=== PATIENT | male | born 1950 | race Caucasian/White ===

== ENCOUNTER → 2018-05-21 | Outpatient (CLI) | payer MEDICARE ==
[2018-05-21 09:47] LABS: POC GLUCOSE 132 mg/dL (70-99)
[2018-05-21] MEDS: REGADENOSON 0.4 MG/5 ML DISP.SYRIN. IV (09:53)
== END | disposition home or self-care (01) ==
LOC: NM 07:52
DX: I47.1 Supraventricular tachycardia (principal); I10 Essential (primary) hypertension; E11.9 Type 2 diabetes mellitus without complications; E87.5 Hyperkalemia; K21.0 Gastro-esophageal reflux disease with esophagitis
CPT/HCPCS: 78452; 82962; 93017; 96374; 96375; 96376; A9500; J2785

== ENCOUNTER 2019-03-11 22:43 | Emergency (ER) | payer MEDICARE ==
[~2019-03-11] VITALS: Ht 177.8 cm; Wt 90.7 kg
[~2019-03-11 22:43] MED LIST: AMLO10TA4 PO; CLON0.2T PO; GLIM1TAB PO; INSU100V13 SQ; METO-247 PO; PANT20TA2 PO
--- NOTE | 2019-03-11 23:19 | PHYS DOC ---
Past Medical History Past Medical History: Anxiety, Diabetes-Type II, Hypertension, Pancreatitis Past Surgical History: Other Additional Past Surgical Histo: CARDIAC CATH-NEGATIVE Alcohol Use: Occasionally Drug Use: None Adult General Chief Complaint Chief Complaint: HYPOGLYCEMIA HPI HPI Patient is a 68 year old M who was brought in my EMS for hypoglycemia. He was found down at home. EMS recorded a blood sugar of 31 on arrival. Pt. does not remember the event. He denies any bowel or bladder changes. He states that he last ate around 1pm today. He denies any chest pain, cough, fever, neck pain, or abdominal pain. He does have a long history of sciatica which was exacerbated after his fall. The pain is a 10/10 with radiation down his leg into the foot. He has been having trouble walking for the last two weeks because of this pain, but today it is worse than before. He has a history of diabetes but states that his doctor discontinued his medication on Sunday. He was taking Insulin and Glipizide and states that his last dose was yesterday, he did have a couple drinks today Review of Systems Review of Systems Constitutional: Denies fever or chills [] Eyes: Denies change in visual acuity, redness, or eye pain [] HENT: Denies nasal congestion or sore throat [] Respiratory: Denies cough or shortness of breath [] Cardiovascular: No additional information not addressed in HPI [] GI: Denies abdominal pain, nausea, vomiting, bloody stools or diarrhea [] : Denies dysuria or hematuria [] Musculoskeletal: Reports back pain [] I All other systems were reviewed and found to be within normal limits, except as documented in this note. Current Medications Current Medications Current Medications Medications (Trade) Dose Ordered Sig/[facility] Start Time Stop Time Status Last Admin Dose Admin Clonidine HCl (Catapres) 0.2 mg 1X ONCE 03/12/19 01:00 03/12/19 01:01 DC 03/12/19 01:01 0.2 MG Diazepam (Valium) 5 mg 1X ONCE 03/11/19 23:30 03/11/19 23:31 DC 03/11/19 23:29 5 MG Hydromorphone HCl (Dilaudid) 1 mg 1X ONCE 03/11/19 23:30 03/11/19 23:31 DC 03/11/19 23:29 1 MG Ketamine HCl (Ketamine) 20 mg 1X ONCE 03/11/19 23:30 03/11/19 23:31 DC Allergies Allergies Allergies Coded Allergies Type Severity Reaction Last Updated Verified No Known Drug Allergies 03/14/18 No Physical Exam Physical Exam Constitutional: Well developed, well nourished, moderate distress HENT: Normocephalic, atraumatic, bilateral external ears normal, oropharynx moist, no oral exudates, nose normal. [] Eyes: PERRLA, EOMI, conjunctiva normal, no discharge. [] Neck: Normal range of motion, no tenderness, supple, no stridor. [] Cardiovascular:Heart rate regular rhythm, no murmur [] Lungs & Thorax: Bilateral breath sounds clear to auscultation [] Abdomen: Bowel sounds normal, soft, no tenderness, no masses, no pulsatile masses. [] Skin: Warm, dry, contusion to left forehead. [] Back: Tender to palpation over right paraspinal area. [] Extremities: No tenderness, no cyanosis, no clubbing, ROM intact, no edema. [] Neurologic: Alert and oriented X 3, normal motor function, normal sensory function, no focal deficits noted. []mild tremor resolved on re-eval Psychologic: Affect normal, judgement normal, mood anxious Current Patient Data Vital Signs Vital Signs Date Time Temp Pulse Resp B/P (MAP) Pulse Ox O2 Delivery O2 Flow Rate FiO2 03/12/19 01:01 77 205/97 03/12/19 00:39 98 03/11/19 23:29 16 Room Air 03/11/19 22:47 97.7 97.7 Lab Values Laboratory Tests Test 03/11/19 22:54 03/12/19 00:05 03/12/19 00:41 White Blood Count 7.2 x10^3/uL (4.0-11.0) Red Blood Count 4.69 x10^6/uL (4.30-5.70) Hemoglobin 15.6 g/dL (13.0-17.5) Hematocrit 45.6 % (39.0-53.0) Mean Corpuscular Volume 97 fL (79-100) Mean Corpuscular Hemoglobin 33 pg (25-35) Mean Corpuscular Hemoglobin Concent 34 g/dL (31-37) Red Cell Distribution Width 12.9 % (11.5-14.5) Platelet Count 203 x10^3/uL (140-400) Neutrophils (%) (Auto) 78 % (31-73) H Lymphocytes (%) (Auto) 9 % (24-48) L Monocytes (%) (Auto) 11 % (0-9) H Eosinophils (%) (Auto) 1 % (0-3) Basophils (%) (Auto) 1 % (0-3) Neutrophils # (Auto) 5.6 x10^3uL (1.8-7.7) Lymphocytes # (Auto) 0.7 x10^3/uL (1.0-4.8) L Monocytes # (Auto) 0.8 x10^3/uL (0.0-1.1) Eosinophils # (Auto) 0.0 x10^3/uL (0.0-0.7) Basophils # (Auto) 0.1 x10^3/uL (0.0-0.2) Sodium Level 133 mmol/L (136-145) L Potassium Level 3.5 mmol/L (3.5-5.1) Chloride Level 96 mmol/L (98-107) L Carbon Dioxide Level 24 mmol/L (21-32) Anion Gap 13 (6-14) Blood Urea Nitrogen 9 mg/dL (8-26) Creatinine 0.8 mg/dL (0.7-1.3) Estimated GFR (Cockcroft-Gault) 96.4 BUN/Creatinine Ratio 11 (6-20) Glucose Level 75 mg/dL (70-99) Calcium Level 9.2 mg/dL (8.5-10.1) Total Bilirubin 1.6 mg/dL (0.2-1.0) H Aspartate Amino Transferase (AST) 99 U/L (15-37) H Alanine Aminotransferase (ALT) 89 U/L (16-63) H Alkaline Phosphatase 414 U/L (46-116) H Troponin I Quantitative < 0.017 ng/mL (0.000-0.055) Total Protein 8.2 g/dL (6.4-8.2) Albumin 3.2 g/dL (3.4-5.0) L Albumin/Globulin Ratio 0.6 (1.0-1.7) L Ethyl Alcohol Level 26 mg/dL (0-10) H Urine Collection Type Unknown Urine Color Yellow Urine Clarity Clear Urine pH 5.5 Urine Specific [place] 1.010 Urine Protein 100 mg/dL (NEG-TRACE) Urine Glucose (UA) Negative mg/dL (NEG) Urine Ketones (Stick) Negative mg/dL (NEG) Urine Blood Large (NEG) Urine Nitrite Negative (NEG) Urine Bilirubin Negative (NEG) Urine Urobilinogen Dipstick 1.0 mg/dL (0.2 mg/dL) Urine Leukocyte Esterase Negative (NEG) Urine RBC 6-10 /HPF (0-2) Urine WBC 1-4 /HPF (0-4) Urine Squamous Epithelial Cells Occ /LPF Urine Bacteria 0 /HPF (0-FEW) Urine Hyaline Casts Occasional /HPF Urine Mucus Slight /LPF Glucose (Fingerstick) 98 mg/dL (70-99) Laboratory Tests 03/11/19 22:54 Laboratory Tests 03/11/19 22:54 EKG EKG EKG sinus rhythm rate 70 no acute ischemic changes noted no STEMI QTC 467[] Radiology/Procedures Radiology/Procedures [] Impressions: ATIENT: PHOENIX FRANCISCO AACCOUNT: [id number]#: [id number] : 1950 LOCATION: ER AGE: 68 SEX: M EXAM STATUS: REG ER ORD. PHYSICIAN: MANJIT THOMAS MD REASON: TRAUAM, SYNCOPE, LOC PROCEDURE: CT HEAD AND CERVICAL SPINE WO CT scan of the head without contrast 03/11/2019 Clinical History: Head trauma. Syncope. Loss of consciousness. Technique: Unenhanced, contiguous, 5 mm axial sections were obtained through the head. One or more of the following individualized dose reduction techniques were utilized for this study: 1. Automated exposure control. 2. Adjustment of the mA and/or kV according to patient size. 3. Use of iterative reconstruction technique. Findings: Comparison study is dated 01/15/2015. There is generalized parenchymal atrophy. Areas of decreased attenuation are seen within the periventricular and subcortical white matter of both cerebral hemispheres consistent with areas of small vessel ischemic disease. No acute parenchymal abnormality is seen. No extra-axial fluid collection is noted. No skull fracture is seen. Mild to moderate mucosal thickening is seen involving both maxillary sinuses and scattered throughout the ethmoid air cells bilaterally. Impression: No acute intracranial abnormality is seen. CT scan of the cervical spine without contrast 03/11/2019 Clinical history: Trauma. Neck injury. Technique: Unenhanced, contiguous, 0.625 mm axial sections were obtained through the cervical spine. Axial, coronal and sagittal reconstructed images were obtained. One or more of the following individualized dose reduction techniques were utilized for this study: 1. Automated exposure control. 2. Adjustment of the mA and/or kV according to patient size. 3. Use of iterative reconstruction technique. Findings: Sagittal coronal reconstructed images demonstrate minimal lateral curvature of the cervical spine, convex to the left. There is mild straightening of the normal cervical lordosis. Degenerative changes consisting of vertebral endplate sclerosis and minimal to mild anterior and posterior vertebral body osteophyte formation are seen throughout the cervical disc spaces. Disc space narrowing is seen at C5-6. No fracture or subluxation cervical vertebrae seen. Degenerative changes are seen involving the uncovertebral and facet joints throughout the cervical disc spaces. Atherosclerotic calcification is seen in the region of the carotid bifurcations. Impression: No fracture or subluxation of the cervical vertebra is identified. Electronically signed by: Carlos Ragland MD (03/11/2019 11:57 PM) [facility] DICTATED and SIGNED BY: CARLOS RAGLAND MD DATE: 03/11/19 4261 The degree of inspiration is shallow. The cardiac silhouette is borderline enlarged. The thoracic aorta is minimally tortuous. No acute pulmonary infiltrate is seen. No pleural effusion or pneumothorax is noted. Degenerative changes are seen involving the thoracic spine and both shoulders. Impression: No acute abnormality is seen. Electronically signed by: Carlos Ragland MD (03/11/2019 11:52 PM) [facility] DICTATED and SIGNED BY: CARLOS RAGLAND MD DATE: 03/11/19 2689 Course & Med Decision Making Course & Med Decision Making Pertinent Labs and Imaging studies reviewed. (See chart for details) []68-year-old male brought in by his with hypoglycemia blood sugar was 31 he was found down in his bathroom. Likely related to alcohol use as well as recent sulfonylurea use yesterday and not eating dinner. Blood sugar remained stable in the emergency room on recheck after protein meal he had turkey sandwich. Other issues blood pressure was high we did give clonidine he has not yet had his nighttime dose of medications. Patient suffered from significant sciatica he has had this for several weeks here actually got a little bit better after the above pain medication. He has a follow-up appointment for an epidural steroid injection in 2 days. Advised to keep this appointment. He feels much much better after ER treatment trauma imaging was negative patient was reassured counseled on limitation of alcohol use and discharged in stable condition. With his . Good Nutrition As Well As Some Protein Again at Home before Going to Sleep Kenny aaronnomi. He was found face down he did not actually hit his back he says his back feels similar to how it has felt for couple of weeks next better in the emergency room after treatments I don't think imaging is necessary at this time. Dragon Disclaimer Dragon Disclaimer This electronic medical record was generated, in whole or in part, using a voice recognition dictation system. Departure Departure Impression: Primary Impression: Hypoglycemia Referrals: ERLINDA BHAGAT MD (PCP) MANJIT THOMAS MD March 11, 2019 23:19
[2019-03-11 23:23] LABS: BASO # 0.1 x10^3/uL (0.0-0.2); BASO % 1 % (0-3); EOS % 1 % (0-3); HEMATOCRIT 45.6 % (39.0-53.0); HEMOGLOBIN 15.6 g/dL (13.0-17.5); LYMPH # 0.7 x10^3/uL (1.0-4.8); LYMPH % 9 % (24-48); MEAN CORPUSCULAR HEMOGLOBIN 33 pg (25-35); MEAN CORPUSCULAR HGB CONC 34 g/dL (31-37); MEAN CORPUSCULAR VOLUME 97 fL (79-100); MONO # 0.8 x10^3/uL (0.0-1.1); MONO % 11 % (0-9); NEUT # 5.6 x10^3uL (1.8-7.7); NEUT % 78 % (31-73); PLATELET COUNT 203 x10^3/uL (140-400); RED BLOOD COUNT 4.69 x10^6/uL (4.30-5.70); RED CELL DISTRIBUTION WIDTH 12.9 % (11.5-14.5); WHITE BLOOD COUNT 7.2 x10^3/uL (4.0-11.0)
[2019-03-11] MEDS ORDERED: diazePAM 5 MG TABLET PO ONE (23:30)
[2019-03-11] MEDS ORDERED: HYDROmorphone 2 MG/ML VIAL IV ONE (23:30)
[2019-03-11] MEDS ORDERED: KETAMINE HCL IN NACL, ISO-OSM 50 MG/5 ML SYRINGE IV ONE (23:30)
[2019-03-11 23:31] LABS: CALCIUM 9.2 mg/dL (8.5-10.1); CREATININE 0.8 mg/dL (0.7-1.3); GFR 96.4; POTASSIUM 3.5 mmol/L (3.5-5.1)
[2019-03-11 23:37] LABS: ALBUMIN 3.2 g/dL (3.4-5.0); ALBUMIN/GLOBULIN RATIO 0.6 (1.0-1.7); TOTAL BILIRUBIN 1.6 mg/dL (0.2-1.0); TOTAL PROTEIN 8.2 g/dL (6.4-8.2)
--- NOTE | 2019-03-11 23:55 | RAD ---
AP portable chest radiograph 03/11/2019 Clinical History: Weakness. An AP erect portable digital radiograph of the chest was obtained. Comparison study is dated 03/15/2018. The degree of inspiration is shallow. The cardiac silhouette is borderline enlarged. The thoracic aorta is minimally tortuous. No acute pulmonary infiltrate is seen. No pleural effusion or pneumothorax is noted. Degenerative changes are seen involving the thoracic spine and both shoulders. Impression: No acute abnormality is seen. Electronically signed by: Carlos Ragland MD (03/11/2019 11:52 PM) [facility]
--- NOTE | 2019-03-12 | RAD ---
CT scan of the head without contrast 03/11/2019 Clinical History: Head trauma. Syncope. Loss of consciousness. Technique: Unenhanced, contiguous, 5 mm axial sections were obtained through the head. One or more of the following individualized dose reduction techniques were utilized for this study: 1. Automated exposure control. 2. Adjustment of the mA and/or kV according to patient size. 3. Use of iterative reconstruction technique. Findings: Comparison study is dated 01/15/2015. There is generalized parenchymal atrophy. Areas of decreased attenuation are seen within the periventricular and subcortical white matter of both cerebral hemispheres consistent with areas of small vessel ischemic disease. No acute parenchymal abnormality is seen. No extra-axial fluid collection is noted. No skull fracture is seen. Mild to moderate mucosal thickening is seen involving both maxillary sinuses and scattered throughout the ethmoid air cells bilaterally. Impression: No acute intracranial abnormality is seen. CT scan of the cervical spine without contrast 03/11/2019 Clinical history: Trauma. Neck injury. Technique: Unenhanced, contiguous, 0.625 mm axial sections were obtained through the cervical spine. Axial, coronal and sagittal reconstructed images were obtained. One or more of the following individualized dose reduction techniques were utilized for this study: 1. Automated exposure control. 2. Adjustment of the mA and/or kV according to patient size. 3. Use of iterative reconstruction technique. Findings: Sagittal coronal reconstructed images demonstrate minimal lateral curvature of the cervical spine, convex to the left. There is mild straightening of the normal cervical lordosis. Degenerative changes consisting of vertebral endplate sclerosis and minimal to mild anterior and posterior vertebral body osteophyte formation are seen throughout the cervical disc spaces. Disc space narrowing is seen at C5-6. No fracture or subluxation cervical vertebrae seen. Degenerative changes are seen involving the uncovertebral and facet joints throughout the cervical disc spaces. Atherosclerotic calcification is seen in the region of the carotid bifurcations. Impression: No fracture or subluxation of the cervical vertebra is identified. Electronically signed by: Carlos Ragland MD (03/11/2019 11:57 PM) [facility]
[2019-03-12 00:11] LABS: BILIRUBIN,URINE NEGATIVE (NEG); CLARITY,URINE CLEAR; COLOR,URINE YELLOW; NITRITE,URINE NEGATIVE (NEG); PH,URINE 5.5; PROTEIN,URINE 100 mg/dL (NEG-TRACE)
[2019-03-12 00:21] LABS: SQUAMOUS EPITHELIAL CELL,UR OCC /LPF
[2019-03-12 00:22] LABS: BACTERIA,URINE 0 /HPF (0-FEW); HYALINE CASTS, URINE OCCASIONAL /HPF
[2019-03-12] MEDS ORDERED: cloNIDine HCL 0.1 MG TABLET PO ONE (01:00)
[2019-03-12 01:01] VITALS: BP 205/97
--- NOTE | 2019-03-12 06:31 | EKG ---
[facility] [address] [place] [address] Test Date: 2019-03-11 Test Time: 23:23:31 Pat Name: PHOENIX FRANCISCO Department: Room: Gender: M Chief Radiologic Technologist: : 1950 Requested By: MANJIT THOMAS Order Number: [id number] Reading MD: Curtis Mae Measurements Intervals [place] Rate: 70 P: 90 [place]: 234 QRS: 0 QRSD: 102 T: 5 QT: 430 QTc: 467 Interpretive Statements SINUS RHYTHM PROLONGED [place] INTERVAL LEFTWARD AXIS ABNORMAL ECG Electronically Signed On 04-04-2019 11:59:50 CDT by Curtis Mae
[2019-03-14] MEDS ORDERED: GABA-585 PO (08:19)
[2019-03-14] MEDS ORDERED: mens multivitamin (08:23)
[2019-03-14] MEDS ORDERED: DOCU-109 PO (08:23)
[2019-03-14] MEDS ORDERED: FERR325T14 PO (08:23)
[2019-03-14] MEDS ORDERED: HYDR-2769 PO (08:23)
[2019-03-14] MEDS ORDERED: INDO50CA5 PO (08:23)
[2019-03-14] MEDS ORDERED: VENTOLIN HFA18 GM INH (08:23)
== END 2019-03-12 01:15 | disposition home or self-care (01) ==
LOC: ER 22:43
DX: E11.649 Type 2 diabetes mellitus with hypoglycemia without coma (principal); I10 Essential (primary) hypertension; F41.9 Anxiety disorder, unspecified
CPT/HCPCS: 36415; 70450; 71045; 72125; 80053; 81001; 82962; 84484; 85025; 93005; 96374; 99285; G0480; J1170

== ENCOUNTER → 2019-03-14 | Outpatient (CLI) | payer MEDICARE ==
[2019-03-12 01:01] VITALS: BP 205/97
[~2019-03-14] MED LIST changes: +AMOX1TAB11 PO; +BUDE0.5A NEB; +DOCU-109 PO; +FERR325T14 PO; +FOLI1TAB16 PO; +FURO40TA4 PO; +GABA-585 PO; +GUAI5SYR PO; +HYDR-2769 PO; +INDO50CA5 PO; +IOHEXOL 180 MG/ML 10 ML VIAL. ONE; +METF500T PO; +MULT1TAB90 PO; +THIA100T22 PO; +VENTOLIN HFA18 GM INH; +mens multivitamin; +methylPREDNISolone ACETATE 40 MG/ML VIAL. ONE; +methylPREDNISolone ACETATE 80 MG/ML VIAL. ONE
--- NOTE | 2019-03-15 01:16 | PAIN ---
DATE OF SERVICE: 03/14/2019 INITIAL CONSULTATION FOR PAIN CLINIC CHIEF COMPLAINT: Low back and right lower extremity pain. HISTORY OF PRESENT ILLNESS: This is a 68-year-old male who presents with history of pain in the low back, right lower extremity for many years, worse over the past 1 year or so and over the past month, has become significantly increased. The patient has seen his primary care as well as neurosurgeon, not recommending any surgery at this time. He has significant pain in the low back, right leg, posterior gluteus, posterior thigh, lateral thigh, anterior thigh, medial thigh, medial lower leg, into the ankle and foot involving some tingling in the toes. The patient reports it is constant now, sharp, throbbing, shooting. He is using a wheelchair to ambulate. He has tried crutches and usually uses 2 canes to ambulate. Over the past 4 weeks, it has been at its worst. The patient reports it awakens him from sleep about every 2 hours. It does not affect his bowel or bladder control, but does affect his ability to walk significantly and again, he is using a cane and is in a wheelchair today. The patient reports he has had previous physical therapies, epidural injections, trigger point injections and exercise, which he does currently, all of these have been going on since 2012 with good results with each of these. The patient reports he is taking gabapentin as well as hydrocodone both of which do decrease the pain by about 20-30%. The patient did have an MRI scan of the lumbar spine, an old film from 2013 shows prominent degenerative changes at L3-L4, L4-L5 and L5-S1 with disk protrusion, small to moderate size broad-based disk bulge at L4-L5 as well. The patient reports the pain is constant, sharp, throbbing and shooting. The patient rates his disability rate from 0-10, 10 being the worst, is a 10 in all categories except life support activities, which is a 9, 10 at self-care, sexual behavior, occupation, family home responsibilities, recreation, social activity. The patient reports no loss of motor function and no significant pain in the left leg, but significant fatigability with even standing or walking for more than 5-10 minutes with the right leg. PAST MEDICAL HISTORY: Significant for hypertension, type 2 diabetes, arthritis. PREVIOUS SURGERIES: Include left knee surgery, appendectomy and surgery on the right great toe. CURRENT MEDICATIONS: Include Protonix, hydrocodone, indomethacin, Ventolin inhaler, iron, Colace, Levemir, gabapentin, glimepiride, clonidine, Norvasc and metoprolol. ALLERGIES: The patient has no known drug allergies. SOCIAL HISTORY: The patient does not smoke, drinks alcohol about every other day 1-2 drinks. Does not use any illegal, illicit or recreational drug use. He is , lives with his spouse, lives locally in [place], [place]. Reports he is currently retired. FAMILY HISTORY: Significant for no major medical problems or conditions that he is aware of. REVIEW OF SYSTEMS: The patient's review of systems is positive for those items mentioned in history of present illness. All systems reviewed and otherwise negative. It is complete, full and well documented on the patient's chart. PHYSICAL EXAMINATION: VITAL SIGNS: The patient's blood pressure is 149/85, pulse is 64, respirations 18, temperature 98.6 degrees Fahrenheit. Height is 5 feet 10 inches, weight is 280 pounds. GENERAL: The patient is awake, alert, oriented, appropriate, very pleasant demeanor. The patient is accompanied by his spouse. HEENT: Head shows normocephalic, atraumatic. Extraocular movements are intact and symmetrical. Oral cavity: Mucous membranes moist and pink. Dentition is intact. NECK: Shows anterior throat supple without palpable lymphadenopathy noted. Swallow reflex is symmetrical. CHEST: Shows normal with inspection. Breath sounds clear to auscultation bilaterally. HEART: Shows S1, S2 clear. No murmurs auscultated. ABDOMEN: Soft, nontender, nondistended. No palpable organomegaly is noted. No rebound or guarding demonstrated. BACK: Shows spine grossly in the midline. Normal appearing thoracic kyphosis, some minor flattening of lumbar lordotic curvature. Lumbar paraspinous muscle shows symmetrical on inspection, with palpation shows some moderate tenderness diffusely throughout the upper, middle and lower distribution of paraspinous muscles bilaterally, but only diffusely. No tenderness over the spinous processes, sacrum or sacroiliac regions. The patient has good rotational motion of lumbar spine, both laterally greater than 10 degrees right and left as well as extension greater than 10 degrees, forward flexion 45 degrees without significant pain reported. EXTREMITIES: The patient's lower extremities show deep tendon reflexes 1+ in the patellar and tendo calcaneus tendons are equal. Motor exam is strong with 5/5 dorsiflexion, extension, quadriceps and hamstring flexion approximately 4 on a scale of 5 on the right, 5/5 on the left. Peripheral pulses are 1+ posterior tibia. No peripheral edema is noted. Lower extremities are warm and dry to touch, equal in color and appearance. Straight leg raising noted to be positive on the right at about 30-35 degrees, decreased with knee flexion, left side is negative. Gaenslen's and Bethel's maneuvers are negative bilaterally as well. The patient is able to stand, but with difficulty and needs assistance using both arms of the chair to rise from a sitting position. He is walking with a significant antalgic gait favoring the right lower extremity significantly using a cane in his left hand and again, he presented today in a wheelchair. The patient's skin shows warm and dry, good turgor. No edema. No sores, rashes or bruising throughout. IMPRESSION: 1. This is a 68-year-old male with a long history of low back and right lower extremity pain, worse over the past year and much worse over the past month with radicular quality in the right lower extremity. 2. MRI scan previously as noted. 3. Type 2 diabetes. 4. Hypertension. 5. Arthritis. PLAN: Options were discussed with the patient including conservative medical management, continued physical therapy, interventional technique. He would like to proceed with interventional techniques. We discussed a lumbar epidural steroid injection using description as well as anatomical models to describe the procedure. Risks were then discussed including, but not limited to, bleeding, infection, possibility of epidural hematoma, subsequent neurological compromise, dural puncture, headaches, spinal cord and/or nerve damage, side effects of steroid medication and poor results regarding pain control. The patient understands and wished to proceed. The patient will return to the clinic in approximately 2 weeks for followup, was counseled as to return appointment, activity level and side effects to be aware of. DIAGNOSES: Lumbar radiculopathy with lumbar degenerative disk disease, lumbar spinal stenosis. PROCEDURE: Lumbar epidural steroid injection, translaminar approach at L4-L5 level using C-arm fluoroscopic guidance under sterile prep and drape using local anesthetic. MEDICATION INJECTED: A total of 120 mg Depo-Medrol plus 10 mL of preservative-free normal saline and 2 mL of contrast. CONDITION AT DISCHARGE: Stable. The patient tolerated procedure well and had no complications. ILIANA LOPEZ MD DR: MIKO/jerry JOB#: [id number] / [id number] ERLINDA Cherry MD
== END | disposition home or self-care (01) ==
LOC: PNCL 07:38
PROVIDERS: ATTEND Anesthesiology
DX: M51.16 Intervertebral disc disorders with radiculopathy, lumbar region (principal); M48.061 Spinal stenosis, lumbar region without neurogenic claudication; I10 Essential (primary) hypertension; M19.90 Unspecified osteoarthritis, unspecified site; E11.9 Type 2 diabetes mellitus without complications; Z79.84 Long term (current) use of oral hypoglycemic drugs; Z90.49 Acquired absence of other specified parts of digestive tract; Z98.890 Other specified postprocedural states; Z79.899 Other long term (current) drug therapy; Z72.89 Other problems related to lifestyle
CPT/HCPCS: 62323; J1030; J1040; Q9965

== ENCOUNTER 2019-03-18 14:41 | Inpatient (IN) | payer MEDICARE ==
[~2019-03-18] VITALS: Ht 176.5 cm; Wt 100.8 kg
[~2019-03-18 14:41] MED LIST changes: -AMOX1TAB11 PO; -BUDE0.5A NEB; -FOLI1TAB16 PO; -FURO40TA4 PO; -GUAI5SYR PO; -IOHEXOL 180 MG/ML 10 ML VIAL. ONE; -METF500T PO; -MULT1TAB90 PO; -THIA100T22 PO; -methylPREDNISolone ACETATE 40 MG/ML VIAL. ONE; -methylPREDNISolone ACETATE 80 MG/ML VIAL. ONE
[2019-03-18] MEDS ORDERED: methylPREDNISolone SOD SUCC PF 125 MG/2 ML VIAL. IV ONE (14:45)
[2019-03-18] MEDS ORDERED: IPRATRPIUM/ALBUTEROL 0.5/2.5MG 3 ML NEBU. NEB ONE (14:45)
[2019-03-18 14:58] LABS: BASO % 0 % (0-3); EOS % 0 % (0-3); HEMATOCRIT 43.2 % (39.0-53.0); HEMOGLOBIN 14.6 g/dL (13.0-17.5); LYMPH # 0.9 x10^3/uL (1.0-4.8); LYMPH % 5 % (24-48); MEAN CORPUSCULAR HEMOGLOBIN 33 pg (25-35); MEAN CORPUSCULAR HGB CONC 34 g/dL (31-37); MEAN CORPUSCULAR VOLUME 97 fL (79-100); MONO # 2.4 x10^3/uL (0.0-1.1); MONO % 13 % (0-9); NEUT # 14.8 x10^3uL (1.8-7.7); NEUT % 82 % (31-73); PLATELET COUNT 254 x10^3/uL (140-400); RED BLOOD COUNT 4.44 x10^6/uL (4.30-5.70); RED CELL DISTRIBUTION WIDTH 12.9 % (11.5-14.5); WHITE BLOOD COUNT 18.2 x10^3/uL (4.0-11.0)
[2019-03-18] MEDS ORDERED: FUROSEMIDE 40 MG/4 ML VIAL. IVP ONE (15:00)
--- NOTE | 2019-03-18 15:08 | RAD ---
PORTABLE CHEST 1V History: Shortness of air, coughing up phlegm Comparison: March 11, 2019 Findings: Single view of the chest is submitted. There is mild opacity in the right suprahilar region. There is no dependent pleural fluid or pneumothorax. Heart size is stable, borderline enlarged. Impression: 1. There is mild right suprahilar opacity suspicious for mild infiltrate. Electronically signed by: Anthony Reid MD (03/18/2019 3:05 PM) [id number]
[2019-03-18 15:12] LABS: CALCIUM 9.7 mg/dL (8.5-10.1); GFR 74.5; POTASSIUM 5.1 mmol/L (3.5-5.1)
--- NOTE | 2019-03-18 15:15 | PHYS DOC ---
Past Medical History Past Medical History: Diabetes-Type II, Hypertension Past Surgical History: Appendectomy Additional Past Surgical Histo: L knee surgery, R toe surgery Alcohol Use: Rarely Drug Use: None Adult General Chief Complaint Chief Complaint: DYSPNEA/RESPIRATOY DISTRESS HPI HPI Patient is a 68 year old male was brought here by EMS emergently for acute respiratory distress. Patient said he was sitting in his room, suddenly started having trouble breathing. EMS found him to be in hypertensive stage as well. They put 1 inch of nitropaste on his chest, put on BiPAP. Patient was given 2 doses of DuoNeb on route here. Patient felt much better upon arrival to the ER. Patient said he has history of ASHTMA, HTN. Patient also drinks alcohol socially. He said he abdomen got more distended the last two days. Patient denied any chest pain, no abdominal pain. No fever. Review of Systems Review of Systems Constitutional: Denies fever or chills [] Eyes: Denies change in visual acuity, redness, or eye pain [] HENT: Denies nasal congestion or sore throat [] Respiratory: Positive for shortness of breath [] Cardiovascular: No additional information not addressed in HPI [] GI: Denies abdominal pain, nausea, vomiting, bloody stools or diarrhea. Positive for abdominal distention. : Denies dysuria or hematuria [] Musculoskeletal: Denies back pain or joint pain [] Integument: Denies rash or skin lesions [] Neurologic: Denies headache, focal weakness or sensory changes [] Endocrine: Denies polyuria or polydipsia [] All other systems were reviewed and found to be within normal limits, except as documented in this note. Current Medications Current Medications Current Medications Medications (Trade) Dose Ordered Sig/Eyad Start Time Stop Time Status Last Admin Dose Admin Albuterol/ Ipratropium (Duoneb) 3 ml RTQID 03/18/19 16:00 03/19/19 15:59 Furosemide (Lasix) 60 mg 1X ONCE 03/18/19 15:00 03/18/19 15:01 DC 03/18/19 15:01 60 MG Methylprednisolone Sodium Succinate (SOLU-Medrol 125MG VIAL) 125 mg 1X ONCE 03/18/19 14:45 03/18/19 14:49 DC 03/18/19 15:01 125 MG Ondansetron HCl (Zofran) 4 mg PRN Q8HRS PRN 03/18/19 15:45 03/19/19 15:44 Piperacillin Sod/ Tazobactam Sod 3.375 gm/Sodium Chloride 50 ml @ 100 mls/hr 1X ONCE 03/18/19 15:30 03/18/19 15:59 DC 03/18/19 15:31 100 MLS/HR Vancomycin HCl (Vanco Per Pharmacy) 1 each PRN DAILY PRN 03/18/19 15:30 UNV Vancomycin HCl 2 gm/Sodium Chloride 500 ml @ 250 mls/hr 1X ONCE 03/18/19 15:30 03/18/19 17:29 03/18/19 15:31 250 MLS/HR Allergies Allergies Allergies Coded Allergies Type Severity Reaction Last Updated Verified No Known Drug Allergies 03/14/18 No Physical Exam Physical Exam Constitutional: Well developed, well nourished, in moderate acute distress due to shortness of air, non-toxic appearance. [] HENT: Normocephalic, atraumatic, bilateral external ears normal, oropharynx moist, no oral exudates, nose normal. [] Eyes: PERRLA, EOMI, conjunctiva normal, no discharge. [] Neck: Normal range of motion, no tenderness, supple, no stridor. [] Cardiovascular:Heart rate regular rhythm, no murmur [] Lungs & Thorax: Bilateral breath sound with rales, and crackles at bases, with expiratory wheezing. Abdomen: abdomen is distended, nontender, there is a reducible umbillical hernia. Skin: Warm, dry, no erythema, no rash. [] Back: No tenderness, no CVA tenderness. [] Extremities: No tenderness, no cyanosis, no clubbing, ROM intact, Bilateral lower extremities pitting edema, 2 plus. Neurologic: Alert and oriented X 3, normal motor function, normal sensory function, no focal deficits noted. [] Psychologic: Affect normal, judgement normal, mood normal. [] Current Patient Data Vital Signs Vital Signs Date Time Temp Pulse Resp B/P (MAP) Pulse Ox O2 Delivery O2 Flow Rate FiO2 03/18/19 15:10 94 Nasal Cannula 3.0 03/18/19 14:41 98.9 109 20 180/94 (122) 98.9 Lab Values Laboratory Tests Test 5/21/19 14:45 03/18/19 15:10 White Blood Count 18.2 x10^3/uL (4.0-11.0) H Red Blood Count 4.44 x10^6/uL (4.30-5.70) Hemoglobin 14.6 g/dL (13.0-17.5) Hematocrit 43.2 % (39.0-53.0) Mean Corpuscular Volume 97 fL (79-100) Mean Corpuscular Hemoglobin 33 pg (25-35) Mean Corpuscular Hemoglobin Concent 34 g/dL (31-37) Red Cell Distribution Width 12.9 % (11.5-14.5) Platelet Count 254 x10^3/uL (140-400) Neutrophils (%) (Auto) 82 % (31-73) H Lymphocytes (%) (Auto) 5 % (24-48) L Monocytes (%) (Auto) 13 % (0-9) H Eosinophils (%) (Auto) 0 % (0-3) Basophils (%) (Auto) 0 % (0-3) Neutrophils # (Auto) 14.8 x10^3uL (1.8-7.7) H Lymphocytes # (Auto) 0.9 x10^3/uL (1.0-4.8) L Monocytes # (Auto) 2.4 x10^3/uL (0.0-1.1) H Eosinophils # (Auto) 0.0 x10^3/uL (0.0-0.7) Basophils # (Auto) 0.0 x10^3/uL (0.0-0.2) Segmented Neutrophils % 84 % (35-66) H Lymphocytes % 6 % (24-48) L Monocytes % 10 % (0-10) Platelet Estimate Adequate (ADEQUATE) Prothrombin Time 15.0 SEC (11.7-14.0) H Prothrombin Time INR 1.2 (0.8-1.1) H PTT 29 SEC (24-38) Sodium Level 126 mmol/L (136-145) L Potassium Level 5.1 mmol/L (3.5-5.1) Chloride Level 88 mmol/L (98-107) L Carbon Dioxide Level 29 mmol/L (21-32) Anion Gap 9 (6-14) Blood Urea Nitrogen 18 mg/dL (8-26) Creatinine 1.0 mg/dL (0.7-1.3) Estimated GFR (Cockcroft-Gault) 74.5 BUN/Creatinine Ratio 18 (6-20) Glucose Level 236 mg/dL (70-99) H Lactic Acid Level 2.2 mmol/L (0.4-2.0) H Calcium Level 9.7 mg/dL (8.5-10.1) Total Bilirubin 2.4 mg/dL (0.2-1.0) H Aspartate Amino Transferase (AST) 65 U/L (15-37) H Alanine Aminotransferase (ALT) 68 U/L (16-63) H Alkaline Phosphatase 370 U/L (46-116) H Ammonia 23 mcmol/L (11-34) Creatine Kinase 80 U/L (39-308) Creatine Kinase MB (Mass) 1.3 ng/mL (0.0-3.6) Creatine Kinase MB Relative Index 1.6 % (0-4) Troponin I Quantitative < 0.017 ng/mL (0.000-0.055) WZ-Bwn-B-Type Natriuretic Peptide 1866 pg/mL (0-124) H Total Protein 8.3 g/dL (6.4-8.2) H Albumin 3.5 g/dL (3.4-5.0) Albumin/Globulin Ratio 0.7 (1.0-1.7) L Lipase 90 U/L (73-393) Ethyl Alcohol Level < 10 mg/dL (0-10) O2 Saturation 91 % (92-99) L Arterial Blood pH 7.44 (7.35-7.45) Arterial Blood pCO2 at Patient Temp 40 mmHg (35-46) Arterial Blood pO2 at Patient Temp 59 mmHg (65-108) L Arterial Blood HCO3 27 mmol/L (21-28) Arterial Blood Base Excess 3 mmol/L (-3-3) Oxyhemoglobin 90.6 % Methemoglobin 0.4 % (0.0-1.9) Carbon Monoxide, Quantitative 0.5 % (0.0-1.9) FiO2 32 Laboratory Tests 03/18/19 14:45 Laboratory Tests 03/18/19 14:45 EKG EKG EKG WAS READ BY THIS PHYSICIAN AT 1448, RATE OF 103 , SINUS TACHYCARDIA, NO STEMI. Radiology/Procedures Radiology/Procedures [facility] [address] [place] [address] IMAGING REPORT Signed PATIENT: PHOENIX FRANCISCO ACCOUNT: [id number] : 1950 LOCATION: ER AGE: 68 SEX: M EXAM STATUS: REG ER ORD. PHYSICIAN: KITTY ZARAGOZA DO REASON: soa/coughing up phlegm PROCEDURE: PORTABLE CHEST 1V PORTABLE CHEST 1V History: Shortness of air, coughing up phlegm Comparison: March 11, 2019 Findings: Single view of the chest is submitted. There is mild opacity in the right suprahilar region. There is no dependent pleural fluid or pneumothorax. Heart size is stable, borderline enlarged. Impression: 1. There is mild right suprahilar opacity suspicious for mild infiltrate. Electronically signed by: Cesar Mobley MD (03/18/2019 3:05 PM) [facility] DICTATED and SIGNED BY: CESAR MOBLEY MD DATE: 03/18/19 1505 [facility] [address] [place] [address] IMAGING REPORT Signed PATIENT: PHOENIX FRANCISCO ACCOUNT: [id number] : 1950 LOCATION: ER AGE: 68 SEX: M EXAM STATUS: REG ER ORD. PHYSICIAN: KITTY ZARAGOZA DO REASON: abdominal distension, ? ascites PROCEDURE: ABDOMEN LTD EXAM: Abdomen sonogram. HISTORY: Distention. Possible ascites. TECHNIQUE: Sonographic imaging of the abdomen was performed. COMPARISON: CT dated 03/13/2018. FINDINGS: There is a small amount of abdominal ascites. The decubitus ascites pockets is seen within the midline measuring 7.1 cm. IMPRESSION: Small amount of abdominal ascites. Electronically signed by: June Levine MD (03/18/2019 4:11 PM) [facility] DICTATED and SIGNED BY: JUNE LEVINE MD DATE: 03/18/19 1611 Course & Med Decision Making Course & Med Decision Making Pertinent Labs and Imaging studies reviewed. (See chart for details) [] Dragon Disclaimer Dragon Disclaimer This electronic medical record was generated, in whole or in part, using a voice recognition dictation system. Departure Departure Impression: Primary Impression: Acute pulmonary edema Additional Impressions: Pneumonia Ascites Disposition: 09 ADMITTED INPATIENT Admitting Physician: Idris Winslow Condition: IMPROVED Referrals: ERLINDA BHAGAT MD (PCP) Problem Qualifiers KITTY ZARAGOZA DO March 18, 2019 15:15
[2019-03-18 15:17] LABS: ALBUMIN 3.5 g/dL (3.4-5.0); ALBUMIN/GLOBULIN RATIO 0.7 (1.0-1.7); TOTAL BILIRUBIN 2.4 mg/dL (0.2-1.0); TOTAL PROTEIN 8.3 g/dL (6.4-8.2)
[2019-03-18 15:21] LABS: BASE EXCESS COOX 3 mmol/L (-3-3); HCO3 COOX 27 mmol/L (21-28); METHEMOGLOBIN 0.4 % (0.0-1.9); OXYHEMOGLOBIN 90.6 %; PCO2 COOX 40 mmHg (35-46); PO2 COOX 59 mmHg (65-108); SAT O2 COOX 91 % (92-99)
[2019-03-18] MEDS ORDERED: VANCOMYCIN 2 GM in IV NORMAL SALINE 500ML BAG 500 ML IV ONE (15:30)
[2019-03-18] MEDS ORDERED: PIPERACILLIN/TAZOBACTAM 3.375 GM in IV NORMAL SALINE 50ML 50 ML IV ONE (15:30)
--- NOTE | 2019-03-18 15:30 | EKG ---
[facility] [address] [place] [address] Test Date: 2019-03-18 Test Time: 14:47:28 Pat Name: PHOENIX FRANCISCO Department: Room: Gender: M [employer]: : 1950 Requested By: KITTY ZARAGOZA Order Number: [id number] Reading MD: Measurements Intervals [place] Rate: 103 P: 53 MT: 206 QRS: 10 QRSD: 88 T: 76 QT: 320 QTc: 421 Interpretive Statements SINUS TACHYCARDIA PROLONGED MT INTERVAL T ABNORMALITY IN HIGH LATERAL LEADS ABNORMAL ECG RI6.01 Unconfirmed report No previous ECG available for comparison
[2019-03-18] MEDS ORDERED: ONDANSETRON PF 4 MG/2 ML VIAL. IV PRN (15:45)
[2019-03-18 15:55] LABS: % LYMPHS 6 % (24-48); % MONOS 10 % (0-10); % SEGS 84 % (35-66); PLT ESTIMATE ADEQUATE (ADEQUATE)
[2019-03-18] MEDS ORDERED: IPRATRPIUM/ALBUTEROL 0.5/2.5MG 3 ML NEBU. NEB SCH (16:00)
--- NOTE | 2019-03-18 16:09 | PDOC1 ---
History and Physical Date of Admission Date of Admission DATE: 03/18/19 TIME: 16:09 Identification/Chief Complaint Chief Complaint seen in ER 68 year old male was brought here by EMS emergently for acute respiratory distress. Patient said he was sitting in his room, suddenly started having trouble breathing. EMS found him to be hypertensive as well. They put 1 inch of nitropaste on his chest, put on BiPAP. Patient was given 2 doses of DuoNeb on route here has hx mod alcohol use, remote heavy use Past Medical History Past Medical History Past Medical History Past Medical History Past Medical History: Diabetes-Type II, Hypertension Past Surgical History: Appendectomy Additional Past Surgical Histo: L knee surgery, R toe surgery Alcohol Use: MODERATE Drug Use: None PAST MEDICAL HISTORY Cardiovascular: HTN Pulmonary: No pertinent hx CENTRAL NERVOUS SYSTEM: Other (No pertinent history) GI: No pertinent hx Hepatobiliary: Other (pancreatitis) Musculoskeletal: low back pain, Osteoarthritis Rheumatologic: No pertinent hx Infectious disease: No pertinent hx ENT: No pertinent hx Renal/: No pertinent hx Endocrine: Diabetes (2) Dermatology: No pertinent hx PAST SURGICAL HISTORY Past Surgical History: Appendectomy, Arthroscopy (left knee), Other ([facility] 20 yrs ago nml per pt; right toe spur removal) FAMILY HISTORY Family History noncontributory SOCIAL HISTORY Smoke: Quit ALCOHOL: other (2 beers a day, used to consume heavy ETOH) Drugs: None Lives: with Family Cardiovascular: HTN Pulmonary: No pertinent hx CENTRAL NERVOUS SYSTEM: Other GI: No pertinent hx Hepatobiliary: Other Musculoskeletal: low back pain, Osteoarthritis Rheumatologic: No pertinent hx Infectious disease: No pertinent hx Renal/: No pertinent hx Endocrine: Diabetes Past Surgical History Past Surgical History: Appendectomy, Arthroscopy, Other Family History Family History: Hypertension Social History Smoke: <1 pack per day ALCOHOL: heavy Drugs: None Current Problem List Problem List Problems Medical Problems: (1) Acute pulmonary edema Status: Acute (2) Pneumonia Status: Acute Current Medications Current Medications Current Medications Albuterol/ Ipratropium (Duoneb) 3 ml 1X ONCE NEB Last administered on at 15:15; Start 03/18/19 at 14:45; Stop 03/18/19 at 14:49; Status DC Methylprednisolone Sodium Succinate (SOLU-Medrol 125MG VIAL) 125 mg 1X ONCE IV Last administered on 03/18/19at 15:01; Start 03/18/19 at 14:45; Stop 03/18/19 at 14:49; Status DC Furosemide (Lasix) 60 mg 1X ONCE IVP Last administered on 03/18/19at 15:01; Start 03/18/19 at 15:00; Stop 03/18/19 at 15:01; Status DC Piperacillin Sod/ Tazobactam Sod 3.375 gm/Sodium Chloride 50 ml @ 100 mls/hr 1X ONCE IV Last administered on 03/18/19at 15:31; Start 03/18/19 at 15:30; Stop 03/18/19 at 15:59; Status DC Vancomycin HCl (Vanco Per Pharmacy) 1 each PRN DAILY PRN MC SEE COMMENTS; Start 03/18/19 at 15:30; Status UNV Vancomycin HCl 2 gm/Sodium Chloride 500 ml @ 250 mls/hr 1X ONCE IV Last administered on 03/18/19at 15:31; Start 03/18/19 at 15:30; Stop 03/18/19 at 17:29 Ondansetron HCl (Zofran) 4 mg PRN Q8HRS PRN IV NAUSEA/VOMITING; Start 03/18/19 at 15:45; Stop 03/19/19 at 15:44 Albuterol/ Ipratropium (Duoneb) 3 ml RTQID NEB ; Start 03/18/19 at 16:00; Stop 03/19/19 at 15:59 Active Scripts Active Protonix (Pantoprazole Sodium) 20 Mg Tablet.dr 40 Mg PO DAILY 90 Days Reported Ventolin Hfa Inhaler (Albuterol Sulfate) 18 Gm Hfa.aer.ad 1 Puff INH QID Indomethacin 50 Mg Capsule 1 Cap PO DAILY Hydrocodone-Apap 10-325 (Hydrocodone Bit/Acetaminophen) 1 Tab Tablet 1 Tab PO PRN Q6HRS PRN Ferrous Sulfate 325 Mg Tablet 325 Mg PO BID [mens multivitamin] 1 DAILY Colace (Docusate Sodium) 100 Mg Capsule 100 Mg PO DAILY Gabapentin (Gabapentin) 100 Mg Capsule 100 Mg PO TID Metoprolol Succinate ( Xl ) (Metoprolol Succinate) 100 Mg Tab.er.24h 100 Mg PO DAILY Levemir (Insulin Detemir) 100 Unit/1 Ml Vial 10 Unit SQ HS 30 Days Norvasc (Amlodipine Besylate) 10 Mg Tablet 10 Mg PO DAILY Clonidine Hcl 0.2 Mg Tablet 0.2 Mg PO TID Amaryl (Glimepiride) 1 Mg Tablet 2 Tab PO BIDWMEALS Allergies Allergies: Coded Allergies: No Known Drug Allergies (Unverified , 03/14/18) ROS Review of System Review of Systems Review of Systems Constitutional: Denies fever or chills [] Eyes: Denies change in visual acuity, redness, or eye pain [] HENT: Denies nasal congestion or sore throat [] Respiratory: POS shortness of breath [] Cardiovascular: No additional information not addressed in HPI [] GI: Denies abdominal pain, nausea, vomiting, bloody stools or diarrhea, POS BLOATING [] : Denies dysuria or hematuria [] Musculoskeletal: Denies back pain or joint pain [] Integument: Denies rash or skin lesions [] Neurologic: Denies headache, focal weakness or sensory changes [] Endocrine: Denies polyuria or polydipsia [] 14 PT systems were reviewed and found to be within normal limits, except as documented General: YES: Fatigue PSYCHOLOGICAL ROS: No: Anxiety, Behavioral Disorder, Concentration difficultie, Decreased libido, Depression, Disorientation, Hallucinations, Hostility, Irritablity, Memory difficulties, Mood Swings, Obsessive thoughts, Physical abuse, Sexual abuse, Sleep disturbances, Suicidal ideation, Other Respiratory: YES: Shortness of breath Gastrointestinal: Yes Other (BLOATING) Physical Exam Physical Exam Physical Exam Physical Exam Constitutional: Well developed, well nourished, no acute distress, non-toxic appearance. [] HENT: Normocephalic, atraumatic, bilateral external ears normal, oropharynx moist, no oral exudates, nose normal. [] Eyes: PERRLA, EOMI, conjunctiva normal, no discharge. [] Neck: Normal range of motion, no tenderness, supple, no stridor. [] Cardiovascular:Heart rate regular rhythm, no murmur [] Lungs & Thorax: Bilateral breath sounds clear to auscultation [] Abdomen: Bowel sounds normal, soft, VERY OBESE no tenderness, no masses, no pulsatile masses. [] Skin: Warm, dry, no erythema, no rash. [] Back: No tenderness, no CVA tenderness. [] Extremities: No tenderness, no cyanosis, no clubbing, ROM intact, 2 plus pedal bilateral edema. [] Neurologic: Alert and oriented X 3, normal motor function, normal sensory function, no focal deficits noted. [] Psychologic: Affect normal, judgement normal, mood normal. [] General: Alert, Oriented X3, Cooperative, mild distress HEENT: Mucous membr. moist/pink Lungs: Normal air movement Heart: RRR Breasts: Not examined Abdomen: Soft, No tenderness Rectal Exam: not examined PELVIC: Examination not indicated Extremities: No cyanosis, Other (2 plus ankle edma) Neuro: Normal speech, Cranial nerves 3-12 NL Psych/Mental Status: Mental status NL, Mood NL Vitals Vitals Vital Signs Date Time Temp Pulse Resp B/P (MAP) Pulse Ox O2 Delivery O2 Flow Rate FiO2 03/18/19 15:10 94 Nasal Cannula 3.0 03/18/19 14:41 98.9 109 20 180/94 (122) 98.9 Labs Labs Laboratory Tests Test 03/18/19 14:45 03/18/19 15:10 White Blood Count 18.2 x10^3/uL (4.0-11.0) Red Blood Count 4.44 x10^6/uL (4.30-5.70) Hemoglobin 14.6 g/dL (13.0-17.5) Hematocrit 43.2 % (39.0-53.0) Mean Corpuscular Volume 97 fL (79-100) Mean Corpuscular Hemoglobin 33 pg (25-35) Mean Corpuscular Hemoglobin Concent 34 g/dL (31-37) Red Cell Distribution Width 12.9 % (11.5-14.5) Platelet Count 254 x10^3/uL (140-400) Neutrophils (%) (Auto) 82 % (31-73) Lymphocytes (%) (Auto) 5 % (24-48) Monocytes (%) (Auto) 13 % (0-9) Eosinophils (%) (Auto) 0 % (0-3) Basophils (%) (Auto) 0 % (0-3) Neutrophils # (Auto) 14.8 x10^3uL (1.8-7.7) Lymphocytes # (Auto) 0.9 x10^3/uL (1.0-4.8) Monocytes # (Auto) 2.4 x10^3/uL (0.0-1.1) Eosinophils # (Auto) 0.0 x10^3/uL (0.0-0.7) Basophils # (Auto) 0.0 x10^3/uL (0.0-0.2) Segmented Neutrophils % 84 % (35-66) Lymphocytes % 6 % (24-48) Monocytes % 10 % (0-10) Platelet Estimate Adequate (ADEQUATE) Prothrombin Time 15.0 SEC (11.7-14.0) Prothromb Time International Ratio 1.2 (0.8-1.1) Activated Partial Thromboplast Time 29 SEC (24-38) Sodium Level 126 mmol/L (136-145) Potassium Level 5.1 mmol/L (3.5-5.1) Chloride Level 88 mmol/L (98-107) Carbon Dioxide Level 29 mmol/L (21-32) Anion Gap 9 (6-14) Blood Urea Nitrogen 18 mg/dL (8-26) Creatinine 1.0 mg/dL (0.7-1.3) Estimated GFR (Cockcroft-Gault) 74.5 BUN/Creatinine Ratio 18 (6-20) Glucose Level 236 mg/dL (70-99) Lactic Acid Level 2.2 mmol/L (0.4-2.0) Calcium Level 9.7 mg/dL (8.5-10.1) Total Bilirubin 2.4 mg/dL (0.2-1.0) Aspartate Amino Transf (AST/SGOT) 65 U/L (15-37) Alanine Aminotransferase (ALT/SGPT) 68 U/L (16-63) Alkaline Phosphatase 370 U/L (46-116) Ammonia 23 mcmol/L (11-34) Creatine Kinase 80 U/L (39-308) Creatine Kinase MB (Mass) 1.3 ng/mL (0.0-3.6) Creatine Kinase MB Relative Index 1.6 % (0-4) Troponin I Quantitative < 0.017 ng/mL (0.000-0.055) VP-Xib-O-Type Natriuretic Peptide 1866 pg/mL (0-124) Total Protein 8.3 g/dL (6.4-8.2) Albumin 3.5 g/dL (3.4-5.0) Albumin/Globulin Ratio 0.7 (1.0-1.7) Lipase 90 U/L (73-393) Ethyl Alcohol Level < 10 mg/dL (0-10) O2 Saturation 91 % (92-99) Arterial Blood pH 7.44 (7.35-7.45) Arterial Blood pCO2 at Patient Temp 40 mmHg (35-46) Arterial Blood pO2 at Patient Temp 59 mmHg (65-108) Arterial Blood HCO3 27 mmol/L (21-28) Arterial Blood Base Excess 3 mmol/L (-3-3) Oxyhemoglobin 90.6 % Methemoglobin 0.4 % (0.0-1.9) Carbon Monoxide, Quantitative 0.5 % (0.0-1.9) FiO2 32 Laboratory Tests Test 03/18/19 14:45 03/18/19 15:10 White Blood Count 18.2 x10^3/uL (4.0-11.0) Red Blood Count 4.44 x10^6/uL (4.30-5.70) Hemoglobin 14.6 g/dL (13.0-17.5) Hematocrit 43.2 % (39.0-53.0) Mean Corpuscular Volume 97 fL (79-100) Mean Corpuscular Hemoglobin 33 pg (25-35) Mean Corpuscular Hemoglobin Concent 34 g/dL (31-37) Red Cell Distribution Width 12.9 % (11.5-14.5) Platelet Count 254 x10^3/uL (140-400) Neutrophils (%) (Auto) 82 % (31-73) Lymphocytes (%) (Auto) 5 % (24-48) Monocytes (%) (Auto) 13 % (0-9) Eosinophils (%) (Auto) 0 % (0-3) Basophils (%) (Auto) 0 % (0-3) Neutrophils # (Auto) 14.8 x10^3uL (1.8-7.7) Lymphocytes # (Auto) 0.9 x10^3/uL (1.0-4.8) Monocytes # (Auto) 2.4 x10^3/uL (0.0-1.1) Eosinophils # (Auto) 0.0 x10^3/uL (0.0-0.7) Basophils # (Auto) 0.0 x10^3/uL (0.0-0.2) Segmented Neutrophils % 84 % (35-66) Lymphocytes % 6 % (24-48) Monocytes % 10 % (0-10) Platelet Estimate Adequate (ADEQUATE) Prothrombin Time 15.0 SEC (11.7-14.0) Prothromb Time International Ratio 1.2 (0.8-1.1) Activated Partial Thromboplast Time 29 SEC (24-38) Sodium Level 126 mmol/L (136-145) Potassium Level 5.1 mmol/L (3.5-5.1) Chloride Level 88 mmol/L (98-107) Carbon Dioxide Level 29 mmol/L (21-32) Anion Gap 9 (6-14) Blood Urea Nitrogen 18 mg/dL (8-26) Creatinine 1.0 mg/dL (0.7-1.3) Estimated GFR (Cockcroft-Gault) 74.5 BUN/Creatinine Ratio 18 (6-20) Glucose Level 236 mg/dL (70-99) Lactic Acid Level 2.2 mmol/L (0.4-2.0) Calcium Level 9.7 mg/dL (8.5-10.1) Total Bilirubin 2.4 mg/dL (0.2-1.0) Aspartate Amino Transf (AST/SGOT) 65 U/L (15-37) Alanine Aminotransferase (ALT/SGPT) 68 U/L (16-63) Alkaline Phosphatase 370 U/L (46-116) Ammonia 23 mcmol/L (11-34) Creatine Kinase 80 U/L (39-308) Creatine Kinase MB (Mass) 1.3 ng/mL (0.0-3.6) Creatine Kinase MB Relative Index 1.6 % (0-4) Troponin I Quantitative < 0.017 ng/mL (0.000-0.055) MT-Tac-W-Type Natriuretic Peptide 1866 pg/mL (0-124) Total Protein 8.3 g/dL (6.4-8.2) Albumin 3.5 g/dL (3.4-5.0) Albumin/Globulin Ratio 0.7 (1.0-1.7) Lipase 90 U/L (73-393) Ethyl Alcohol Level < 10 mg/dL (0-10) O2 Saturation 91 % (92-99) Arterial Blood pH 7.44 (7.35-7.45) Arterial Blood pCO2 at Patient Temp 40 mmHg (35-46) Arterial Blood pO2 at Patient Temp 59 mmHg (65-108) Arterial Blood HCO3 27 mmol/L (21-28) Arterial Blood Base Excess 3 mmol/L (-3-3) Oxyhemoglobin 90.6 % Methemoglobin 0.4 % (0.0-1.9) Carbon Monoxide, Quantitative 0.5 % (0.0-1.9) FiO2 32 Images Images EXAM: Abdomen sonogram. HISTORY: Distention. Possible ascites. TECHNIQUE: Sonographic imaging of the abdomen was performed. COMPARISON: CT dated 03/13/2018. FINDINGS: There is a small amount of abdominal ascites. The decubitus ascites pockets is seen within the midline measuring 7.1 cm. IMPRESSION: Small amount of abdominal ascites. Electronically signed by: June Baron MD (03/18/2019 4:11 PM) [facility] History: Shortness of air, coughing up phlegm Comparison: March 11, 2019 Findings: Single view of the chest is submitted. There is mild opacity in the right suprahilar region. There is no dependent pleural fluid or pneumothorax. Heart size is stable, borderline enlarged. Impression: 1. There is mild right suprahilar opacity suspicious for mild infiltrate. Electronically signed by: Cesar Mobley MD (03/18/2019 3:05 PM) [facility] DICTATED and SIGNED BY: CESAR MOBLEY MD VTE Prophylaxis Ordered VTE Prophylaxis Devices: Yes VTE Pharmacological Prophylaxi: Yes Assessment/Plan Assessment/Plan IMPRESSION 1. Acute hypoxic resp failure 2. hx alcohol abuse 3. transaminitis 4. small amount of abdominal ascites. The decubitus ascites pockets is seen within the midline measuring 7.1 cm 5. tobacco abuse 6. hx diabetes 7. morbid obesity 8. mild right suprahilar opacity suspicious for mild infiltrate. plan admit abd sono o2 support PRN GI consult pulm consult dvt prophylaxis GI PROPHYLAXIS ALCOHOL WITHDRAWAL precautions duonebs qid iv solumedrol taper accuchecks ss insulin iv emperic antibiotics 76 MIN PT EXAM, CHART REVIEW, > 50% OF TIME SPENT WITH EXAM, CHART REVIEW, pt care coordination DOLLY CRUZ MD March 18, 2019 16:09
--- NOTE | 2019-03-18 16:14 | RAD ---
EXAM: Abdomen sonogram. HISTORY: Distention. Possible ascites. TECHNIQUE: Sonographic imaging of the abdomen was performed. COMPARISON: CT dated 03/13/2018. FINDINGS: There is a small amount of abdominal ascites. The decubitus ascites pockets is seen within the midline measuring 7.1 cm. IMPRESSION: Small amount of abdominal ascites. Electronically signed by: June Baron MD (03/18/2019 4:11 PM) [facility]
[2019-03-18 16:25] LABS: BILIRUBIN,URINE NEGATIVE (NEG); CLARITY,URINE CLEAR; COLOR,URINE YELLOW; NITRITE,URINE NEGATIVE (NEG); PROTEIN,URINE 100 mg/dL (NEG-TRACE)
[2019-03-18 16:31] LABS: BACTERIA,URINE 0 /HPF (0-FEW); SQUAMOUS EPITHELIAL CELL,UR OCC /LPF; WBC,URINE 0 /HPF (0-4)
[2019-03-18] MEDS ORDERED: HALOPERIDOL LACTATE 5 MG/ML VIAL. IVP PRN (16:45)
[2019-03-18] MEDS ORDERED: LORazepam 1 MG TABLET PO PRN ×2 (16:45)
[2019-03-18] MEDS ORDERED: DEXTROSE 50% 25 GM / 50ML DISP.SYRIN. IV PRN (16:45)
[2019-03-18] MEDS: PANTOPRAZOLE 40 MG TABLET.DR. PO SCH (16:45)
[2019-03-18] MEDS ORDERED: cloNIDine HCL 0.1 MG TABLET PO PRN (16:45)
[2019-03-18] MEDS ORDERED: hydrALAZINE 20 MG/ML VIAL. IVP PRN (17:00)
[2019-03-18] MEDS ORDERED: methylPREDNISolone SOD SUCC PF 125 MG/2 ML VIAL. IV SCH (17:00)
[2019-03-18] MEDS ORDERED: INSULIN LISPRO 300 UNITS/3 ML INSULN.PEN. SQ SCH (17:00)
[2019-03-18] MEDS ORDERED: GLIMEPIRIDE 2 MG TABLET. PO SCH (17:00)
[2019-03-18 17:48] VITALS: BP 162/63
[2019-03-18] MEDS: VANCOMYCIN PER PHARMACY MC PRN (18:43)
--- NOTE | 2019-03-18 18:44 | NUR ---
Pharmacy Vancomycin Dosing Note S:Consulted to monitor and dose vancomycin started 03/18/19. O:PHOENIX FRANCISCO is a 68 year old M with Pneumonia . Height: 5 feet, 9.5 inches Weight: 100.153316 kg [place] Body Weight: 71.85 Adjusted Body Weight: 83.11 Dosing Weight: Actual Other Antibiotics: LABS: Last BUN: 18 Last Creatinine: 1.0 Creatinine Clearance: 84 mL/min Last WBC: 18.2 Last Procalcitonin: Tmax (past 24 hours): Microbiology: I/O: Drug Levels: Last level: on at Last dose given at Vancomycin Dosing: Loading Dose: 2000 mg x1 Dosing Weight: Actual Target Trough: 15-20 A: Based on: HT, WT AND RENAL FUNCTION P: 1. Begin Vancomycin 1500 mg IV q12h 2. Follow up Trough level on 03/20/19 at 0330 3. Pharmacy will continue to monitor, follow and adjust therapy as needed. MICAH MENDOZA, [facility], 03/18/19 [id number]
[2019-03-18] MEDS ORDERED: HYDROcodone/APAP 10/325 1 TAB TABLET PO PRN (19:00)
[2019-03-18 19:15] VITALS: BP 163/63
[2019-03-18] MEDS: BUDESONIDE 0.5 MG/2 ML NEBU. NEB SCH (20:19)
[2019-03-18] MEDS: ALBUTEROL SULFATE 2.5 MG/3 ML NEBU. NEB SCH (20:20)
[2019-03-18] MEDS ORDERED: INSULIN GLARGINE 300 UNITS/3 ML INSULN.PEN. SQ SCH (21:00)
[2019-03-18] MEDS: GABAPENTIN 100 MG CAPSULE. PO SCH (22:02)
[2019-03-18] MEDS: cloNIDine HCL 0.2 MG TABLET PO SCH (22:03)
[2019-03-18] MEDS: ENOXAPARIN 40 MG/0.4 ML SYRINGE. SQ SCH (22:03)
[2019-03-18] MEDS: FERROUS SULFATE 325 MG TABLET. PO SCH (22:03)
[2019-03-18] MEDS: methylPREDNISolone SOD SUCC PF 125 MG/2 ML VIAL. IV SCH (22:04)
[2019-03-18 23:14] VITALS: BP 152/54
--- NOTE | 2019-03-19 03:00 | NUR ---
Lactic Acid elevated from2.2 to 3.7. Redrew level-3.2 Dr. Fine called. No new orders
[2019-03-19 03:20] VITALS: BP 167/66
[2019-03-19] MEDS: VANCOMYCIN 1.5 GM in IV NORMAL SALINE 500ML BAG 500 ML IV SCH ×2 (04:47→17:03)
[2019-03-19] MEDS: methylPREDNISolone SOD SUCC PF 125 MG/2 ML VIAL. IV SCH (06:11)
[2019-03-19 06:49] LABS: BASO % 0 % (0-3); EOS % 0 % (0-3); HEMATOCRIT 40.7 % (39.0-53.0); HEMOGLOBIN 14.1 g/dL (13.0-17.5); LYMPH # 0.2 x10^3/uL (1.0-4.8); LYMPH % 3 % (24-48); MEAN CORPUSCULAR HEMOGLOBIN 34 pg (25-35); MEAN CORPUSCULAR HGB CONC 35 g/dL (31-37); MEAN CORPUSCULAR VOLUME 98 fL (79-100); MONO # 0.4 x10^3/uL (0.0-1.1); MONO % 5 % (0-9); NEUT # 8.1 x10^3uL (1.8-7.7); NEUT % 93 % (31-73); PLATELET COUNT 174 x10^3/uL (140-400); RED BLOOD COUNT 4.14 x10^6/uL (4.30-5.70); RED CELL DISTRIBUTION WIDTH 13.1 % (11.5-14.5); WHITE BLOOD COUNT 8.7 x10^3/uL (4.0-11.0)
[2019-03-19 07:15] VITALS: BP 174/75
[2019-03-19 07:21] LABS: CALCIUM 8.8 mg/dL (8.5-10.1); CREATININE 1.2 mg/dL (0.7-1.3); GFR 60.4; POTASSIUM 4.7 mmol/L (3.5-5.1)
[2019-03-19 07:24] LABS: ALBUMIN 2.8 g/dL (3.4-5.0); ALBUMIN/GLOBULIN RATIO 0.6 (1.0-1.7); TOTAL BILIRUBIN 2.1 mg/dL (0.2-1.0); TOTAL PROTEIN 7.3 g/dL (6.4-8.2)
[2019-03-19] MEDS: INDOMETHACIN 25 MG CAPSULE. PO SCH ×2 (08:00→08:35)
[2019-03-19] MEDS: ALBUTEROL SULFATE 2.5 MG/3 ML NEBU. NEB SCH ×4 (08:01→21:03)
[2019-03-19] MEDS: BUDESONIDE 0.5 MG/2 ML NEBU. NEB SCH ×2 (08:01→21:03)
[2019-03-19] MEDS ORDERED: guaiFENesin DM 200MG/20MG 10 ML SYRUP PO PRN (08:30)
[2019-03-19] MEDS: FERROUS SULFATE 325 MG TABLET. PO SCH ×2 (08:35→21:38)
[2019-03-19] MEDS: amLODIPine BESYLATE 10 MG TABLET PO SCH (08:36)
[2019-03-19] MEDS: GABAPENTIN 100 MG CAPSULE. PO SCH ×3 (08:36→21:40)
[2019-03-19] MEDS: cloNIDine HCL 0.2 MG TABLET PO SCH ×3 (08:36→21:38)
[2019-03-19] MEDS: PANTOPRAZOLE 40 MG TABLET.DR. PO SCH (08:36)
[2019-03-19] MEDS: FOLIC ACID 1 MG TABLET. PO SCH (08:37)
[2019-03-19] MEDS: MULTIVITAMIN with MINERAL TABLET. PO SCH (08:37)
[2019-03-19] MEDS: METOPROLOL SUCC 24HR ER 100 MG TAB.ER.24H. PO SCH (08:38)
[2019-03-19] MEDS: FUROSEMIDE 40 MG TABLET. PO SCH (08:38)
[2019-03-19] MEDS: DOCUSATE SODIUM 100 MG CAPSULE. PO SCH (08:38)
[2019-03-19 08:41] LABS: CHOLESTEROL/HDL RATIO 1.8
[2019-03-19] MEDS: THIAMINE 100 MG TABLET. PO SCH (08:43)
[2019-03-19] MEDS: HYDROcodone/APAP 10/325 1 TAB TABLET PO PRN ×2 (08:43→17:01)
[2019-03-19] MEDS ORDERED: THIAMINE IM 200 MG/2 ML VIAL. IM SCH (09:00)
[2019-03-19] MEDS ORDERED: MENS MULTIVITAMIN SCH (09:00)
[2019-03-19] MEDS ORDERED: NON FORMULARY ITEM (Pantoprazole Sodium (Protonix) 40 MG) PO SCH (09:00)
--- NOTE | 2019-03-19 09:09 | PDOC2 ---
MARJORIE DE LEON STAFF SONOGRAPHER 03/19/19 0909: CARDIAC CONSULT DATE OF CONSULT Date of Consult DATE: 03/19/19 TIME: 09:04 REASON FOR CONSULT Reason for Consult: CHF REFERRING PHYSICIAN Referring Physician: Dr. Rick SOURCE Source: Chart review, Patient HISTORY OF PRESENT ILLNESS HISTORY OF PRESENT ILLNESS This is a 68 yo male who presented secondary to shortness of breath. Patient report having fluid accumulation in his bilateral LE and abdomen the last week. Was seen by his primary care provider and was started on daily lasix. Reports swelling progressively worsened despite lasix. Has had some intermittent shortness of breath and chest congestion over the last 4-5 days. Cough productive of green sputum began yesterday. Patient reports that he was sitting in his chair yesterday afternoon and became significantly short of breath. Denies any chest pain, palpitations, dizziness, or diaphoresis. No fevers. Does report decreased appetite over the last month. Was seen by PCP. Liver enzymes noted to be elevated and was referred to Dr. Cueva for evaluation of gallbladder. PAST MEDICAL HISTORY Cardiovascular: HTN Pulmonary: Asthma CENTRAL NERVOUS SYSTEM: Other (no pertinent hx) GI: GERD, Other (gastric erosions ) Heme/Onc: No pertinent hx Hepatobiliary: Other (elevated liver enzymes) Musculoskeletal: low back pain, Other (sciatica ) Rheumatologic: Gout Infectious disease: No pertinent hx ENT: No pertinent hx Renal/: No pertinent hx Endocrine: Diabetes PAST SURGICAL HISTORY Past Surgical History Appendectomy, Arthroscopy (left knee), Other (C 20 yrs ago nml per pt; right toe spur removal) FAMILY HISTORY Family History: Coronary Artery Disease (father CABG), Diabetes SOCIAL HISTORY Smoke: Quit (40 years ago) ALCOHOL: other (2-3 beers per day) Drugs: None Lives: with Family CURRENT MEDICATIONS CURRENT MEDICATIONS Current Medications Medications (Trade) Dose Ordered Sig/Eyad Route PRN Reason Start Time Stop Time Status Last Admin Dose Admin Albuterol/ Ipratropium (Duoneb) 3 ml 1X ONCE NEB 03/18/19 14:45 03/18/19 14:49 DC 03/18/19 15:15 Methylprednisolone Sodium Succinate (SOLU-Medrol 125MG VIAL) 125 mg 1X ONCE IV 03/18/19 14:45 03/18/19 14:49 DC 03/18/19 15:01 Furosemide (Lasix) 60 mg 1X ONCE IVP 03/18/19 15:00 03/18/19 15:01 DC 03/18/19 15:01 Piperacillin Sod/ Tazobactam Sod 3.375 gm/Sodium Chloride 50 ml @ 100 mls/hr 1X ONCE IV 03/18/19 15:30 03/18/19 15:59 DC 03/18/19 15:31 Vancomycin HCl (Vanco Per Pharmacy) 1 each PRN DAILY PRN MC SEE COMMENTS 03/18/19 15:30 03/18/19 18:43 Vancomycin HCl 2 gm/Sodium Chloride 500 ml @ 250 mls/hr 1X ONCE IV 03/18/19 15:30 03/18/19 17:29 DC 03/18/19 15:31 Multivitamins (Thera M Plus) 1 tab DAILY PO 03/19/19 09:00 03/19/19 08:37 Folic Acid (Folic Acid) 1 mg DAILY PO 03/19/19 09:00 03/19/19 08:37 Pantoprazole Sodium (Protonix) 40 mg DAILY08 PO 03/18/19 16:45 03/19/19 08:36 Enoxaparin Sodium (Lovenox 40mg Syringe) 40 mg HS SQ 03/18/19 21:00 03/18/19 22:03 Budesonide (Pulmicort) 0.5 mg RTBID NEB 03/18/19 20:00 03/19/19 08:01 Amlodipine Besylate (Norvasc) 10 mg DAILY PO 03/19/19 09:00 03/19/19 08:36 Clonidine HCl (Catapres) 0.2 mg TID PO 03/18/19 21:00 03/19/19 08:36 Docusate Sodium (Colace) 100 mg DAILY PO 03/19/19 09:00 03/19/19 08:38 Ferrous Sulfate (Feosol) 325 mg BID PO 03/18/19 21:00 03/19/19 08:35 Gabapentin (Neurontin) 100 mg TID PO 03/18/19 21:00 03/19/19 08:36 Metoprolol Succinate (Toprol Xl) 100 mg DAILY PO 03/19/19 09:00 03/19/19 08:38 Albuterol Sulfate (Ventolin Neb Soln) 2.5 mg RTQID NEB 03/18/19 20:00 03/19/19 08:01 Furosemide (Lasix) 40 mg DAILY PO 03/19/19 09:00 03/19/19 08:38 Methylprednisolone Sodium Succinate (SOLU-Medrol 125MG VIAL) 80 mg Q8HRS IV 03/18/19 22:00 03/19/19 06:11 Vancomycin HCl 1.5 gm/Sodium Chloride 500 ml @ 250 mls/hr Q12H IV 03/19/19 04:00 03/19/19 04:47 Acetaminophen/ Hydrocodone Bitart (Lortab 10/325) 1 tab PRN Q6HRS PRN PO PAIN 03/18/19 19:00 03/19/19 08:28 DC 03/18/19 22:02 Thiamine Mononitrate (Vitamin B-1) 100 mg DAILY PO 03/19/19 09:00 03/19/19 08:43 Acetaminophen/ Hydrocodone Bitart (Lortab 10/325) 1 tab PRN Q6HRS PRN PO PAIN 03/19/19 08:30 03/19/19 08:43 ALLERGIES ALLERGIES: Coded Allergies: No Known Drug Allergies (Unverified , 03/14/18) ROS Review of System 14 point ROS conducted with pertinent positives noted above in HPI. PHYSICAL EXAM PHYSICAL EXAM General: Alert, Oriented X3, Cooperative, No acute distress HEENT: Atraumatic, Mucous membr. moist/pink Lungs: bibasilar crackles, Normal air movement Heart: Regular rate (SR with LBBB), Normal S1, Normal S2, Other (2/6 systolic murmur to LLS border) Abdomen: Ascites Extremities: 2+ bilateral LE pitting edema Skin: No breakdown, No significant lesion Neuro: Normal speech, Sensation intact Psych/Mental Status: Mental status NL, Mood NL MUSCULOSKELETAL: Osteoarthritic changes both hands VITALS VITALS Vital Signs Date Time Temp Pulse Resp B/P (MAP) Pulse Ox O2 Delivery O2 Flow Rate FiO2 03/19/19 08:43 18 96 Nasal Cannula 2.0 03/19/19 08:38 79 174/75 03/19/19 07:15 97.6 97.6 LABS Lab: Laboratory Tests Test 03/18/19 14:45 03/18/19 15:10 03/18/19 16:15 03/18/19 19:20 White Blood Count 18.2 x10^3/uL (4.0-11.0) Red Blood Count 4.44 x10^6/uL (4.30-5.70) Hemoglobin 14.6 g/dL (13.0-17.5) Hematocrit 43.2 % (39.0-53.0) Mean Corpuscular Volume 97 fL (79-100) Mean Corpuscular Hemoglobin 33 pg (25-35) Mean Corpuscular Hemoglobin Concent 34 g/dL (31-37) Red Cell Distribution Width 12.9 % (11.5-14.5) Platelet Count 254 x10^3/uL (140-400) Neutrophils (%) (Auto) 82 % (31-73) Lymphocytes (%) (Auto) 5 % (24-48) Monocytes (%) (Auto) 13 % (0-9) Eosinophils (%) (Auto) 0 % (0-3) Basophils (%) (Auto) 0 % (0-3) Neutrophils # (Auto) 14.8 x10^3uL (1.8-7.7) Lymphocytes # (Auto) 0.9 x10^3/uL (1.0-4.8) Monocytes # (Auto) 2.4 x10^3/uL (0.0-1.1) Eosinophils # (Auto) 0.0 x10^3/uL (0.0-0.7) Basophils # (Auto) 0.0 x10^3/uL (0.0-0.2) Segmented Neutrophils % 84 % (35-66) Lymphocytes % 6 % (24-48) Monocytes % 10 % (0-10) Platelet Estimate Adequate (ADEQUATE) Prothrombin Time 15.0 SEC (11.7-14.0) Prothromb Time International Ratio 1.2 (0.8-1.1) Activated Partial Thromboplast Time 29 SEC (24-38) Sodium Level 126 mmol/L (136-145) Potassium Level 5.1 mmol/L (3.5-5.1) Chloride Level 88 mmol/L (98-107) Carbon Dioxide Level 29 mmol/L (21-32) Anion Gap 9 (6-14) Blood Urea Nitrogen 18 mg/dL (8-26) Creatinine 1.0 mg/dL (0.7-1.3) Estimated GFR (Cockcroft-Gault) 74.5 BUN/Creatinine Ratio 18 (6-20) Glucose Level 236 mg/dL (70-99) Lactic Acid Level 2.2 mmol/L (0.4-2.0) 3.7 mmol/L (0.4-2.0) Calcium Level 9.7 mg/dL (8.5-10.1) Total Bilirubin 2.4 mg/dL (0.2-1.0) Aspartate Amino Transf (AST/SGOT) 65 U/L (15-37) Alanine Aminotransferase (ALT/SGPT) 68 U/L (16-63) Alkaline Phosphatase 370 U/L (46-116) Ammonia 23 mcmol/L (11-34) Creatine Kinase 80 U/L (39-308) Creatine Kinase MB (Mass) 1.3 ng/mL (0.0-3.6) Creatine Kinase MB Relative Index 1.6 % (0-4) Troponin I Quantitative < 0.017 ng/mL (0.000-0.055) PX-Vsi-D-Type Natriuretic Peptide 1866 pg/mL (0-124) Total Protein 8.3 g/dL (6.4-8.2) Albumin 3.5 g/dL (3.4-5.0) Albumin/Globulin Ratio 0.7 (1.0-1.7) Lipase 90 U/L (73-393) Ethyl Alcohol Level < 10 mg/dL (0-10) O2 Saturation 91 % (92-99) Arterial Blood pH 7.44 (7.35-7.45) Arterial Blood pCO2 at Patient Temp 40 mmHg (35-46) Arterial Blood pO2 at Patient Temp 59 mmHg (65-108) Arterial Blood HCO3 27 mmol/L (21-28) Arterial Blood Base Excess 3 mmol/L (-3-3) Oxyhemoglobin 90.6 % Methemoglobin 0.4 % (0.0-1.9) Carbon Monoxide, Quantitative 0.5 % (0.0-1.9) FiO2 32 Urine Collection Type Unknown Urine Color Yellow Urine Clarity Clear Urine pH 5.0 Urine Specific [place] 1.010 Urine Protein 100 mg/dL (NEG-TRACE) Urine Glucose (UA) Negative mg/dL (NEG) Urine Ketones (Stick) Negative mg/dL (NEG) Urine Blood Large (NEG) Urine Nitrite Negative (NEG) Urine Bilirubin Negative (NEG) Urine Urobilinogen Dipstick 1.0 mg/dL (0.2 mg/dL) Urine Leukocyte Esterase Negative (NEG) Urine RBC 1-2 /HPF (0-2) Urine WBC 0 /HPF (0-4) Urine Squamous Epithelial Cells Occ /LPF Urine Bacteria 0 /HPF (0-FEW) Test 03/19/19 01:30 03/19/19 05:45 03/19/19 08:49 Lactic Acid Level 3.2 mmol/L (0.4-2.0) White Blood Count 8.7 x10^3/uL (4.0-11.0) Red Blood Count 4.14 x10^6/uL (4.30-5.70) Hemoglobin 14.1 g/dL (13.0-17.5) Hematocrit 40.7 % (39.0-53.0) Mean Corpuscular Volume 98 fL (79-100) Mean Corpuscular Hemoglobin 34 pg (25-35) Mean Corpuscular Hemoglobin Concent 35 g/dL (31-37) Red Cell Distribution Width 13.1 % (11.5-14.5) Platelet Count 174 x10^3/uL (140-400) Neutrophils (%) (Auto) 93 % (31-73) Lymphocytes (%) (Auto) 3 % (24-48) Monocytes (%) (Auto) 5 % (0-9) Eosinophils (%) (Auto) 0 % (0-3) Basophils (%) (Auto) 0 % (0-3) Neutrophils # (Auto) 8.1 x10^3uL (1.8-7.7) Lymphocytes # (Auto) 0.2 x10^3/uL (1.0-4.8) Monocytes # (Auto) 0.4 x10^3/uL (0.0-1.1) Eosinophils # (Auto) 0.0 x10^3/uL (0.0-0.7) Basophils # (Auto) 0.0 x10^3/uL (0.0-0.2) Sodium Level 127 mmol/L (136-145) Potassium Level 4.7 mmol/L (3.5-5.1) Chloride Level 90 mmol/L (98-107) Carbon Dioxide Level 27 mmol/L (21-32) Anion Gap 10 (6-14) Blood Urea Nitrogen 22 mg/dL (8-26) Creatinine 1.2 mg/dL (0.7-1.3) Estimated GFR (Cockcroft-Gault) 60.4 BUN/Creatinine Ratio 18 (6-20) Glucose Level 441 mg/dL (70-99) Calcium Level 8.8 mg/dL (8.5-10.1) Magnesium Level 2.4 mg/dL (1.8-2.4) Total Bilirubin 2.1 mg/dL (0.2-1.0) Aspartate Amino Transf (AST/SGOT) 43 U/L (15-37) Alanine Aminotransferase (ALT/SGPT) 53 U/L (16-63) Alkaline Phosphatase 267 U/L (46-116) Total Protein 7.3 g/dL (6.4-8.2) Albumin 2.8 g/dL (3.4-5.0) Albumin/Globulin Ratio 0.6 (1.0-1.7) Triglycerides Level 72 mg/dL (0-150) Cholesterol Level 147 mg/dL (0-200) LDL Cholesterol, Calculated 51 mg/dL (0-100) VLDL Cholesterol, Calculated 14 mg/dL (0-40) Non-HDL Cholesterol Calculated 65 mg/dL (0-129) HDL Cholesterol 82 mg/dL (40-60) Cholesterol/HDL Ratio 1.8 Procalcitonin 0.47 ng/mL (0.00-0.10) Glucose (Fingerstick) 379 mg/dL (70-99) ECHOCARDIOGRAM ECHOCARDIOGRAM <Conclusion> The left ventricle is normal size. There is moderate concentric left ventricular hypertrophy. Left ventricle systolic function is mildly to moderately impaired. The Ejection Fraction is 35-40%. There is a grade 1 diastolic dysfunction. Is no pericardial effusion. The mitral valve is thickened but opens well. There is no mitral valve stenosis. Doppler and Color Flow revealed no mitral valve regurgitation noted. The left atrium is of normal size. Doppler and Color Flow revealed no significant aortic regurgitation. There is no significant aortic valvular stenosis. Doppler and Color Flow revealed no tricuspid valve regurgitation noted. The pulmonary valve is normal in structure. DATE: 05/25/15 8402 <Conclusion> The left ventricular systolic function is normal. The Ejection Fraction is 50-55%. There is normal LV segmental wall motion. Mild mitral regurgitation. Trace tricuspid regurgitation. There is no evidence of significant pericardial effusion. DATE: 03/15/18 1412 STRESS TEST STRESS TEST Conclusion 1. Non-diagnostic EKG due to LBBB. No obvious ischemia on vasodilator stress. 2. Normal perfusion at stress/rest. 3. Mild LV dysfunction. EF 45% 4. Moderate risk for future CV events. DATE: 05/21/18 1328 ASSESSMENT/PLAN ASSESSMENT/PLAN 1. Acute respiratory failure; multifactorial given ascites, mild a/c HF, and possible PNA 2. Acute on chronic CHF 3. Leucocytosis, lactic acidosis. Poss PNA 4. Elevated LFTs, ascites; GI following 5. Hyponatremia 7. Accelerated hypertension 8. Diabetes, II 9. H/o cardiomyopathy. Echo 2014 with LVEF 35-40%. Most recent echo with LV recovery with an EF of 50-55% as noted above. 10. LBBB; noted in 2018. Stress test at that time unremarkable for ischemia Recommendations Echo to assess LV systolic function Diuresis Resume home antiHTN therapy. Titrate as warranted. Hydralazine IV PRN Consider outpatient ischemic evaluation given risk factors. Follow GI recs. Supportive care Further recommendations pending above. JENNY HINOJOSA MD 03/19/192054: CARDIAC CONSULT ASSESSMENT/PLAN ASSESSMENT/PLAN Patient seen and examined. Agree with MEDICAL CHEMIST's assessment and plan. Acute on chronic diastolic HF improving with diuresis 2D echo showed normal LV function Plan ischemic evaluation as outpatient Resume home antihypertensives and titrate for better control Thank you for your consultation MARJORIE DE LEON APRN March 19, 2019 09:09 JENNY HINOJOSA MD March 19, 2019 20:55
--- NOTE | 2019-03-19 09:56 | PDOC2 ---
GI CONSULT Reason For Consult: Alcohol abuse, transaminitis HPI: HPI: 68 y/o male evaluated in ER for SOA and admitted. We saw him last year for UGI bleeding (was taking ASA). EGD on 03/14/18 showed no varices of M-W tear, grade II reflux esophagitis, several antral erosions, small 3-4mm prepyloric ulcer, normal proximal stomach, few duodenal bulb erosions, 8mm ulcer on anterior wall near apex of bulb w/ visible vessel/sentinel clot (injected w/ epi, BICAP applied). Biopsies negative for H. pylori. Has chronic back pain, recently aggravated sciatic area, and was taking more hydrocodone than usual. Along with this, noted decreased appetite and occasional vomiting with constipation, also abdominal tightness. ?was also off diabetes meds. These symptoms have improved (beginning ~1 week ago). We are asked to see this time re: elevated LFTs. He reports his PCP has mentioned the same, did labs and and ultrasound, and recommended cholecystectomy w/ Dr. Cueva. He did have an abd US yesterday but results only detail small amount of ascites. Past US (from 2014) noted fatty liver and normal GB. Currently not taking anything for reflux though doesn't think he has many symptoms. No dysphagia. No bleeding. Might have lost weight. Typically no constipation or diarrhea. 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 CT last year noted mild hazy density about the pancreatic head and ucinate process. Currently drinks about 1 beer a day, sometimes more and sometimes none. Hepatitis serologies were negative in 2015. Thinks normal colonoscopy ~7 years ago except he woke up during the procedure. No NSAIDs. PMH: PMH: HTN, asthma, DM, GERD, PUD, pancreatitis, gout, anxiety, back pain/sciatica, left knee arthroscopy, right toe surgery x 2, heart cath FH: Family History: Cancer, CAD, DM Social History: Smoke: Quit ALCOHOL: heavy Drugs: None ROS: GEN: Denies fevers, chills, sweats HEENT: Denies blurred vision, sore throat CV: Denies chest pain RESP: +SOA GI: Per HPI : Denies hematuria, dysuria ENDO: +weight loss NEURO: Denies confusion, dizziness MSK: +back pain SKIN: Denies jaundice, pruritus Vitals: Vitals: Vital Signs Date Time Temp Pulse Resp B/P (MAP) Pulse Ox O2 Delivery O2 Flow Rate FiO2 03/19/19 08:43 18 96 Nasal Cannula 2.0 03/19/19 08:38 79 174/75 03/19/19 07:15 97.6 97.6 Labs: Labs: Laboratory Tests Test 03/18/19 14:45 03/18/19 15:10 03/18/19 16:15 03/18/19 19:20 White Blood Count 18.2 x10^3/uL (4.0-11.0) Red Blood Count 4.44 x10^6/uL (4.30-5.70) Hemoglobin 14.6 g/dL (13.0-17.5) Hematocrit 43.2 % (39.0-53.0) Mean Corpuscular Volume 97 fL (79-100) Mean Corpuscular Hemoglobin 33 pg (25-35) Mean Corpuscular Hemoglobin Concent 34 g/dL (31-37) Red Cell Distribution Width 12.9 % (11.5-14.5) Platelet Count 254 x10^3/uL (140-400) Neutrophils (%) (Auto) 82 % (31-73) Lymphocytes (%) (Auto) 5 % (24-48) Monocytes (%) (Auto) 13 % (0-9) Eosinophils (%) (Auto) 0 % (0-3) Basophils (%) (Auto) 0 % (0-3) Neutrophils # (Auto) 14.8 x10^3uL (1.8-7.7) Lymphocytes # (Auto) 0.9 x10^3/uL (1.0-4.8) Monocytes # (Auto) 2.4 x10^3/uL (0.0-1.1) Eosinophils # (Auto) 0.0 x10^3/uL (0.0-0.7) Basophils # (Auto) 0.0 x10^3/uL (0.0-0.2) Segmented Neutrophils % 84 % (35-66) Lymphocytes % 6 % (24-48) Monocytes % 10 % (0-10) Platelet Estimate Adequate (ADEQUATE) Prothrombin Time 15.0 SEC (11.7-14.0) Prothromb Time International Ratio 1.2 (0.8-1.1) Activated Partial Thromboplast Time 29 SEC (24-38) Sodium Level 126 mmol/L (136-145) Potassium Level 5.1 mmol/L (3.5-5.1) Chloride Level 88 mmol/L (98-107) Carbon Dioxide Level 29 mmol/L (21-32) Anion Gap 9 (6-14) Blood Urea Nitrogen 18 mg/dL (8-26) Creatinine 1.0 mg/dL (0.7-1.3) Estimated GFR (Cockcroft-Gault) 74.5 BUN/Creatinine Ratio 18 (6-20) Glucose Level 236 mg/dL (70-99) Lactic Acid Level 2.2 mmol/L (0.4-2.0) 3.7 mmol/L (0.4-2.0) Calcium Level 9.7 mg/dL (8.5-10.1) Total Bilirubin 2.4 mg/dL (0.2-1.0) Aspartate Amino Transf (AST/SGOT) 65 U/L (15-37) Alanine Aminotransferase (ALT/SGPT) 68 U/L (16-63) Alkaline Phosphatase 370 U/L (46-116) Ammonia 23 mcmol/L (11-34) Creatine Kinase 80 U/L (39-308) Creatine Kinase MB (Mass) 1.3 ng/mL (0.0-3.6) Creatine Kinase MB Relative Index 1.6 % (0-4) Troponin I Quantitative < 0.017 ng/mL (0.000-0.055) NQ-Mon-E-Type Natriuretic Peptide 1866 pg/mL (0-124) Total Protein 8.3 g/dL (6.4-8.2) Albumin 3.5 g/dL (3.4-5.0) Albumin/Globulin Ratio 0.7 (1.0-1.7) Lipase 90 U/L (73-393) Ethyl Alcohol Level < 10 mg/dL (0-10) O2 Saturation 91 % (92-99) Arterial Blood pH 7.44 (7.35-7.45) Arterial Blood pCO2 at Patient Temp 40 mmHg (35-46) Arterial Blood pO2 at Patient Temp 59 mmHg (65-108) Arterial Blood HCO3 27 mmol/L (21-28) Arterial Blood Base Excess 3 mmol/L (-3-3) Oxyhemoglobin 90.6 % Methemoglobin 0.4 % (0.0-1.9) Carbon Monoxide, Quantitative 0.5 % (0.0-1.9) FiO2 32 Urine Collection Type Unknown Urine Color Yellow Urine Clarity Clear Urine pH 5.0 Urine Specific [place] 1.010 Urine Protein 100 mg/dL (NEG-TRACE) Urine Glucose (UA) Negative mg/dL (NEG) Urine Ketones (Stick) Negative mg/dL (NEG) Urine Blood Large (NEG) Urine Nitrite Negative (NEG) Urine Bilirubin Negative (NEG) Urine Urobilinogen Dipstick 1.0 mg/dL (0.2 mg/dL) Urine Leukocyte Esterase Negative (NEG) Urine RBC 1-2 /HPF (0-2) Urine WBC 0 /HPF (0-4) Urine Squamous Epithelial Cells Occ /LPF Urine Bacteria 0 /HPF (0-FEW) Test 03/19/19 01:30 03/19/19 05:45 03/19/19 08:49 Lactic Acid Level 3.2 mmol/L (0.4-2.0) White Blood Count 8.7 x10^3/uL (4.0-11.0) Red Blood Count 4.14 x10^6/uL (4.30-5.70) Hemoglobin 14.1 g/dL (13.0-17.5) Hematocrit 40.7 % (39.0-53.0) Mean Corpuscular Volume 98 fL (79-100) Mean Corpuscular Hemoglobin 34 pg (25-35) Mean Corpuscular Hemoglobin Concent 35 g/dL (31-37) Red Cell Distribution Width 13.1 % (11.5-14.5) Platelet Count 174 x10^3/uL (140-400) Neutrophils (%) (Auto) 93 % (31-73) Lymphocytes (%) (Auto) 3 % (24-48) Monocytes (%) (Auto) 5 % (0-9) Eosinophils (%) (Auto) 0 % (0-3) Basophils (%) (Auto) 0 % (0-3) Neutrophils # (Auto) 8.1 x10^3uL (1.8-7.7) Lymphocytes # (Auto) 0.2 x10^3/uL (1.0-4.8) Monocytes # (Auto) 0.4 x10^3/uL (0.0-1.1) Eosinophils # (Auto) 0.0 x10^3/uL (0.0-0.7) Basophils # (Auto) 0.0 x10^3/uL (0.0-0.2) Sodium Level 127 mmol/L (136-145) Potassium Level 4.7 mmol/L (3.5-5.1) Chloride Level 90 mmol/L (98-107) Carbon Dioxide Level 27 mmol/L (21-32) Anion Gap 10 (6-14) Blood Urea Nitrogen 22 mg/dL (8-26) Creatinine 1.2 mg/dL (0.7-1.3) Estimated GFR (Cockcroft-Gault) 60.4 BUN/Creatinine Ratio 18 (6-20) Glucose Level 441 mg/dL (70-99) Calcium Level 8.8 mg/dL (8.5-10.1) Magnesium Level 2.4 mg/dL (1.8-2.4) Total Bilirubin 2.1 mg/dL (0.2-1.0) Aspartate Amino Transf (AST/SGOT) 43 U/L (15-37) Alanine Aminotransferase (ALT/SGPT) 53 U/L (16-63) Alkaline Phosphatase 267 U/L (46-116) Total Protein 7.3 g/dL (6.4-8.2) Albumin 2.8 g/dL (3.4-5.0) Albumin/Globulin Ratio 0.6 (1.0-1.7) Triglycerides Level 72 mg/dL (0-150) Cholesterol Level 147 mg/dL (0-200) LDL Cholesterol, Calculated 51 mg/dL (0-100) VLDL Cholesterol, Calculated 14 mg/dL (0-40) Non-HDL Cholesterol Calculated 65 mg/dL (0-129) HDL Cholesterol 82 mg/dL (40-60) Cholesterol/HDL Ratio 1.8 Procalcitonin 0.47 ng/mL (0.00-0.10) Glucose (Fingerstick) 379 mg/dL (70-99) Allergies: Coded Allergies: No Known Drug Allergies (Unverified , 03/14/18) Medications: Current Medications Medications (Trade) Dose Ordered Sig/Eyad Route PRN Reason Start Time Stop Time Status Last Admin Dose Admin Albuterol/ Ipratropium (Duoneb) 3 ml 1X ONCE NEB 03/18/19 14:45 03/18/19 14:49 DC 03/18/19 15:15 Methylprednisolone Sodium Succinate (SOLU-Medrol 125MG VIAL) 125 mg 1X ONCE IV 03/18/19 14:45 03/18/19 14:49 DC 03/18/19 15:01 Furosemide (Lasix) 60 mg 1X ONCE IVP 03/18/19 15:00 03/18/19 15:01 DC 03/18/19 15:01 Piperacillin Sod/ Tazobactam Sod 3.375 gm/Sodium Chloride 50 ml @ 100 mls/hr 1X ONCE IV 03/18/19 15:30 03/18/19 15:59 DC 03/18/19 15:31 Vancomycin HCl (Vanco Per Pharmacy) 1 each PRN DAILY PRN MC SEE COMMENTS 03/18/19 15:30 03/18/19 18:43 Vancomycin HCl 2 gm/Sodium Chloride 500 ml @ 250 mls/hr 1X ONCE IV 03/18/19 15:30 03/18/19 17:29 DC 03/18/19 15:31 Multivitamins (Thera M Plus) 1 tab DAILY PO 03/19/19 09:00 03/19/19 08:37 Folic Acid (Folic Acid) 1 mg DAILY PO 03/19/19 09:00 03/19/19 08:37 Pantoprazole Sodium (Protonix) 40 mg DAILY08 PO 03/18/19 16:45 03/19/19 08:36 Enoxaparin Sodium (Lovenox 40mg Syringe) 40 mg HS SQ 03/18/19 21:00 03/18/19 22:03 Budesonide (Pulmicort) 0.5 mg RTBID NEB 03/18/19 20:00 03/19/19 08:01 Amlodipine Besylate (Norvasc) 10 mg DAILY PO 03/19/19 09:00 03/19/19 08:36 Clonidine HCl (Catapres) 0.2 mg TID PO 03/18/19 21:00 03/19/19 08:36 Docusate Sodium (Colace) 100 mg DAILY PO 03/19/19 09:00 03/19/19 08:38 Ferrous Sulfate (Feosol) 325 mg BID PO 03/18/19 21:00 03/19/19 08:35 Gabapentin (Neurontin) 100 mg TID PO 03/18/19 21:00 03/19/19 08:36 Metoprolol Succinate (Toprol Xl) 100 mg DAILY PO 03/19/19 09:00 03/19/19 08:38 Albuterol Sulfate (Ventolin Neb Soln) 2.5 mg RTQID NEB 03/18/19 20:00 03/19/19 08:01 Furosemide (Lasix) 40 mg DAILY PO 03/19/19 09:00 03/19/19 08:38 Methylprednisolone Sodium Succinate (SOLU-Medrol 125MG VIAL) 80 mg Q8HRS IV 03/18/19 22:00 03/19/19 06:11 Vancomycin HCl 1.5 gm/Sodium Chloride 500 ml @ 250 mls/hr Q12H IV 03/19/19 04:00 03/19/19 04:47 Acetaminophen/ Hydrocodone Bitart (Lortab 10/325) 1 tab PRN Q6HRS PRN PO PAIN 03/18/19 19:00 03/19/19 08:28 DC 03/18/19 22:02 Thiamine Mononitrate (Vitamin B-1) 100 mg DAILY PO 03/19/19 09:00 03/19/19 08:43 Acetaminophen/ Hydrocodone Bitart (Lortab 10/325) 1 tab PRN Q6HRS PRN PO PAIN 03/19/19 08:30 03/19/19 08:43 Imaging: Imaging: CXR 03/18 Impression: 1. There is mild right suprahilar opacity suspicious for mild infiltrate. Abd US IMPRESSION: Small amount of abdominal ascites. PE: GEN: NAD, up to chair, breakfast tray consumed except applesauce HEENT: Atraumatic, PERRL LUNGS: diminished, NC HEART: RRR ABD: some distention/tightness, not particularly tender, BS+ EXTREMITY: tight BLE edema SKIN: No rashes, no jaundice NEURO/PSYCH: A & O 3, a bit tremulous A/P: A/P: Resp failure - mild CHF, possible pneumonia Recent vomiting/decreased appetite, abd distention, constipation - better Leukocytosis, lactic acidosis, elevated LFTs, hyponatremia GERD, h/o PUD - EGD 02/2018 as above, no longer on PPI CRC screen - <10 years ago H/o hepatic steatosis, small ascites on US - h/o alcohol use, previous viral serologies negative H/o pancreatitis DM, HTN -- Agree w/ PPI. Unclear history of ?GB issue - no comment on US. Miralax for constipation, consider Relistor, etc. if indicated. ?drinks more than he says Other per Dr. Parada. GEORGIE KLINE March 19, 2019 09:56
[2019-03-19 11:00] VITALS: BP 156/64
[2019-03-19] MEDS: VANCOMYCIN PER PHARMACY MC PRN (11:01)
--- NOTE | 2019-03-19 11:08 | PDOC ---
PROGRESS NOTES Chief Complaint Chief Complaint 1. Acute respiratory failure; multifactorial given ascites, mild a/c HF, and possible PNA 2. Acute on chronic CHF 3. Leucocytosis, lactic acidosis. Poss PNA 4. Elevated LFTs, ascites; GI following 5. Hyponatremia 7. Accelerated hypertension 8. Diabetes, II 9. H/o cardiomyopathy. Echo 2015 with LVEF 35-40%. Most recent echo with LV recovery with an EF of 50-55% as noted above. 10. LBBB; noted in 2018. Stress test at that time unremarkable for ischemia History of Present Illness History of Present Illness Out having an echocardiogram Cardiology on board Needed the BiPAP and Nitropaste for SOA and high blood pressure with CHF findings on x-ray. History of ICU in the last admission and alcohol use? Feels better as per family who is at bedside On vancomycin every 12 and Solu-Medrol 80 IV every 8 Plan Add PTOT Robitussin when necessary Await echo Possibly home tomorrow pending tests today full code dw fam member Vitals Vitals Vital Signs Date Time Temp Pulse Resp B/P (MAP) Pulse Ox O2 Delivery O2 Flow Rate FiO2 03/19/19 09:43 96 Nasal Cannula 2.0 03/19/19 08:43 18 03/19/19 08:38 79 174/75 03/19/19 07:15 97.6 97.6 Physical Exam General: Alert, Oriented X3, Cooperative, mild distress Lungs: Clear Abdomen: Soft, No tenderness Extremities: No cyanosis, Other (2 plus ankle edma) Labs LABS Laboratory Tests Test 03/18/19 14:45 03/18/19 15:10 03/18/19 16:15 03/18/19 19:20 White Blood Count 18.2 x10^3/uL (4.0-11.0) Red Blood Count 4.44 x10^6/uL (4.30-5.70) Hemoglobin 14.6 g/dL (13.0-17.5) Hematocrit 43.2 % (39.0-53.0) Mean Corpuscular Volume 97 fL (79-100) Mean Corpuscular Hemoglobin 33 pg (25-35) Mean Corpuscular Hemoglobin Concent 34 g/dL (31-37) Red Cell Distribution Width 12.9 % (11.5-14.5) Platelet Count 254 x10^3/uL (140-400) Neutrophils (%) (Auto) 82 % (31-73) Lymphocytes (%) (Auto) 5 % (24-48) Monocytes (%) (Auto) 13 % (0-9) Eosinophils (%) (Auto) 0 % (0-3) Basophils (%) (Auto) 0 % (0-3) Neutrophils # (Auto) 14.8 x10^3uL (1.8-7.7) Lymphocytes # (Auto) 0.9 x10^3/uL (1.0-4.8) Monocytes # (Auto) 2.4 x10^3/uL (0.0-1.1) Eosinophils # (Auto) 0.0 x10^3/uL (0.0-0.7) Basophils # (Auto) 0.0 x10^3/uL (0.0-0.2) Segmented Neutrophils % 84 % (35-66) Lymphocytes % 6 % (24-48) Monocytes % 10 % (0-10) Platelet Estimate Adequate (ADEQUATE) Prothrombin Time 15.0 SEC (11.7-14.0) Prothromb Time International Ratio 1.2 (0.8-1.1) Activated Partial Thromboplast Time 29 SEC (24-38) Sodium Level 126 mmol/L (136-145) Potassium Level 5.1 mmol/L (3.5-5.1) Chloride Level 88 mmol/L (98-107) Carbon Dioxide Level 29 mmol/L (21-32) Anion Gap 9 (6-14) Blood Urea Nitrogen 18 mg/dL (8-26) Creatinine 1.0 mg/dL (0.7-1.3) Estimated GFR (Cockcroft-Gault) 74.5 BUN/Creatinine Ratio 18 (6-20) Glucose Level 236 mg/dL (70-99) Lactic Acid Level 2.2 mmol/L (0.4-2.0) 3.7 mmol/L (0.4-2.0) Calcium Level 9.7 mg/dL (8.5-10.1) Total Bilirubin 2.4 mg/dL (0.2-1.0) Aspartate Amino Transf (AST/SGOT) 65 U/L (15-37) Alanine Aminotransferase (ALT/SGPT) 68 U/L (16-63) Alkaline Phosphatase 370 U/L (46-116) Ammonia 23 mcmol/L (11-34) Creatine Kinase 80 U/L (39-308) Creatine Kinase MB (Mass) 1.3 ng/mL (0.0-3.6) Creatine Kinase MB Relative Index 1.6 % (0-4) Troponin I Quantitative < 0.017 ng/mL (0.000-0.055) CX-Wxu-T-Type Natriuretic Peptide 1866 pg/mL (0-124) Total Protein 8.3 g/dL (6.4-8.2) Albumin 3.5 g/dL (3.4-5.0) Albumin/Globulin Ratio 0.7 (1.0-1.7) Lipase 90 U/L (73-393) Ethyl Alcohol Level < 10 mg/dL (0-10) O2 Saturation 91 % (92-99) Arterial Blood pH 7.44 (7.35-7.45) Arterial Blood pCO2 at Patient Temp 40 mmHg (35-46) Arterial Blood pO2 at Patient Temp 59 mmHg (65-108) Arterial Blood HCO3 27 mmol/L (21-28) Arterial Blood Base Excess 3 mmol/L (-3-3) Oxyhemoglobin 90.6 % Methemoglobin 0.4 % (0.0-1.9) Carbon Monoxide, Quantitative 0.5 % (0.0-1.9) FiO2 32 Urine Collection Type Unknown Urine Color Yellow Urine Clarity Clear Urine pH 5.0 Urine Specific Sharon 1.010 Urine Protein 100 mg/dL (NEG-TRACE) Urine Glucose (UA) Negative mg/dL (NEG) Urine Ketones (Stick) Negative mg/dL (NEG) Urine Blood Large (NEG) Urine Nitrite Negative (NEG) Urine Bilirubin Negative (NEG) Urine Urobilinogen Dipstick 1.0 mg/dL (0.2 mg/dL) Urine Leukocyte Esterase Negative (NEG) Urine RBC 1-2 /HPF (0-2) Urine WBC 0 /HPF (0-4) Urine Squamous Epithelial Cells Occ /LPF Urine Bacteria 0 /HPF (0-FEW) Test 03/19/19 01:30 03/19/19 05:45 03/19/19 08:49 Lactic Acid Level 3.2 mmol/L (0.4-2.0) White Blood Count 8.7 x10^3/uL (4.0-11.0) Red Blood Count 4.14 x10^6/uL (4.30-5.70) Hemoglobin 14.1 g/dL (13.0-17.5) Hematocrit 40.7 % (39.0-53.0) Mean Corpuscular Volume 98 fL (79-100) Mean Corpuscular Hemoglobin 34 pg (25-35) Mean Corpuscular Hemoglobin Concent 35 g/dL (31-37) Red Cell Distribution Width 13.1 % (11.5-14.5) Platelet Count 174 x10^3/uL (140-400) Neutrophils (%) (Auto) 93 % (31-73) Lymphocytes (%) (Auto) 3 % (24-48) Monocytes (%) (Auto) 5 % (0-9) Eosinophils (%) (Auto) 0 % (0-3) Basophils (%) (Auto) 0 % (0-3) Neutrophils # (Auto) 8.1 x10^3uL (1.8-7.7) Lymphocytes # (Auto) 0.2 x10^3/uL (1.0-4.8) Monocytes # (Auto) 0.4 x10^3/uL (0.0-1.1) Eosinophils # (Auto) 0.0 x10^3/uL (0.0-0.7) Basophils # (Auto) 0.0 x10^3/uL (0.0-0.2) Sodium Level 127 mmol/L (136-145) Potassium Level 4.7 mmol/L (3.5-5.1) Chloride Level 90 mmol/L (98-107) Carbon Dioxide Level 27 mmol/L (21-32) Anion Gap 10 (6-14) Blood Urea Nitrogen 22 mg/dL (8-26) Creatinine 1.2 mg/dL (0.7-1.3) Estimated GFR (Cockcroft-Gault) 60.4 BUN/Creatinine Ratio 18 (6-20) Glucose Level 441 mg/dL (70-99) Calcium Level 8.8 mg/dL (8.5-10.1) Magnesium Level 2.4 mg/dL (1.8-2.4) Total Bilirubin 2.1 mg/dL (0.2-1.0) Aspartate Amino Transf (AST/SGOT) 43 U/L (15-37) Alanine Aminotransferase (ALT/SGPT) 53 U/L (16-63) Alkaline Phosphatase 267 U/L (46-116) Total Protein 7.3 g/dL (6.4-8.2) Albumin 2.8 g/dL (3.4-5.0) Albumin/Globulin Ratio 0.6 (1.0-1.7) Triglycerides Level 72 mg/dL (0-150) Cholesterol Level 147 mg/dL (0-200) LDL Cholesterol, Calculated 51 mg/dL (0-100) VLDL Cholesterol, Calculated 14 mg/dL (0-40) Non-HDL Cholesterol Calculated 65 mg/dL (0-129) HDL Cholesterol 82 mg/dL (40-60) Cholesterol/HDL Ratio 1.8 Procalcitonin 0.47 ng/mL (0.00-0.10) Glucose (Fingerstick) 379 mg/dL (70-99) Review of Systems Review of Systems Out having echo Assessment and Plan Assessmemt and Plan Problems Medical Problems: (1) Acute pulmonary edema Status: Acute (2) Ascites Status: Acute (3) Pneumonia Status: Acute Comment Review of Relevant I have reviewed the following items alyse (where applicable) has been applied. Labs Laboratory Tests Test 03/18/19 14:45 03/18/19 15:10 03/18/19 16:15 03/18/19 19:20 White Blood Count 18.2 x10^3/uL (4.0-11.0) Red Blood Count 4.44 x10^6/uL (4.30-5.70) Hemoglobin 14.6 g/dL (13.0-17.5) Hematocrit 43.2 % (39.0-53.0) Mean Corpuscular Volume 97 fL (79-100) Mean Corpuscular Hemoglobin 33 pg (25-35) Mean Corpuscular Hemoglobin Concent 34 g/dL (31-37) Red Cell Distribution Width 12.9 % (11.5-14.5) Platelet Count 254 x10^3/uL (140-400) Neutrophils (%) (Auto) 82 % (31-73) Lymphocytes (%) (Auto) 5 % (24-48) Monocytes (%) (Auto) 13 % (0-9) Eosinophils (%) (Auto) 0 % (0-3) Basophils (%) (Auto) 0 % (0-3) Neutrophils # (Auto) 14.8 x10^3uL (1.8-7.7) Lymphocytes # (Auto) 0.9 x10^3/uL (1.0-4.8) Monocytes # (Auto) 2.4 x10^3/uL (0.0-1.1) Eosinophils # (Auto) 0.0 x10^3/uL (0.0-0.7) Basophils # (Auto) 0.0 x10^3/uL (0.0-0.2) Segmented Neutrophils % 84 % (35-66) Lymphocytes % 6 % (24-48) Monocytes % 10 % (0-10) Platelet Estimate Adequate (ADEQUATE) Prothrombin Time 15.0 SEC (11.7-14.0) Prothromb Time International Ratio 1.2 (0.8-1.1) Activated Partial Thromboplast Time 29 SEC (24-38) Sodium Level 126 mmol/L (136-145) Potassium Level 5.1 mmol/L (3.5-5.1) Chloride Level 88 mmol/L (98-107) Carbon Dioxide Level 29 mmol/L (21-32) Anion Gap 9 (6-14) Blood Urea Nitrogen 18 mg/dL (8-26) Creatinine 1.0 mg/dL (0.7-1.3) Estimated GFR (Cockcroft-Gault) 74.5 BUN/Creatinine Ratio 18 (6-20) Glucose Level 236 mg/dL (70-99) Lactic Acid Level 2.2 mmol/L (0.4-2.0) 3.7 mmol/L (0.4-2.0) Calcium Level 9.7 mg/dL (8.5-10.1) Total Bilirubin 2.4 mg/dL (0.2-1.0) Aspartate Amino Transf (AST/SGOT) 65 U/L (15-37) Alanine Aminotransferase (ALT/SGPT) 68 U/L (16-63) Alkaline Phosphatase 370 U/L (46-116) Ammonia 23 mcmol/L (11-34) Creatine Kinase 80 U/L (39-308) Creatine Kinase MB (Mass) 1.3 ng/mL (0.0-3.6) Creatine Kinase MB Relative Index 1.6 % (0-4) Troponin I Quantitative < 0.017 ng/mL (0.000-0.055) SN-Dzd-[id number]-Type Natriuretic Peptide 1866 pg/mL (0-124) Total Protein 8.3 g/dL (6.4-8.2) Albumin 3.5 g/dL (3.4-5.0) Albumin/Globulin Ratio 0.7 (1.0-1.7) Lipase 90 U/L (73-393) Ethyl Alcohol Level < 10 mg/dL (0-10) O2 Saturation 91 % (92-99) Arterial Blood pH 7.44 (7.35-7.45) Arterial Blood pCO2 at Patient Temp 40 mmHg (35-46) Arterial Blood pO2 at Patient Temp 59 mmHg (65-108) Arterial Blood HCO3 27 mmol/L (21-28) Arterial Blood Base Excess 3 mmol/L (-3-3) Oxyhemoglobin 90.6 % Methemoglobin 0.4 % (0.0-1.9) Carbon Monoxide, Quantitative 0.5 % (0.0-1.9) FiO2 32 Urine Collection Type Unknown Urine Color Yellow Urine Clarity Clear Urine pH 5.0 Urine Specific Sharon 1.010 Urine Protein 100 mg/dL (NEG-TRACE) Urine Glucose (UA) Negative mg/dL (NEG) Urine Ketones (Stick) Negative mg/dL (NEG) Urine Blood Large (NEG) Urine Nitrite Negative (NEG) Urine Bilirubin Negative (NEG) Urine Urobilinogen Dipstick 1.0 mg/dL (0.2 mg/dL) Urine Leukocyte Esterase Negative (NEG) Urine RBC 1-2 /HPF (0-2) Urine WBC 0 /HPF (0-4) Urine Squamous Epithelial Cells Occ /LPF Urine Bacteria 0 /HPF (0-FEW) Test 03/19/19 01:30 03/19/19 05:45 03/19/19 08:49 Lactic Acid Level 3.2 mmol/L (0.4-2.0) White Blood Count 8.7 x10^3/uL (4.0-11.0) Red Blood Count 4.14 x10^6/uL (4.30-5.70) Hemoglobin 14.1 g/dL (13.0-17.5) Hematocrit 40.7 % (39.0-53.0) Mean Corpuscular Volume 98 fL (79-100) Mean Corpuscular Hemoglobin 34 pg (25-35) Mean Corpuscular Hemoglobin Concent 35 g/dL (31-37) Red Cell Distribution Width 13.1 % (11.5-14.5) Platelet Count 174 x10^3/uL (140-400) Neutrophils (%) (Auto) 93 % (31-73) Lymphocytes (%) (Auto) 3 % (24-48) Monocytes (%) (Auto) 5 % (0-9) Eosinophils (%) (Auto) 0 % (0-3) Basophils (%) (Auto) 0 % (0-3) Neutrophils # (Auto) 8.1 x10^3uL (1.8-7.7) Lymphocytes # (Auto) 0.2 x10^3/uL (1.0-4.8) Monocytes # (Auto) 0.4 x10^3/uL (0.0-1.1) Eosinophils # (Auto) 0.0 x10^3/uL (0.0-0.7) Basophils # (Auto) 0.0 x10^3/uL (0.0-0.2) Sodium Level 127 mmol/L (136-145) Potassium Level 4.7 mmol/L (3.5-5.1) Chloride Level 90 mmol/L (98-107) Carbon Dioxide Level 27 mmol/L (21-32) Anion Gap 10 (6-14) Blood Urea Nitrogen 22 mg/dL (8-26) Creatinine 1.2 mg/dL (0.7-1.3) Estimated GFR (Cockcroft-Gault) 60.4 BUN/Creatinine Ratio 18 (6-20) Glucose Level 441 mg/dL (70-99) Calcium Level 8.8 mg/dL (8.5-10.1) Magnesium Level 2.4 mg/dL (1.8-2.4) Total Bilirubin 2.1 mg/dL (0.2-1.0) Aspartate Amino Transf (AST/SGOT) 43 U/L (15-37) Alanine Aminotransferase (ALT/SGPT) 53 U/L (16-63) Alkaline Phosphatase 267 U/L (46-116) Total Protein 7.3 g/dL (6.4-8.2) Albumin 2.8 g/dL (3.4-5.0) Albumin/Globulin Ratio 0.6 (1.0-1.7) Triglycerides Level 72 mg/dL (0-150) Cholesterol Level 147 mg/dL (0-200) LDL Cholesterol, Calculated 51 mg/dL (0-100) VLDL Cholesterol, Calculated 14 mg/dL (0-40) Non-HDL Cholesterol Calculated 65 mg/dL (0-129) HDL Cholesterol 82 mg/dL (40-60) Cholesterol/HDL Ratio 1.8 Procalcitonin 0.47 ng/mL (0.00-0.10) Glucose (Fingerstick) 379 mg/dL (70-99) Laboratory Tests Test 03/18/19 14:45 03/18/19 15:10 03/18/19 16:15 03/18/19 19:20 White Blood Count 18.2 x10^3/uL (4.0-11.0) Red Blood Count 4.44 x10^6/uL (4.30-5.70) Hemoglobin 14.6 g/dL (13.0-17.5) Hematocrit 43.2 % (39.0-53.0) Mean Corpuscular Volume 97 fL (79-100) Mean Corpuscular Hemoglobin 33 pg (25-35) Mean Corpuscular Hemoglobin Concent 34 g/dL (31-37) Red Cell Distribution Width 12.9 % (11.5-14.5) Platelet Count 254 x10^3/uL (140-400) Neutrophils (%) (Auto) 82 % (31-73) Lymphocytes (%) (Auto) 5 % (24-48) Monocytes (%) (Auto) 13 % (0-9) Eosinophils (%) (Auto) 0 % (0-3) Basophils (%) (Auto) 0 % (0-3) Neutrophils # (Auto) 14.8 x10^3uL (1.8-7.7) Lymphocytes # (Auto) 0.9 x10^3/uL (1.0-4.8) Monocytes # (Auto) 2.4 x10^3/uL (0.0-1.1) Eosinophils # (Auto) 0.0 x10^3/uL (0.0-0.7) Basophils # (Auto) 0.0 x10^3/uL (0.0-0.2) Segmented Neutrophils % 84 % (35-66) Lymphocytes % 6 % (24-48) Monocytes % 10 % (0-10) Platelet Estimate Adequate (ADEQUATE) Prothrombin Time 15.0 SEC (11.7-14.0) Prothromb Time International Ratio 1.2 (0.8-1.1) Activated Partial Thromboplast Time 29 SEC (24-38) Sodium Level 126 mmol/L (136-145) Potassium Level 5.1 mmol/L (3.5-5.1) Chloride Level 88 mmol/L (98-107) Carbon Dioxide Level 29 mmol/L (21-32) Anion Gap 9 (6-14) Blood Urea Nitrogen 18 mg/dL (8-26) Creatinine 1.0 mg/dL (0.7-1.3) Estimated GFR (Cockcroft-Gault) 74.5 BUN/Creatinine Ratio 18 (6-20) Glucose Level 236 mg/dL (70-99) Lactic Acid Level 2.2 mmol/L (0.4-2.0) 3.7 mmol/L (0.4-2.0) Calcium Level 9.7 mg/dL (8.5-10.1) Total Bilirubin 2.4 mg/dL (0.2-1.0) Aspartate Amino Transf (AST/SGOT) 65 U/L (15-37) Alanine Aminotransferase (ALT/SGPT) 68 U/L (16-63) Alkaline Phosphatase 370 U/L (46-116) Ammonia 23 mcmol/L (11-34) Creatine Kinase 80 U/L (39-308) Creatine Kinase MB (Mass) 1.3 ng/mL (0.0-3.6) Creatine Kinase MB Relative Index 1.6 % (0-4) Troponin I Quantitative < 0.017 ng/mL (0.000-0.055) NQ-Mtb-D-Type Natriuretic Peptide 1866 pg/mL (0-124) Total Protein 8.3 g/dL (6.4-8.2) Albumin 3.5 g/dL (3.4-5.0) Albumin/Globulin Ratio 0.7 (1.0-1.7) Lipase 90 U/L (73-393) Ethyl Alcohol Level < 10 mg/dL (0-10) O2 Saturation 91 % (92-99) Arterial Blood pH 7.44 (7.35-7.45) Arterial Blood pCO2 at Patient Temp 40 mmHg (35-46) Arterial Blood pO2 at Patient Temp 59 mmHg (65-108) Arterial Blood HCO3 27 mmol/L (21-28) Arterial Blood Base Excess 3 mmol/L (-3-3) Oxyhemoglobin 90.6 % Methemoglobin 0.4 % (0.0-1.9) Carbon Monoxide, Quantitative 0.5 % (0.0-1.9) FiO2 32 Urine Collection Type Unknown Urine Color Yellow Urine Clarity Clear Urine pH 5.0 Urine Specific Sharon 1.010 Urine Protein 100 mg/dL (NEG-TRACE) Urine Glucose (UA) Negative mg/dL (NEG) Urine Ketones (Stick) Negative mg/dL (NEG) Urine Blood Large (NEG) Urine Nitrite Negative (NEG) Urine Bilirubin Negative (NEG) Urine Urobilinogen Dipstick 1.0 mg/dL (0.2 mg/dL) Urine Leukocyte Esterase Negative (NEG) Urine RBC 1-2 /HPF (0-2) Urine WBC 0 /HPF (0-4) Urine Squamous Epithelial Cells Occ /LPF Urine Bacteria 0 /HPF (0-FEW) Test 03/19/19 01:30 03/19/19 05:45 03/19/19 08:49 Lactic Acid Level 3.2 mmol/L (0.4-2.0) White Blood Count 8.7 x10^3/uL (4.0-11.0) Red Blood Count 4.14 x10^6/uL (4.30-5.70) Hemoglobin 14.1 g/dL (13.0-17.5) Hematocrit 40.7 % (39.0-53.0) Mean Corpuscular Volume 98 fL (79-100) Mean Corpuscular Hemoglobin 34 pg (25-35) Mean Corpuscular Hemoglobin Concent 35 g/dL (31-37) Red Cell Distribution Width 13.1 % (11.5-14.5) Platelet Count 174 x10^3/uL (140-400) Neutrophils (%) (Auto) 93 % (31-73) Lymphocytes (%) (Auto) 3 % (24-48) Monocytes (%) (Auto) 5 % (0-9) Eosinophils (%) (Auto) 0 % (0-3) Basophils (%) (Auto) 0 % (0-3) Neutrophils # (Auto) 8.1 x10^3uL (1.8-7.7) Lymphocytes # (Auto) 0.2 x10^3/uL (1.0-4.8) Monocytes # (Auto) 0.4 x10^3/uL (0.0-1.1) Eosinophils # (Auto) 0.0 x10^3/uL (0.0-0.7) Basophils # (Auto) 0.0 x10^3/uL (0.0-0.2) Sodium Level 127 mmol/L (136-145) Potassium Level 4.7 mmol/L (3.5-5.1) Chloride Level 90 mmol/L (98-107) Carbon Dioxide Level 27 mmol/L (21-32) Anion Gap 10 (6-14) Blood Urea Nitrogen 22 mg/dL (8-26) Creatinine 1.2 mg/dL (0.7-1.3) Estimated GFR (Cockcroft-Gault) 60.4 BUN/Creatinine Ratio 18 (6-20) Glucose Level 441 mg/dL (70-99) Calcium Level 8.8 mg/dL (8.5-10.1) Magnesium Level 2.4 mg/dL (1.8-2.4) Total Bilirubin 2.1 mg/dL (0.2-1.0) Aspartate Amino Transf (AST/SGOT) 43 U/L (15-37) Alanine Aminotransferase (ALT/SGPT) 53 U/L (16-63) Alkaline Phosphatase 267 U/L (46-116) Total Protein 7.3 g/dL (6.4-8.2) Albumin 2.8 g/dL (3.4-5.0) Albumin/Globulin Ratio 0.6 (1.0-1.7) Triglycerides Level 72 mg/dL (0-150) Cholesterol Level 147 mg/dL (0-200) LDL Cholesterol, Calculated 51 mg/dL (0-100) VLDL Cholesterol, Calculated 14 mg/dL (0-40) Non-HDL Cholesterol Calculated 65 mg/dL (0-129) HDL Cholesterol 82 mg/dL (40-60) Cholesterol/HDL Ratio 1.8 Procalcitonin 0.47 ng/mL (0.00-0.10) Glucose (Fingerstick) 379 mg/dL (70-99) Medications Current Medications Albuterol/ Ipratropium (Duoneb) 3 ml 1X ONCE NEB Last administered on 03/18/19at 15:15; Start 03/18/19 at 14:45; Stop 03/18/19 at 14:49; Status DC Methylprednisolone Sodium Succinate (SOLU-Medrol 125MG VIAL) 125 mg 1X ONCE IV Last administered on 03/18/19at 15:01; Start 03/18/19 at 14:45; Stop 03/18/19 at 14:49; Status DC Furosemide (Lasix) 60 mg 1X ONCE IVP Last administered on 03/18/19at 15:01; Start 03/18/19 at 15:00; Stop 03/18/19 at 15:01; Status DC Piperacillin Sod/ Tazobactam Sod 3.375 gm/Sodium Chloride 50 ml @ 100 mls/hr 1X ONCE IV Last administered on 03/18/19at 15:31; Start 03/18/19 at 15:30; Stop 03/18/19 at 15:59; Status DC Vancomycin HCl (Vanco Per Pharmacy) 1 each PRN DAILY PRN MC SEE COMMENTS Last administered on 03/19/19at 11:01; Start 03/18/19 at 15:30 Vancomycin HCl 2 gm/Sodium Chloride 500 ml @ 250 mls/hr 1X ONCE IV Last administered on 03/18/19at 15:31; Start 03/18/19 at 15:30; Stop 03/18/19 at 17:29; Status DC Ondansetron HCl (Zofran) 4 mg PRN Q8HRS PRN IV NAUSEA/VOMITING; Start 03/18/19 at 15:45; Stop 03/19/19 at 15:44 Albuterol/ Ipratropium (Duoneb) 3 ml RTQID NEB ; Start 03/18/19 at 16:00; Stop 03/18/19 at 17:02; Status DC Multivitamins (Thera M Plus) 1 tab DAILY PO Last administered on 03/19/19at 08:37; Start 03/19/19 at 09:00 Folic Acid (Folic Acid) 1 mg DAILY PO Last administered on 03/19/19at 08:37; Start 03/19/19 at 09:00 Thiamine HCl 100 mg DAILY IM ; Start 03/19/19 at 09:00; Stop 03/19/19 at 09:00; Status DC Lorazepam (Ativan) 4 mg PRN Q1HR PRN PO For CIWA 8-14; Start 03/18/19 at 16:45 Lorazepam (Ativan) 8 mg PRN Q1HR PRN PO For CIWA 15 or greater; Start 03/18/19 at 16:45 Lorazepam (Ativan Inj) 2 mg PRN Q1HR PRN IV For CIWA 8-14; Start 03/18/19 at 16:45 Haloperidol Lactate (Haldol Inj) 5 mg PRN Q4HRS PRN IVP Hallucinatn s,Confusn,Delirium; Start 03/18/19 at 16:45 Clonidine HCl (Catapres) 0.1 mg PRN Q1HR PRN PO SBP > 180 or DBP > 100, MRX3; Start 03/18/19 at 16:45 Lorazepam (Ativan Inj) 2 mg PRN Q15MIN PRN IV SEE COMMENTS; Start 03/18/19 at 16:45; Status UNV Lorazepam (Ativan Inj) 4 mg PRN Q15MIN PRN IV SEE COMMENTS; Start 03/18/19 at 16:45; Status UNV Pantoprazole Sodium (Protonix) 40 mg DAILY08 PO Last administered on 03/19/19at 08:36; Start 03/18/19 at 16:45 Enoxaparin Sodium (Lovenox 40mg Syringe) 40 mg HS SQ Last administered on 03/18/19at 22:03; Start 03/18/19 at 21:00 Insulin Human Lispro (HumaLOG) 0-5 UNITS TIDWMEALS SQ ; Start 03/18/19 at 17:00; Stop 03/18/19 at 18:14; Status DC Dextrose (Dextrose 50%-Water Syringe) 12.5 gm PRN Q15MIN PRN IV SEE COMMENTS; Start 03/18/19 at 16:45 Methylprednisolone Sodium Succinate (SOLU-Medrol 125MG VIAL) 80 mg Q8HRS IV ; Start 03/18/19 at 17:00; Stop 03/18/19 at 18:33; Status DC Budesonide (Pulmicort) 0.5 mg RTBID NEB Last administered on 03/19/19at 08:01; Start 03/18/19 at 20:00 Hydralazine HCl (Apresoline Inj) 10 mg PRN Q4HRS PRN IVP SBP > 160; Start 03/18/19 at 17:00 Amlodipine Besylate (Norvasc) 10 mg DAILY PO Last administered on 03/19/19 08:36; Start 03/19/19 at 09:00 Clonidine HCl (Catapres) 0.2 mg TID PO Last administered on 03/19/19 08:36; Start 03/18/19 at 21:00 Docusate Sodium (Colace) 100 mg DAILY PO Last administered on 03/19/19 08:38; Start 03/19/19 at 09:00 Ferrous Sulfate (Feosol) 325 mg BID PO Last administered on 03/19/19 08:35; Start 03/18/19 at 21:00 Gabapentin (Neurontin) 100 mg TID PO Last administered on 03/19/19 08:36; Start 03/18/19 at 21:00 Metoprolol Succinate (Toprol Xl) 100 mg DAILY PO Last administered on 03/19/19 08:38; Start 03/19/19 at 09:00 Albuterol Sulfate (Ventolin Neb Soln) 2.5 mg RTQID NEB Last administered on 03/19/19at 08:01; Start 03/18/19 at 20:00 Glimepiride (Amaryl) 2 mg BIDWMEALS PO ; Start 03/18/19 at 17:00; Stop 03/18/19 at 18:14; Status DC Indomethacin (Indocin) 50 mg DAILYWBKFT PO ; Start 03/19/19 at 08:00 Insulin Glargine (Lantus) 10 units QHS SQ ; Start 03/18/19 at 21:00; Stop 03/18/19 at 21:00; Status DC Non-Formulary Medication (Pantoprazole Sodium (Protonix)) 40 mg DAILY PO ; Start 03/19/19 at 09:00; Status UNV Non-Formulary Medication ([mens multivitamin] ) 1 cap DAILY .ROUTE ; Start 03/19/19 at 09:00; Status UNV Furosemide (Lasix) 40 mg DAILY PO Last administered on 03/19/19at 08:38; Start 03/19/19 at 09:00 Methylprednisolone Sodium Succinate (SOLU-Medrol 125MG VIAL) 80 mg Q8HRS IV Last administered on 5/22/19at 06:11; Start 03/18/19 at 22:00 Vancomycin HCl 1.5 gm/Sodium Chloride 500 ml @ 250 mls/hr Q12H IV Last administered on 03/19/19at 04:47; Start 03/19/19 at 04:00 Vancomycin HCl (Vancomycin Trough Level) 1 each 1X ONCE MC ; Start 03/20/19 at 03:30; Stop 03/20/19 at 03:31 Acetaminophen/ Hydrocodone Bitart (Lortab 10/325) 1 tab PRN Q6HRS PRN PO PAIN Last administered on 03/18/19at 22:02; Start 03/18/19 at 19:00; Stop 03/19/19 at 08:28; Status DC Guaifenesin (Robitussin Dm) 10 ml PRN Q6HRS PRN PO COUGH; Start 03/19/19 at 08:30 Thiamine Mononitrate (Vitamin B-1) 100 mg DAILY PO Last administered on 03/19/19at 08:43; Start 03/19/19 at 09:00 Acetaminophen/ Hydrocodone Bitart (Lortab 10/325) 1 tab PRN Q6HRS PRN PO PAIN Last administered on 03/19/19at 08:43; Start 03/19/19 at 08:30 Furosemide (Lasix) 40 mg 1X ONCE IVP ; Start 03/19/19 at 13:00; Stop 03/19/19 at 13:01 Active Scripts Active Protonix (Pantoprazole Sodium) 20 Mg Tablet.dr 40 Mg PO DAILY 90 Days Reported Ventolin Hfa Inhaler (Albuterol Sulfate) 18 Gm Hfa.aer.ad 1 Puff INH QID Indomethacin 50 Mg Capsule 1 Cap PO DAILY Hydrocodone-Apap 10-325 (Hydrocodone Bit/Acetaminophen) 1 Tab Tablet 1 Tab PO PRN Q6HRS PRN Ferrous Sulfate 325 Mg Tablet 325 Mg PO BID [mens multivitamin] 1 DAILY Colace (Docusate Sodium) 100 Mg Capsule 100 Mg PO DAILY Gabapentin (Gabapentin) 100 Mg Capsule 100 Mg PO TID Metoprolol Succinate ( Xl ) (Metoprolol Succinate) 100 Mg Tab.er.24h 100 Mg PO DAILY Levemir (Insulin Detemir) 100 Unit/1 Ml Vial 10 Unit SQ HS 30 Days Norvasc (Amlodipine Besylate) 10 Mg Tablet 10 Mg PO DAILY Clonidine Hcl 0.2 Mg Tablet 0.2 Mg PO TID Amaryl (Glimepiride) 1 Mg Tablet 2 Tab PO BIDWMEALS Vitals/I & O Vital Sign - Last 24 Hours 03/18/19 03/18/19 03/18/19 03/18/19 14:41 14:53 15:10 15:14 Temp 98.9 98.9 Pulse 109 99 90 Resp 20 18 19 B/P (MAP) 180/94 (122) 180/96 (124) 187/74 (111) Pulse Ox 89 94 94 93 O2 Delivery Room Air Nasal Cannula Nasal Cannula Nasal Cannula O2 Flow Rate 3.0 3.0 3.0 03/18/19 03/18/19 03/18/19 03/18/19 15:30 15:44 16:12 16:20 Pulse 95 97 94 91 Resp 15 16 20 24 B/P (MAP) 174/75 (108) 159/72 (101) 179/77 (111) 191/86 (121) Pulse Ox 96 94 96 O2 Delivery Nasal Cannula Nasal Cannula Nasal Cannula Nasal Cannula O2 Flow Rate 3.0 3.0 3.0 3.0 03/18/19 03/18/19 03/18/19 03/18/19 16:44 16:49 16:50 17:48 Temp 98.8 98.8 Pulse 89 91 91 85 Resp 14 11 13 20 B/P (MAP) 185/86 (119) 191/89 (123) 173/80 (111) 162/63 (96) Pulse Ox 96 96 96 97 O2 Delivery Nasal Cannula Nasal Cannula Nasal Cannula Nasal Cannula O2 Flow Rate 3.0 3.0 3.0 3.0 03/18/19 03/18/19 03/18/19 03/18/19 19:15 20:00 20:22 22:02 Temp 98.9 98.9 Pulse 89 Resp 16 20 B/P (MAP) 163/63 (96) Pulse Ox 96 99 96 O2 Delivery Nasal Cannula Nasal Cannula Nasal Cannula O2 Flow Rate 3.0 3.0 4.0 03/18/19 03/18/19 03/18/19 03/19/19 22:03 23:02 23:14 03:20 Temp 98.4 97.7 98.4 97.7 Pulse 89 84 74 Resp 18 18 16 B/P (MAP) 163/63 152/54 (86) 167/66 (99) Pulse Ox 94 97 97 O2 Delivery Nasal Cannula Nasal Cannula Nasal Cannula O2 Flow Rate 3.0 3.0 3.0 03/19/19 03/19/19 03/19/19 03/19/19 07:15 08:00 08:02 08:36 Temp 97.6 97.6 Pulse 79 79 Resp 20 B/P (MAP) 174/75 (108) 174/75 Pulse Ox 99 96 O2 Delivery Nasal Cannula Nasal Cannula Nasal Cannula O2 Flow Rate 3.0 2.0 4.0 03/19/19 03/19/19 03/19/19 03/19/19 08:36 08:38 08:43 09:43 Pulse 79 79 Resp 18 B/P (MAP) 174/75 174/75 Pulse Ox 96 96 O2 Delivery Nasal Cannula Nasal Cannula O2 Flow Rate 2.0 2.0 Intake and Output 03/18/19 03/18/19 03/19/19 14:59 22:59 06:59 Intake Total 50 ml 640 ml Output Total 300 ml Balance 50 ml 340 ml CONRAD GARCES MD March 19, 2019 11:07
--- NOTE | 2019-03-19 11:10 | CARD ---
MR#: [id number] Date of Study: 03/19/2019 Ordering Physician: DOLLY CRUZ, Referring Physician: DOLLY CRUZ Tech: Faith Blevins RDCS APPROVED REPORT EXAM: Two-dimensional and M-mode echocardiogram with Doppler and color Doppler. Other Information Quality : AverageHR: 90bpm Rhythm : NSR INDICATION Congestive Heart Failure 2D DIMENSIONS RVDd3.4 (2.9-3.5cm)Left Atrium(2D)4.2 (1.6-4.0cm) IVSd1.1 (0.7-1.1cm)Aortic Root(2D)3.5 (2.0-3.7cm) LVDd5.4 (3.9-5.9cm)LVOT Diameter2.2 (1.8-2.4cm) PWd0.9 (0.7-1.1cm)LVDs3.7 (2.5-4.0cm) FS (%) 30.8 %SV80.8 ml LVEF(%)57.8 (>50%) M-Mode DIMENSIONS Left Atrium(MM)4.30 (2.5-4.0cm)Aortic Root3.64 (2.2-3.7cm) Aortic Valve AoV Peak Wagner.152.9cm/sAoV VTI32.5cm AO Peak GR.9.4mmHgLVOT Peak Wagner.80.8cm/s AO Mean GR.5mmHgAVA (VMAX)1.93cm2 MELITON (VTI)2.00cm2 Mitral Valve MV E Vimwsqsg003.9cm/sMV E Peak Gr.7mmHg MV DECEL [id number] A Isdbcdxj05.2cm/s MV E Mean Gr.3mmHgE/A Ratio1.4 Pulmonary Valve PV Peak Swztmolm920.1cm/s Tricuspid Valve TR P. Ttrrlwyu324dq/sRAP QUFJCHXD3sbUk TR Peak Gr.13rjNxMAZW39hwHu Pulmonary Vein S1 Zubzosbg00.6cm/sD2 Bsnhtmas66.1cm/s LEFT VENTRICLE The left ventricle is normal size. Proximal septal thickening is noted. The left ventricular systolic function is normal. The Ejection Fraction is 55-60%. There is normal LV segmental wall motion. Trans mitral Doppler flow pattern is Grade II-pseudonormal filling dynamics. RIGHT VENTRICLE The right ventricle is normal size. There is normal right ventricular wall thickness. The right ventr icular systolic function is normal. ATRIA The left atrium is mildly dilated. The right atrium is mildly dilated. The interatrial septum is inta ct with no evidence for an atrial septal defect or patent foramen ovale as noted on 2-D or Doppler im aging. AORTIC VALVE The aortic valve is calcified but opens well. The aortic valve is trileaflet. Doppler and Color Flow revealed no significant aortic regurgitation. There is no significant aortic valvular stenosis. MITRAL VALVE Mitral annular calcification is mild. There is no evidence of mitral valve prolapse. There is no mitr al valve stenosis. Doppler and Color-flow revealed trace mitral regurgitation. TRICUSPID VALVE The tricuspid valve is normal in structure and function. Doppler and Color Flow revealed trace tricus pid regurgitation. There is mild-moderate pulmonary hypertension. The PA pressure was estimated at 41 mmHg. There is no tricuspid valve prolapse or vegetation. There is no tricuspid valve stenosis. PULMONIC VALVE The pulmonic valve is not well visualized. GREAT VESSELS The aortic root is normal in size. The ascending aorta is normal in size. The IVC is normal in size a nd collapses >50% with inspiration. PERICARDIAL EFFUSION There is no evidence of significant pericardial effusion. Critical Notification Critical Value: No <Conclusion> The left ventricular systolic function is normal. The Ejection Fraction is 55-60%. There is normal LV segmental wall motion. Trace mitral regurgitation. Trace tricuspid regurgitation. The PA pressure was estimated at 41 mmHg. There is no evidence of significant pericardial effusion. Signed by : Curtis Mae, Electronically Approved : 03/19/2019 11:09:46
[2019-03-19] MEDS ORDERED: INSULIN LISPRO 300 UNITS/3 ML INSULN.PEN. SQ ONE (11:30)
--- NOTE | 2019-03-19 11:38 | NUR ---
SW following pt for anticipated dc needs. Chart reviewed. Pt lives at home with spouse. PT/OT pending. SW will await for PT/OT recommendation to assess skilled needs. Will continue to follow.
[2019-03-19] MEDS ORDERED: FUROSEMIDE 40 MG/4 ML VIAL. IVP ONE (13:00)
[2019-03-19] MEDS: GLIMEPIRIDE 2 MG TABLET. PO SCH ×2 (13:27→21:00)
[2019-03-19] MEDS: metFORMIN 500 MG TABLET PO SCH ×2 (13:27→17:02)
[2019-03-19] MEDS: methylPREDNISolone SOD SUCC PF 40 MG/ML VIAL. IV SCH ×2 (13:28→21:39)
[2019-03-19 15:00] VITALS: BP 159/65
[2019-03-19] MEDS ORDERED: INSULIN LISPRO 300 UNITS/3 ML INSULN.PEN. SQ SCH (17:00)
[2019-03-19 19:00] VITALS: BP 185/66
[2019-03-19] MEDS ORDERED: INSULIN GLARGINE 300 UNITS/3 ML INSULN.PEN. SQ SCH (21:00)
[2019-03-19] MEDS: LACTOBACILLUS RHAMNOSUS GG 1 CAPSULE. PO SCH (21:38)
[2019-03-19] MEDS: AMOXICILLIN/K CLAV 875/125MG TABLET. PO SCH (21:38)
[2019-03-19] MEDS: ENOXAPARIN 40 MG/0.4 ML SYRINGE. SQ SCH (21:39)
[2019-03-19 23:00] VITALS: BP 173/69
[2019-03-20 03:00] VITALS: BP 159/74
[2019-03-20 04:24] LABS: VANC TR 15.7 mcg/mL (10.0-20.0)
[2019-03-20] MEDS: methylPREDNISolone SOD SUCC PF 40 MG/ML VIAL. IV SCH (05:59)
[2019-03-20 07:15] VITALS: BP 161/80
[2019-03-20] MEDS: BUDESONIDE 0.5 MG/2 ML NEBU. NEB SCH (07:43)
[2019-03-20] MEDS: ALBUTEROL SULFATE 2.5 MG/3 ML NEBU. NEB SCH ×2 (07:43→12:04)
[2019-03-20] MEDS: INDOMETHACIN 25 MG CAPSULE. PO SCH (08:00)
[2019-03-20] MEDS: amLODIPine BESYLATE 10 MG TABLET PO SCH (08:28)
[2019-03-20] MEDS: DOCUSATE SODIUM 100 MG CAPSULE. PO SCH (08:28)
[2019-03-20] MEDS: GLIMEPIRIDE 2 MG TABLET. PO SCH (08:28)
[2019-03-20] MEDS: metFORMIN 500 MG TABLET PO SCH (08:28)
[2019-03-20] MEDS: FERROUS SULFATE 325 MG TABLET. PO SCH (08:29)
[2019-03-20] MEDS: MULTIVITAMIN with MINERAL TABLET. PO SCH (08:29)
[2019-03-20] MEDS: METOPROLOL SUCC 24HR ER 100 MG TAB.ER.24H. PO SCH (08:29)
[2019-03-20] MEDS: AMOXICILLIN/K CLAV 875/125MG TABLET. PO SCH (08:29)
[2019-03-20] MEDS: GABAPENTIN 100 MG CAPSULE. PO SCH (08:29)
[2019-03-20] MEDS: FUROSEMIDE 40 MG TABLET. PO SCH (08:29)
[2019-03-20] MEDS: PANTOPRAZOLE 40 MG TABLET.DR. PO SCH (08:30)
[2019-03-20] MEDS: cloNIDine HCL 0.2 MG TABLET PO SCH (08:30)
[2019-03-20] MEDS: FOLIC ACID 1 MG TABLET. PO SCH (08:30)
[2019-03-20] MEDS: THIAMINE 100 MG TABLET. PO SCH (08:30)
[2019-03-20] MEDS: LACTOBACILLUS RHAMNOSUS GG 1 CAPSULE. PO SCH (08:30)
--- NOTE | 2019-03-20 10:07 | CONS ---
DATE OF CONSULTATION: 03/19/2019 ATTENDING PHYSICIAN: Dr. Rick. REASON FOR CONSULTATION: The patient seen in pulmonary consultation at the request of Dr. Rick for abnormal chest x-ray, increasing shortness of air. HISTORY OF PRESENT ILLNESS: The patient is a 68-year-old with a history of asthma as a young child and was never really on any maintenance medication. He kind of outgrew the asthma. He went on to the [employer] and smoked for a short period of time, used albuterol on a p.r.n. basis. Over the last 2-3 days, he experienced increasing shortness of breath, some wheezing. He could not get a breath of air in. He came in through the Emergency Room and had significant dyspnea and hypoxemia. His arterial blood gas on 32% FiO2 revealed a pO2 of 59. White count was normal. His chest x-ray revealed questionable suprahilar infiltrate. The patient now feels better. He has a cough, mostly nonproductive. No fever, chills or night sweats. PAST MEDICAL HISTORY: 1. Tobacco dependence, in remission, questionable COPD. 2. Asthma as described above. 3. Type 2 diabetes. 4. Hypertension. 5. Chronic back pain. He has had previous injection. 6. Osteoarthritis. ALLERGIES: No known drug allergies. FAMILY HISTORY: No family history of lung disorder or asthma. MEDICATIONS: Current medication list was reviewed. SOCIAL HISTORY: He has been in the in the past. Denies any current use of tobacco. Moderate amount of alcohol. REVIEW OF SYSTEMS: CONSTITUTIONAL: No fever or chills. EYES: No change in visual acuity. HEENT: No nasal congestion or sore throat. PULMONARY: As indicated above. CARDIOVASCULAR: No chest pain or pressure. GASTROINTESTINAL: No nausea, vomiting, diarrhea. GENITOURINARY: No dysuria or frequency. MUSCULOSKELETAL: No localized muscle aches or joint pains. SKIN: No new skin rashes. NEUROLOGIC: No headaches, diplopia or blurred vision. PHYSICAL EXAMINATION: VITAL SIGNS: The patient currently on 2 L of oxygen supplementation, saturation greater than 92%. HEENT: Eyes, the sclerae were nonicteric. NECK: Jugular venous distention was not elevated. No lymphadenopathy. CHEST: Full expansion. LUNGS: Adequate airway flow. No wheezes, rales or rhonchi. CARDIOVASCULAR: Regular rate and rhythm with S1, S2. No S3. ABDOMEN: Soft, nontender, nondistended. EXTREMITIES: No clubbing, cyanosis. 1+ edema of the lower extremities. NEUROLOGIC: The patient was awake, alert, following commands. A detailed neuro exam was not performed. LABORATORY DATA: Reviewed. White count was initially elevated. Hemoglobin and hematocrit were noted. Arterial blood gas; pH of 7.40, PaCO2 of 40, PaO2 of 59. Electrolytes were noted. Chest x-ray was reviewed, there is right suprahilar infiltrate. IMPRESSION: 1. Acute hypoxemic respiratory failure. 2. Acute exacerbation of chronic obstructive pulmonary disease. 3. Tobacco dependence, in remission. 4. Accelerated hypertension. 5. Leukocytosis. 6. Possible pneumonia. PLAN: 1. We will continue current steroids and antibiotics. 2. The patient instructed to avoid secondhand smoke. 3. Diurese. 4. Six-minute walk prior to discharge. 5. Monitor blood sugars. I do appreciate the privilege in sharing in the patient's care. MYLES HOWARD MD DR: MARKIE/jerry JOB#: [id number] / [id number]
[2019-03-20 11:08] VITALS: BP 131/59
--- NOTE | 2019-03-20 11:15 | PDOC ---
Subjective: Subjective: Wants to leave, doesn't want to wait for US. Tolerating PO, abd feels a little better, legs still swollen. Objective: Objective: D/w Dr. Dunlap - ?DC Vital Signs: Vital Signs Date Time Temp Pulse Resp B/P (MAP) Pulse Ox O2 Delivery O2 Flow Rate FiO2 03/20/19 11:08 98.7 71 18 131/59 (83) 97 Nasal Cannula 3.0 98.7 Labs: Laboratory Tests Test 03/19/19 11:26 03/19/19 22:12 03/20/19 03:15 03/20/19 07:23 Glucose (Fingerstick) 412 mg/dL 266 mg/dL 162 mg/dL Vancomycin Level Trough 15.7 mcg/mL Vancomycin Last Dose Date Vancomycin Last Dose Time 1600 Test 03/20/19 10:58 Glucose (Fingerstick) 207 mg/dL Imaging: Echocardiogram 03/19 <Conclusion> The left ventricular systolic function is normal. The Ejection Fraction is 55-60%. There is normal LV segmental wall motion. Trace mitral regurgitation. Trace tricuspid regurgitation. The PA pressure was estimated at 41 mmHg. There is no evidence of significant pericardial effusion. PE: GEN: NAD, up in chair, has jeans on LUNGS: room air ABD: round, a bit tight - stable from yesterday, non-tender EXTREM: BLE pitting edema NEURO/PSYCH: A & O 3 A/P: Resp failure, CHF Elevated LFTs - hepatic steatosis, DM, alcohol GERD, h/o PUD - EGD 02/2018 -- He would like to go home as above. Out office can contact him with additional recs if needed - will review w/ Dr. Parada. Apparently plans to f/u w/ Dr. Cueva. Would send on PPI. Miralax or similar probably a good idea w/ pain med use. GEORGIE KLINE March 20, 2019 11:15
--- NOTE | 2019-03-20 11:23 | PDOC ---
CARDIO Progress Notes Date and Time Date of Service 03/20/19 Time of Evaluation 1115 Subjective Subjective: No Chest Pain, Other (swelling persists, wanting to go home) Vitals Vitals Vital Signs Date Time Temp Pulse Resp B/P (MAP) Pulse Ox O2 Delivery O2 Flow Rate FiO2 03/20/19 11:08 98.7 71 18 131/59 (83) 97 Nasal Cannula 3.0 98.7 Weight Weight [ ] Input and Output Intake and Output Intake and Output 03/20/19 07:00 Intake Total 2060 ml Output Total 2025 ml Balance 35 ml Intake Oral 2060 ml Output Urine Total 2025 ml Laboratory Labs Laboratory Tests Test 03/19/19 11:26 03/19/19 22:12 03/20/19 03:15 03/20/19 07:23 Glucose (Fingerstick) 412 mg/dL (70-99) 266 mg/dL (70-99) 162 mg/dL (70-99) Vancomycin Level Trough 15.7 mcg/mL (10.0-20.0) Vancomycin Last Dose Date Vancomycin Last Dose Time 1600 Test 03/20/19 10:58 Glucose (Fingerstick) 207 mg/dL (70-99) Microbiology Micro Microbiology 03/18/19 Blood Culture - Preliminary, Resulted NO GROWTH AFTER 1 DAY Physical Exam HEENT: Neck Supple W Full Motion Chest: Symmetric LUNGS: Clear to Auscultation Heart: RRR Abdomen: Soft N/T, Other (ascites) Extremities: Other (2+ bilateral LE edema) Neurology: alert, oriented, follow commands Assessment Assessment 1. Acute respiratory failure; multifactorial 2. Acute on chronic CHF; better compensated following diuresis 3. Leucocytosis, lactic acidosis, possible PNA 4. Elevated LFTs, ascites; GI following 5. Hyponatremia 7. Accelerated hypertension; better controlled 8. Diabetes, II; as per PCP 9. H/o cardiomyopathy. Echo 2014 with LVEF 35-40%. Most recent echo with LV recovery with an EF of 50-55% as noted above. Echo now with preserved LV function with an EF of 55-60% 10. LBBB; noted in 2018. Stress test at that time unremarkable for ischemia Recommendations Ongoing diuresis Discussed outpatient stress test; patient decline due to adverse effects of previous stress test. Supportive care Patient to f/u with Dr. Mae as scheduled. MARJORIE DE LEON APRN March 20, 2019 11:23
[2019-03-20] MEDS ORDERED: METF500T PO (11:32)
[2019-03-20] MEDS ORDERED: THIA100T22 PO (11:32)
[2019-03-20] MEDS ORDERED: AMOX1TAB11 PO (11:32)
[2019-03-20] MEDS ORDERED: FURO40TA4 PO (11:32)
[2019-03-20] MEDS ORDERED: BUDE0.5A NEB (11:32)
[2019-03-20] MEDS ORDERED: FOLI1TAB16 PO (11:32)
[2019-03-20] MEDS ORDERED: MULT1TAB90 PO (11:32)
[2019-03-20] MEDS ORDERED: GUAI5SYR PO (11:32)
--- NOTE | 2019-03-20 11:36 | PDOC3 ---
Discharge Summary Visit Information Date of Admission: March 18, 2019 Date of Discharge: March 20, 2019 Admitting Diagnosis Comment: 1. Acute respiratory failure; multifactorial given ascites, mild a/c HF, and possible PNA 2. Acute on chronic CHF 3. Leucocytosis, lactic acidosis. Poss PNA 4. Elevated LFTs, ascites; GI following 5. Hyponatremia 7. Accelerated hypertension 8. Diabetes, II 9. H/o cardiomyopathy. Echo 2015 with LVEF 35-40%. Most recent echo with LV recovery with an EF of 50-55% as noted above. 10. LBBB; noted in 2018. Stress test at that time unremarkable for ischemia Final Diagnosis Problems Medical Problems: (1) Acute pulmonary edema Status: Acute (2) Ascites Status: Acute (3) Pneumonia Status: Acute Brief Hospital Course Allergies Allergies Coded Allergies Type Severity Reaction Last Updated Verified No Known Drug Allergies 03/14/18 No Vital Signs Vital Signs Date Time Temp Pulse Resp B/P (MAP) Pulse Ox O2 Delivery O2 Flow Rate FiO2 03/20/19 11:08 98.7 71 18 131/59 (83) 97 Nasal Cannula 3.0 98.7 Lab Results Laboratory Tests Test 03/18/19 14:45 03/18/19 15:10 03/18/19 16:15 03/18/19 19:20 White Blood Count 18.2 x10^3/uL (4.0-11.0) Red Blood Count 4.44 x10^6/uL (4.30-5.70) Hemoglobin 14.6 g/dL (13.0-17.5) Hematocrit 43.2 % (39.0-53.0) Mean Corpuscular Volume 97 fL (79-100) Mean Corpuscular Hemoglobin 33 pg (25-35) Mean Corpuscular Hemoglobin Concent 34 g/dL (31-37) Red Cell Distribution Width 12.9 % (11.5-14.5) Platelet Count 254 x10^3/uL (140-400) Neutrophils (%) (Auto) 82 % (31-73) Lymphocytes (%) (Auto) 5 % (24-48) Monocytes (%) (Auto) 13 % (0-9) Eosinophils (%) (Auto) 0 % (0-3) Basophils (%) (Auto) 0 % (0-3) Neutrophils # (Auto) 14.8 x10^3uL (1.8-7.7) Lymphocytes # (Auto) 0.9 x10^3/uL (1.0-4.8) Monocytes # (Auto) 2.4 x10^3/uL (0.0-1.1) Eosinophils # (Auto) 0.0 x10^3/uL (0.0-0.7) Basophils # (Auto) 0.0 x10^3/uL (0.0-0.2) Segmented Neutrophils % 84 % (35-66) Lymphocytes % 6 % (24-48) Monocytes % 10 % (0-10) Platelet Estimate Adequate (ADEQUATE) Prothrombin Time 15.0 SEC (11.7-14.0) Prothromb Time International Ratio 1.2 (0.8-1.1) Activated Partial Thromboplast Time 29 SEC (24-38) Sodium Level 126 mmol/L (136-145) Potassium Level 5.1 mmol/L (3.5-5.1) Chloride Level 88 mmol/L (98-107) Carbon Dioxide Level 29 mmol/L (21-32) Anion Gap 9 (6-14) Blood Urea Nitrogen 18 mg/dL (8-26) Creatinine 1.0 mg/dL (0.7-1.3) Estimated GFR (Cockcroft-Gault) 74.5 BUN/Creatinine Ratio 18 (6-20) Glucose Level 236 mg/dL (70-99) Lactic Acid Level 2.2 mmol/L (0.4-2.0) 3.7 mmol/L (0.4-2.0) Calcium Level 9.7 mg/dL (8.5-10.1) Total Bilirubin 2.4 mg/dL (0.2-1.0) Aspartate Amino Transf (AST/SGOT) 65 U/L (15-37) Alanine Aminotransferase (ALT/SGPT) 68 U/L (16-63) Alkaline Phosphatase 370 U/L (46-116) Ammonia 23 mcmol/L (11-34) Creatine Kinase 80 U/L (39-308) Creatine Kinase MB (Mass) 1.3 ng/mL (0.0-3.6) Creatine Kinase MB Relative Index 1.6 % (0-4) Troponin I Quantitative < 0.017 ng/mL (0.000-0.055) NR-Wap-V-Type Natriuretic Peptide 1866 pg/mL (0-124) Total Protein 8.3 g/dL (6.4-8.2) Albumin 3.5 g/dL (3.4-5.0) Albumin/Globulin Ratio 0.7 (1.0-1.7) Lipase 90 U/L (73-393) Ethyl Alcohol Level < 10 mg/dL (0-10) O2 Saturation 91 % (92-99) Arterial Blood pH 7.44 (7.35-7.45) Arterial Blood pCO2 at Patient Temp 40 mmHg (35-46) Arterial Blood pO2 at Patient Temp 59 mmHg (65-108) Arterial Blood HCO3 27 mmol/L (21-28) Arterial Blood Base Excess 3 mmol/L (-3-3) Oxyhemoglobin 90.6 % Methemoglobin 0.4 % (0.0-1.9) Carbon Monoxide, Quantitative 0.5 % (0.0-1.9) FiO2 32 Urine Collection Type Unknown Urine Color Yellow Urine Clarity Clear Urine pH 5.0 Urine Specific [place] 1.010 Urine Protein 100 mg/dL (NEG-TRACE) Urine Glucose (UA) Negative mg/dL (NEG) Urine Ketones (Stick) Negative mg/dL (NEG) Urine Blood Large (NEG) Urine Nitrite Negative (NEG) Urine Bilirubin Negative (NEG) Urine Urobilinogen Dipstick 1.0 mg/dL (0.2 mg/dL) Urine Leukocyte Esterase Negative (NEG) Urine RBC 1-2 /HPF (0-2) Urine WBC 0 /HPF (0-4) Urine Squamous Epithelial Cells Occ /LPF Urine Bacteria 0 /HPF (0-FEW) Test 03/19/19 01:30 03/19/19 05:45 03/19/19 08:49 03/19/19 11:26 Lactic Acid Level 3.2 mmol/L (0.4-2.0) White Blood Count 8.7 x10^3/uL (4.0-11.0) Red Blood Count 4.14 x10^6/uL (4.30-5.70) Hemoglobin 14.1 g/dL (13.0-17.5) Hematocrit 40.7 % (39.0-53.0) Mean Corpuscular Volume 98 fL (79-100) Mean Corpuscular Hemoglobin 34 pg (25-35) Mean Corpuscular Hemoglobin Concent 35 g/dL (31-37) Red Cell Distribution Width 13.1 % (11.5-14.5) Platelet Count 174 x10^3/uL (140-400) Neutrophils (%) (Auto) 93 % (31-73) Lymphocytes (%) (Auto) 3 % (24-48) Monocytes (%) (Auto) 5 % (0-9) Eosinophils (%) (Auto) 0 % (0-3) Basophils (%) (Auto) 0 % (0-3) Neutrophils # (Auto) 8.1 x10^3uL (1.8-7.7) Lymphocytes # (Auto) 0.2 x10^3/uL (1.0-4.8) Monocytes # (Auto) 0.4 x10^3/uL (0.0-1.1) Eosinophils # (Auto) 0.0 x10^3/uL (0.0-0.7) Basophils # (Auto) 0.0 x10^3/uL (0.0-0.2) Sodium Level 127 mmol/L (136-145) Potassium Level 4.7 mmol/L (3.5-5.1) Chloride Level 90 mmol/L (98-107) Carbon Dioxide Level 27 mmol/L (21-32) Anion Gap 10 (6-14) Blood Urea Nitrogen 22 mg/dL (8-26) Creatinine 1.2 mg/dL (0.7-1.3) Estimated GFR (Cockcroft-Gault) 60.4 BUN/Creatinine Ratio 18 (6-20) Glucose Level 441 mg/dL (70-99) Calcium Level 8.8 mg/dL (8.5-10.1) Magnesium Level 2.4 mg/dL (1.8-2.4) Total Bilirubin 2.1 mg/dL (0.2-1.0) Aspartate Amino Transf (AST/SGOT) 43 U/L (15-37) Alanine Aminotransferase (ALT/SGPT) 53 U/L (16-63) Alkaline Phosphatase 267 U/L (46-116) Total Protein 7.3 g/dL (6.4-8.2) Albumin 2.8 g/dL (3.4-5.0) Albumin/Globulin Ratio 0.6 (1.0-1.7) Triglycerides Level 72 mg/dL (0-150) Cholesterol Level 147 mg/dL (0-200) LDL Cholesterol, Calculated 51 mg/dL (0-100) VLDL Cholesterol, Calculated 14 mg/dL (0-40) Non-HDL Cholesterol Calculated 65 mg/dL (0-129) HDL Cholesterol 82 mg/dL (40-60) Cholesterol/HDL Ratio 1.8 Procalcitonin 0.47 ng/mL (0.00-0.10) Glucose (Fingerstick) 379 mg/dL (70-99) 412 mg/dL (70-99) Test 03/19/19 22:12 03/20/19 03:15 03/20/19 07:23 03/20/19 10:58 Glucose (Fingerstick) 266 mg/dL (70-99) 162 mg/dL (70-99) 207 mg/dL (70-99) Vancomycin Level Trough 15.7 mcg/mL (10.0-20.0) Vancomycin Last Dose Date Vancomycin Last Dose Time 1600 Laboratory Tests Test 03/19/19 22:12 03/20/19 03:15 03/20/19 07:23 03/20/19 10:58 Glucose (Fingerstick) 266 mg/dL (70-99) 162 mg/dL (70-99) 207 mg/dL (70-99) Vancomycin Level Trough 15.7 mcg/mL (10.0-20.0) Vancomycin Last Dose Date Vancomycin Last Dose Time 1600 Brief Hospital Course Mr. Fritz is a 68 old male who lives at home with , history of alcoholism, admitted because of SOA and leg edema. Cardiology has started Lasix 40 once a day. He he has been on that before by PCP Dr. Alan, claims he got bloated. But is willing to try it again. Course remarkable for high blood sugar as we have him on steroids also for lung issues - comanagement pulmonary. Cleared by pulmonary for by mouth Augmentin and Pulmicort. He initially needed BiPAP and Nitropaste on admission for flash pulmonary edema. Echocardiogram attached and discussed with him good LV systolic function. Also some known cholelithiasis known to him. With elevated LFTs plan for outpatient surgery and he is following up with some surgeon, GI consulted here, ok for no rpt US Consults performed cardiology, pulmonary, GI Procedures performed echo No need for repeat ultrasound abd Did advise BMP 2- 4 weeks since restarted her Lasix by cardiology DC time 35 minutes greater than 60% DC education counseling and discharge instructions Discharge Information Condition at Discharge: Improved, Stable Follow Up: Weeks (pcp 2-4 jennifer chiu DMa nd leg edema, started on lasix 40 by cards) Disposition/Orders: D/C to Home Scheduled Albuterol Sulfate (Ventolin Hfa Inhaler) 18 Gm Hfa.aer.ad, 1 PUFF INH QID for FOR ASTHMA, Ref 0 (Reported) Entered as Reported by: MALCOLM GONZALEZ on 03/14/19822 Last Action: Converted on 03/18/191654 by DOLLY CRUZ MD Amlodipine Besylate (Norvasc) 10 Mg Tablet, 10 MG PO DAILY, (Reported) Entered as Reported by: SUSAN SALCEDO on 04/20/151637 Last Action: Continued on 03/18/191654 by DOLLY CRUZ MD Amoxicillin/Potassium Clav (Amox Tr-K Clv 875-125 Mg Tab) 1 Each Tablet, 1 TAB PO BID for lung infxn MDD 1, #14 Prescribed by: CONRAD GARCES on 03/20/19 1132 Budesonide (Budesonide) 0.5 Mg/2 Ml Ampul.neb, 0.5 MG NEB RTBID for soa MDD 1, #60 Prescribed by: CONRAD GARCES on 03/20/19 1132 Clonidine Hcl (Clonidine Hcl) 0.2 Mg Tablet, 0.2 MG PO TID, (Reported) Entered as Reported by: SUSAN SALCEDO on 04/20/151637 Last Action: Continued on 03/18/191654 by DOLLY CRUZ MD Docusate Sodium (Colace) 100 Mg Capsule, 100 MG PO DAILY for stool softener, (Reported) Entered as Reported by: MALCOLM GONZALEZ on 03/14/19822 Last Action: Continued on 03/18/191654 by DOLLY CRUZ MD Ferrous Sulfate (Ferrous Sulfate) 325 Mg Tablet, 325 MG PO BID for low iron, (Reported) Entered as Reported by: MALCOLM GONZALEZ on 03/14/19822 Last Action: Continued on 03/18/191654 by DOLLY CRUZ MD Folic Acid (Folic Acid) 1 Mg Tablet, 1 MG PO DAILY for mvi MDD 1, #30 Prescribed by: CONRAD GARCES on 03/20/19 113 Furosemide (Furosemide) 40 Mg Tablet, 40 MG PO DAILY for leg edema MDD 1, #30 Prescribed by: CONRAD GARCES on 03/20/19 1132 Gabapentin (Gabapentin ) 100 Mg Capsule, 100 MG PO TID for NEUROGENIC PAIN, (Reported) Entered as Reported by: MALCOLM GONZALEZ on 03/14/19818 Last Action: Continued on 03/18/191654 by DOLLY CRUZ MD Glimepiride (Amaryl) 1 Mg Tablet, 2 TAB PO BIDWMEALS, #30 Ref 5 (Reported) Entered as Reported by: SUSAN SALCEDO on 04/20/15 163 Last Action: Converted on 03/18/191654 by DOLLY CRUZ MD Indomethacin (Indomethacin) 50 Mg Capsule, 1 CAP PO DAILY for gout, #30 Ref 1 (Reported) Entered as Reported by: MALCOLM GONZALEZ on 03/14/19822 Last Action: Converted on 03/18/191654 by DOLLY CRUZ MD Insulin Detemir (Levemir) 100 Unit/1 Ml Vial, 10 UNIT SQ HS for diabetes for 30 Days, (Reported) Entered as Reported by: SUSAN SALCEDO on 04/20/15 1642 Last Action: Converted on 03/18/191654 by DOLLY CRUZ MD Metformin Hcl (Glucophage) 500 Mg Tablet, 500 MG PO BIDWMEALS for dm 2 MDD 1, #60 Prescribed by: CONRAD GARCES on 03/20/19 113 Metoprolol Succinate (Metoprolol Succinate ( Xl )) 100 Mg Tab.er.24h, 100 MG PO DAILY for FOR HYPERTENSION, #30 Ref 0 (Reported) Entered as Reported by: DEEPAK ORDONEZ on 03/14/18 0134 Last Action: Continued on 03/18/191654 by DOLLY CRUZ MD Multivits,Ca,Minerals/Iron/Fa (Thera-M Tablet) 1 Each Tablet, 1 TAB PO DAILY for mvi MDD 1, #30 Prescribed by: CONRAD GARCES on 03/20/19 1132 Pantoprazole Sodium (Protonix) 20 Mg Tablet.dr, 40 MG PO DAILY for 90 Days, #180 Prescribed by: CONRAD GARCES on 03/16/18 0909 Last Action: Converted on 03/18/191654 by DOLLY CRUZ MD Thiamine Mononitrate (Vitamin B-1) 100 Mg Tablet, 100 MG PO DAILY for mvi MDD 1, #30 Prescribed by: CONRAD GARCES on 03/20/19 1132 [mens multivitamin] , 1 DAILY, (Reported) Entered as Reported by: MALCOLM GONZALEZ on 03/14/19822 Last Action: Converted on 03/18/191654 by DOLLY CRUZ MD Scheduled PRN Guaifenesin/Dextromethorphan (Guaifenesin Dm Syrup) 5 Ml Syrup, 10 ML PO PRN Q6HRS PRN for COUGH MDD 1 for 7 Days Prescribed by: CONRAD GARCES on 03/20/19 1132 Hydrocodone Bit/Acetaminophen (Hydrocodone-Apap 10-325 ) 1 Tab Tablet, 1 TAB PO PRN Q6HRS PRN for PAIN, Ref 0 (Reported) Entered as Reported by: MALCOLM GONZALEZ on 03/14/19822 Last Action: Continued on 03/19/19824 by CONRAD WOOD MD March 20, 2019 11:35
--- NOTE | 2019-03-20 12:45 | NUR ---
Discharge Note: [facility] Discharge instructions and discharge home medications reviewed with Patient and a copy given. All questions have been answered and understanding verbalized. The following instructions and handouts were given: multiple prescriptions, follow up instructions. Discontinued lines and drains: 18 gauge left upper arm, tip intact. patient tolerated well. Patient discharged to home with self care via .
[2019-03-20 13:17] LABS: HEMOGLOBIN A1C 5.8 % (4.8-5.6)
--- NOTE | 2019-03-20 13:34 | PDOC ---
PULMONARY PROGRESS NOTES Vitals Vital Signs Date Time Temp Pulse Resp B/P (MAP) Pulse Ox O2 Delivery O2 Flow Rate FiO2 03/20/19 12:05 97 Room Air 03/20/19 11:08 98.7 71 18 131/59 (83) 3.0 98.7 Lungs: Clear Cardiovascular: S1, S2 Labs Laboratory Tests Test 03/18/19 14:45 03/18/19 15:10 03/18/19 16:15 03/18/19 19:20 White Blood Count 18.2 x10^3/uL (4.0-11.0) Red Blood Count 4.44 x10^6/uL (4.30-5.70) Hemoglobin 14.6 g/dL (13.0-17.5) Hematocrit 43.2 % (39.0-53.0) Mean Corpuscular Volume 97 fL (79-100) Mean Corpuscular Hemoglobin 33 pg (25-35) Mean Corpuscular Hemoglobin Concent 34 g/dL (31-37) Red Cell Distribution Width 12.9 % (11.5-14.5) Platelet Count 254 x10^3/uL (140-400) Neutrophils (%) (Auto) 82 % (31-73) Lymphocytes (%) (Auto) 5 % (24-48) Monocytes (%) (Auto) 13 % (0-9) Eosinophils (%) (Auto) 0 % (0-3) Basophils (%) (Auto) 0 % (0-3) Neutrophils # (Auto) 14.8 x10^3uL (1.8-7.7) Lymphocytes # (Auto) 0.9 x10^3/uL (1.0-4.8) Monocytes # (Auto) 2.4 x10^3/uL (0.0-1.1) Eosinophils # (Auto) 0.0 x10^3/uL (0.0-0.7) Basophils # (Auto) 0.0 x10^3/uL (0.0-0.2) Segmented Neutrophils % 84 % (35-66) Lymphocytes % 6 % (24-48) Monocytes % 10 % (0-10) Platelet Estimate Adequate (ADEQUATE) Prothrombin Time 15.0 SEC (11.7-14.0) Prothromb Time International Ratio 1.2 (0.8-1.1) Activated Partial Thromboplast Time 29 SEC (24-38) Sodium Level 126 mmol/L (136-145) Potassium Level 5.1 mmol/L (3.5-5.1) Chloride Level 88 mmol/L (98-107) Carbon Dioxide Level 29 mmol/L (21-32) Anion Gap 9 (6-14) Blood Urea Nitrogen 18 mg/dL (8-26) Creatinine 1.0 mg/dL (0.7-1.3) Estimated GFR (Cockcroft-Gault) 74.5 BUN/Creatinine Ratio 18 (6-20) Glucose Level 236 mg/dL (70-99) Lactic Acid Level 2.2 mmol/L (0.4-2.0) 3.7 mmol/L (0.4-2.0) Calcium Level 9.7 mg/dL (8.5-10.1) Total Bilirubin 2.4 mg/dL (0.2-1.0) Aspartate Amino Transf (AST/SGOT) 65 U/L (15-37) Alanine Aminotransferase (ALT/SGPT) 68 U/L (16-63) Alkaline Phosphatase 370 U/L (46-116) Ammonia 23 mcmol/L (11-34) Creatine Kinase 80 U/L (39-308) Creatine Kinase MB (Mass) 1.3 ng/mL (0.0-3.6) Creatine Kinase MB Relative Index 1.6 % (0-4) Troponin I Quantitative < 0.017 ng/mL (0.000-0.055) FF-Mqi-X-Type Natriuretic Peptide 1866 pg/mL (0-124) Total Protein 8.3 g/dL (6.4-8.2) Albumin 3.5 g/dL (3.4-5.0) Albumin/Globulin Ratio 0.7 (1.0-1.7) Lipase 90 U/L (73-393) Ethyl Alcohol Level < 10 mg/dL (0-10) O2 Saturation 91 % (92-99) Arterial Blood pH 7.44 (7.35-7.45) Arterial Blood pCO2 at Patient Temp 40 mmHg (35-46) Arterial Blood pO2 at Patient Temp 59 mmHg (65-108) Arterial Blood HCO3 27 mmol/L (21-28) Arterial Blood Base Excess 3 mmol/L (-3-3) Oxyhemoglobin 90.6 % Methemoglobin 0.4 % (0.0-1.9) Carbon Monoxide, Quantitative 0.5 % (0.0-1.9) FiO2 32 Urine Collection Type Unknown Urine Color Yellow Urine Clarity Clear Urine pH 5.0 Urine Specific [place] 1.010 Urine Protein 100 mg/dL (NEG-TRACE) Urine Glucose (UA) Negative mg/dL (NEG) Urine Ketones (Stick) Negative mg/dL (NEG) Urine Blood Large (NEG) Urine Nitrite Negative (NEG) Urine Bilirubin Negative (NEG) Urine Urobilinogen Dipstick 1.0 mg/dL (0.2 mg/dL) Urine Leukocyte Esterase Negative (NEG) Urine RBC 1-2 /HPF (0-2) Urine WBC 0 /HPF (0-4) Urine Squamous Epithelial Cells Occ /LPF Urine Bacteria 0 /HPF (0-FEW) Test 03/19/19 01:30 03/19/19 05:45 03/19/19 08:49 03/19/19 11:26 Lactic Acid Level 3.2 mmol/L (0.4-2.0) White Blood Count 8.7 x10^3/uL (4.0-11.0) Red Blood Count 4.14 x10^6/uL (4.30-5.70) Hemoglobin 14.1 g/dL (13.0-17.5) Hematocrit 40.7 % (39.0-53.0) Mean Corpuscular Volume 98 fL (79-100) Mean Corpuscular Hemoglobin 34 pg (25-35) Mean Corpuscular Hemoglobin Concent 35 g/dL (31-37) Red Cell Distribution Width 13.1 % (11.5-14.5) Platelet Count 174 x10^3/uL (140-400) Neutrophils (%) (Auto) 93 % (31-73) Lymphocytes (%) (Auto) 3 % (24-48) Monocytes (%) (Auto) 5 % (0-9) Eosinophils (%) (Auto) 0 % (0-3) Basophils (%) (Auto) 0 % (0-3) Neutrophils # (Auto) 8.1 x10^3uL (1.8-7.7) Lymphocytes # (Auto) 0.2 x10^3/uL (1.0-4.8) Monocytes # (Auto) 0.4 x10^3/uL (0.0-1.1) Eosinophils # (Auto) 0.0 x10^3/uL (0.0-0.7) Basophils # (Auto) 0.0 x10^3/uL (0.0-0.2) Sodium Level 127 mmol/L (136-145) Potassium Level 4.7 mmol/L (3.5-5.1) Chloride Level 90 mmol/L (98-107) Carbon Dioxide Level 27 mmol/L (21-32) Anion Gap 10 (6-14) Blood Urea Nitrogen 22 mg/dL (8-26) Creatinine 1.2 mg/dL (0.7-1.3) Estimated GFR (Cockcroft-Gault) 60.4 BUN/Creatinine Ratio 18 (6-20) Glucose Level 441 mg/dL (70-99) Hemoglobin A1c 5.8 % (4.8-5.6) Calcium Level 8.8 mg/dL (8.5-10.1) Magnesium Level 2.4 mg/dL (1.8-2.4) Total Bilirubin 2.1 mg/dL (0.2-1.0) Aspartate Amino Transf (AST/SGOT) 43 U/L (15-37) Alanine Aminotransferase (ALT/SGPT) 53 U/L (16-63) Alkaline Phosphatase 267 U/L (46-116) Total Protein 7.3 g/dL (6.4-8.2) Albumin 2.8 g/dL (3.4-5.0) Albumin/Globulin Ratio 0.6 (1.0-1.7) Triglycerides Level 72 mg/dL (0-150) Cholesterol Level 147 mg/dL (0-200) LDL Cholesterol, Calculated 51 mg/dL (0-100) VLDL Cholesterol, Calculated 14 mg/dL (0-40) Non-HDL Cholesterol Calculated 65 mg/dL (0-129) HDL Cholesterol 82 mg/dL (40-60) Cholesterol/HDL Ratio 1.8 Procalcitonin 0.47 ng/mL (0.00-0.10) Glucose (Fingerstick) 379 mg/dL (70-99) 412 mg/dL (70-99) Test 03/19/19 22:12 03/20/19 03:15 03/20/19 07:23 03/20/19 10:58 Glucose (Fingerstick) 266 mg/dL (70-99) 162 mg/dL (70-99) 207 mg/dL (70-99) Vancomycin Level Trough 15.7 mcg/mL (10.0-20.0) Vancomycin Last Dose Date Vancomycin Last Dose Time 1600 Laboratory Tests Test 03/19/19 22:12 03/20/19 03:15 03/20/19 07:23 03/20/19 10:58 Glucose (Fingerstick) 266 mg/dL (70-99) 162 mg/dL (70-99) 207 mg/dL (70-99) Vancomycin Level Trough 15.7 mcg/mL (10.0-20.0) Vancomycin Last Dose Date Vancomycin Last Dose Time 1600 Medications Active Scripts Medications Dose Route/Sig Max Daily Dose Days Date Category Thera-M Tablet (Multivits,Ca,Minerals/Iron/Fa) 1 Each Tablet 1 Tab PO DAILY MDD 1 03/20/19 Rx Vitamin B-1 (Thiamine Mononitrate) 100 Mg Tablet 100 Mg PO DAILY MDD 1 03/20/19 Rx Folic Acid 1 Mg Tablet 1 Mg PO DAILY MDD 1 03/20/19 Rx Glucophage (Metformin Hcl) 500 Mg Tablet 500 Mg PO BIDWMEALS MDD 1 03/20/19 Rx Guaifenesin Dm Syrup (Guaifenesin/Dextromethorphan) 5 Ml Syrup 10 Ml PO PRN Q6HRS PRN MDD 1 7 03/20/19 Rx Budesonide 0.5 Mg/2 Ml Ampul.neb 0.5 Mg NEB RTBID MDD 1 03/20/19 Rx Furosemide 40 Mg Tablet 40 Mg PO DAILY MDD 1 03/20/19 Rx Amox Tr-K Clv 875-125 Mg Tab (Amoxicillin/Potassium Clav) 1 Each Tablet 1 Tab PO BID MDD 1 03/20/19 Rx Ventolin Hfa Inhaler (Albuterol Sulfate) 18 Gm Hfa.aer.ad 1 Puff INH QID 03/14/19 Reported Indomethacin 50 Mg Capsule 1 Cap PO DAILY 03/14/19 Reported Hydrocodone-Apap 10-325 (Hydrocodone Bit/Acetaminophen) 1 Tab Tablet 1 Tab PO PRN Q6HRS PRN 03/14/19 Reported Ferrous Sulfate 325 Mg Tablet 325 Mg PO BID 03/14/19 Reported [mens multivitamin] 1 DAILY 03/14/19 Reported Colace (Docusate Sodium) 100 Mg Capsule 100 Mg PO DAILY 03/14/19 Reported Gabapentin (Gabapentin) 100 Mg Capsule 100 Mg PO TID 03/14/19 Reported Protonix (Pantoprazole Sodium) 20 Mg Tablet.dr 40 Mg PO DAILY 90 03/16/18 Rx Metoprolol Succinate ( Xl ) (Metoprolol Succinate) 100 Mg Tab.er.24h 100 Mg PO DAILY 03/14/18 Reported Levemir (Insulin Detemir) 100 Unit/1 Ml Vial 10 Unit SQ HS 30 04/20/15 Reported Norvasc (Amlodipine Besylate) 10 Mg Tablet 10 Mg PO DAILY 04/20/15 Reported Clonidine Hcl 0.2 Mg Tablet 0.2 Mg PO TID 04/20/15 Reported Amaryl (Glimepiride) 1 Mg Tablet 2 Tab PO BIDWMEALS 04/20/15 Reported Impression . 1. Acute hypoxemic respiratory failure. 2. Acute exacerbation of chronic obstructive pulmonary disease. 3. Tobacco dependence, in remission. 4. Accelerated hypertension. 5. Leukocytosis. 6. Possible pneumonia. Plan . PLAN: 1. We will continue current steroids and antibiotics. 2. The patient instructed to avoid secondhand smoke. 3. Diurese. 4. Six-minute walk prior to discharge. 5. Monitor blood sugars. I do appreciate the privilege in sharing in the patient's care. MYLES HOWARD MD March 20, 2019 13:34
== END 2019-03-20 12:34 | disposition home or self-care (01) | DRG 871 ==
LOC: ER 14:41 → 6 SOUTH 15:00
PROVIDERS: ADMIT Family Medicine; ATTEND Family Medicine
DX: A41.9 Sepsis, unspecified organism (principal); I50.33 Acute on chronic diastolic (congestive) heart failure; J96.01 Acute respiratory failure with hypoxia; J18.9 Pneumonia, unspecified organism; E87.1 Hypo-osmolality and hyponatremia; I42.9 Cardiomyopathy, unspecified; J44.0 Chronic obstructive pulmonary disease with (acute) lower respiratory infection; J44.1 Chronic obstructive pulmonary disease with (acute) exacerbation; R18.8 Other ascites; I11.0 Hypertensive heart disease with heart failure; E11.9 Type 2 diabetes mellitus without complications; E66.01 Morbid (severe) obesity due to excess calories; F10.10 Alcohol abuse, uncomplicated; R74.0 Nonspecific elevation of levels of transaminase and lactic acid dehydrogenase [LDH]; F17.211 Nicotine dependence, cigarettes, in remission; F41.9 Anxiety disorder, unspecified; M54.40 Lumbago with sciatica, unspecified side; M19.90 Unspecified osteoarthritis, unspecified site; M10.9 Gout, unspecified; K80.20 Calculus of gallbladder without cholecystitis without obstruction; K76.0 Fatty (change of) liver, not elsewhere classified; K59.00 Constipation, unspecified; G89.29 Other chronic pain; I44.7 Left bundle-branch block, unspecified; K21.9 Gastro-esophageal reflux disease without esophagitis; Z87.11 Personal history of peptic ulcer disease; Z68.32 Body mass index [BMI] 32.0-32.9, adult; Z90.49 Acquired absence of other specified parts of digestive tract; Z83.3 Family history of diabetes mellitus; Z82.49 Family history of ischemic heart disease and other diseases of the circulatory system; Z80.9 Family history of malignant neoplasm, unspecified
CPT/HCPCS: 36415; 36600; 71045; 76705; 80053; 80061; 80202; 81001; 82140; 82550; 82553; 82805; 82962; 83036; 83605; 83690; 83735; 83880; 84145; 84484; 85007; 85025; 85610; 85730; 87040; 93005; 93306; 94640; 94760; G0480; J0360; J1650; J1815; J1940; J2543; J2920; J2930; J3370; J7040; J7613; J7620; J7626; 99285-25

== ENCOUNTER → 2019-03-28 | Outpatient (CLI) | payer MEDICARE ==
[2019-03-20 11:08] VITALS: BP 131/59
[~2019-03-28] MED LIST changes: +AMOX1TAB11 PO; +BUDE0.5A NEB; +FOLI1TAB16 PO; +FURO40TA4 PO; +GUAI5SYR PO; +IOHEXOL 180 MG/ML 10 ML VIAL. ONE; +METF500T PO; +MULT1TAB90 PO; +THIA100T22 PO; +methylPREDNISolone ACETATE 40 MG/ML VIAL. ONE; +methylPREDNISolone ACETATE 80 MG/ML VIAL. ONE
--- NOTE | 2019-03-29 01:42 | PAIN ---
DATE OF SERVICE: 03/28/2019 PROGRESS NOTE FOR PAIN CLINIC DIAGNOSES: Lumbar radiculopathy with lumbar degenerative disk disease, lumbar spinal stenosis. HISTORY OF PRESENT ILLNESS: The patient is a 68-year-old male who returns for followup status post lumbar epidural steroid injection x 1. The patient reports about 40% improvement after the last injection, but still pain in the low back, right lower extremity, posterior gluteus, posterior lateral thigh, lateral anterior thigh, especially medial lower leg as well as the calf. The patient reports it is 9 on a scale of 10 at its worst over the past week, 8 on an average, 7 at its least and is 8 today. The patient reports it is becoming more constant, aching, dull, alternating with sharp and shooting pain in the right leg with some tightness in the back. The patient reports no new motor or sensory deficits, no new bowel or bladder incontinence. Reports it still awakens him from sleep about every 3-4 hours. He was increasing his distance walking and getting around a little better after the last injection. PHYSICAL EXAMINATION: VITAL SIGNS: Today, the patient's blood pressure is 172/84, pulse 60, respirations 18, temperature 98.5 degrees Fahrenheit. Height is 5 feet 10 inches, weight is 210 pounds. GENERAL: The patient is awake, alert, oriented, appropriate, very pleasant demeanor. HEENT: Head is normocephalic and atraumatic. Extraocular movements are intact and symmetrical. Oral cavity: Mucous membranes moist and pink. Dentition is intact. NECK: Shows anterior throat supple without palpable lymphadenopathy noted. Swallow reflex symmetrical. CHEST: Shows normal on inspection. Breath sounds clear to auscultation bilaterally. HEART: Shows S1, S2 clear. No murmurs auscultated. ABDOMEN: Soft, nontender, nondistended. No palpable organomegaly is noted. No rebound or guarding demonstrated. BACK: Shows spine grossly in the midline. Normal-appearing thoracic kyphosis and lumbar lordotic curvature. Lumbar paraspinous muscle shows symmetrical on inspection and palpation shows some moderate tenderness diffusely, but only diffusely bilaterally without radiation. The patient has good rotational motion of lumbar spine, both laterally as well as extension and flexion without significant pain. EXTREMITIES: Lower extremities show deep tendon reflexes 1+ in the patellar and tendo-calcaneus tendons. Motor exam is 5 on a scale of 5 at the ankle with dorsiflexion, extension, and 4/5 with right quadriceps and hamstring flexion and 5/5 on the left. Peripheral pulses are 1+ posterior tibial. No peripheral edema is noted bilaterally. Options were discussed with the patient. The patient's old chart was reviewed as was his current medication regimen updated. Current review of systems updated today as well. We will proceed with a second in the series of lumbar epidural steroid injection today with fluoroscopic guidance. Risks were again discussed including, but not limited to bleeding, infection, possibility of epidural hematoma, subsequent neurological compromise, dural puncture, headaches, spinal cord and/or nerve damage, side effects of steroid medication and poor results regarding pain control. The patient understands and wished to proceed. The patient will return to clinic in approximately 2 weeks for followup. He was counseled as to return appointment, activity level and side effects to be aware of. DIAGNOSES: Lumbar radiculopathy with lumbar degenerative disk disease, lumbar spinal stenosis. PROCEDURE: Lumbar epidural steroid injection, translaminar approach at the L4-L5 level using C-arm fluoroscopic guidance under sterile prep and drape using local anesthetic. MEDICATION INJECTED: A total of 120 mg Depo-Medrol plus 10 mL of preservative-free normal saline and 2 mL of contrast. CONDITION AT DISCHARGE: Stable. The patient tolerated the procedure well, had no complications. ILIANA LOPEZ MD DR: MIKO/jerry JOB#: [id number] / [id number]
== END ==
LOC: PNCL 08:02
PROVIDERS: ATTEND Anesthesiology
DX: M51.16 Intervertebral disc disorders with radiculopathy, lumbar region (principal); M48.061 Spinal stenosis, lumbar region without neurogenic claudication
CPT/HCPCS: 62323; J1030; J1040; Q9965

== ENCOUNTER → 2019-09-17 | Outpatient (CLI) | payer MEDICARE ==
[~2019-09-17] MED LIST changes: +INDO50CA15 PO; -INDO50CA5 PO
--- NOTE | 2019-09-17 11:26 | PAIN ---
DATE OF SERVICE: 09/17/2019 PROGRESS NOTE FOR PAIN CLINIC DIAGNOSES: Lumbar radiculopathy with lumbar degenerative disk disease, lumbar spinal stenosis. HISTORY OF PRESENT ILLNESS: The patient is a 69-year-old male who returns for followup status post lumbar epidural steroid injections x 2, last seen 03/28/2019. The patient did very well with about an 80% improvement. The pain returning in the low back, the right lower extremity, mostly in the posterior gluteus, posterolateral thigh, lateral anterior thigh, anterior medial thigh, medial lower leg. The patient reports it is becoming more constant with walking, standing, change in positions over the past 2-3 weeks, becoming more noticeable, that has been awakening him from sleep at night about every 2 to 5 hours. The patient reports prior to that he was doing very well, also increased his activity of walking, doing work activities, household activities, traveling with greater ease and comfort. The patient rates his pain now as a 10 on a scale of 10 at its worst in the past week, 8 on average, 6 at its least and is a 6 today. The patient describes it as constant, aching, shooting, radiating pain in the right lower extremity. The patient reports no new motor or sensory deficits, no new bowel or bladder incontinence or other complaints. PHYSICAL EXAMINATION: VITAL SIGNS: The patient's blood pressure 117/60, pulse 68, respirations 18, temperature 98.1 degrees Fahrenheit, height 5 feet 10 inches, weight is 182 pounds. GENERAL: The patient is awake, alert, oriented, appropriate, very pleasant demeanor. HEENT: Shows normocephalic, atraumatic. Extraocular movements are intact and symmetrical. Oral cavity: Mucous membranes moist and pink. Dentition is intact. NECK: Shows anterior throat supple without palpable lymphadenopathy noted. Swallow reflex symmetrical. CHEST: Shows normal on inspection. Breath sounds clear to auscultation bilaterally. HEART: Shows S1, S2 clear. No murmurs auscultated. ABDOMEN: Soft, nontender, nondistended. No palpable organomegaly is noted. No rebound or guarding demonstrated. BACK: Shows spine grossly in the midline. Normal appearing thoracic kyphosis, some minor flattening of lumbar lordotic curvature. Lumbar paraspinous muscle shows symmetrical on inspection, on palpation shows some moderate tenderness diffusely bilaterally, but only diffusely without significant radiation. The patient's back shows good rotational motion of lumbar spine, both laterally as well as extension and flexion without significant pain. EXTREMITIES: Lower extremities show deep tendon reflexes at 1+ in the patella and tendo-calcaneus tendons are equal. Motor exam is 5/5 at the ankles with dorsiflexion, extension symmetrical and 4/5 with quadriceps and hamstring flexion on the right, 5/5 on the left. Peripheral pulses are 1+ posterior tibial. No peripheral edema is noted. Options were discussed with the patient. The patient's old chart was reviewed as his current medication regimen updated. Current review of systems updated today as well. We will proceed with a first in this series of lumbar epidural steroid injection today with fluoroscopic guidance. Risks were again discussed including, but not limited to bleeding, infection, possibility of epidural hematoma, subsequent neurological compromise, dural puncture, headaches, spinal cord and/or nerve damage, side effects of steroid medication and poor results regarding pain control. The patient understands and wished to proceed. The patient will return to clinic in approximately 2 weeks for followup. He was counseled on return appointment, activity level and side effects to be aware of. DIAGNOSES: Lumbar radiculopathy with lumbar degenerative disk disease and lumbar spinal stenosis. PROCEDURE: Lumbar epidural steroid injection, translaminar approach at L4-L5 level using C-arm fluoroscopic guidance under sterile prep and drape using local anesthetic. MEDICATION INJECTED: A total of 120 mg Depo-Medrol plus 10 mL of preservative-free normal saline and 2 mL of contrast. CONDITION AT DISCHARGE: Stable. The patient tolerated procedure well, had no complications. ILIANA LOPEZ MD DR: MIKO/jerry JOB#: [id number] / [id number]
== END ==
LOC: PNCL 08:19
PROVIDERS: ATTEND Anesthesiology
DX: M51.16 Intervertebral disc disorders with radiculopathy, lumbar region (principal); M48.061 Spinal stenosis, lumbar region without neurogenic claudication
CPT/HCPCS: 62323; J1030; J1040; Q9965

== ENCOUNTER → 2019-12-16 | Outpatient (CLI) | payer MEDICARE ==
[~2019-12-16] MED LIST changes: -IOHEXOL 180 MG/ML 10 ML VIAL. ONE; +insulin
--- NOTE | 2019-12-16 13:44 | PAIN ---
DATE OF SERVICE: 12/16/2019 PROGRESS NOTE FOR PAIN CLINIC DIAGNOSES: Lumbar radiculopathy with lumbar degenerative disk disease and lumbar spinal stenosis. HISTORY OF PRESENT ILLNESS: The patient is a 69-year-old male who returns for followup status post lumbar epidural steroid injection x1, last seen on 09/17/2019, the patient did very well with about 50% improvement overall, initially was about 80%, but still doing about 50% better this day. The patient reports the pain is increasing in the low back down into the right lower extremity, posterior gluteus, posterolateral thigh, lateral anterior thigh, mostly into the back. The patient reports that 9 on a scale of 10 at its worst in the past week, 8 on average, 6 at its least and is an 8 today. The patient reports it is aching and sharp shooting and radiating into the right leg. The patient reports no new motor or sensory deficits, better with sitting or lying down. He has been sleeping in a recliner over the last few weeks because of the pain and it does awaken him from sleep fairly often. The patient reports it initially with increasing distance walking, doing activities at home, traveling with greater ease and comfort, but now the pain is returning as noted. The patient reports no new motor or sensory deficits, no new bowel or bladder incontinence or other complaints. PHYSICAL EXAMINATION: VITAL SIGNS: The patient's blood pressure 117/71, pulse 62, respirations 18, temperature 97.7 degrees Fahrenheit, height is 5 feet 10 inches, weight is 193 pounds. GENERAL: The patient is awake, alert, oriented, appropriate, very pleasant demeanor. HEENT: Head shows normocephalic, atraumatic. Extraocular movements are intact and symmetrical. Oral cavity: Mucous membranes moist and pink. NECK: Shows anterior throat is supple. CHEST: Shows normal on inspection. Breath sounds are clear to auscultation bilaterally. HEART: Shows S1, S2 clear. No murmurs auscultated. ABDOMEN: Soft, nontender, nondistended. No palpable organomegaly is noted. There is no rebound or guarding demonstrated. BACK: Shows spine grossly in the midline. Normal appearing thoracic kyphosis and lumbar lordotic curvature. Lumbar paraspinous muscle shows symmetrical on inspection, with palpation shows some moderate tenderness diffusely bilaterally going diffusely without significant radiation. The patient has good rotational motion of lumbar spine, both laterally as well as extension and flexion without significant difficulty or pain reported. EXTREMITIES: The patient's lower extremities show deep tendon reflexes at 1+ patellar and tendocalcaneus tendons. Motor exam is strong with 5/5 with dorsiflexion, extension with approximately 4 on a scale of 5 with right quadriceps and hamstring flexion. Peripheral pulses are 1+ posterior tibia. No peripheral edema is noted bilaterally. Options were discussed with the patient. The patient's old chart was reviewed as his current medication regimen updated. Current review of systems updated today as well. We will proceed with a second in a series of lumbar epidural steroid injection today with fluoroscopic guidance. Risks were again discussed including, but not limited to bleeding, infection, possibility of epidural hematoma, subsequent neurological compromise, dural puncture, headaches, spinal cord and/or nerve damage, side effects of steroid medication and poor results regarding pain control. The patient understands and wished to proceed. The patient will return to the clinic in approximately 2 weeks for followup. He was counseled on return appointment, activity level and side effects to be aware of. DIAGNOSIS: Lumbar radiculopathy with lumbar degenerative disk disease, lumbar spinal stenosis. PROCEDURE: Lumbar epidural steroid injection, translaminar approach L4-L5 level using C-arm fluoroscopic guidance under sterile prep and drape using local anesthetic. MEDICATION INJECTED: A total of 120 mg Depo-Medrol plus 10 mL of preservative-free normal saline and 2 mL of contrast. CONDITION AT DISCHARGE: Stable. The patient tolerated procedure well, had no complications. ILIANA LOPEZ MD DR: MIKO/jerry JOB#: [id number] / [id number]
== END ==
LOC: PNCL 09:14
PROVIDERS: ATTEND Anesthesiology
DX: M51.16 Intervertebral disc disorders with radiculopathy, lumbar region (principal); M48.061 Spinal stenosis, lumbar region without neurogenic claudication
CPT/HCPCS: 62323; J1030; J1040

== ENCOUNTER → 2019-12-30 | Outpatient (CLI) | payer MEDICARE ==
[~2019-12-30] MED LIST changes: -methylPREDNISolone ACETATE 40 MG/ML VIAL. ONE; -methylPREDNISolone ACETATE 80 MG/ML VIAL. ONE
--- NOTE | 2019-12-30 14:03 | KCIC ---
Indication: Loss of height. Diabetes. Screening for senile osteoporosis. Comparison: None available. Bone Density: -BMD: (g/cm2) - AP Spine Total (L1-L4).......... 1.762. - Total left Hip................. 1.013. T-Score: - AP Spine Total (L1-L4)......... 6.1. - Total left Hip................. -0.1. Z-Score: - AP Spine Total (L1-L4).......... 6.9. - Total left Hip................. 0.5. World Health Organization criteria for BMD interpretation classify patients as Normal (T-score at or above -1.0), Osteopenic (T-score between -1.0 and -2.5), or Osteoporotic (T-score at or below -2.5). Impression: 1. AP Spine Total L1-L4--- normal. 2. Total left Hip--- normal. Electronically signed by: Rojelio Ruvalcaba MD (12/30/2019 2:00 PM) [facility] [place]
== END | disposition home or self-care (01) ==
LOC: KCIC CT 08:33
PROVIDERS: ATTEND Internal Medicine
DX: Z13.820 Encounter for screening for osteoporosis (principal); M81.0 Age-related osteoporosis without current pathological fracture; E11.9 Type 2 diabetes mellitus without complications
CPT/HCPCS: 77080

== ENCOUNTER 2020-01-05 20:33 | Inpatient (IN) | payer MEDICARE ==
[~2020-01-05] VITALS: Ht 167.6 cm; Wt 90.8 kg
[2020-01-05 20:53] LABS: BASO # 0.1 x10^3/uL (0.0-0.2); BASO % 1 % (0-3); EOS # 0.2 x10^3/uL (0.0-0.7); EOS % 2 % (0-3); HEMATOCRIT 31.3 % (39.0-53.0); LYMPH # 2.6 x10^3/uL (1.0-4.8); LYMPH % 36 % (24-48); MEAN CORPUSCULAR HEMOGLOBIN 35 pg (25-35); MEAN CORPUSCULAR HGB CONC 35 g/dL (31-37); MEAN CORPUSCULAR VOLUME 98 fL (79-100); MONO # 0.9 x10^3/uL (0.0-1.1); MONO % 12 % (0-9); NEUT # 3.5 x10^3/uL (1.8-7.7); NEUT % 49 % (31-73); PLATELET COUNT 195 x10^3/uL (140-400); WHITE BLOOD COUNT 7.3 x10^3/uL (4.0-11.0)
--- NOTE | 2020-01-05 20:59 | PHYS DOC ---
Past Medical History Past Medical History: Asthma, Diabetes-Type II, Hypertension, Other Additional Past Medical Histor: pt diet controlled DMII Past Surgical History: Appendectomy Additional Past Surgical Histo: L knee surgery, R toe surgery Smoking Status: Former Smoker Alcohol Use: Occasionally Drug Use: None Adult General Chief Complaint Chief Complaint: TRAUMA ALERT HPI HPI 69-year-old male presents via valuation after fall. On exam patient is intoxicated. States he fell 3 or 4 hours ago while in his basement. He denied any preceding dizziness or lightheadedness chest pain or shortness of breath. Prior to arrival patient states he was in the driveway retrieving the recycle then when he fell again. Patient complains of head and neck pain. On exam patient has multiple abrasions on his forehead, nose, perioral and bilateral hands. Patient moves all extremities passively and actively. There are no deformities noted. Patient is A/Ox4 States he drank 2 beers. Patient is a daily drinker. Review of Systems Review of Systems Constitutional: Denies fever or chills [] Eyes: Denies change in visual acuity, redness, or eye pain [] HENT: Denies nasal congestion or sore throat [] Respiratory: Denies cough or shortness of breath [] Cardiovascular: No additional information not addressed in HPI [] GI: Denies abdominal pain, nausea, vomiting, bloody stools or diarrhea [] : Denies dysuria or hematuria [] Musculoskeletal: Denies back pain or joint pain [positive neck pain] Integument: Denies rash or skin lesions [positive facial and hand abrasions] Neurologic: Denies , focal weakness or sensory changes [positive headache] Endocrine: Denies polyuria or polydipsia [] All other systems were reviewed and found to be within normal limits, except as documented in this note. Current Medications Current Medications Current Medications Medications (Trade) Dose Ordered Sig/Eyad Start Time Stop Time Status Last Admin Dose Admin Sodium Chloride 1,000 ml @ 1,000 mls/hr 1X ONCE 01/05/20 21:00 01/05/20 21:59 DC 01/05/20 21:05 1,000 MLS/HR Allergies Allergies Allergies Coded Allergies Type Severity Reaction Last Updated Verified No Known Drug Allergies 03/14/18 No Physical Exam Physical Exam Constitutional: Well developed, well nourished, no acute distress, non-toxic appearance. [] HENT: Normocephalic, bilateral external ears normal, oropharynx moist, no oral exudates, nose normal. [Abrasions forehead nose periOral, bilateral hands] Eyes: PERRLA, EOMI, conjunctiva normal, no discharge. [] Neck: Normal range of motion, no tenderness, supple, no stridor. [] Cardiovascular:Heart rate regular rhythm, no murmur [] Lungs & Thorax: Bilateral breath sounds clear to auscultation [] Abdomen: Bowel sounds normal, soft, no tenderness, no masses, no pulsatile masses. [] Skin: Warm, dry, no erythema, no rash. [] Back: No tenderness, no CVA tenderness. [] Extremities: No tenderness, no cyanosis, no clubbing, ROM intact, no edema. [] Neurologic: Alert and oriented X 3, normal motor function, normal sensory function, no focal deficits noted. [alcohol on breath, intoxicated] Psychologic: Affect normal, judgement normal, mood normal. [] Current Patient Data Vital Signs Vital Signs Date Time Temp Pulse Resp B/P (MAP) Pulse Ox O2 Delivery O2 Flow Rate FiO2 01/05/20 20:57 Room Air 01/05/20 20:37 97.9 73 16 173/73 (106) 99 97.9 Lab Values Laboratory Tests Test 01/05/20 20:40 White Blood Count 7.3 x10^3/uL (4.0-11.0) Red Blood Count 3.20 x10^6/uL (4.30-5.70) L Hemoglobin 11.0 g/dL (13.0-17.5) L Hematocrit 31.3 % (39.0-53.0) L Mean Corpuscular Volume 98 fL (79-100) Mean Corpuscular Hemoglobin 35 pg (25-35) Mean Corpuscular Hemoglobin Concent 35 g/dL (31-37) Red Cell Distribution Width 13.0 % (11.5-14.5) Platelet Count 195 x10^3/uL (140-400) Neutrophils (%) (Auto) 49 % (31-73) Lymphocytes (%) (Auto) 36 % (24-48) Monocytes (%) (Auto) 12 % (0-9) H Eosinophils (%) (Auto) 2 % (0-3) Basophils (%) (Auto) 1 % (0-3) Neutrophils # (Auto) 3.5 x10^3/uL (1.8-7.7) Lymphocytes # (Auto) 2.6 x10^3/uL (1.0-4.8) Monocytes # (Auto) 0.9 x10^3/uL (0.0-1.1) Eosinophils # (Auto) 0.2 x10^3/uL (0.0-0.7) Basophils # (Auto) 0.1 x10^3/uL (0.0-0.2) Sodium Level 118 mmol/L (136-145) *L Potassium Level 5.1 mmol/L (3.5-5.1) Chloride Level 85 mmol/L (98-107) L Carbon Dioxide Level 24 mmol/L (21-32) Anion Gap 9 (6-14) Blood Urea Nitrogen 17 mg/dL (8-26) Creatinine 1.1 mg/dL (0.7-1.3) Estimated GFR (Cockcroft-Gault) 66.6 BUN/Creatinine Ratio 15 (6-20) Glucose Level 84 mg/dL (70-99) Calcium Level 8.0 mg/dL (8.5-10.1) L Total Bilirubin 1.7 mg/dL (0.2-1.0) H Aspartate Amino Transferase (AST) 66 U/L (15-37) H Alanine Aminotransferase (ALT) 60 U/L (16-63) Alkaline Phosphatase 152 U/L (46-116) H Total Protein 6.6 g/dL (6.4-8.2) Albumin 3.4 g/dL (3.4-5.0) Albumin/Globulin Ratio 1.1 (1.0-1.7) Ethyl Alcohol Level 230 mg/dL (0-10) H Laboratory Tests 01/05/20 20:40 Laboratory Tests 01/05/20 20:40 EKG EKG [] Radiology/Procedures Radiology/Procedures [] Course & Med Decision Making Course & Med Decision Making Pertinent Labs and Imaging studies reviewed. (See chart for details) [] Dragon Disclaimer Dragon Disclaimer This electronic medical record was generated, in whole or in part, using a voice recognition dictation system. Departure Departure Impression: Primary Impression: Alcohol intoxication Additional Impressions: Hyponatremia Fall Facial abrasion Multiple abrasions Disposition: ADMITTED INPATIENT Admitting Physician: DARRELL Condition: STABLE Referrals: ERLINDA BHAGAT MD (PCP) Problem Qualifiers ELENA OLIVERA DO Jan 05, 2020 20:59
[2020-01-05] MEDS ORDERED: IV NORMAL SALINE 1000ML BAG 1,000 ML IV ONE (21:00)
[2020-01-05 21:11] LABS: ALBUMIN 3.4 g/dL (3.4-5.0); ALBUMIN/GLOBULIN RATIO 1.1 (1.0-1.7); CREATININE 1.1 mg/dL (0.7-1.3); GFR 66.6; POTASSIUM 5.1 mmol/L (3.5-5.1); TOTAL BILIRUBIN 1.7 mg/dL (0.2-1.0); TOTAL PROTEIN 6.6 g/dL (6.4-8.2)
--- NOTE | 2020-01-05 21:40 | RAD ---
EXAM: CT HEAD WITHOUT IV CONTRAST CLINICAL HISTORY: Head injury COMPARISON: None. TECHNIQUE: Routine CT of the head without contrast. Soft tissues and bone windows were reviewed. PQRS compliance statement - One or more of the following individualized dose reduction techniques were utilized for this study: 1. Automated exposure control 2. Adjustment of the mA and/or kV according to patient size 3. Use of iterative reconstruction technique FINDINGS: There is no evidence of hemorrhage, mass or extra-axial fluid collection. [place]ak-white differentiation is maintained with no evidence of edema. Subcortical, periventricular and deep white matter hypoattenuation may be seen with chronic small vessel disease. There is no mass effect or shift of the intracranial structures. The ventricles, basilar cisterns and cortical sulci are normal in size and configuration for the patients stated age. The cerebellum and brainstem are unremarkable. The calvarium demonstrates no evidence of fracture or focal lesion. Right maxillary sinus opacification. Thickening and partial opacification left maxillary sinus. Scattered multifocal ethmoid air cells are seen. The visualized portions of the orbits are normal. Atherosclerotic calcifications of the intracranial internal carotid and vertebral arteries is seen. IMPRESSION: No evidence for acute intracranial process. Multifocal paranasal sinus disease, likely sinusitis. EXAM: CT CERVICAL SPINE WITHOUT IV CONTRAST CLINICAL HISTORY: COMPARISON: None available. TECHNIQUE: Helical CT of the cervical spine was performed. Axial, coronal and sagittal reformatted images were also performed. PQRS compliance statement - One or more of the following individualized dose reduction techniques were utilized for this study: 1. Automated exposure control 2. Adjustment of the mA and/or kV according to patient size 3. Use of iterative reconstruction technique FINDINGS: Vertebral body heights are preserved. Atlantodental degenerative changes are seen. Mild C2-3, C7-T1, and moderate C5-6 disc height loss. Endplate osteophytes are seen anteriorly and posteriorly. No acute fracture. No spondylolisthesis. IMPRESSION: 1. Multilevel spondylosis as above 2. Negative acute fracture or subluxation. EXAM: CT facial bones without contrast CLINICAL HISTORY: COMPARISON: None available. TECHNIQUE: Helical CT of the face/paranasal sinuses was acquired and axial, coronal and sagittal reformatted images were generated. ---PQRS compliance statement - One or more of the following individualized dose reduction techniques were utilized for this study: 1. Automated exposure control 2. Adjustment of the mA and/or kV according to patient size 3. Use of iterative reconstruction technique--- FINDINGS: Mild deformity of the anterior nasal bones, likely nondisplaced nasal bone fracture. Mild overlying soft tissue swelling is seen.. Diffuse opacification of the right maxillary sinus and partial opacification left maxillary sinus with associated left maxillary and ethmoid air cell thickening, likely sinusitis. The mastoids are unremarkable. The globes, extraocular muscles, optic nerves and retrobulbar fat are normal. Visualized upper aerodigestive tract is normal. Mandible and bilateral temporomandibular joints are normal. IMPRESSION: Nondisplaced nasal bone fracture with associated soft tissue swelling. Multifocal paranasal sinus opacification/thickening, likely sinusitis. Electronically signed by: Edward Prescott MD (01/05/2020 9:37 PM) [id number]
[2020-01-05] MEDS ORDERED: ONDANSETRON PF 4 MG/2 ML VIAL. IV PRN (22:15)
[2020-01-06] VITALS (18 sets, daily range): BP systolic 131–197; BP diastolic 49–84
[2020-01-06] MEDS ORDERED: MORPHINE SULFATE 2 MG/ML VIAL. IV PRN
[2020-01-06] MEDS ORDERED: LACTULOSE 20 GM/30 ML SOLUTION. PO PRN
[2020-01-06] MEDS ORDERED: 0.9 % SODIUM CHLORIDE 10 ML DISP.SYRIN. IV PRN
[2020-01-06] MEDS ORDERED: ACETAMINOPHEN 325 MG TABLET. PO PRN
[2020-01-06] MEDS ORDERED: ONDANSETRON PF 4 MG/2 ML VIAL. IV PRN
--- NOTE | 2020-01-06 00:03 | PDOC1 ---
History and Physical Date of Admission Date of Admission 01/05/2020 Identification/Chief Complaint Chief Complaint I fell Source Source: Chart review, Patient History of Present Illness History of Present Illness Patient is a 69-year-old gentleman with past medical history of alcohol abuse who was in his usual state of health until today when apparently he had worseni ng of his unsteady gait and fell several times at home 1 in the basement and on other occasions outside. The patient has several lacerations from head to toe. The patient at the present time is intoxicated with an alcohol level greater than 100, nevertheless patient is able to hold a conversation very minimal symptoms were reported. He denied headache no blurred vision on a regular basis no dysphagia odynophagia no chest pain no palpitations no nausea vomiting or diarrhea no abdominal pain. The patient denies nausea abdominal pain. No excessive water intake has been reported, with noticed that the patient is a heavy drinker on a regular basis which may explain some of the electrolyte disturbances. Nevertheless the patient's levels are quite concerning given the risk for seizure activity, decompensation, and symptoms associated with rapidly correcting his failure. Patient's hyponatremia seems to be chronic in nature. Now the patient is in no acute distress at the time of my evaluation is asking regarding being dismissed home tonight. I have provided reassurance and explained the plan of care in detail. He has accepted to continue with his care here in the hospital setting. This was discussed with his at bedside as well and all of their concerns were addressed to the best of my abilities Past Medical History Cardiovascular: HTN Pulmonary: Asthma CENTRAL NERVOUS SYSTEM: Other GI: GERD, Other Heme/Onc: No pertinent hx Hepatobiliary: Other Rheumatologic: Gout Infectious disease: No pertinent hx Renal/: No pertinent hx Endocrine: Diabetes Past Surgical History Past Surgical History: Appendectomy, Arthroscopy, Other Family History Family History: Coronary Artery Disease, Diabetes Social History ALCOHOL: other Drugs: None Current Problem List Problem List Problems Medical Problems: (1) Alcohol intoxication Status: Acute (2) Facial abrasion Status: Acute (3) Fall Status: Acute (4) Hyponatremia Status: Acute (5) Multiple abrasions Status: Acute Current Medications Current Medications Current Medications Medications (Trade) Dose Ordered Sig/Eyad Start Time Stop Time Status Last Admin Dose Admin Ondansetron HCl (Zofran) 4 mg PRN Q8HRS PRN 01/05/20 22:15 01/06/20 22:14 Sodium Chloride 1,000 ml @ 1,000 mls/hr 1X ONCE 01/05/20 21:00 01/05/20 21:59 DC 01/05/20 21:05 1,000 MLS/HR Allergies Allergies Allergies Coded Allergies Type Severity Reaction Last Updated Verified No Known Drug Allergies 03/14/18 No ROS Review of System CONSTITUTIONAL: No fever or chills EYES: No recent changes SKIN: No rash or itching CARDIOVASCULAR: No chest pain, syncope, palpitations, or edema RESPIRATORY: No SOB or cough GASTROINTESTINAL: No nausea, vomiting or abdominal pain NEUROLOGICAL: No headaches or weakness ENDOCRINE: No cold or heat intolerance GENITOURINARY: No urgency or frequency of urination MUSCULOSKELETAL: No back pain or joint pain LYMPHATICS: No enlarged lymph nodes PSYCHIATRIC: No anxiety or depression Physical Exam Physical Exam Gen.: well-developed well-nourished in no apparent distress Head: Normal shape atraumatic Eyes: Pupils equal reactive to light and accommodation, normal conjunctivae and lids Ears: Normal shape Nose: Normal shape no trauma Mouth: No exudates of the back of throat no thrush no lesions Neck: Supple no JVD no carotid bruit or lymphadenopathy no thyromegaly Chest: Lungs clear to auscultation with good inspiratory effort no crackles rales or rhonchi Cardiovascular: S1-S2 regular rhythm no murmurs gallops or rubs Abdomen: Bowel sounds present soft nontender no hepatosplenomegaly appreciated sign Extremities: No clubbing no cyanosis 2+ edema peripheral pulses palpated bilaterally Neurological: Alert awake oriented in person time place and situation, cranial nerves II through XII intact, no motor or sensory deficits appreciated Psych: Appropriate mood, cooperative Vitals Vitals Vital Signs Date Time Temp Pulse Resp B/P (MAP) Pulse Ox O2 Delivery O2 Flow Rate FiO2 01/05/20 20:57 Room Air 01/05/20 20:37 97.9 73 16 173/73 (106) 99 97.9 Labs Labs Laboratory Tests Test 01/05/20 20:40 White Blood Count 7.3 x10^3/uL (4.0-11.0) Red Blood Count 3.20 x10^6/uL (4.30-5.70) Hemoglobin 11.0 g/dL (13.0-17.5) Hematocrit 31.3 % (39.0-53.0) Mean Corpuscular Volume 98 fL (79-100) Mean Corpuscular Hemoglobin 35 pg (25-35) Mean Corpuscular Hemoglobin Concent 35 g/dL (31-37) Red Cell Distribution Width 13.0 % (11.5-14.5) Platelet Count 195 x10^3/uL (140-400) Neutrophils (%) (Auto) 49 % (31-73) Lymphocytes (%) (Auto) 36 % (24-48) Monocytes (%) (Auto) 12 % (0-9) Eosinophils (%) (Auto) 2 % (0-3) Basophils (%) (Auto) 1 % (0-3) Neutrophils # (Auto) 3.5 x10^3/uL (1.8-7.7) Lymphocytes # (Auto) 2.6 x10^3/uL (1.0-4.8) Monocytes # (Auto) 0.9 x10^3/uL (0.0-1.1) Eosinophils # (Auto) 0.2 x10^3/uL (0.0-0.7) Basophils # (Auto) 0.1 x10^3/uL (0.0-0.2) Sodium Level 118 mmol/L (136-145) Potassium Level 5.1 mmol/L (3.5-5.1) Chloride Level 85 mmol/L (98-107) Carbon Dioxide Level 24 mmol/L (21-32) Anion Gap 9 (6-14) Blood Urea Nitrogen 17 mg/dL (8-26) Creatinine 1.1 mg/dL (0.7-1.3) Estimated GFR (Cockcroft-Gault) 66.6 BUN/Creatinine Ratio 15 (6-20) Glucose Level 84 mg/dL (70-99) Calcium Level 8.0 mg/dL (8.5-10.1) Total Bilirubin 1.7 mg/dL (0.2-1.0) Aspartate Amino Transf (AST/SGOT) 66 U/L (15-37) Alanine Aminotransferase (ALT/SGPT) 60 U/L (16-63) Alkaline Phosphatase 152 U/L (46-116) Total Protein 6.6 g/dL (6.4-8.2) Albumin 3.4 g/dL (3.4-5.0) Albumin/Globulin Ratio 1.1 (1.0-1.7) Ethyl Alcohol Level 230 mg/dL (0-10) Laboratory Tests Test 01/05/20 20:40 White Blood Count 7.3 x10^3/uL (4.0-11.0) Red Blood Count 3.20 x10^6/uL (4.30-5.70) Hemoglobin 11.0 g/dL (13.0-17.5) Hematocrit 31.3 % (39.0-53.0) Mean Corpuscular Volume 98 fL (79-100) Mean Corpuscular Hemoglobin 35 pg (25-35) Mean Corpuscular Hemoglobin Concent 35 g/dL (31-37) Red Cell Distribution Width 13.0 % (11.5-14.5) Platelet Count 195 x10^3/uL (140-400) Neutrophils (%) (Auto) 49 % (31-73) Lymphocytes (%) (Auto) 36 % (24-48) Monocytes (%) (Auto) 12 % (0-9) Eosinophils (%) (Auto) 2 % (0-3) Basophils (%) (Auto) 1 % (0-3) Neutrophils # (Auto) 3.5 x10^3/uL (1.8-7.7) Lymphocytes # (Auto) 2.6 x10^3/uL (1.0-4.8) Monocytes # (Auto) 0.9 x10^3/uL (0.0-1.1) Eosinophils # (Auto) 0.2 x10^3/uL (0.0-0.7) Basophils # (Auto) 0.1 x10^3/uL (0.0-0.2) Sodium Level 118 mmol/L (136-145) Potassium Level 5.1 mmol/L (3.5-5.1) Chloride Level 85 mmol/L (98-107) Carbon Dioxide Level 24 mmol/L (21-32) Anion Gap 9 (6-14) Blood Urea Nitrogen 17 mg/dL (8-26) Creatinine 1.1 mg/dL (0.7-1.3) Estimated GFR (Cockcroft-Gault) 66.6 BUN/Creatinine Ratio 15 (6-20) Glucose Level 84 mg/dL (70-99) Calcium Level 8.0 mg/dL (8.5-10.1) Total Bilirubin 1.7 mg/dL (0.2-1.0) Aspartate Amino Transf (AST/SGOT) 66 U/L (15-37) Alanine Aminotransferase (ALT/SGPT) 60 U/L (16-63) Alkaline Phosphatase 152 U/L (46-116) Total Protein 6.6 g/dL (6.4-8.2) Albumin 3.4 g/dL (3.4-5.0) Albumin/Globulin Ratio 1.1 (1.0-1.7) Ethyl Alcohol Level 230 mg/dL (0-10) VTE Prophylaxis Ordered VTE Prophylaxis Devices: Yes VTE Pharmacological Prophylaxi: Yes Assessment/Plan Assessment/Plan Severe hyponatremia Acute alcohol intoxication Alcohol abuse, counseling has been done Normocytic anemia Essential hypertension Diabetes mellitus type 2 Encephalopathy secondary to nation of acute alcohol intoxication and his electrolyte disturbance Plan: We will order urine lites We will order urine and serum osmolality Check TSH level B12 Resume home medications further recommendations will be based on clinical course Accu-Cheks every 4 hours BMP will be repeated every 4 hours 12 hours DVT prophylaxis with heparin Further recommendations based on clinical course, discussed with at bedside YAJAIRA SANCHEZ MD Jan 06, 2020 00:03
--- NOTE | 2020-01-06 01:15 | NUR ---
Patient arrived to room 109 via gurney accompanied by ED RN. Patient A&Ox4, has numerous abrasions all over body, bruising around eyes. Patient attached to ICU monitors, SR on monitor. Patient on RA, bowel sounds active, bed alarm set. Patient able to use urinal so urinal placed at bedside. Patient's is in waiting room at this time. Oriented patient to unit routines, call light, bed controls, tv controls, activity, and diet. Patient very cooperative but has tremors. Pain is rated at an 8--will give pain medication. Saline bolus not reassessed by ED RN--documented as "not done" by this RN.
[2020-01-06] MEDS: HYDROcodone/APAP 5/325MG 1 TAB TABLET PO PRN ×3 (01:35→12:48)
[2020-01-06 03:46] LABS: BASO % 0 % (0-3); EOS # 0.1 x10^3/uL (0.0-0.7); EOS % 1 % (0-3); HEMOGLOBIN 10.8 g/dL (13.0-17.5); LYMPH # 1.5 x10^3/uL (1.0-4.8); LYMPH % 18 % (24-48); MEAN CORPUSCULAR HEMOGLOBIN 35 pg (25-35); MEAN CORPUSCULAR HGB CONC 36 g/dL (31-37); MEAN CORPUSCULAR VOLUME 97 fL (79-100); MONO % 12 % (0-9); NEUT # 5.6 x10^3/uL (1.8-7.7); NEUT % 69 % (31-73); PLATELET COUNT 150 x10^3/uL (140-400); RED BLOOD COUNT 3.08 x10^6/uL (4.30-5.70); RED CELL DISTRIBUTION WIDTH 13.2 % (11.5-14.5); WHITE BLOOD COUNT 8.2 x10^3/uL (4.0-11.0)
[2020-01-06 04:10] LABS: CREATININE 0.8 mg/dL (0.7-1.3); GFR 96.1; POTASSIUM 4.2 mmol/L (3.5-5.1)
[2020-01-06 07:53] LABS: CALCIUM 8.3 mg/dL (8.5-10.1); CREATININE 0.8 mg/dL (0.7-1.3); GFR 96.1; POTASSIUM 4.6 mmol/L (3.5-5.1)
[2020-01-06] MEDS: HEPARIN for SUB-Q USE 5,000 UNIT/ML VIAL. SQ SCH ×2 (09:54→21:03)
[2020-01-06] MEDS: SENNOSIDES/DOCUSATE 8.6/50MG TABLET. PO SCH ×2 (09:54→21:38)
[2020-01-06] MEDS: IV NORMAL SALINE 1000ML BAG 1,000 ML IV SCH (11:10)
--- NOTE | 2020-01-06 11:52 | PDOC ---
[employer] PROGRESS NOTE Chief Complaint Chief Complaint Alcohol use disorder Hyponatremia, electrolyte imbalance fall risk Facial contusions History of Present Illness History of Present Illness 01/06/2020 Pt seen and examined while in the ICU. Discussed with nursing staff. Reviewed chart. Pt was up and about to be helped with a UA capture while interviewed. Pt's and he were together. Will likely transfer to upstairs, or send home soon, as pt is much more stable. Vitals/I&O Vitals/I&O: Vital Signs Date Time Temp Pulse Resp B/P (MAP) Pulse Ox O2 Delivery O2 Flow Rate FiO2 01/06/20 10:00 78 21 193/81 (118) 99 Room Air 01/06/20 07:00 98.0 98.0 I & O 01/05/20 01/05/20 01/06/20 15:00 23:00 07:00 Intake Total 1000 ml 240 ml Output Total 2425 ml Balance 1000 ml -2185 ml Physical Exam General: Alert, Oriented X3 Heart: Regular rate Lungs: Clear Abdomen: Normal bowel sounds Extremities: No clubbing, No cyanosis Skin: Other (contusions observed on face ) Labs Labs: Laboratory Tests Test 01/05/20 20:40 01/06/20 03:15 01/06/20 04:08 01/06/20 04:31 White Blood Count 7.3 x10^3/uL (4.0-11.0) 8.2 x10^3/uL (4.0-11.0) Red Blood Count 3.20 x10^6/uL (4.30-5.70) 3.08 x10^6/uL (4.30-5.70) Hemoglobin 11.0 g/dL (13.0-17.5) 10.8 g/dL (13.0-17.5) Hematocrit 31.3 % (39.0-53.0) 30.0 % (39.0-53.0) Mean Corpuscular Volume 98 fL (79-100) 97 fL (79-100) Mean Corpuscular Hemoglobin 35 pg (25-35) 35 pg (25-35) Mean Corpuscular Hemoglobin Concent 35 g/dL (31-37) 36 g/dL (31-37) Red Cell Distribution Width 13.0 % (11.5-14.5) 13.2 % (11.5-14.5) Platelet Count 195 x10^3/uL (140-400) 150 x10^3/uL (140-400) Neutrophils (%) (Auto) 49 % (31-73) 69 % (31-73) Lymphocytes (%) (Auto) 36 % (24-48) 18 % (24-48) Monocytes (%) (Auto) 12 % (0-9) 12 % (0-9) Eosinophils (%) (Auto) 2 % (0-3) 1 % (0-3) Basophils (%) (Auto) 1 % (0-3) 0 % (0-3) Neutrophils # (Auto) 3.5 x10^3/uL (1.8-7.7) 5.6 x10^3/uL (1.8-7.7) Lymphocytes # (Auto) 2.6 x10^3/uL (1.0-4.8) 1.5 x10^3/uL (1.0-4.8) Monocytes # (Auto) 0.9 x10^3/uL (0.0-1.1) 1.0 x10^3/uL (0.0-1.1) Eosinophils # (Auto) 0.2 x10^3/uL (0.0-0.7) 0.1 x10^3/uL (0.0-0.7) Basophils # (Auto) 0.1 x10^3/uL (0.0-0.2) 0.0 x10^3/uL (0.0-0.2) Sodium Level 118 mmol/L (136-145) 123 mmol/L (136-145) Potassium Level 5.1 mmol/L (3.5-5.1) 4.2 mmol/L (3.5-5.1) Chloride Level 85 mmol/L (98-107) 90 mmol/L (98-107) Carbon Dioxide Level 24 mmol/L (21-32) 21 mmol/L (21-32) Anion Gap 9 (6-14) 12 (6-14) Blood Urea Nitrogen 17 mg/dL (8-26) 14 mg/dL (8-26) Creatinine 1.1 mg/dL (0.7-1.3) 0.8 mg/dL (0.7-1.3) Estimated GFR (Cockcroft-Gault) 66.6 96.1 BUN/Creatinine Ratio 15 (6-20) Glucose Level 84 mg/dL (70-99) 71 mg/dL (70-99) Calcium Level 8.0 mg/dL (8.5-10.1) 8.0 mg/dL (8.5-10.1) Total Bilirubin 1.7 mg/dL (0.2-1.0) Gamma Glutamyl Transpeptidase 2232 U/L (10-85) Aspartate Amino Transf (AST/SGOT) 66 U/L (15-37) Alanine Aminotransferase (ALT/SGPT) 60 U/L (16-63) Alkaline Phosphatase 152 U/L (46-116) Total Protein 6.6 g/dL (6.4-8.2) Albumin 3.4 g/dL (3.4-5.0) Albumin/Globulin Ratio 1.1 (1.0-1.7) Vitamin B12 Level 508 pg/mL (247-911) Thyroid Stimulating Hormone (TSH) 2.162 uIU/mL (0.358-3.74) Ethyl Alcohol Level 230 mg/dL (0-10) Glucose (Fingerstick) 59 mg/dL (70-99) 83 mg/dL (70-99) Test 01/06/20 07:25 01/06/20 10:45 Sodium Level 124 mmol/L (136-145) 124 mmol/L (136-145) Potassium Level 4.6 mmol/L (3.5-5.1) 4.5 mmol/L (3.5-5.1) Chloride Level 91 mmol/L (98-107) 92 mmol/L (98-107) Carbon Dioxide Level 21 mmol/L (21-32) 23 mmol/L (21-32) Anion Gap 12 (6-14) 9 (6-14) Blood Urea Nitrogen 14 mg/dL (8-26) 14 mg/dL (8-26) Creatinine 0.8 mg/dL (0.7-1.3) 0.8 mg/dL (0.7-1.3) Estimated GFR (Cockcroft-Gault) 96.1 96.1 Glucose Level 88 mg/dL (70-99) 162 mg/dL (70-99) Calcium Level 8.3 mg/dL (8.5-10.1) 8.6 mg/dL (8.5-10.1) Assessment and Plan Assessmemt and Plan Problems Medical Problems: (1) Alcohol intoxication Status: Acute (2) Facial abrasion Status: Acute (3) Fall Status: Acute (4) Hyponatremia Status: Acute (5) Multiple abrasions Status: Acute Plan: 1. Start Home meds 2. Start NS 75/hr to correct electrolyte imbalance 3. Continue PTOT while in the hospital 4. Continue DVT prophylaxis 5. Start EtOH w/d protocol 6. Transfer upstairs to hospital floor 7. Continue to follow until likely discharge back to home Comment Review of Relevant I have reviewed the following items alyse (where applicable) has been applied. Medications: Current Medications Medications (Trade) Dose Ordered Sig/Eyad Route PRN Reason Start Time Stop Time Status Last Admin Dose Admin Sodium Chloride 1,000 ml @ 1,000 mls/hr 1X ONCE IV 01/05/20 21:00 01/05/20 21:59 DC 01/05/20 21:05 Lorazepam (Ativan Inj) 0.5 mg PRN Q6HRS PRN IV ANXIETY / AGITATION 01/06/20 00:00 01/06/20 04:27 Heparin Sodium (Porcine) (Heparin Sodium) 5,000 unit Q12HR SQ 01/06/20 09:00 01/06/20 09:54 Acetaminophen/ Hydrocodone Bitart (Lortab 5/325) 1 tab PRN Q4HRS PRN PO MILD PAIN 1-3 01/06/20 00:00 01/06/20 09:55 Senna/Docusate Sodium (Senna Plus) 1 tab BID PO 01/06/20 09:00 01/06/20 09:54 Sodium Chloride 1,000 ml @ 75 mls/hr [id number] IV 01/06/20 11:15 01/06/20 11:10 LISA STACK III DO Jan 06, 2020 11:52
[2020-01-06] MEDS ORDERED: INDOMETHACIN 25 MG CAPSULE. PO PRN (12:25)
[2020-01-06 12:26] LABS: ALBUMIN 3.3 g/dL (3.4-5.0); ALBUMIN/GLOBULIN RATIO 1.1 (1.0-1.7); CALCIUM 8.6 mg/dL (8.5-10.1); CREATININE 0.8 mg/dL (0.7-1.3); GFR 96.1; TOTAL BILIRUBIN 2.7 mg/dL (0.2-1.0); TOTAL PROTEIN 6.2 g/dL (6.4-8.2)
[2020-01-06 12:27] LABS: POTASSIUM 4.5 mmol/L (3.5-5.1)
[2020-01-06] MEDS ORDERED: DOCUSATE SODIUM 100 MG CAPSULE. PO SCH (13:00)
[2020-01-06] MEDS ORDERED: NON FORMULARY ITEM (Albuterol Sulfate (Ventolin Hfa Inhaler) 1 PUFF) INH SCH (13:00)
[2020-01-06] MEDS: PANTOPRAZOLE 40 MG TABLET.DR. PO SCH (13:07)
[2020-01-06] MEDS: amLODIPine BESYLATE 10 MG TABLET PO SCH (13:07)
[2020-01-06] MEDS: FOLIC ACID 1 MG TABLET. PO SCH (13:07)
[2020-01-06] MEDS: FUROSEMIDE 40 MG TABLET. PO SCH (13:07)
[2020-01-06] MEDS: METOPROLOL SUCC 24HR ER 100 MG TAB.ER.24H. PO SCH (13:08)
[2020-01-06] MEDS: THIAMINE 100 MG TABLET. PO SCH (13:08)
[2020-01-06] MEDS: cloNIDine HCL 0.2 MG TABLET PO SCH ×2 (14:06→21:38)
[2020-01-06] MEDS: GABAPENTIN 100 MG CAPSULE. PO SCH ×2 (14:06→21:38)
--- NOTE | 2020-01-06 14:40 | NUR ---
Patient has been received to room 580. Patient up in chair, chair alarm was placed. at bedside. IVF resumed at 75ml/hr per pump to site in left AC.
[2020-01-06] MEDS: ALBUTEROL SULFATE 2.5 MG/3 ML NEBU. NEB SCH ×2 (16:00→20:27)
[2020-01-06] MEDS: HYDROcodone/APAP 10/325 1 TAB TABLET PO PRN (16:20)
--- NOTE | 2020-01-06 16:24 | NUR ---
Wound Care Wound care consult for multiple wounds. Pt has abrasions from fall to forehead, nose, and knuckles of both hands. Cleansed all of these and painted with skin prep to protect from bacteria. Pt has VLU to LLE, cleansed wound and dressed with Aquacel AG and foam dressing, recommend to change every 2-3 days and PRN for drainage. Pt needs to elevate legs while sitting to reduce swelling in BLE. Pt also has DFU to left lateral 5th toe that is covered with dry slough, cleansed wound, applied betadine and left PAMELA. Pt recliner didn't recline so chair was replaced and pt left in chair with legs elevated. After transfer to new chair pt began having tremors and didn't respond to his name for several seconds. Pt became alert again and stated it was from the pain. Elysia BARRERA called into room to address tremors and pain. Pt and educated on PU prevention and importance of elevation of legs to heal wound. WC will continue to follow for possible changes.
--- NOTE | 2020-01-06 16:30 | NUR ---
Patient has been given IV ativan for severe tremors, which appeared to ease quickly. Patient alert and oriented. Wound care was in to evaluated patient.
[2020-01-06] MEDS: GLIMEPIRIDE 2 MG TABLET. PO SCH (17:34)
[2020-01-06] MEDS: metFORMIN 500 MG TABLET PO SCH (17:34)
[2020-01-06] MEDS: BUDESONIDE 0.5 MG/2 ML NEBU. NEB SCH (20:28)
[2020-01-06] MEDS: INSULIN GLARGINE SYRINGE. SQ SCH (21:03)
[2020-01-06 22:08] LABS: UR POTASSIUM 8.1 mmol/L (Not Estab.)
[2020-01-07] MEDS: IV NORMAL SALINE 1000ML BAG 1,000 ML IV SCH ×2 (02:41→13:55)
[2020-01-07 02:45] VITALS: BP 149/69
[2020-01-07 05:39] LABS: BASO % 1 % (0-3); EOS # 0.1 x10^3/uL (0.0-0.7); EOS % 2 % (0-3); HEMATOCRIT 30.7 % (39.0-53.0); HEMOGLOBIN 10.9 g/dL (13.0-17.5); LYMPH % 20 % (24-48); MEAN CORPUSCULAR HEMOGLOBIN 35 pg (25-35); MEAN CORPUSCULAR HGB CONC 35 g/dL (31-37); MEAN CORPUSCULAR VOLUME 98 fL (79-100); MONO # 0.8 x10^3/uL (0.0-1.1); MONO % 16 % (0-9); NEUT # 3.2 x10^3/uL (1.8-7.7); NEUT % 62 % (31-73); PLATELET COUNT 131 x10^3/uL (140-400); RED BLOOD COUNT 3.14 x10^6/uL (4.30-5.70); RED CELL DISTRIBUTION WIDTH 13.5 % (11.5-14.5); WHITE BLOOD COUNT 5.2 x10^3/uL (4.0-11.0)
[2020-01-07 07:00] VITALS: BP 176/58
[2020-01-07] MEDS: HYDROcodone/APAP 10/325 1 TAB TABLET PO PRN ×3 (07:14→16:49)
[2020-01-07] MEDS: ALBUTEROL SULFATE 2.5 MG/3 ML NEBU. NEB SCH ×4 (08:06→19:25)
[2020-01-07] MEDS: BUDESONIDE 0.5 MG/2 ML NEBU. NEB SCH ×2 (08:06→19:25)
[2020-01-07] MEDS: amLODIPine BESYLATE 10 MG TABLET PO SCH (08:58)
[2020-01-07] MEDS: GLIMEPIRIDE 2 MG TABLET. PO SCH ×2 (08:58→17:53)
[2020-01-07] MEDS: FOLIC ACID 1 MG TABLET. PO SCH (08:58)
[2020-01-07] MEDS: metFORMIN 500 MG TABLET PO SCH ×2 (08:59→17:53)
[2020-01-07] MEDS: PANTOPRAZOLE 40 MG TABLET.DR. PO SCH (08:59)
[2020-01-07] MEDS: SENNOSIDES/DOCUSATE 8.6/50MG TABLET. PO SCH ×2 (08:59→21:23)
[2020-01-07] MEDS: ASCORBIC ACID 500 MG TABLET PO SCH (08:59)
[2020-01-07] MEDS: THIAMINE 100 MG TABLET. PO SCH (08:59)
[2020-01-07] MEDS: cloNIDine HCL 0.2 MG TABLET PO SCH ×3 (08:59→21:23)
[2020-01-07] MEDS: GABAPENTIN 100 MG CAPSULE. PO SCH ×3 (08:59→21:23)
[2020-01-07] MEDS: MULTIVITAMIN with MINERAL TABLET. PO SCH (08:59)
[2020-01-07] MEDS: METOPROLOL SUCC 24HR ER 100 MG TAB.ER.24H. PO SCH (09:00)
[2020-01-07] MEDS: FUROSEMIDE 40 MG TABLET. PO SCH (09:00)
[2020-01-07] MEDS: HEPARIN for SUB-Q USE 5,000 UNIT/ML VIAL. SQ SCH ×2 (09:09→21:33)
[2020-01-07 11:00] VITALS: BP 132/46
--- NOTE | 2020-01-07 11:10 | NUR ---
JUAN DAVID following. Discussed with RN, pt is a transfer from ICU. PAT team was not consulted yesterday for heavy drinking. JUAN DAVID discussed with RN, RN discussed with physician to have PAT referral. Rodney from [facility] will visit with pt today. JUAN DAVID met with pt and pt's at bedside, due to PT recommendation of SNU. Pt does not really want to go to SNU, SW left pt to discuss with his and advised SW will return at a later time to discuss decision. SW not aware of pt drinking at this time, will have to discuss with pt of facilities possibly not wanting to accept due to hx of drinking and the possibility of pt weakness being due to withdrawal. JUAN DAVID will continue to follow. Addendum: 01/07/20 at 1417 by APOORVA FALL PAT team met with pt, pt denied any alcohol use prior to coming into the hospital. Pt ETOH level was 230 on admission. Pt declined any mental health needs and declined any services from PAT team. JUAN DAVID met with pt and pt's to determine decision re SNU, pt still slightly hesitant but can't really give reason as to why he doesn't want to go. JUAN DAVID discussed possibility of being denied due to ETOH, pt reported he does not remember drinking anything, then stated he only had 3 beers and then later had 2 more. Pt's 's father has been to [facility] before, and this is where they would like the referral to be sent. Pt agreeable to referral being sent to determine acceptance and then will discuss further about placing there. Anticipate discharge to SNU tomorrow if accepted. JUAN DAVID faxed referral to [facility], awaiting acceptance decisionHerman FALL will continue to follow. BRUCE notified. Addendum: 01/07/20 at 1531 by APOORVA FALL Pt accepted at [facility], will need one more midnight. BRUCE notified.
--- NOTE | 2020-01-07 14:16 | PDOC ---
PROGRESS NOTES Chief Complaint Chief Complaint Alcohol use disorder Hyponatremia, electrolyte imbalance fall risk Facial contusions toxic and metabolic encephalopathy History of Present Illness History of Present Illness 01/06/2020 Pt seen and examined while in the ICU. Discussed with nursing staff. Reviewed chart. Pt was up and about to be helped with a UA capture while interviewed. Pt's and he were together. Will likely transfer to upstairs, or send home soon, as pt is much more stable. Vitals Vitals Vital Signs Date Time Temp Pulse Resp B/P (MAP) Pulse Ox O2 Delivery O2 Flow Rate FiO2 01/07/20 12:54 96 Room Air 01/07/20 11:00 97.7 76 18 132/46 (74) 97.7 Physical Exam General: Alert, Oriented X3 Heart: Regular rate Lungs: Clear Abdomen: Normal bowel sounds Extremities: No clubbing, No cyanosis Skin: Other (contusions observed on face ) Labs LABS Laboratory Tests Test 01/06/20 16:59 01/06/20 21:35 01/07/20 04:51 01/07/20 07:10 Glucose (Fingerstick) 275 mg/dL (70-99) 269 mg/dL (70-99) 132 mg/dL (70-99) White Blood Count 5.2 x10^3/uL (4.0-11.0) Red Blood Count 3.14 x10^6/uL (4.30-5.70) Hemoglobin 10.9 g/dL (13.0-17.5) Hematocrit 30.7 % (39.0-53.0) Mean Corpuscular Volume 98 fL (79-100) Mean Corpuscular Hemoglobin 35 pg (25-35) Mean Corpuscular Hemoglobin Concent 35 g/dL (31-37) Red Cell Distribution Width 13.5 % (11.5-14.5) Platelet Count 131 x10^3/uL (140-400) Neutrophils (%) (Auto) 62 % (31-73) Lymphocytes (%) (Auto) 20 % (24-48) Monocytes (%) (Auto) 16 % (0-9) Eosinophils (%) (Auto) 2 % (0-3) Basophils (%) (Auto) 1 % (0-3) Neutrophils # (Auto) 3.2 x10^3/uL (1.8-7.7) Lymphocytes # (Auto) 1.0 x10^3/uL (1.0-4.8) Monocytes # (Auto) 0.8 x10^3/uL (0.0-1.1) Eosinophils # (Auto) 0.1 x10^3/uL (0.0-0.7) Basophils # (Auto) 0.0 x10^3/uL (0.0-0.2) Test 01/07/20 11:21 Glucose (Fingerstick) 252 mg/dL (70-99) Assessment and Plan Assessmemt and Plan Problems Medical Problems: (1) Alcohol intoxication Status: Acute (2) Facial abrasion Status: Acute (3) Fall Status: Acute (4) Hyponatremia Status: Acute (5) Multiple abrasions Status: Acute Comment Review of Relevant I have reviewed the following items alyse (where applicable) has been applied. Labs Laboratory Tests Test 01/05/20 20:40 01/06/20 02:45 01/06/20 03:15 01/06/20 04:08 White Blood Count 7.3 x10^3/uL (4.0-11.0) 8.2 x10^3/uL (4.0-11.0) Red Blood Count 3.20 x10^6/uL (4.30-5.70) 3.08 x10^6/uL (4.30-5.70) Hemoglobin 11.0 g/dL (13.0-17.5) 10.8 g/dL (13.0-17.5) Hematocrit 31.3 % (39.0-53.0) 30.0 % (39.0-53.0) Mean Corpuscular Volume 98 fL (79-100) 97 fL (79-100) Mean Corpuscular Hemoglobin 35 pg (25-35) 35 pg (25-35) Mean Corpuscular Hemoglobin Concent 35 g/dL (31-37) 36 g/dL (31-37) Red Cell Distribution Width 13.0 % (11.5-14.5) 13.2 % (11.5-14.5) Platelet Count 195 x10^3/uL (140-400) 150 x10^3/uL (140-400) Neutrophils (%) (Auto) 49 % (31-73) 69 % (31-73) Lymphocytes (%) (Auto) 36 % (24-48) 18 % (24-48) Monocytes (%) (Auto) 12 % (0-9) 12 % (0-9) Eosinophils (%) (Auto) 2 % (0-3) 1 % (0-3) Basophils (%) (Auto) 1 % (0-3) 0 % (0-3) Neutrophils # (Auto) 3.5 x10^3/uL (1.8-7.7) 5.6 x10^3/uL (1.8-7.7) Lymphocytes # (Auto) 2.6 x10^3/uL (1.0-4.8) 1.5 x10^3/uL (1.0-4.8) Monocytes # (Auto) 0.9 x10^3/uL (0.0-1.1) 1.0 x10^3/uL (0.0-1.1) Eosinophils # (Auto) 0.2 x10^3/uL (0.0-0.7) 0.1 x10^3/uL (0.0-0.7) Basophils # (Auto) 0.1 x10^3/uL (0.0-0.2) 0.0 x10^3/uL (0.0-0.2) Sodium Level 118 mmol/L (136-145) 123 mmol/L (136-145) Potassium Level 5.1 mmol/L (3.5-5.1) 4.2 mmol/L (3.5-5.1) Chloride Level 85 mmol/L (98-107) 90 mmol/L (98-107) Carbon Dioxide Level 24 mmol/L (21-32) 21 mmol/L (21-32) Anion Gap 9 (6-14) 12 (6-14) Blood Urea Nitrogen 17 mg/dL (8-26) 14 mg/dL (8-26) Creatinine 1.1 mg/dL (0.7-1.3) 0.8 mg/dL (0.7-1.3) Estimated GFR (Cockcroft-Gault) 66.6 96.1 BUN/Creatinine Ratio 15 (6-20) Glucose Level 84 mg/dL (70-99) 71 mg/dL (70-99) Calcium Level 8.0 mg/dL (8.5-10.1) 8.0 mg/dL (8.5-10.1) Total Bilirubin 1.7 mg/dL (0.2-1.0) Gamma Glutamyl Transpeptidase 2232 U/L (10-85) Aspartate Amino Transf (AST/SGOT) 66 U/L (15-37) Alanine Aminotransferase (ALT/SGPT) 60 U/L (16-63) Alkaline Phosphatase 152 U/L (46-116) Total Protein 6.6 g/dL (6.4-8.2) Albumin 3.4 g/dL (3.4-5.0) Albumin/Globulin Ratio 1.1 (1.0-1.7) Vitamin B12 Level 508 pg/mL (247-911) Thyroid Stimulating Hormone (TSH) 2.162 uIU/mL (0.358-3.74) Ethyl Alcohol Level 230 mg/dL (0-10) Urine Sodium 26 mmol/L (Not Estab.) Urine Potassium 8.1 mmol/L (Not Estab.) Urine Chloride 22 mmol/L (Not Estab.) Glucose (Fingerstick) 59 mg/dL (70-99) Test 01/06/20 04:31 01/06/20 07:25 01/06/20 10:45 01/06/20 11:45 Glucose (Fingerstick) 83 mg/dL (70-99) 223 mg/dL (70-99) Sodium Level 124 mmol/L (136-145) 124 mmol/L (136-145) Potassium Level 4.6 mmol/L (3.5-5.1) 4.5 mmol/L (3.5-5.1) Chloride Level 91 mmol/L (98-107) 92 mmol/L (98-107) Carbon Dioxide Level 21 mmol/L (21-32) 23 mmol/L (21-32) Anion Gap 12 (6-14) 9 (6-14) Blood Urea Nitrogen 14 mg/dL (8-26) 14 mg/dL (8-26) Creatinine 0.8 mg/dL (0.7-1.3) 0.8 mg/dL (0.7-1.3) Estimated GFR (Cockcroft-Gault) 96.1 96.1 Glucose Level 88 mg/dL (70-99) 162 mg/dL (70-99) Calcium Level 8.3 mg/dL (8.5-10.1) 8.6 mg/dL (8.5-10.1) BUN/Creatinine Ratio 18 (6-20) Total Bilirubin 2.7 mg/dL (0.2-1.0) Aspartate Amino Transf (AST/SGOT) 66 U/L (15-37) Alanine Aminotransferase (ALT/SGPT) 50 U/L (16-63) Alkaline Phosphatase 158 U/L (46-116) Total Protein 6.2 g/dL (6.4-8.2) Albumin 3.3 g/dL (3.4-5.0) Albumin/Globulin Ratio 1.1 (1.0-1.7) Test 01/06/20 16:59 01/06/20 21:35 01/07/20 04:51 01/07/20 07:10 Glucose (Fingerstick) 275 mg/dL (70-99) 269 mg/dL (70-99) 132 mg/dL (70-99) White Blood Count 5.2 x10^3/uL (4.0-11.0) Red Blood Count 3.14 x10^6/uL (4.30-5.70) Hemoglobin 10.9 g/dL (13.0-17.5) Hematocrit 30.7 % (39.0-53.0) Mean Corpuscular Volume 98 fL (79-100) Mean Corpuscular Hemoglobin 35 pg (25-35) Mean Corpuscular Hemoglobin Concent 35 g/dL (31-37) Red Cell Distribution Width 13.5 % (11.5-14.5) Platelet Count 131 x10^3/uL (140-400) Neutrophils (%) (Auto) 62 % (31-73) Lymphocytes (%) (Auto) 20 % (24-48) Monocytes (%) (Auto) 16 % (0-9) Eosinophils (%) (Auto) 2 % (0-3) Basophils (%) (Auto) 1 % (0-3) Neutrophils # (Auto) 3.2 x10^3/uL (1.8-7.7) Lymphocytes # (Auto) 1.0 x10^3/uL (1.0-4.8) Monocytes # (Auto) 0.8 x10^3/uL (0.0-1.1) Eosinophils # (Auto) 0.1 x10^3/uL (0.0-0.7) Basophils # (Auto) 0.0 x10^3/uL (0.0-0.2) Test 01/07/20 11:21 Glucose (Fingerstick) 252 mg/dL (70-99) Laboratory Tests Test 01/06/20 16:59 01/06/20 21:35 01/07/20 04:51 01/07/20 07:10 Glucose (Fingerstick) 275 mg/dL (70-99) 269 mg/dL (70-99) 132 mg/dL (70-99) White Blood Count 5.2 x10^3/uL (4.0-11.0) Red Blood Count 3.14 x10^6/uL (4.30-5.70) Hemoglobin 10.9 g/dL (13.0-17.5) Hematocrit 30.7 % (39.0-53.0) Mean Corpuscular Volume 98 fL (79-100) Mean Corpuscular Hemoglobin 35 pg (25-35) Mean Corpuscular Hemoglobin Concent 35 g/dL (31-37) Red Cell Distribution Width 13.5 % (11.5-14.5) Platelet Count 131 x10^3/uL (140-400) Neutrophils (%) (Auto) 62 % (31-73) Lymphocytes (%) (Auto) 20 % (24-48) Monocytes (%) (Auto) 16 % (0-9) Eosinophils (%) (Auto) 2 % (0-3) Basophils (%) (Auto) 1 % (0-3) Neutrophils # (Auto) 3.2 x10^3/uL (1.8-7.7) Lymphocytes # (Auto) 1.0 x10^3/uL (1.0-4.8) Monocytes # (Auto) 0.8 x10^3/uL (0.0-1.1) Eosinophils # (Auto) 0.1 x10^3/uL (0.0-0.7) Basophils # (Auto) 0.0 x10^3/uL (0.0-0.2) Test 01/07/20 11:21 Glucose (Fingerstick) 252 mg/dL (70-99) Medications Current Medications Sodium Chloride 1,000 ml @ 1,000 mls/hr 1X ONCE IV Last administered on 01/05/20at 21:05; Start 01/05/20 at 21:00; Stop 01/05/20 at 21:59; Status DC Ondansetron HCl (Zofran) 4 mg PRN Q8HRS PRN IV NAUSEA/VOMITING; Start 01/05/20 at 22:15; Stop 01/06/20 at 12:21; Status DC Acetaminophen (Tylenol) 650 mg PRN Q6HRS PRN PO Headaches, Temp > 101.5'; Start 01/06/20 at 00:00 Lorazepam (Ativan Inj) 0.5 mg PRN Q6HRS PRN IV ANXIETY / AGITATION Last administered on 01/07/20at 07:16; Start 01/06/20 at 00:00 Ondansetron HCl (Zofran) 4 mg PRN Q6HRS PRN IV NAUSEA/VOMITING; Start 01/06/20 at 00:00 Heparin Sodium (Porcine) (Heparin Sodium) 5,000 unit Q12HR SQ Last administered on 01/07/20at 09:09; Start 01/06/20 at 09:00 Sodium Chloride (Normal Saline Flush) 3 ml QSHIFT PRN IV AFTER MEDS AND BLOOD DRAWS; Start 01/06/20 at 00:00 Acetaminophen/ Hydrocodone Bitart (Lortab 5/325) 1 tab PRN Q4HRS PRN PO MODER ATE PAIN Last administered on 01/06/20at 12:48; Start 01/06/20 at 00:00 Morphine Sulfate (Morphine Sulfate) 2 mg PRN Q1HR PRN IV PAIN Last administered on 01/06/20at 21:40; Start 01/06/20 at 00:00 Senna/Docusate Sodium (Senna Plus) 1 tab BID PO Last administered on 01/07/20at 08:59; Start 01/06/20 at 09:00 Lactulose (Lactulose) 20 gm PRN Q12HR PRN PO CONSTIPATION; Start 01/06/20 at 00:00 Sodium Chloride 1,000 ml @ 75 mls/hr [id number] IV Last administered on 01/07/20at 02:41; Start 01/06/20 at 11:15 Amlodipine Besylate (Norvasc) 10 mg DAILY PO Last administered on 01/07/20 08:58; Start 01/06/20 at 13:00 Budesonide (Pulmicort) 0.5 mg RTBID NEB Last administered on 01/07/20 08:06; Start 01/06/20 at 20:00 Clonidine HCl (Catapres) 0.2 mg TID PO Last administered on 01/07/20 08:59; Start 01/06/20 at 14:00 Docusate Sodium (Colace) 100 mg DAILY PO ; Start 01/06/20 at 13:00; Status UNV Folic Acid (Folic Acid) 1 mg DAILY PO Last administered on 01/07/20 08:58; Start 01/06/20 at 13:00 Furosemide (Lasix) 40 mg DAILY PO Last administered on 01/07/20 09:00; Start 01/06/20 at 13:00 Gabapentin (Neurontin) 100 mg TID PO Last administered on 01/07/20 08:59; Start 01/06/20 at 14:00 Acetaminophen/ Hydrocodone Bitart (Lortab 10/325) 1 tab PRN Q6HRS PRN PO SEVERE PAIN Last administered on 01/07/20 07:14; Start 01/06/20 at 12:00 Metformin HCl (Glucophage) 500 mg BIDWMEALS PO Last administered on 01/07/20 08:59; Start 01/06/20 at 17:00 Metoprolol Succinate (Toprol Xl) 100 mg DAILY PO Last administered on 01/07/20 09:00; Start 01/06/20 at 13:00 Thiamine Mononitrate (Vitamin B-1) 100 mg DAILY PO Last administered on 01/07/20 08:59; Start 01/06/20 at 13:00 Non-Formulary Medication (Albuterol Sulfate (Ventolin Hfa Inhaler)) 1 puff QID INH ; Start 01/06/20 at 13:00; Status UNV Glimepiride (Amaryl) 2 mg BIDWMEALS PO Last administered on 01/07/20 08:58; Start 01/06/20 at 17:00 Indomethacin (Indocin) 50 mg PRN DAILY PRN PO GOUT SYMPTOMS; Start 01/06/20 at 12:25 Pantoprazole Sodium (Protonix) 40 mg DAILYAC PO Last administered on 01/07/20at 08:59; Start 01/06/20 at 13:00 Insulin Glargine (Lantus Syringe) 10 unit QHS SQ Last administered on 01/06/20at 21:03; Start 01/06/20 at 21:00 Albuterol Sulfate (Ventolin Neb Soln) 2.5 mg RTQID NEB Last administered on 01/07/20at 12:54; Start 01/06/20 at 16:00 Multivitamins (Thera M Plus) 1 tab DAILY PO Last administered on 01/07/20at 08:59; Start 01/07/20 at 09:00 Ascorbic Acid (Vitamin C) 500 mg DAILY PO Last administered on 01/07/20at 08:59; Start 01/07/20 at 09:00 Active Scripts Active Vitamin B-1 (Thiamine Mononitrate) 100 Mg Tablet 100 Mg PO DAILY MDD 1 Folic Acid 1 Mg Tablet 1 Mg PO DAILY MDD 1 Glucophage (Metformin Hcl) 500 Mg Tablet 500 Mg PO BIDWMEALS MDD 1 Budesonide 0.5 Mg/2 Ml Ampul.neb 0.5 Mg NEB RTBID MDD 1 Furosemide 40 Mg Tablet 40 Mg PO DAILY MDD 1 Protonix (Pantoprazole Sodium) 20 Mg Tablet.dr 40 Mg PO DAILY 90 Days Reported [insulin] 10 Units HS Ventolin Hfa Inhaler (Albuterol Sulfate) 18 Gm Hfa.aer.ad 1 Puff INH QID Indomethacin 50 Mg Capsule 1 Cap PO PRN PRN Hydrocodone-Apap 10-325 (Hydrocodone Bit/Acetaminophen) 1 Tab Tablet 1 Tab PO PRN Q6HRS PRN [mens multivitamin] 1 DAILY Colace (Docusate Sodium) 100 Mg Capsule 100 Mg PO DAILY Gabapentin (Gabapentin) 100 Mg Capsule 100 Mg PO TID Metoprolol Succinate ( Xl ) (Metoprolol Succinate) 100 Mg Tab.er.24h 100 Mg PO DAILY Norvasc (Amlodipine Besylate) 10 Mg Tablet 10 Mg PO DAILY Clonidine Hcl 0.2 Mg Tablet 0.2 Mg PO TID Amaryl (Glimepiride) 1 Mg Tablet 2 Tab PO BIDWMEALS Vitals/I & O Vital Sign - Last 24 Hours 01/06/20 01/06/20 01/06/2020 15:00 16:00 16:20 17:20 Temp 98.1 98.1 Pulse 89 Resp 20 20 B/P (MAP) 197/61 (106) Pulse Ox 98 98 100 O2 Delivery Room Air Room Air Room Air Room Air 01/06/20 01/06/20 01/06/20 01/06/20 19:01 20:00 20:29 20:34 Temp 97.7 97.7 Pulse 80 Resp 16 B/P (MAP) 133/49 (77) Pulse Ox 100 100 100 O2 Delivery Room Air Room Air Room Air Room Air 01/06/20 01/06/20 01/06/20 01/06/20 21:38 21:40 22:10 23:00 Temp 98.0 98.0 Pulse 80 76 Resp 20 18 18 B/P (MAP) 133/49 131/63 (85) Pulse Ox 100 100 100 O2 Delivery Room Air Room Air Room Air 01/07/20 01/07/20 01/07/20 01/07/20 02:45 07:00 07:14 08:06 Temp 97.1 97.5 97.1 97.5 Pulse 77 75 Resp 20 16 23 B/P (MAP) 149/69 (95) 176/58 (97) Pulse Ox 100 98 99 O2 Delivery Room Air Room Air Room Air Room Air 01/07/20 01/07/20 01/07/20 01/07/20 08:14 08:58 08:59 09:00 Pulse 75 75 75 Resp 16 B/P (MAP) 176/58 176/58 176/58 O2 Delivery Room Air 01/07/20 01/07/20 11:00 12:54 Temp 97.7 97.7 Pulse 76 Resp 18 B/P (MAP) 132/46 (74) Pulse Ox 99 96 O2 Delivery Room Air Room Air Intake and Output 01/06/20 01/06/20 01/07/20 15:00 23:00 07:00 Intake Total 20 ml 480 ml 1360 ml Output Total 600 ml 1300 ml 1300 ml Balance -580 ml -820 ml 60 ml LEXUS JEFFERSON MD Jan 07, 2020 14:16
[2020-01-07 15:00] VITALS: BP 155/59
--- NOTE | 2020-01-07 15:11 | RAD ---
HAND LEFT 2V History: Hand pain FINDINGS: No evidence of acute fracture. No aggressive bone destruction. Joint spaces and alignment are intact. Vascular calcification is noted. No significant soft tissue abnormality. IMPRESSION: No evidence of acute fracture or dislocation. Electronically signed by: Kieran Kevin MD (01/07/2020 3:08 PM) [id number]
[2020-01-07 19:00] VITALS: BP 132/51
[2020-01-07] MEDS: INSULIN GLARGINE SYRINGE. SQ SCH (21:34)
[2020-01-07 22:44] VITALS: BP 178/73
[2020-01-08 03:09] VITALS: BP 153/77
[2020-01-08] MEDS: HYDROcodone/APAP 10/325 1 TAB TABLET PO PRN ×2 (03:31→10:40)
[2020-01-08] MEDS: IV NORMAL SALINE 1000ML BAG 1,000 ML IV SCH (03:32)
[2020-01-08 04:09] LABS: BASO % 1 % (0-3); EOS # 0.1 x10^3/uL (0.0-0.7); EOS % 3 % (0-3); HEMATOCRIT 29.2 % (39.0-53.0); HEMOGLOBIN 10.3 g/dL (13.0-17.5); LYMPH # 1.3 x10^3/uL (1.0-4.8); LYMPH % 24 % (24-48); MEAN CORPUSCULAR HEMOGLOBIN 35 pg (25-35); MEAN CORPUSCULAR HGB CONC 35 g/dL (31-37); MEAN CORPUSCULAR VOLUME 100 fL (79-100); MONO # 0.7 x10^3/uL (0.0-1.1); MONO % 14 % (0-9); NEUT # 3.2 x10^3/uL (1.8-7.7); NEUT % 59 % (31-73); PLATELET COUNT 121 x10^3/uL (140-400); RED BLOOD COUNT 2.92 x10^6/uL (4.30-5.70); RED CELL DISTRIBUTION WIDTH 13.9 % (11.5-14.5); WHITE BLOOD COUNT 5.4 x10^3/uL (4.0-11.0)
[2020-01-08 07:00] VITALS: BP 147/66
[2020-01-08] MEDS: BUDESONIDE 0.5 MG/2 ML NEBU. NEB SCH (07:26)
[2020-01-08] MEDS: ALBUTEROL SULFATE 2.5 MG/3 ML NEBU. NEB SCH ×3 (07:26→15:20)
[2020-01-08] MEDS: PANTOPRAZOLE 40 MG TABLET.DR. PO SCH (08:04)
[2020-01-08] MEDS: metFORMIN 500 MG TABLET PO SCH (08:05)
[2020-01-08] MEDS: GLIMEPIRIDE 2 MG TABLET. PO SCH (08:05)
[2020-01-08] MEDS: cloNIDine HCL 0.2 MG TABLET PO SCH ×2 (09:01→15:15)
[2020-01-08] MEDS: THIAMINE 100 MG TABLET. PO SCH (09:01)
[2020-01-08] MEDS: MULTIVITAMIN with MINERAL TABLET. PO SCH (09:01)
[2020-01-08] MEDS: amLODIPine BESYLATE 10 MG TABLET PO SCH (09:01)
[2020-01-08] MEDS: SENNOSIDES/DOCUSATE 8.6/50MG TABLET. PO SCH (09:01)
[2020-01-08] MEDS: METOPROLOL SUCC 24HR ER 100 MG TAB.ER.24H. PO SCH (09:01)
[2020-01-08] MEDS: FUROSEMIDE 40 MG TABLET. PO SCH (09:02)
[2020-01-08] MEDS: GABAPENTIN 100 MG CAPSULE. PO SCH ×2 (09:02→15:14)
[2020-01-08] MEDS: ASCORBIC ACID 500 MG TABLET PO SCH (09:02)
[2020-01-08] MEDS: FOLIC ACID 1 MG TABLET. PO SCH (09:02)
[2020-01-08] MEDS: HEPARIN for SUB-Q USE 5,000 UNIT/ML VIAL. SQ SCH (09:12)
--- NOTE | 2020-01-08 09:35 | NUR ---
SW following. Discussed with RN, pt accepted at [facility]. SW awaiting discharge paperwork and scripts. SW will continue to follow.
[2020-01-08 10:24] LABS: CALCIUM 8.7 mg/dL (8.5-10.1); CREATININE 0.8 mg/dL (0.7-1.3); GFR 96.1; POTASSIUM 4.3 mmol/L (3.5-5.1)
[2020-01-08 11:00] VITALS: BP 157/72
--- NOTE | 2020-01-08 13:05 | SNU/HH DC ---
DISCHARGE ORDERS DISCHARGE INFORMATION: DISCHARGE DATE: Jan 08, 2020 FINAL DIAGNOSIS Problems Medical Problems: (1) Alcohol intoxication Status: Acute (2) Facial abrasion Status: Acute (3) Fall Status: Acute (4) Hyponatremia Status: Acute (5) Multiple abrasions Status: Acute CONDITION ON DISCHARGE: Stable CODE STATUS: Code Status: Full PRISON: SNF STAY <30 DAYS: Yes POST DISCHARGE ORDERS: ACTIVITY ORDERS: No restrictions, Activity as tolerated WEIGHT BEARING STATUS: No restrictions CHECKS AFTER DISCHARGE: CHECKS AFTER DISCHARGE: Check blood press - daily TREATMENT/EQUIPMENT ORDERS: ADAPTIVE EQUIPMENT NEEDED: Cane DISCHARGE MEDICATIONS: Home Meds Active Scripts Thiamine Mononitrate (VITAMIN B-1) 100 Mg Tablet, 100 MG PO DAILY for mvi MDD 1, #30 TAB Prov:CONRAD GARCES MD 03/20/19 Folic Acid (FOLIC ACID) 1 Mg Tablet, 1 MG PO DAILY for mvi MDD 1, #30 TAB Prov:CONRAD GARCES MD 03/20/19 Metformin Hcl (GLUCOPHAGE) 500 Mg Tablet, 500 MG PO BIDWMEALS for dm 2 MDD 1, #60 TAB Prov:CONRAD GARCES MD 03/20/19 Budesonide (BUDESONIDE) 0.5 Mg/2 Ml Ampul.neb, 0.5 MG NEB RTBID for soa MDD 1, #60 EACH Prov:CONRAD GARCES MD 03/20/19 Furosemide (FUROSEMIDE) 40 Mg Tablet, 40 MG PO DAILY for leg edema MDD 1, #30 TAB Prov:CONRAD GARCES MD 03/20/19 Pantoprazole Sodium (PROTONIX) 20 Mg Tablet.dr, 40 MG PO DAILY for 90 Days, #180 TAB Prov:CONRAD GARCES MD 03/16/18 Reported Medications [insulin] No Conflict Check, 10 UNITS HS 12/16/19 Albuterol Sulfate (VENTOLIN HFA INHALER) 18 Gm Hfa.aer.ad, 1 PUFF INH QID for FOR ASTHMA, INHALER 0 Refills 03/14/19 Indomethacin (INDOMETHACIN) 50 Mg Capsule, 1 CAP PO PRN PRN for gout, #30 CAP 1 Refill 03/14/19 Hydrocodone Bit/Acetaminophen (HYDROCODONE-APAP 10-325 ) 1 Tab Tablet, 1 TAB PO PRN Q6HRS PRN for PAIN, TAB 0 Refills 03/14/19 [mens multivitamin] No Conflict Check, 1 DAILY 03/14/19 Docusate Sodium (COLACE) 100 Mg Capsule, 100 MG PO DAILY for stool softener, CAP 03/14/19 Gabapentin (GABAPENTIN ) 100 Mg Capsule, 100 MG PO TID for NEUROGENIC PAIN, CAP 03/14/19 Metoprolol Succinate (METOPROLOL SUCCINATE ( XL )) 100 Mg Tab.er.24h, 100 MG PO DAILY for FOR HYPERTENSION, #30 TAB 0 Refills 03/14/18 Amlodipine Besylate (NORVASC) 10 Mg Tablet, 10 MG PO DAILY, TAB 04/20/15 Clonidine Hcl (CLONIDINE HCL) 0.2 Mg Tablet, 0.2 MG PO TID, TAB 04/20/15 Glimepiride (AMARYL) 1 Mg Tablet, 2 TAB PO BIDWMEALS, #30 TAB 5 Refills 04/20/15 YAJAIRA SANCHEZ MD Jan 08, 2020 13:05
--- NOTE | 2020-01-08 13:19 | PDOC3 ---
Discharge Summary Visit Information Date of Admission: Jan 05, 2020 Date of Discharge: Jan 08, 2020 Admitting Diagnosis Comment: Severe hyponatremia Acute alcohol intoxication Alcohol abuse, counseling has been done Normocytic anemia Essential hypertension Diabetes mellitus type 2 Encephalopathy secondary to nation of acute alcohol intoxication and his electrolyte disturbance Final Diagnosis Problems Medical Problems: (1) Alcohol intoxication Status: Acute (2) Facial abrasion Status: Acute (3) Fall Status: Acute (4) Hyponatremia improved Status: Acute (5) Multiple abrasions Status: Acute Brief Hospital Course Allergies Allergies Coded Allergies Type Severity Reaction Last Updated Verified No Known Drug Allergies 03/14/18 No Vital Signs Vital Signs Date Time Temp Pulse Resp B/P (MAP) Pulse Ox O2 Delivery O2 Flow Rate FiO2 01/08/20 11:48 96 Room Air 01/08/20 11:00 98.6 87 18 157/72 (100) 98.6 Lab Results Laboratory Tests Test 01/06/20 16:59 01/06/20 21:35 01/07/20 04:51 01/07/20 07:10 Glucose (Fingerstick) 275 mg/dL (70-99) 269 mg/dL (70-99) 132 mg/dL (70-99) White Blood Count 5.2 x10^3/uL (4.0-11.0) Red Blood Count 3.14 x10^6/uL (4.30-5.70) Hemoglobin 10.9 g/dL (13.0-17.5) Hematocrit 30.7 % (39.0-53.0) Mean Corpuscular Volume 98 fL (79-100) Mean Corpuscular Hemoglobin 35 pg (25-35) Mean Corpuscular Hemoglobin Concent 35 g/dL (31-37) Red Cell Distribution Width 13.5 % (11.5-14.5) Platelet Count 131 x10^3/uL (140-400) Neutrophils (%) (Auto) 62 % (31-73) Lymphocytes (%) (Auto) 20 % (24-48) Monocytes (%) (Auto) 16 % (0-9) Eosinophils (%) (Auto) 2 % (0-3) Basophils (%) (Auto) 1 % (0-3) Neutrophils # (Auto) 3.2 x10^3/uL (1.8-7.7) Lymphocytes # (Auto) 1.0 x10^3/uL (1.0-4.8) Monocytes # (Auto) 0.8 x10^3/uL (0.0-1.1) Eosinophils # (Auto) 0.1 x10^3/uL (0.0-0.7) Basophils # (Auto) 0.0 x10^3/uL (0.0-0.2) Test 01/07/20 11:21 01/07/20 16:46 01/07/20 20:03 01/08/20 03:25 Glucose (Fingerstick) 252 mg/dL (70-99) 213 mg/dL (70-99) 231 mg/dL (70-99) White Blood Count 5.4 x10^3/uL (4.0-11.0) Red Blood Count 2.92 x10^6/uL (4.30-5.70) Hemoglobin 10.3 g/dL (13.0-17.5) Hematocrit 29.2 % (39.0-53.0) Mean Corpuscular Volume 100 fL (79-100) Mean Corpuscular Hemoglobin 35 pg (25-35) Mean Corpuscular Hemoglobin Concent 35 g/dL (31-37) Red Cell Distribution Width 13.9 % (11.5-14.5) Platelet Count 121 x10^3/uL (140-400) Neutrophils (%) (Auto) 59 % (31-73) Lymphocytes (%) (Auto) 24 % (24-48) Monocytes (%) (Auto) 14 % (0-9) Eosinophils (%) (Auto) 3 % (0-3) Basophils (%) (Auto) 1 % (0-3) Neutrophils # (Auto) 3.2 x10^3/uL (1.8-7.7) Lymphocytes # (Auto) 1.3 x10^3/uL (1.0-4.8) Monocytes # (Auto) 0.7 x10^3/uL (0.0-1.1) Eosinophils # (Auto) 0.1 x10^3/uL (0.0-0.7) Basophils # (Auto) 0.0 x10^3/uL (0.0-0.2) Sodium Level 133 mmol/L (136-145) Potassium Level 4.3 mmol/L (3.5-5.1) Chloride Level 97 mmol/L (98-107) Carbon Dioxide Level 29 mmol/L (21-32) Anion Gap 7 (6-14) Blood Urea Nitrogen 11 mg/dL (8-26) Creatinine 0.8 mg/dL (0.7-1.3) Estimated GFR (Cockcroft-Gault) 96.1 Glucose Level 118 mg/dL (70-99) Calcium Level 8.7 mg/dL (8.5-10.1) Test 01/08/20 07:55 01/08/20 11:56 Glucose (Fingerstick) 122 mg/dL (70-99) 196 mg/dL (70-99) Laboratory Tests Test 01/07/20 16:46 01/07/20 20:03 01/08/20 03:25 01/08/20 07:55 Glucose (Fingerstick) 213 mg/dL (70-99) 231 mg/dL (70-99) 122 mg/dL (70-99) White Blood Count 5.4 x10^3/uL (4.0-11.0) Red Blood Count 2.92 x10^6/uL (4.30-5.70) Hemoglobin 10.3 g/dL (13.0-17.5) Hematocrit 29.2 % (39.0-53.0) Mean Corpuscular Volume 100 fL (79-100) Mean Corpuscular Hemoglobin 35 pg (25-35) Mean Corpuscular Hemoglobin Concent 35 g/dL (31-37) Red Cell Distribution Width 13.9 % (11.5-14.5) Platelet Count 121 x10^3/uL (140-400) Neutrophils (%) (Auto) 59 % (31-73) Lymphocytes (%) (Auto) 24 % (24-48) Monocytes (%) (Auto) 14 % (0-9) Eosinophils (%) (Auto) 3 % (0-3) Basophils (%) (Auto) 1 % (0-3) Neutrophils # (Auto) 3.2 x10^3/uL (1.8-7.7) Lymphocytes # (Auto) 1.3 x10^3/uL (1.0-4.8) Monocytes # (Auto) 0.7 x10^3/uL (0.0-1.1) Eosinophils # (Auto) 0.1 x10^3/uL (0.0-0.7) Basophils # (Auto) 0.0 x10^3/uL (0.0-0.2) Sodium Level 133 mmol/L (136-145) Potassium Level 4.3 mmol/L (3.5-5.1) Chloride Level 97 mmol/L (98-107) Carbon Dioxide Level 29 mmol/L (21-32) Anion Gap 7 (6-14) Blood Urea Nitrogen 11 mg/dL (8-26) Creatinine 0.8 mg/dL (0.7-1.3) Estimated GFR (Cockcroft-Gault) 96.1 Glucose Level 118 mg/dL (70-99) Calcium Level 8.7 mg/dL (8.5-10.1) Test 01/08/20 11:56 Glucose (Fingerstick) 196 mg/dL (70-99) Brief Hospital Course Patient is a 69-year-old gentleman with past medical history of alcohol abuse who was in his usual state of health until today when apparently he had worsening of his unsteady gait and fell several times at home 1 in the basement and on other occasions outside. The patient has several lacerations from head to toe. The patient at the present time is intoxicated with an alcohol level greater than 100, nevertheless patient is able to hold a conversation very minimal symptoms were reported. He denied headache no blurred vision on a regular basis no dysphagia odynophagia no chest pain no palpitations no nausea vomiting or diarrhea no abdominal pain. The patient denies nausea abdominal pain. No excessive water intake has been reported, with noticed that the patient is a heavy drinker on a regular basis which may explain some of the electrolyte disturbances. Nevertheless the patient's levels are quite concerning given the risk for seizure activity, decompensation, and symptoms associated with rapidly correcting his failure. Patient's hyponatremia seems to be chronic in nature. Now the patient is in no acute distress at the time of my evaluation is asking regarding being dismissed home tonight. I have provided reassurance and explained the plan of care in detail. He has accepted to continue with his care here in the hospital setting. This was discussed with his at bedside as well and all of their concerns were addressed to the best of my abilities He was admitted to the medical floor where he was put on fluid restriction and his sodium was checked serially, patient was acutely intoxicated when he first came in. He did not present withdrawal symptoms during his hospital stay and he was hemodynamically stable on the day of discharge. Sodium was back up to 133 and he was deemed appropriate for dismissal, the patient was accepting of the fact that he needed to transition to a facility where he can continue working on his balance and preventing further falls given that this time around he was quite fortunate not to have suffered fractures given the degree of trauma noticed upon admission. Patient was in good spirits and hoping to transition home fairly soon. Counseling regarding the adverse effects of alcohol consumption was done prior to dismissal he acknowledged understanding of all the instructions Discharge Information Condition at Discharge: Improved Follow Up: Weeks Disposition/Orders: D/C to Another Facility Scheduled Albuterol Sulfate (Ventolin Hfa Inhaler) 18 Gm Hfa.aer.ad, 1 PUFF INH QID for FOR ASTHMA, Ref 0 (Reported) Entered as Reported by: MALCOLM GONZALEZ on 03/14/19822 Last Action: Converted on 01/06/201158 by NIAL CASTLE Amlodipine Besylate (Norvasc) 10 Mg Tablet, 10 MG PO DAILY, (Reported) Entered as Reported by: SUSAN TAYLOR on 04/20/15 1638 Last Action: Continued on 01/06/201158 by NIAL CASTLE Budesonide (Budesonide) 0.5 Mg/2 Ml Ampul.neb, 0.5 MG NEB RTBID for soa MDD 1, #60 Prescribed by: CONRAD GARCES on 03/20/19 1132 Last Action: Continued on 01/06/201158 by NIAL CASTLE Clonidine Hcl (Clonidine Hcl) 0.2 Mg Tablet, 0.2 MG PO TID, (Reported) Entered as Reported by: SUSAN TAYLOR on 04/20/15 1638 Last Action: Continued on 01/06/201158 by NIAL CASTLE Docusate Sodium (Colace) 100 Mg Capsule, 100 MG PO DAILY for stool softener, (Reported) Entered as Reported by: MALCOLM GONZALEZ on 03/14/19822 Last Action: Continued on 01/06/201158 by NIAL CASTLE Folic Acid (Folic Acid) 1 Mg Tablet, 1 MG PO DAILY for mvi MDD 1, #30 Prescribed by: CONRAD GARCES on 03/20/19 1132 Last Action: Continued on 01/06/20 1159 by NIAL CASTLE Furosemide (Furosemide) 40 Mg Tablet, 40 MG PO DAILY for leg edema MDD 1, #30 Prescribed by: CONRAD GARCES on 03/20/19 1132 Last Action: Continued on 01/06/20 1159 by NIAL CASTLE Gabapentin (Gabapentin ) 100 Mg Capsule, 100 MG PO TID for NEUROGENIC PAIN, (Reported) Entered as Reported by: MALCOLM GONZALEZ on 03/14/19 0819 Last Action: Continued on 01/06/20 1159 by NIAL CASTLE Glimepiride (Amaryl) 1 Mg Tablet, 2 TAB PO BIDWMEALS, #30 Ref 5 (Reported) Entered as Reported by: SUSAN TAYLOR on 04/20/15 1638 Last Action: Converted on 01/06/201158 by NIAL CASTLE Metformin Hcl (Glucophage) 500 Mg Tablet, 500 MG PO BIDWMEALS for dm 2 MDD 1, #60 Prescribed by: CONRAD GARCES on 03/20/19 1132 Last Action: Continued on 01/06/20 1159 by NIAL CASTLE Metoprolol Succinate (Metoprolol Succinate ( Xl )) 100 Mg Tab.er.24h, 100 MG PO DAILY for FOR HYPERTENSION, #30 Ref 0 (Reported) Entered as Reported by: DEEPAK ORDONEZ on 03/14/18 0134 Last Action: Continued on 01/06/20 1159 by NIAL CASTLE Pantoprazole Sodium (Protonix) 20 Mg Tablet.dr, 40 MG PO DAILY for 90 Days, #180 Prescribed by: CONRAD GARCES on 03/16/18 0909 Last Action: Converted on 01/06/20 1159 by NIAL CASTLE Thiamine Mononitrate (Vitamin B-1) 100 Mg Tablet, 100 MG PO DAILY for mvi MDD 1, #30 Prescribed by: CONRAD GARCES on 03/20/19 1132 Last Action: Continued on 01/06/20 1159 by NIAL CASTLE [insulin] , 10 UNITS HS, (Reported) Entered as Reported by: MALCOLM GONZALEZ on 12/16/19 1153 Last Action: Converted on 3/10/20 1159 by NIAL CASTLE [mens multivitamin] , 1 DAILY, (Reported) Entered as Reported by: MALCOLM GONZALEZ on 03/14/19822 Scheduled PRN Hydrocodone Bit/Acetaminophen (Hydrocodone-Apap 10-325 ) 1 Tab Tablet, 1 TAB PO PRN Q6HRS PRN for PAIN, Ref 0 (Reported) Entered as Reported by: MALCOLM GONZALEZ on 03/14/19822 Last Action: Continued on 01/06/201158 by LISA STACK Indomethacin (Indomethacin) 50 Mg Capsule, 1 CAP PO PRN PRN for gout, #30 Ref 1 (Reported) Entered as Reported by: MALCOLM GONZALEZ on 03/14/19822 Last Action: Converted on 01/06/201158 by YAJAIRA JACOBO MD Jan 08, 2020 13:19
[2020-01-08] MEDS ORDERED: LORA0.5T96 PO (13:57)
[2020-01-08 15:00] VITALS: BP 129/52
[2020-01-08 15:15] VITALS: BP 129/52
[2020-01-08] MEDS: HYDROcodone/APAP 5/325MG 1 TAB TABLET PO PRN (15:17)
--- NOTE | 2020-01-08 15:59 | NUR ---
Discharge Note: [facility] Discharge instructions and discharge home medications reviewed with Other facility and a copy given. All questions have been answered and understanding verbalized. The following instructions and handouts were given: discharge instructions, prescriptions, and education. Discontinued lines and drains: Peripheral IV discontinued intact. Patient discharged to [facility] with Transport Personnel via Wheelchair
== END 2020-01-08 16:01 | DRG 640 ==
LOC: ER 20:33 → 1 WEST ICU 23:31 → 5 SOUTH 01-06 14:40
PROVIDERS: ADMIT Internal Medicine; ATTEND Internal Medicine
DX: E87.1 Hypo-osmolality and hyponatremia (principal); G92 Toxic encephalopathy; F10.129 Alcohol abuse with intoxication, unspecified; D64.9 Anemia, unspecified; E11.9 Type 2 diabetes mellitus without complications; I10 Essential (primary) hypertension; J45.909 Unspecified asthma, uncomplicated; X58.XXXA Exposure to other specified factors, initial encounter; K21.9 Gastro-esophageal reflux disease without esophagitis; M10.9 Gout, unspecified; E87.8 Other disorders of electrolyte and fluid balance, not elsewhere classified; S01.91XA Laceration without foreign body of unspecified part of head, initial encounter; Y90.5 Blood alcohol level of 100-119 mg/100 ml; Y93.89 Activity, other specified; Y92.89 Other specified places as the place of occurrence of the external cause; Y99.8 Other external cause status; Z82.49 Family history of ischemic heart disease and other diseases of the circulatory system; Z83.3 Family history of diabetes mellitus; Z87.891 Personal history of nicotine dependence; Z90.49 Acquired absence of other specified parts of digestive tract
CPT/HCPCS: 36415; 70450; 70486; 72125; 73120; 80048; 80053; 82436; 82607; 82962; 82977; 83930; 83935; 84133; 84300; 84443; 85025; 94640; 94760; 96360; G0480; J1644; J1815; J2060; J2270; J2405; J7030; 97116; 97530; 99285-25; G0378; J7613; J7626

== ENCOUNTER 2020-03-10 13:30 | Emergency (ER) | payer MEDICARE ==
[~2020-03-10] VITALS: Ht 177.8 cm; Wt 100.0 kg
[~2020-03-10 13:30] MED LIST changes: +ACET325T9 PO; +ALBU2.5V8 NEB; +ASPI-612 PO; +ATOR10TA60 PO; +DAPT350V IV; +ERTA1VIA16 IJ; +HYDR-2145 PO; +INSU100I11 SQ; +INSU100V8 SQ; +LACT1CAP19 PO; +LORA0.5T96 PO
[2020-03-10 13:33] VITALS: BP 175/80
--- NOTE | 2020-03-10 14:12 | PHYS DOC ---
Past Medical History Past Medical History: Asthma, Diabetes-Type II, Hypertension, Other Additional Past Medical Histor: pt diet controlled DMII Past Surgical History: Appendectomy Additional Past Surgical Histo: L knee surgery, R toe surgery Smoking Status: Former Smoker Alcohol Use: Heavy Drug Use: None General Adult EDM: Chief Complaint: HYPERTENSION HPI: HPI: 69-year-old male past medical history hypertension presents for evaluation of elevated blood pressure. Prior to arrival patient was in infusion clinic rece iving antibiotics when it was noted that patient's blood pressure was greater than 200 systolic. Patient states he is on 3 antihypertensive medications-- took his a.m. dose but is due to take 2 antihypertensive medications at 1400hrs. Patient has no complaints. Blood pressure in ER is 170's systolic. Based upon HPI and PE--- with improved blood pressure I see no current need for any emergent workup. I did offer to give here in the ER the patients 2 antihypertensive medications that are due at 1400hrs-- joint decision that patient will go home and take his own medications. Review of Systems: Review of Systems: Constitutional: Denies fever or chills. [] Eyes: Denies change in visual acuity. [] HENT: Denies nasal congestion or sore throat. [] Respiratory: Denies cough or shortness of breath. [] Cardiovascular: Denies chest pain or edema. [] GI: Denies abdominal pain, nausea, vomiting, bloody stools or diarrhea. [] : Denies dysuria. [] Musculoskeletal: Denies back pain or joint pain. [] Integument: Denies rash. [] Neurologic: Denies headache, focal weakness or sensory changes. [] Endocrine: Denies polyuria or polydipsia. [] Lymphatic: Denies swollen glands. [] Psychiatric: Denies depression or anxiety. [] Heart Score: Risk Factors: Risk Factors: DM, Current or recent (<one month) smoker, HTN, HLP, family history of CAD, obesity. Risk Scores: Score 0 - 3: 2.5% MACE over next 6 weeks - Discharge Home Score 4 - 6: 20.3% MACE over next 6 weeks - Admit for Clinical Observation Score 7 - 10: 72.7% MACE over next 6 weeks - Early Invasive Strategies Allergies: Allergies: Allergies Coded Allergies Type Severity Reaction Last Updated Verified No Known Drug Allergies 5/13/20 No Physical Exam: PE: Constitutional: Well developed, well nourished, no acute distress, non-toxic appearance. [] HENT: Normocephalic, atraumatic, bilateral external ears normal, oropharynx moist, no oral exudates, nose normal. [] Eyes: PERRLA, EOMI, conjunctiva normal, no discharge. [] Neck: Normal range of motion, no tenderness, supple, no stridor. [] Cardiovascular:Heart rate regular rhythm, no murmur [] Lungs & Thorax: Bilateral breath sounds clear to auscultation [] Abdomen: Bowel sounds normal, soft, no tenderness, no masses, no pulsatile masses. [] Skin: Warm, dry, no erythema, no rash. [] Back: No tenderness, no CVA tenderness. [] Extremities: No tenderness, no cyanosis, no clubbing, ROM intact, no edema. [] Neurologic: Alert and oriented X 3, normal motor function, normal sensory function, no focal deficits noted. [] Psychologic: Affect normal, judgement normal, mood normal. [] Current Patient Data: Vital Signs: Vital Signs Date Time Temp Pulse Resp B/P (MAP) Pulse Ox O2 Delivery O2 Flow Rate FiO2 03/10/20 13:33 97.9 68 18 175/80 (111) 99 Room Air 97.9 EKG: EKG: [] Radiology/Procedures: Radiology/Procedures: [] Course & Med Decision Making: Course & Med Decision Making Pertinent Labs and Imaging studies reviewed. (See chart for details) [] Dragon Disclaimer: Dragon Disclaimer: This electronic medical record was generated, in whole or in part, using a voice recognition dictation system. Departure Departure Impression: Primary Impression: Hypertension Disposition: 01 HOME, SELF-CARE Condition: STABLE Patient Instructions: Hypertension ELENA OLIVERA I DO March 10, 2020 14:12
== END 2020-03-10 14:04 | disposition home or self-care (01) ==
LOC: ER 13:30
DX: I10 Essential (primary) hypertension (principal); J45.909 Unspecified asthma, uncomplicated; E11.9 Type 2 diabetes mellitus without complications; F10.10 Alcohol abuse, uncomplicated; Z90.89 Acquired absence of other organs; Z98.890 Other specified postprocedural states; Z87.891 Personal history of nicotine dependence
CPT/HCPCS: 99284

== ENCOUNTER 2020-05-06 20:25 | Inpatient (IN) | payer MEDICARE ==
[~2020-05-06] VITALS: Ht 165.1 cm; Wt 81.6 kg
[~2020-05-06 20:25] MED LIST changes: -ASPI-612 PO; +ASPI-886 PO
[2020-05-06] MEDS ORDERED: ONDANSETRON PF 4 MG/2 ML VIAL. ONE (20:42)
--- NOTE | 2020-05-06 21:08 | PHYS DOC ---
Past Medical History Past Medical History: Asthma, Diabetes-Type II, Hypertension, Other Additional Past Medical Histor: pt diet controlled DMII Past Surgical History: Appendectomy Additional Past Surgical Histo: L knee surgery, R toe surgery Smoking Status: Former Smoker Alcohol Use: Heavy Drug Use: None General Adult EDM: Chief Complaint: NAUSEA/VOMITING/DIARRHA HPI: HPI: Patient is a 69 year old male with past medical history hypertension Review of Systems: Review of Systems: Constitutional: Denies fever or chills. [] Eyes: Denies change in visual acuity. [] HENT: Denies nasal congestion or sore throat. [] Respiratory: Denies cough or shortness of breath. [] Cardiovascular: Denies chest pain or edema. [] GI: Denies abdominal pain, nausea, vomiting, bloody stools or diarrhea. [] : Denies dysuria. [] Musculoskeletal: Denies back pain or joint pain. [] Integument: Denies rash. [] Neurologic: Denies headache, focal weakness or sensory changes. [] Endocrine: Denies polyuria or polydipsia. [] Lymphatic: Denies swollen glands. [] Psychiatric: Denies depression or anxiety. [] Heart Score: Risk Factors: Risk Factors: DM, Current or recent (<one month) smoker, HTN, HLP, family history of CAD, obesity. Risk Scores: Score 0 - 3: 2.5% MACE over next 6 weeks - Discharge Home Score 4 - 6: 20.3% MACE over next 6 weeks - Admit for Clinical Observation Score 7 - 10: 72.7% MACE over next 6 weeks - Early Invasive Strategies Current Medications: Current Medications Medications (Trade) Dose Ordered Sig/Eyad Start Time Stop Time Status Last Admin Dose Admin Ondansetron HCl (Zofran) 4 mg STK-MED ONCE 05/06/20 20:42 05/06/20 20:42 DC Allergies: Allergies: Allergies Coded Allergies Type Severity Reaction Last Updated Verified No Known Drug Allergies 04/15/20 No Physical Exam: PE: Constitutional: Well developed, well nourished, no acute distress, non-toxic appearance. [] HENT: Normocephalic, atraumatic, bilateral external ears normal, oropharynx moist, no oral exudates, nose normal. [] Eyes: PERRLA, EOMI, conjunctiva normal, no discharge. [] Neck: Normal range of motion, no tenderness, supple, no stridor. [] Cardiovascular:Heart rate regular rhythm, no murmur [] Lungs & Thorax: Bilateral breath sounds clear to auscultation [] Abdomen: Bowel sounds normal, soft, no tenderness, no masses, no pulsatile masses. [] Skin: Warm, dry, no erythema, no rash. [] Back: No tenderness, no CVA tenderness. [] Extremities: No tenderness, no cyanosis, no clubbing, ROM intact, no edema. [] Neurologic: Alert and oriented X 3, normal motor function, normal sensory function, no focal deficits noted. [] Psychologic: Affect normal, judgement normal, mood normal. [] EKG: EKG: [] EKG taken at 2254 Heart rate 95 accelerated junctional rhythm, left axis deviation peaked T waves No STEMI EKG compared to March 02, 2020 acute changes Radiology/Procedures: Radiology/Procedures: [] Impression: Impression: 1. Cirrhotic morphology of the liver and mild splenomegaly. 2. Edematous gallbladder wall and small gallstones but the degree of wall thickening is much less pronounced from 2018. Wall thickening is favored secondary to underlying hepatic dysfunction but if there are symptoms referrable to this region sonography could be performed. 3. Moderate bladder distention. Correlate for voluntary or involuntary bladder retention. 4. Additional chronic findings as detailed above to include extensive calcific atherosclerosis. IMPRESSION: 1. Cholelithiasis. Mild gallbladder wall thickening, which could be secondary to hepatocellular disease or potentially acute or chronic cholecystitis. No pericholecystic fluid. Correlate with laboratory values. 2. Prominent common bile duct measuring 8 mm, stable from CT of 03/13/2018 for differences in modality. 3. Slightly coarse hepatic echotexture, which could be due to hepatocellular disease. Course & Med Decision Making: Course & Med Decision Making Pertinent Labs and Imaging studies reviewed. (See chart for details) [] Patient was evaluated for chief complaint. Work-up consisted of laboratory analysis and radiologic imaging. Results reviewed and discussed with patient and . Patient with several abnormal labs which included a white blood cell count of 13. Creatinine of 1.5. Potassium of 5.3 alk phos of 287. Patient's pain treated with morphine patient's nausea treated with Zofran. Refractory to Zofran patient continued to vomit. Patient was then treated with [address] imaging of patient's abdomen shows gallstones in the gallbladder with a dilated CBD which appears to be stable from previous CT imaging. Dedicated ultrasound was performed which showed cholelithiasis with mild gallbladder wall thickening questionable acute or chronic cholecystitis no pericolic cystic fluid. During the course of stay in the ER nursing noted patient's cardiac rhythm morphology change on the monitor. An EKG was performed at 2254 shows a heart rate of 94 with accelerated junctional no rhythm. With left axis deviation what appears to be peaked T waves. A previous EKG was obtained for comparison performed on March 02, 2020 shows a sinus rhythm with nonspecific ST-T wave changes. There was no ST elevations or depressions on previous EKG. Current EKG is considerably different from previous EKG. Patient denied any chest discomfort. Patient's troponin within normal limits. Patient's potassium was noted to be 5.3. Patient was treated with glucagon insulin and calcium. Post treatment repeat creatinine and potassium improved potassium resulted at 4.9. All results reviewed and discussed with patient and family. Patient was placed on antibiotics Zosyn. Patient was admitted to the hospitalist GENERAL SURGERY and cardiology consult. Discussed patient with Dr Calvillo @ 125hrs. Re-evaluation @ 0145 Pain and nausea have resolved. Krysten Disclaimer: Krysten Disclaimer: This electronic medical record was generated, in whole or in part, using a voice recognition dictation system. Departure Departure Impression: Primary Impression: Abdominal pain Additional Impressions: Cholecystitis Acute electrocardiogram changes Hyperkalemia Disposition: ADMITTED INPATIENT Condition: STABLE Referrals: ERLINDA BHAGAT MD (PCP) Justicifation of Admission Dx: Justifications for Admission: Justification of Admission Dx: Yes Comments: Acute cholecystitis ELENA OLIVERA I DO May 06, 2020 21:08
[2020-05-06] MEDS ORDERED: ONDANSETRON PF 4 MG/2 ML VIAL. IV ONE (21:30)
[2020-05-06] MEDS ORDERED: PROCHLORPERAZINE 10 MG/2 ML VIAL. IV ONE ×2 (21:30→23:30)
[2020-05-06] MEDS ORDERED: MORPHINE SULFATE 4 MG/ML VIAL. IV ONE ×2 (21:30→23:00)
[2020-05-06 21:46] LABS: BASO # 0.1 x10^3/uL (0.0-0.2); BASO % 1 % (0-3); EOS % 0 % (0-3); HEMATOCRIT 37.1 % (39.0-53.0); HEMOGLOBIN 12.9 g/dL (13.0-17.5); LYMPH # 1.7 x10^3/uL (1.0-4.8); LYMPH % 13 % (24-48); MEAN CORPUSCULAR HEMOGLOBIN 32 pg (25-35); MEAN CORPUSCULAR HGB CONC 35 g/dL (31-37); MEAN CORPUSCULAR VOLUME 93 fL (79-100); MONO # 0.7 x10^3/uL (0.0-1.1); MONO % 6 % (0-9); NEUT # 10.6 x10^3/uL (1.8-7.7); NEUT % 81 % (31-73); PLATELET COUNT 300 x10^3/uL (140-400); RED CELL DISTRIBUTION WIDTH 12.9 % (11.5-14.5); WHITE BLOOD COUNT 13.1 x10^3/uL (4.0-11.0)
[2020-05-06 22:04] LABS: CALCIUM 10.4 mg/dL (8.5-10.1); CREATININE 1.5 mg/dL (0.7-1.3); GFR 46.5; POTASSIUM 5.3 mmol/L (3.5-5.1)
[2020-05-06 22:09] LABS: ALBUMIN 4.3 g/dL (3.4-5.0); ALBUMIN/GLOBULIN RATIO 0.9 (1.0-1.7); TOTAL BILIRUBIN 0.9 mg/dL (0.2-1.0); TOTAL PROTEIN 9.3 g/dL (6.4-8.2)
[2020-05-06] MEDS ORDERED: IV NORMAL SALINE 1000ML BAG 1,000 ML IV ONE (22:15)
[2020-05-06 22:54] LABS: BILIRUBIN,URINE NEGATIVE (NEG); COLOR,URINE YELLOW; NITRITE,URINE NEGATIVE (NEG); PH,URINE 6.5 (<5.0-8.0); PROTEIN,URINE 30 mg/dL (NEG-TRACE); UROBILINOGEN,URINE 0.2 mg/dL (0.2 mg/dL)
[2020-05-06] MEDS ORDERED: ONDANSETRON PF 4 MG/2 ML VIAL. IVP ONE (23:00)
[2020-05-06] MEDS ORDERED: INSULIN REGULAR 100 UNIT/ML 3ML VIAL. IV ONE (23:00)
[2020-05-06] MEDS ORDERED: DEXTROSE 50% 25 GM / 50ML DISP.SYRIN. IV ONE (23:00)
[2020-05-06] MEDS ORDERED: CALCIUM GLUCONATE 1,000 MG/10 ML VIAL. IVP ONE (23:00)
[2020-05-06 23:01] LABS: CLARITY,URINE CLEAR
[2020-05-06 23:02] LABS: BACTERIA,URINE 0 /HPF (0-FEW); HYALINE CASTS, URINE MODERATE /HPF; WBC,URINE OCC /HPF (0-4)
--- NOTE | 2020-05-06 23:07 | RAD ---
Study: CT abdomen/pelvis without intravenous contrast Indication: Abdominal pain. Comparison: 03/13/2018 Technique: Helical CT imaging performed of the abdomen and pelvis without the use of intravenous contrast. Sagittal and coronal reformats were obtained. One or more of the following individualized dose reduction techniques were utilized for this examination: 1. Automated exposure control 2. Adjustment of the mA and/or kV according to patient size 3. Use of iterative reconstruction technique. Findings: Inherently limited evaluation without intravenous contrast. Chest: Small hiatal hernia. Bilateral gynecomastia. Right lower lobe granuloma. Liver: Undulating hepatic margins and hypertrophied caudate lobe as can be seen with cirrhosis. Small focus of mineralization at the hepatic dome. Gallbladder/Biliary Tree: Thickened gallbladder wall but less pronounced from the 2018 comparison. Small calcified gallstones seen dependently along the gallbladder body. Pancreas: Partially atrophic. Peripancreatic inflammatory changes on the 2018 comparison are not seen on this exam. No discrete mass Spleen: . Mildly enlarged at 14 cm craniocaudal. Adrenal Glands: Unremarkable. Kidneys/Ureters/Bladder: No newly seen cyst or mass. No hydroureteronephrosis. Distended urinary bladder with mild wall thickening circumferentially. Reproductive Organs: Mildly enlarged prostate gland is unchanged. Colon: Unremarkable. Appendix: Not visualized and possibly surgically absent. Small Bowel: No small bowel obstruction. Stomach: Distended with gas and ingested material. No gastric wall emphysema or discrete mass. Vasculature: Extensive calcific atherosclerosis. Nonaneurysmal aorta. Lymph Nodes: Slight enlargement of a lymph node adjacent to the caudate lobe, image 20 series 2, measuring 1.1 cm short axis. Inguinal lymph nodes are within normal limits. Peritoneum and Body Wall: No free fluid or gas. Bones: No acute or aggressive osseous process. Diffuse idiopathic skeletal hyperostosis. Advanced discogenic arthrosis from L2-L3 through L5-S1. Multilevel facet degeneration. Posterior longitudinal ligament ossification at T10-T11. Multiple levels with central canal narrowing. Greatest at L2-L3. Variant degrees of osseous neural foraminal stenosis bilateral hip arthrosis. Miscellaneous: None. Impression: 1. Cirrhotic morphology of the liver and mild splenomegaly. 2. Edematous gallbladder wall and small gallstones but the degree of wall thickening is much less pronounced from 2018. Wall thickening is favored secondary to underlying hepatic dysfunction but if there are symptoms referrable to this region sonography could be performed. 3. Moderate bladder distention. Correlate for voluntary or involuntary bladder retention. 4. Additional chronic findings as detailed above to include extensive calcific atherosclerosis. Electronically signed by: JABIER ROBERSON MD (05/06/2020 11:04 PM) [id number]
[2020-05-06 23:45] LABS: CREATINE KINASE 34 U/L (39-308)
[2020-05-07] VITALS (8 sets, daily range): BP systolic 157–228; BP diastolic 71–113
[2020-05-07 01:00] LABS: CALCIUM 9.8 mg/dL (8.5-10.1); CREATININE 1.3 mg/dL (0.7-1.3); GFR 54.9; POTASSIUM 4.9 mmol/L (3.5-5.1)
--- NOTE | 2020-05-07 01:03 | RAD ---
ABDOMEN LTD INDICATION: Reason: abd pain n/v / Spl. Instructions: / History: COMPARISON: CT 05/06/2020 and 03/13/2018. TECHNIQUE: Limited transverse and longitudinal grayscale images of the right upper quadrant with color and pulsed doppler utilized as appropriate. FINDINGS: Slightly coarse hepatic echotexture. No focal hepatic lesions. The liver measures 17.2 cm. The portal vein is patent with normal antegrade flow. Cholelithiasis. Mild gallbladder wall thickening. No pericholecystic fluid. The common bile duct measures 0.8 cm. Pancreas is poorly visualized. The right kidney has normal echogenicity and measures 12.1 cm. No hydronephrosis, shadowing stones or suspicious masses seen. No ascites or fluid collections. The aorta and IVC are normal diameter where visualized. IMPRESSION: 1. Cholelithiasis. Mild gallbladder wall thickening, which could be secondary to hepatocellular disease or potentially acute or chronic cholecystitis. No pericholecystic fluid. Correlate with laboratory values. 2. Prominent common bile duct measuring 8 mm, stable from CT of 03/13/2018 for differences in modality. 3. Slightly coarse hepatic echotexture, which could be due to hepatocellular disease. Electronically signed by: Anthony Aguero MD (05/07/2020 1:00 AM) [facility]
--- NOTE | 2020-05-07 02:49 | NUR ---
Pt arrived to unit per cart, pt ambulated to bed with standby assist, vs obtained and bp elevated at 228/113, pt nauseous and dry hiving assessment completed pt unable to completed history due to not feeling well. Call placed to Dr. Rae for further admit orders. Poc explained call light placed in reach will resume care and continue to monitor pt.
[2020-05-07] MEDS ORDERED: FLUC200T4 PO (03:03)
[2020-05-07] MEDS ORDERED: CLOP75TA PO (03:03)
[2020-05-07] MEDS ORDERED: freestyle libre TP (03:03)
[2020-05-07] MEDS ORDERED: INSU100V38 SQ (03:03)
[2020-05-07] MEDS ORDERED: PROCHLORPERAZINE 10 MG/2 ML VIAL. IV ONE (03:30)
[2020-05-07] MEDS ORDERED: ACETAMINOPHEN 325 MG TABLET. PO PRN (03:30)
[2020-05-07] MEDS ORDERED: ALBUTEROL SULFATE 2.5 MG/3 ML NEBU. NEB PRN (03:30)
[2020-05-07] MEDS ORDERED: SENNOSIDES/DOCUSATE 8.6/50MG TABLET. PO PRN (03:30)
[2020-05-07] MEDS ORDERED: DEXTROSE 50% 25 GM / 50ML DISP.SYRIN. IV PRN (03:30)
[2020-05-07] MEDS ORDERED: ONDANSETRON PF 4 MG/2 ML VIAL. IV PRN (03:30)
[2020-05-07] MEDS ORDERED: POLYETHYLENE GLYCOL 3350 17 GM PACKET. PO PRN (03:30)
[2020-05-07] MEDS ORDERED: ACETAMINOPHEN 650 MG SUPP.RECT. PR PRN (03:30)
[2020-05-07] MEDS ORDERED: LACTULOSE 20 GM/30 ML SOLUTION. PO PRN (03:30)
[2020-05-07] MEDS ORDERED: IV NORMAL SALINE 1000ML BAG 1,000 ML IV ONE (03:45)
[2020-05-07] MEDS: HYDROmorphone 2 MG/ML VIAL IV PRN ×3 (04:03→10:52)
[2020-05-07] MEDS: PIPERACILLIN/TAZOBACTAM 4.5 GM in IV NORMAL SALINE 100ML 100 ML IV SCH ×3 (06:05→17:54)
[2020-05-07] MEDS: INSULIN LISPRO 300 UNITS/3 ML VIAL. SQ SCH ×4 (07:30→20:42)
[2020-05-07] MEDS ORDERED: PANTOPRAZOLE 40 MG TABLET.DR. PO SCH (07:30)
[2020-05-07] MEDS: PROCHLORPERAZINE 10 MG/2 ML VIAL. IV PRN ×2 (07:44→17:59)
--- NOTE | 2020-05-07 07:54 | PDOC1 ---
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 Pain is 7 out of 10, colicky in nature. Nausea did not remit with Zofran but did improve after Compazine dosing. Still vomited again in the ED and overnight. despite meds. He is still nauseated currently. CT imaging of patient's abdomen shows gallstones in the gallbladder with a dilated CBD which appears to be stable from previous CT imaging. Dedicated ultrasound was performed which showed cholelithiasis with mild gallbladder wall thickening questionable acute or chronic cholecystitis no pericolic cystic fluid. EKG - Heart rate 95 accelerated junctional rhythm, left axis deviation peaked T waves WBC 13.1, Hb 12.9, platelets 300, NA 136, BUN 31, CR 1.5, glucose 232, alkaline phosphatase 287, calcium 10.4, lipase normal Patient's troponin within normal limits. Patient's potassium was noted to be 5.3. Patient was treated with glucagon, insulin and calcium. Post treatment repeat creatinine and potassium improved potassium resulted at 4.9. Patient was placed on antibiotics Zosyn. Patient was admitted with general surgery and cardiology consults. Past Medical History Cardiovascular: Hyperlipidemia, Other Pulmonary: Asthma CENTRAL NERVOUS SYSTEM: Periperal neuropathy GI: GERD, Other Heme/Onc: No pertinent hx Hepatobiliary: Other Musculoskeletal: Osteoarthritis Rheumatologic: Gout Infectious disease: No pertinent hx Renal/: No pertinent hx Endocrine: Diabetes Past Surgical History Past Surgical History: Appendectomy Family History Family History: Coronary Artery Disease Social History Smoke: Quit ALCOHOL: other Drugs: None Current Problem List Problem List Problems Medical Problems: (1) Abdominal pain Status: Acute (2) Acute electrocardiogram changes Status: Acute (3) Cholecystitis Status: Acute (4) Hyperkalemia Status: Acute Current Medications Current Medications Current Medications Ondansetron HCl (Zofran) 4 mg STK-MED ONCE .ROUTE ; Start 05/06/20 at 20:42; Stop 05/06/20 at 20:42; Status DC Morphine Sulfate (Morphine Sulfate) 4 mg 1X ONCE IV Last administered on 05/06/20at 21:34; Start 05/06/20 at 21:30; Stop 05/06/20 at 21:31; Status DC Ondansetron HCl (Zofran) 4 mg 1X ONCE IV Last administered on 05/06/20at 21:28; Start 05/06/20 at 21:30; Stop 05/06/20 at 21:31; Status DC Prochlorperazine Edisylate (Compazine) 10 mg 1X ONCE IV Last administered on 05/06/20at 21:34; Start 05/06/20 at 21:30; Stop 05/06/20 at 21:39; Status DC Sodium Chloride 1,000 ml @ 0 mls/hr 1X ONCE IV Last administered on 05/06/20at 22:15; Start 05/06/20 at 22:15; Stop 05/06/20 at 22:16; Status DC Calcium Gluconate (Calcium Gluconate) 1,000 mg 1X ONCE IVP Last administered on 05/06/20at 23:10; Start 05/06/20 at 23:00; Stop 05/06/20 at 23:01; Status DC Insulin Human Regular (HumuLIN R VIAL) 10 unit 1X ONCE IV Last administered on 05/06/20at 23:07; Start 05/06/20 at 23:00; Stop 05/06/20 at 23:01; Status DC Dextrose (Dextrose 50%-Water Syringe) 25 gm 1X ONCE IV Last administered on 05/06/20at 23:11; Start 05/06/20 at 23:00; Stop 05/06/20 at 23:01; Status DC Morphine Sulfate (Morphine Sulfate) 4 mg 1X ONCE IV Last administered on 05/06/20at 23:12; Start 05/06/20 at 23:00; Stop 05/06/20 at 23:01; Status DC Ondansetron HCl (Zofran) 4 mg 1X ONCE IVP Last administered on 05/06/20at 23:06; Start 05/06/20 at 23:00; Stop 05/06/20 at 23:01; Status DC Prochlorperazine Edisylate (Compazine) 10 mg 1X ONCE IV Last administered on 05/06/20at 23:31; Start 05/06/20 at 23:30; Stop 05/06/20 at 23:31; Status DC Piperacillin Sod/ Tazobactam Sod 4.5 gm/Sodium Chloride 100 ml @ 200 mls/hr Q6HRS IV Last administered on 05/07/20at 06:05; Start 05/07/20 at 06:00 Prochlorperazine Edisylate (Compazine) 10 mg 1X ONCE IV Last administered on 05/07/20at 03:19; Start 05/07/20 at 03:30; Stop 05/07/20 at 03:31; Status DC Ondansetron HCl (Zofran) 4 mg PRN Q4HRS PRN IV NAUSEA/VOMITING; Start 05/07/20 at 03:30 Acetaminophen (Tylenol Supp) 650 mg PRN Q4HRS PRN ND TEMP OVER 100.4F OR MILD PAIN; Start 05/07/20 at 03:30 Hydromorphone HCl (Dilaudid) 1 mg PRN Q2HRS PRN IV SEVERE PAIN 7- Last administered on 05/07/20at 07:44; Start 05/07/20 at 03:30 Enoxaparin Sodium (Lovenox 40mg Syringe) 40 mg Q24H SQ ; Start 05/07/20 at 09:00 Insulin Human Lispro (HumaLOG) 0-9 UNITS TIDACHC SQ ; Start 05/07/20 at 07:30 Dextrose (Dextrose 50%-Water Syringe) 12.5 gm PRN Q15MIN PRN IV SEE COMMENTS; Start 05/07/20 at 03:30 Acetaminophen (Tylenol) 650 mg PRN Q4HRS PRN PO TEMP OVER 100.4F OR HEADACHE; Start 05/07/20 at 03:30 Albuterol Sulfate (Ventolin Neb Soln) 2.5 mg PRN Q4HRS PRN NEB SHORTNESS OF BR EATH; Start 05/07/20 at 03:30 Aspirin (Ecotrin) 81 mg DAILYWBKFT PO ; Start 05/07/20 at 08:00 Atorvastatin Calcium (Lipitor) 10 mg QHS PO ; Start 05/07/20 at 21:00 Gabapentin (Neurontin) 100 mg TID PO ; Start 05/07/20 at 09:00 Acetaminophen/ Hydrocodone Bitart (Lortab 10/325) 1 tab PRN Q6HRS PRN PO PAIN; Start 05/07/20 at 03:30 Insulin Glargine (Lantus Syringe) 12 unit QHS SQ ; Start 05/07/20 at 21:00 Lactobacillus Rhamnosus (Culturelle) 1 cap BID PO ; Start 05/07/20 at 09:00 Metoprolol Succinate (Toprol Xl) 100 mg DAILY PO ; Start 05/07/20 at 09:00 Pantoprazole Sodium (Protonix) 40 mg DAILYAC PO ; Start 05/07/20 at 07:30 Prochlorperazine Edisylate (Compazine) 10 mg PRN Q6HRS PRN IV NAUSEA/VOMITING Last administered on 05/07/20at 07:44; Start 05/07/20 at 03:30 Lactulose (Lactulose) 20 gm PRN DAILY PRN PO CONSTIPATION; Start 05/07/20 at 03:30 Senna/Docusate Sodium (Senna Plus) 2 tab PRN BID PRN PO CONSTIPATION; Start 05/07/20 at 03:30 Polyethylene Glycol (miraLAX PACKET) 17 gm PRN BID PRN PO CONSTIPATION; Start 05/07/20 at 03:30 Sodium Chloride 1,000 ml @ 75 mls/hr 1X ONCE IV Last administered on 05/07/20at 04:02; Start 05/07/20 at 03:45; Stop 05/07/20 at 17:04 Active Scripts Active Lantus (Insulin Glargine,Hum.rec.anlog) 100 Unit/1 Ml Vial 12 Unit SQ QHS 30 Days Culturelle (Lactobacillus Rhamnosus Gg) 1 Each Cap.sprink 1 Cap PO BID 30 Days Hydrochlorothiazide Tablet (Hydrochlorothiazide) 25 Mg Tablet 25 Mg PO DAILY 30 Days Tylenol (Acetaminophen) 325 Mg Tablet 650 Mg PO PRN Q4HRS PRN 30 Days Aspirin Ec (Aspirin) 81 Mg Tablet.dr 81 Mg PO DAILYWBKFT 30 Days Atorvastatin Calcium 10 Mg Tablet 10 Mg PO QHS 30 Days Proair Hfa (Albuterol Sulfate) 8.5 Gm Hfa.aer.ad 2.5 Mg NEB PRN Q4HRS PRN 30 Days Glucophage (Metformin Hcl) 500 Mg Tablet 500 Mg PO BIDWMEALS MDD 1 Furosemide 40 Mg Tablet 40 Mg PO DAILY MDD 1 Protonix (Pantoprazole Sodium) 20 Mg Tablet.dr 40 Mg PO DAILY 90 Days Reported [isra dill] 1 Patch TP Q14 DAYS Clopidogrel (Clopidogrel Bisulfate) 75 Mg Tablet 75 Mg PO DAILY Fluconazole 200 Mg Tablet 200 Mg PO DAILY Insulin Lispro 100 Unit/1 Ml Vial 3 Unit SQ TIDWMEALS Ventolin Hfa Inhaler (Albuterol Sulfate) 18 Gm Hfa.aer.ad 1 Puff INH QID Indomethacin 50 Mg Capsule 1 Cap PO PRN PRN Hydrocodone-Apap 10-325 (Hydrocodone Bit/Acetaminophen) 1 Tab Tablet 1 Tab PO PRN Q6HRS PRN Gabapentin (Gabapentin) 100 Mg Capsule 100 Mg PO TID Metoprolol Succinate ( Xl ) (Metoprolol Succinate) 100 Mg Tab.er.24h 100 Mg PO DAILY Allergies Allergies: Coded Allergies: No Known Drug Allergies (Unverified , 04/15/20) ROS General: YES: Fatigue, Malaise; No: Chills, Night Sweats, Appetite, Other PSYCHOLOGICAL ROS: No: Anxiety, Behavioral Disorder, Concentration difficultie, Decreased libido, Depression, Disorientation, Hallucinations, Hostility, Irritablity, Memory difficulties, Mood Swings, Obsessive thoughts, Physical abuse, Sexual abuse, Sleep disturbances, Suicidal ideation, Other Eyes: No Blurry vision, No Decreased vision, No Double vision, No Dry eyes, No Excessive tearing, No Eye Pain, No Itchy Eyes, No Loss of vision, No Photophobia, No Scotomata, No Uses contacts, No Uses glasses, No Other HEENT: No: Heacaches, Visual Changes, Hearing change, Nasal congestion, Nasal discharge, Oral lesions, Sinus pain, Sore Throat, Epistaxis, Sneezing, Snoring, Tinnitus, Vertigo, Vocal changes, Other ALLERGY AND IMMUNOLOGY: No: Hives, Insect Bite Sensitivity, Itchy/Watery Eyes, Nasal Congestion, Post Nasal Drip, Seasonal Allergies, Other Hematological and Lymphatic: No: Bleeding Problems, Blood Clots, Blood Transfusions, Brusing, Night Sweats, Pallor, Swollen Lymph Nodes, Other ENDOCRINE: No: Breast Changes, Galactorrhea, Hair Pattern Changes, Hot Flashes, Malaise/lethargy, Mood Swings, Palpitations, Polydipsia/polyuria, Skin Changes, Temperature Intolerance, Unexpected Weight Changes, Other Breast: No New/Changing Breast Lumps, No Nipple changes, No Nipple discharge, No Other Respiratory: YES: Shortness of breath; No: Cough, Hemoptysis, Orthopnea, Pleuritic Pain, SOB with excertion, Sputum Changes, Stridor, Tachypnea, Wheezing, Other Cardiovascular: No Chest Pain, No Palpitations, No Orthopnea, No Paroxysmal Noc. Dyspnea, No Edema, No Lt Headedness, No Other Gastrointestinal: Yes Nausea, Yes Vomiting, Yes Abdominal Pain; No Diarrhea, No Constipation, No Melena, No Hematochezia, No Other Genitourinary: No Dysuria, No Frequency, No Incontinence, No Hematuria, No Retention, No Discharge, No Urgency, No Pain, No Flank Pain, No Other, No , No , No , No , No , No , No Musculoskeletal: No Gait Disturbance, No Joint Pain, No Joint Stiffness, No Joint Swelling, No Muscle Pain, No Muscular Weakness, No Pain In:, No Swelling In:, No Other Neurological: No Behavorial Changes, No Bowel/Bladder ControlChng, No Confusion, No Dizziness, No Gait Disturbance, No Headaches, No Impaired Coord/balance, No Memory Loss, No Numbness/Tingling, No Seizures, No Speech Problems, No Tremors, No Visual Changes, No Weakness, No Other Skin: No Dry Skin, No Eczema, No Hair Changes, No Lumps, No Mole Changes, No Mottling, No Nail Changes, No Pruritus, No Rash, No Skin Lesion Changes, No Other, No Acne Physical Exam General: Alert, Oriented X3, Cooperative, mild distress HEENT: Atraumatic, PERRLA, EOMI, Mucous membr. moist/pink Lungs: Clear to auscultation, Normal air movement Heart: S1S2, RRR, no thrills, no rubs, no gallops, no murmurs Abdomen: Normal bowel sounds, Soft, No hepatosplenomegaly, No masses, Other (RUQ and epigastric pain) Rectal Exam: not examined Extremities: No clubbing, No cyanosis, No edema, Normal pulses, No tenderness/swelling Skin: No rashes, No breakdown, No significant lesion Neuro: Normal gait, Normal speech, Strength at 5/5 X4 ext, Normal tone, Sensation intact, Cranial nerves 3-12 NL, Reflexes 2+ Psych/Mental Status: Mental status NL, Mood NL Vitals Vitals Vital Signs Date Time Temp Pulse Resp B/P (MAP) Pulse Ox O2 Delivery O2 Flow Rate FiO2 05/07/20 07:44 96 Room Air 05/07/20 07:00 98.0 107 18 175/98 (123) 98.0 Labs Labs Laboratory Tests Test 05/06/20 21:26 05/06/20 21:35 05/06/20 22:44 05/07/20 00:15 Glucose (Fingerstick) 214 mg/dL (70-99) White Blood Count 13.1 x10^3/uL (4.0-11.0) Red Blood Count 4.00 x10^6/uL (4.30-5.70) Hemoglobin 12.9 g/dL (13.0-17.5) Hematocrit 37.1 % (39.0-53.0) Mean Corpuscular Volume 93 fL (79-100) Mean Corpuscular Hemoglobin 32 pg (25-35) Mean Corpuscular Hemoglobin Concent 35 g/dL (31-37) Red Cell Distribution Width 12.9 % (11.5-14.5) Platelet Count 300 x10^3/uL (140-400) Neutrophils (%) (Auto) 81 % (31-73) Lymphocytes (%) (Auto) 13 % (24-48) Monocytes (%) (Auto) 6 % (0-9) Eosinophils (%) (Auto) 0 % (0-3) Basophils (%) (Auto) 1 % (0-3) Neutrophils # (Auto) 10.6 x10^3/uL (1.8-7.7) Lymphocytes # (Auto) 1.7 x10^3/uL (1.0-4.8) Monocytes # (Auto) 0.7 x10^3/uL (0.0-1.1) Eosinophils # (Auto) 0.0 x10^3/uL (0.0-0.7) Basophils # (Auto) 0.1 x10^3/uL (0.0-0.2) Sodium Level 136 mmol/L (136-145) 137 mmol/L (136-145) Potassium Level 5.3 mmol/L (3.5-5.1) 4.9 mmol/L (3.5-5.1) Chloride Level 100 mmol/L (98-107) 103 mmol/L (98-107) Carbon Dioxide Level 20 mmol/L (21-32) 20 mmol/L (21-32) Anion Gap 16 (6-14) 14 (6-14) Blood Urea Nitrogen 31 mg/dL (8-26) 29 mg/dL (8-26) Creatinine 1.5 mg/dL (0.7-1.3) 1.3 mg/dL (0.7-1.3) Estimated GFR (Cockcroft-Gault) 46.5 54.9 BUN/Creatinine Ratio 21 (6-20) Glucose Level 232 mg/dL (70-99) 260 mg/dL (70-99) Calcium Level 10.4 mg/dL (8.5-10.1) 9.8 mg/dL (8.5-10.1) Total Bilirubin 0.9 mg/dL (0.2-1.0) Aspartate Amino Transf (AST/SGOT) 32 U/L (15-37) Alanine Aminotransferase (ALT/SGPT) 33 U/L (16-63) Alkaline Phosphatase 287 U/L (46-116) Creatine Kinase 34 U/L (39-308) Creatine Kinase MB (Mass) 1.6 ng/mL (0.0-3.6) Creatine Kinase MB Relative Index % (0-4) Troponin I Quantitative < 0.017 ng/mL (0.000-0.055) Total Protein 9.3 g/dL (6.4-8.2) Albumin 4.3 g/dL (3.4-5.0) Albumin/Globulin Ratio 0.9 (1.0-1.7) Lipase 31 U/L (73-393) Urine Collection Type Unknown Urine Color Yellow Urine Clarity Clear Urine pH 6.5 (<5.0-8.0) Urine Specific Belle 1.015 (1.000-1.030) Urine Protein 30 mg/dL (NEG-TRACE) Urine Glucose (UA) Negative mg/dL (NEG) Urine Ketones (Stick) Trace mg/dL (NEG) Urine Blood Negative (NEG) Urine Nitrite Negative (NEG) Urine Bilirubin Negative (NEG) Urine Urobilinogen Dipstick 0.2 mg/dL (0.2 mg/dL) Urine Leukocyte Esterase Negative (NEG) Urine RBC 1-2 /HPF (0-2) Urine WBC Occ /HPF (0-4) Urine Bacteria 0 /HPF (0-FEW) Urine Hyaline Casts Moderate /HPF Test 05/07/20 06:11 Troponin I Quantitative < 0.017 ng/mL (0.000-0.055) Laboratory Tests Test 05/06/20 21:26 05/06/20 21:35 05/06/20 22:44 05/07/20 00:15 Glucose (Fingerstick) 214 mg/dL (70-99) White Blood Count 13.1 x10^3/uL (4.0-11.0) Red Blood Count 4.00 x10^6/uL (4.30-5.70) Hemoglobin 12.9 g/dL (13.0-17.5) Hematocrit 37.1 % (39.0-53.0) Mean Corpuscular Volume 93 fL (79-100) Mean Corpuscular Hemoglobin 32 pg (25-35) Mean Corpuscular Hemoglobin Concent 35 g/dL (31-37) Red Cell Distribution Width 12.9 % (11.5-14.5) Platelet Count 300 x10^3/uL (140-400) Neutrophils (%) (Auto) 81 % (31-73) Lymphocytes (%) (Auto) 13 % (24-48) Monocytes (%) (Auto) 6 % (0-9) Eosinophils (%) (Auto) 0 % (0-3) Basophils (%) (Auto) 1 % (0-3) Neutrophils # (Auto) 10.6 x10^3/uL (1.8-7.7) Lymphocytes # (Auto) 1.7 x10^3/uL (1.0-4.8) Monocytes # (Auto) 0.7 x10^3/uL (0.0-1.1) Eosinophils # (Auto) 0.0 x10^3/uL (0.0-0.7) Basophils # (Auto) 0.1 x10^3/uL (0.0-0.2) Sodium Level 136 mmol/L (136-145) 137 mmol/L (136-145) Potassium Level 5.3 mmol/L (3.5-5.1) 4.9 mmol/L (3.5-5.1) Chloride Level 100 mmol/L (98-107) 103 mmol/L (98-107) Carbon Dioxide Level 20 mmol/L (21-32) 20 mmol/L (21-32) Anion Gap 16 (6-14) 14 (6-14) Blood Urea Nitrogen 31 mg/dL (8-26) 29 mg/dL (8-26) Creatinine 1.5 mg/dL (0.7-1.3) 1.3 mg/dL (0.7-1.3) Estimated GFR (Cockcroft-Gault) 46.5 54.9 BUN/Creatinine Ratio 21 (6-20) Glucose Level 232 mg/dL (70-99) 260 mg/dL (70-99) Calcium Level 10.4 mg/dL (8.5-10.1) 9.8 mg/dL (8.5-10.1) Total Bilirubin 0.9 mg/dL (0.2-1.0) Aspartate Amino Transf (AST/SGOT) 32 U/L (15-37) Alanine Aminotransferase (ALT/SGPT) 33 U/L (16-63) Alkaline Phosphatase 287 U/L (46-116) Creatine Kinase 34 U/L (39-308) Creatine Kinase MB (Mass) 1.6 ng/mL (0.0-3.6) Creatine Kinase MB Relative Index % (0-4) Troponin I Quantitative < 0.017 ng/mL (0.000-0.055) Total Protein 9.3 g/dL (6.4-8.2) Albumin 4.3 g/dL (3.4-5.0) Albumin/Globulin Ratio 0.9 (1.0-1.7) Lipase 31 U/L (73-393) Urine Collection Type Unknown Urine Color Yellow Urine Clarity Clear Urine pH 6.5 (<5.0-8.0) Urine Specific Belle 1.015 (1.000-1.030) Urine Protein 30 mg/dL (NEG-TRACE) Urine Glucose (UA) Negative mg/dL (NEG) Urine Ketones (Stick) Trace mg/dL (NEG) Urine Blood Negative (NEG) Urine Nitrite Negative (NEG) Urine Bilirubin Negative (NEG) Urine Urobilinogen Dipstick 0.2 mg/dL (0.2 mg/dL) Urine Leukocyte Esterase Negative (NEG) Urine RBC 1-2 /HPF (0-2) Urine WBC Occ /HPF (0-4) Urine Bacteria 0 /HPF (0-FEW) Urine Hyaline Casts Moderate /HPF Test 05/07/20 06:11 Troponin I Quantitative < 0.017 ng/mL (0.000-0.055) Images Images CT abdomen/pelvis: Impression: 1. Cirrhotic morphology of the liver and mild splenomegaly. 2. Edematous gallbladder wall and small gallstones but the degree of wall thickening is much less pronounced from 2018. Wall thickening is favored secondary to underlying hepatic dysfunction but if there are symptoms referrable to this region sonography could be performed. 3. Moderate bladder distention. Correlate for voluntary or involuntary bladder retention. 4. Additional chronic findings as detailed above to include extensive calcific atherosclerosis. RUQ US: IMPRESSION: 1. Cholelithiasis. Mild gallbladder wall thickening, which could be secondary to hepatocellular disease or potentially acute or chronic cholecystitis. No pericholecystic fluid. Correlate with laboratory values. 2. Prominent common bile duct measuring 8 mm, stable from CT of 03/13/2018 for differences in modality. 3. Slightly coarse hepatic echotexture, which could be due to hepatocellular disease. VTE Prophylaxis Ordered VTE Prophylaxis Devices: No VTE Pharmacological Prophylaxi: Yes Assessment/Plan Assessment/Plan A/P: Intractable abdominal pain - with signs of acute on chronic cholecytitis. General surgery consulted Nausea and vomiting - IV antiemetics, NPO Hyperkalemia - corrected. Will monitor. Likely 2/2 LIVE LIVE - vasomotor nephropathy. Will hydrate Sepsis - likely 2/2 cholecystitis. Started on zosyn and IVF Cirrhosis of liver - noted on CT scan, likely ETOH related. Counseled on ETOH cessation. GI consulted, was going to appt in june 2020 anyway tobacco dependence, in remission COPD with asthma DM2 - with hyperglycemia - will place on sliding scale insulin HTN Chronic back pain OA Heavy ETOH use - counseled FEN - NPO PPX - Lovenox FULL CODE Dispo - inpatient 2 midnights Justicifation of Admission Dx: Justifications for Admission: Justification of Admission Dx: Yes MASOUD CENTENO MD May 07, 2020 07:54
[2020-05-07] MEDS: ASPIRIN ENTERIC COATED 81 MG TABLET.DR. PO SCH (08:00)
--- NOTE | 2020-05-07 08:37 | EKG ---
[facility] [address] [place] [id number] Test Date: 2020-05-06 Test Time: 22:54:49 Pat Name: PHOENIX FRANCISCO Department: Room: 256 1 Gender: M Charge Authorizer: : [id number] Requested By: ELLIOT GILBERT Order Number: [id number] Reading MD: Measurements Intervals [place] Rate: 95 P: AR: QRS: -35 QRSD: 124 T: 90 QT: 394 QTc: 499 Interpretive Statements ACCELERATED JUNCTIONAL RHYTHM ABNORMAL LEFT AXIS DEVIATION LVH WITH REPOLARIZATION ABNORMALITY ABNORMAL ECG RI6.02 No previous ECG available for comparison
[2020-05-07] MEDS: LACTOBACILLUS RHAMNOSUS GG 1 CAPSULE. PO SCH ×2 (09:00→20:38)
[2020-05-07] MEDS: GABAPENTIN 100 MG CAPSULE. PO SCH ×3 (09:00→20:39)
[2020-05-07] MEDS: METOPROLOL SUCC 24HR ER 100 MG TAB.ER.24H. PO SCH (09:00)
[2020-05-07 09:02] LABS: MAGNESIUM 2.2 mg/dL (1.8-2.4); POTASSIUM 5.2 mmol/L (3.5-5.1)
[2020-05-07 09:33] LABS: PROTHROMBIN TIME PATIENT 14.7 SEC (11.7-14.0)
--- NOTE | 2020-05-07 09:33 | PDOC2 ---
CONSULT Date of Consult Date of Consult DATE: 05/07/20 TIME: 09:28 Reason for Consult Reason for Consult: Nausea vomiting Referring Physician Referring Physician: Kyra Identification/Chief Complaint Chief Complaint Nausea vomiting Source Source: Chart review, Patient History of Present Illness Reason for Visit: 69-year-old male whose had several day history of nausea vomiting multiple times denies any blood in his emesis. He also describes some abdominal pain mostly from the epigastrium to the left upper quadrant. Is a heavy drinker stop smoking 4 years ago denies any fevers or chills Past Medical History Cardiovascular: Hyperlipidemia, Other Pulmonary: Asthma CENTRAL NERVOUS SYSTEM: Periperal neuropathy GI: GERD, Other Heme/Onc: No pertinent hx Hepatobiliary: Other Musculoskeletal: Osteoarthritis Rheumatologic: Gout Infectious disease: No pertinent hx Renal/: No pertinent hx Endocrine: Diabetes Past Surgical History Past Surgical History: Appendectomy Family History Family History: Coronary Artery Disease Social History ALCOHOL: other Drugs: None Lives: with Family Current Problem List Problem List Problems Medical Problems: (1) Abdominal pain Status: Acute (2) Acute electrocardiogram changes Status: Acute (3) Cholecystitis Status: Acute (4) Hyperkalemia Status: Acute Current Medications Current Medications Current Medications Ondansetron HCl (Zofran) 4 mg STK-MED ONCE .ROUTE ; Start 05/06/20 at 20:42; Stop 05/06/20 at 20:42; Status DC Morphine Sulfate (Morphine Sulfate) 4 mg 1X ONCE IV Last administered on 05/06/20at 21:34; Start 05/06/20 at 21:30; Stop 05/06/20 at 21:31; Status DC Ondansetron HCl (Zofran) 4 mg 1X ONCE IV Last administered on 05/06/20at 21:28; Start 05/06/20 at 21:30; Stop 05/06/20 at 21:31; Status DC Prochlorperazine Edisylate (Compazine) 10 mg 1X ONCE IV Last administered on 05/06/20at 21:34; Start 05/06/20 at 21:30; Stop 05/06/20 at 21:39; Status DC Sodium Chloride 1,000 ml @ 0 mls/hr 1X ONCE IV Last administered on 05/06/20at 22:15; Start 05/06/20 at 22:15; Stop 05/06/20 at 22:16; Status DC Calcium Gluconate (Calcium Gluconate) 1,000 mg 1X ONCE IVP Last administered on 05/06/20at 23:10; Start 05/06/20 at 23:00; Stop 05/06/20 at 23:01; Status DC Insulin Human Regular (HumuLIN R VIAL) 10 unit 1X ONCE IV Last administered on 05/06/20at 23:07; Start 05/06/20 at 23:00; Stop 05/06/20 at 23:01; Status DC Dextrose (Dextrose 50%-Water Syringe) 25 gm 1X ONCE IV Last administered on 05/06/20at 23:11; Start 05/06/20 at 23:00; Stop 05/06/20 at 23:01; Status DC Morphine Sulfate (Morphine Sulfate) 4 mg 1X ONCE IV Last administered on 05/06/20at 23:12; Start 05/06/20 at 23:00; Stop 05/06/20 at 23:01; Status DC Ondansetron HCl (Zofran) 4 mg 1X ONCE IVP Last administered on 05/06/20at 23:06; Start 05/06/20 at 23:00; Stop 05/06/20 at 23:01; Status DC Prochlorperazine Edisylate (Compazine) 10 mg 1X ONCE IV Last administered on 05/06/20at 23:31; Start 05/06/20 at 23:30; Stop 05/06/20 at 23:31; Status DC Piperacillin Sod/ Tazobactam Sod 4.5 gm/Sodium Chloride 100 ml @ 200 mls/hr Q6HRS IV Last administered on 05/07/20at 06:05; Start 05/07/20 at 06:00 Prochlorperazine Edisylate (Compazine) 10 mg 1X ONCE IV Last administered on 05/07/20at 03:19; Start 05/07/20 at 03:30; Stop 05/07/20 at 03:31; Status DC Ondansetron HCl (Zofran) 4 mg PRN Q4HRS PRN IV NAUSEA/VOMITING; Start 05/07/20 at 03:30 Acetaminophen (Tylenol Supp) 650 mg PRN Q4HRS PRN MN TEMP OVER 100.4F OR MILD PAIN; Start 05/07/20 at 03:30 Hydromorphone HCl (Dilaudid) 1 mg PRN Q2HRS PRN IV SEVERE PAIN 7-10 Last administered on 05/07/20at 07:44; Start 05/07/20 at 03:30 Enoxaparin Sodium (Lovenox 40mg Syringe) 40 mg Q24H SQ ; Start 05/07/20 at 09:00 Insulin Human Lispro (HumaLOG) 0-9 UNITS TIDACHC SQ ; Start 05/07/20 at 07:30 Dextrose (Dextrose 50%-Water Syringe) 12.5 gm PRN Q15MIN PRN IV SEE COMMENTS; Start 05/07/20 at 03:30 Acetaminophen (Tylenol) 650 mg PRN Q4HRS PRN PO TEMP OVER 100.4F OR HEADACHE; Start 05/07/20 at 03:30 Albuterol Sulfate (Ventolin Neb Soln) 2.5 mg PRN Q4HRS PRN NEB SHORTNESS OF BREATH; Start 05/07/20 at 03:30 Aspirin (Ecotrin) 81 mg DAILYWBKFT PO ; Start 05/07/20 at 08:00 Atorvastatin Calcium (Lipitor) 10 mg QHS PO ; Start 05/07/20 at 21:00 Gabapentin (Neurontin) 100 mg TID PO ; Start 05/07/20 at 09:00 Acetaminophen/ Hydrocodone Bitart (Lortab 10/325) 1 tab PRN Q6HRS PRN PO PAIN; Start 05/07/20 at 03:30 Insulin Glargine (Lantus Syringe) 12 unit QHS SQ ; Start 05/07/20 at 21:00 Lactobacillus Rhamnosus (Culturelle) 1 cap BID PO ; Start 05/07/20 at 09:00 Metoprolol Succinate (Toprol Xl) 100 mg DAILY PO ; Start 05/07/20 at 09:00 Pantoprazole Sodium (Protonix) 40 mg DAILYAC PO ; Start 05/07/20 at 07:30 Prochlorperazine Edisylate (Compazine) 10 mg PRN Q6HRS PRN IV NAUSEA/VOMITING Last administered on 05/07/20at 07:44; Start 05/07/20 at 03:30 Lactulose (Lactulose) 20 gm PRN DAILY PRN PO CONSTIPATION; Start 05/07/20 at 03:30 Senna/Docusate Sodium (Senna Plus) 2 tab PRN BID PRN PO CONSTIPATION; Start 05/07/20 at 03:30 Polyethylene Glycol (miraLAX PACKET) 17 gm PRN BID PRN PO CONSTIPATION; Start 05/07/20 at 03:30 Sodium Chloride 1,000 ml @ 75 mls/hr 1X ONCE IV Last administered on 05/07/20at 04:02; Start 05/07/20 at 03:45; Stop 05/07/20 at 17:04 Active Scripts Active Lantus (Insulin Glargine,Hum.rec.anlog) 100 Unit/1 Ml Vial 12 Unit SQ QHS 30 Days Culturelle (Lactobacillus Rhamnosus Gg) 1 Each Cap.sprink 1 Cap PO BID 30 Days Hydrochlorothiazide Tablet (Hydrochlorothiazide) 25 Mg Tablet 25 Mg PO DAILY 30 Days Tylenol (Acetaminophen) 325 Mg Tablet 650 Mg PO PRN Q4HRS PRN 30 Days Aspirin Ec (Aspirin) 81 Mg Tablet.dr 81 Mg PO DAILYWBKFT 30 Days Atorvastatin Calcium 10 Mg Tablet 10 Mg PO QHS 30 Days Proair Hfa (Albuterol Sulfate) 8.5 Gm Hfa.aer.ad 2.5 Mg NEB PRN Q4HRS PRN 30 Days Glucophage (Metformin Hcl) 500 Mg Tablet 500 Mg PO BIDWMEALS MDD 1 Furosemide 40 Mg Tablet 40 Mg PO DAILY MDD 1 Protonix (Pantoprazole Sodium) 20 Mg Tablet.dr 40 Mg PO DAILY 90 Days Reported [ameliayle aniyah] 1 Patch TP Q14 DAYS Clopidogrel (Clopidogrel Bisulfate) 75 Mg Tablet 75 Mg PO DAILY Fluconazole 200 Mg Tablet 200 Mg PO DAILY Insulin Lispro 100 Unit/1 Ml Vial 3 Unit SQ TIDWMEALS Ventolin Hfa Inhaler (Albuterol Sulfate) 18 Gm Hfa.aer.ad 1 Puff INH QID Indomethacin 50 Mg Capsule 1 Cap PO PRN PRN Hydrocodone-Apap 10-325 (Hydrocodone Bit/Acetaminophen) 1 Tab Tablet 1 Tab PO PRN Q6HRS PRN Gabapentin (Gabapentin) 100 Mg Capsule 100 Mg PO TID Metoprolol Succinate ( Xl ) (Metoprolol Succinate) 100 Mg Tab.er.24h 100 Mg PO DAILY Allergies Allergies: Coded Allergies: No Known Drug Allergies (Unverified , 04/15/20) ROS Gastrointestinal: Yes Nausea, Yes Vomiting, Yes Abdominal Pain Physical Exam General: Alert, Oriented X3, Cooperative, mild distress HEENT: Atraumatic Lungs: Clear to auscultation, Normal air movement Heart: Regular rate, No murmurs Abdomen: Normal bowel sounds, Soft, Other (Tender to palpation epigastrium) Extremities: No edema Skin: No significant lesion Neuro: Normal speech Psych/Mental Status: Mental status NL Vitals VITALS Vital Signs Date Time Temp Pulse Resp B/P (MAP) Pulse Ox O2 Delivery O2 Flow Rate FiO2 05/07/20 07:44 96 Room Air 05/07/20 07:00 98.0 107 18 175/98 (123) 98.0 Labs Labs Laboratory Tests Test 05/06/20 21:26 05/06/20 21:35 05/06/20 22:44 05/07/20 00:15 Glucose (Fingerstick) 214 mg/dL (70-99) White Blood Count 13.1 x10^3/uL (4.0-11.0) Red Blood Count 4.00 x10^6/uL (4.30-5.70) Hemoglobin 12.9 g/dL (13.0-17.5) Hematocrit 37.1 % (39.0-53.0) Mean Corpuscular Volume 93 fL (79-100) Mean Corpuscular Hemoglobin 32 pg (25-35) Mean Corpuscular Hemoglobin Concent 35 g/dL (31-37) Red Cell Distribution Width 12.9 % (11.5-14.5) Platelet Count 300 x10^3/uL (140-400) Neutrophils (%) (Auto) 81 % (31-73) Lymphocytes (%) (Auto) 13 % (24-48) Monocytes (%) (Auto) 6 % (0-9) Eosinophils (%) (Auto) 0 % (0-3) Basophils (%) (Auto) 1 % (0-3) Neutrophils # (Auto) 10.6 x10^3/uL (1.8-7.7) Lymphocytes # (Auto) 1.7 x10^3/uL (1.0-4.8) Monocytes # (Auto) 0.7 x10^3/uL (0.0-1.1) Eosinophils # (Auto) 0.0 x10^3/uL (0.0-0.7) Basophils # (Auto) 0.1 x10^3/uL (0.0-0.2) Sodium Level 136 mmol/L (136-145) 137 mmol/L (136-145) Potassium Level 5.3 mmol/L (3.5-5.1) 4.9 mmol/L (3.5-5.1) Chloride Level 100 mmol/L (98-107) 103 mmol/L (98-107) Carbon Dioxide Level 20 mmol/L (21-32) 20 mmol/L (21-32) Anion Gap 16 (6-14) 14 (6-14) Blood Urea Nitrogen 31 mg/dL (8-26) 29 mg/dL (8-26) Creatinine 1.5 mg/dL (0.7-1.3) 1.3 mg/dL (0.7-1.3) Estimated GFR (Cockcroft-Gault) 46.5 54.9 BUN/Creatinine Ratio 21 (6-20) Glucose Level 232 mg/dL (70-99) 260 mg/dL (70-99) Calcium Level 10.4 mg/dL (8.5-10.1) 9.8 mg/dL (8.5-10.1) Total Bilirubin 0.9 mg/dL (0.2-1.0) Aspartate Amino Transf (AST/SGOT) 32 U/L (15-37) Alanine Aminotransferase (ALT/SGPT) 33 U/L (16-63) Alkaline Phosphatase 287 U/L (46-116) Creatine Kinase 34 U/L (39-308) Creatine Kinase MB (Mass) 1.6 ng/mL (0.0-3.6) Creatine Kinase MB Relative Index % (0-4) Troponin I Quantitative < 0.017 ng/mL (0.000-0.055) Total Protein 9.3 g/dL (6.4-8.2) Albumin 4.3 g/dL (3.4-5.0) Albumin/Globulin Ratio 0.9 (1.0-1.7) Lipase 31 U/L (73-393) Urine Collection Type Unknown Urine Color Yellow Urine Clarity Clear Urine pH 6.5 (<5.0-8.0) Urine Specific [place] 1.015 (1.000-1.030) Urine Protein 30 mg/dL (NEG-TRACE) Urine Glucose (UA) Negative mg/dL (NEG) Urine Ketones (Stick) Trace mg/dL (NEG) Urine Blood Negative (NEG) Urine Nitrite Negative (NEG) Urine Bilirubin Negative (NEG) Urine Urobilinogen Dipstick 0.2 mg/dL (0.2 mg/dL) Urine Leukocyte Esterase Negative (NEG) Urine RBC 1-2 /HPF (0-2) Urine WBC Occ /HPF (0-4) Urine Bacteria 0 /HPF (0-FEW) Urine Hyaline Casts Moderate /HPF Test 05/07/20 06:11 05/07/20 07:58 Potassium Level 5.2 mmol/L (3.5-5.1) Magnesium Level 2.2 mg/dL (1.8-2.4) Troponin I Quantitative < 0.017 ng/mL (0.000-0.055) Glucose (Fingerstick) 203 mg/dL (70-99) Laboratory Tests Test 05/06/20 21:26 05/06/20 21:35 05/06/20 22:44 05/07/20 00:15 Glucose (Fingerstick) 214 mg/dL (70-99) White Blood Count 13.1 x10^3/uL (4.0-11.0) Red Blood Count 4.00 x10^6/uL (4.30-5.70) Hemoglobin 12.9 g/dL (13.0-17.5) Hematocrit 37.1 % (39.0-53.0) Mean Corpuscular Volume 93 fL (79-100) Mean Corpuscular Hemoglobin 32 pg (25-35) Mean Corpuscular Hemoglobin Concent 35 g/dL (31-37) Red Cell Distribution Width 12.9 % (11.5-14.5) Platelet Count 300 x10^3/uL (140-400) Neutrophils (%) (Auto) 81 % (31-73) Lymphocytes (%) (Auto) 13 % (24-48) Monocytes (%) (Auto) 6 % (0-9) Eosinophils (%) (Auto) 0 % (0-3) Basophils (%) (Auto) 1 % (0-3) Neutrophils # (Auto) 10.6 x10^3/uL (1.8-7.7) Lymphocytes # (Auto) 1.7 x10^3/uL (1.0-4.8) Monocytes # (Auto) 0.7 x10^3/uL (0.0-1.1) Eosinophils # (Auto) 0.0 x10^3/uL (0.0-0.7) Basophils # (Auto) 0.1 x10^3/uL (0.0-0.2) Sodium Level 136 mmol/L (136-145) 137 mmol/L (136-145) Potassium Level 5.3 mmol/L (3.5-5.1) 4.9 mmol/L (3.5-5.1) Chloride Level 100 mmol/L (98-107) 103 mmol/L (98-107) Carbon Dioxide Level 20 mmol/L (21-32) 20 mmol/L (21-32) Anion Gap 16 (6-14) 14 (6-14) Blood Urea Nitrogen 31 mg/dL (8-26) 29 mg/dL (8-26) Creatinine 1.5 mg/dL (0.7-1.3) 1.3 mg/dL (0.7-1.3) Estimated GFR (Cockcroft-Gault) 46.5 54.9 BUN/Creatinine Ratio 21 (6-20) Glucose Level 232 mg/dL (70-99) 260 mg/dL (70-99) Calcium Level 10.4 mg/dL (8.5-10.1) 9.8 mg/dL (8.5-10.1) Total Bilirubin 0.9 mg/dL (0.2-1.0) Aspartate Amino Transf (AST/SGOT) 32 U/L (15-37) Alanine Aminotransferase (ALT/SGPT) 33 U/L (16-63) Alkaline Phosphatase 287 U/L (46-116) Creatine Kinase 34 U/L (39-308) Creatine Kinase MB (Mass) 1.6 ng/mL (0.0-3.6) Creatine Kinase MB Relative Index % (0-4) Troponin I Quantitative < 0.017 ng/mL (0.000-0.055) Total Protein 9.3 g/dL (6.4-8.2) Albumin 4.3 g/dL (3.4-5.0) Albumin/Globulin Ratio 0.9 (1.0-1.7) Lipase 31 U/L (73-393) Urine Collection Type Unknown Urine Color Yellow Urine Clarity Clear Urine pH 6.5 (<5.0-8.0) Urine Specific [place] 1.015 (1.000-1.030) Urine Protein 30 mg/dL (NEG-TRACE) Urine Glucose (UA) Negative mg/dL (NEG) Urine Ketones (Stick) Trace mg/dL (NEG) Urine Blood Negative (NEG) Urine Nitrite Negative (NEG) Urine Bilirubin Negative (NEG) Urine Urobilinogen Dipstick 0.2 mg/dL (0.2 mg/dL) Urine Leukocyte Esterase Negative (NEG) Urine RBC 1-2 /HPF (0-2) Urine WBC Occ /HPF (0-4) Urine Bacteria 0 /HPF (0-FEW) Urine Hyaline Casts Moderate /HPF Test 05/07/20 06:11 05/07/20 07:58 Potassium Level 5.2 mmol/L (3.5-5.1) Magnesium Level 2.2 mg/dL (1.8-2.4) Troponin I Quantitative < 0.017 ng/mL (0.000-0.055) Glucose (Fingerstick) 203 mg/dL (70-99) Assessment/Plan Assessment/Plan Nausea vomiting with abdominal pain CT scan shows gallstones also significant liver disease from alcohol Question is whether inflammation around the gallbladder is related to his liver disease versus gallstones We will obtain a HIDA scan to rule out cholecystitis GI consult for peptic ulcer disease Continue supportive care DOLLY ALMONTE MD May 07, 2020 09:33
--- NOTE | 2020-05-07 09:36 | EKG ---
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
[2020-05-07] MEDS ORDERED: HALOPERIDOL LACTATE 5 MG/ML VIAL. IVP PRN (11:00)
[2020-05-07] MEDS ORDERED: diphenhydrAMINE 50 MG/ML VIAL IVP PRN (11:00)
--- NOTE | 2020-05-07 11:35 | PDOC2 ---
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 He had at least 7 bouots of vomiting and no hematemesis. Denies any diarrhea. He failed to take his medications yesterday due to GI symptoms. Positive for abdominal pain and cramps. Prior to this he has not been having any fever or chills and no complains of chest or SOA and no changes to his activity tolerance. Last January he had an event monitor due to episode of syncope and no significant arrhythmias were noted. Imaging currently revealed that he has gallbladder disease with possible bile duct dilatation. Again he has not been having cardiac symptoms and no dizzy spells or passing out. Consult is for LBBB which is new for him but no notable tachyarrhythmias. PAST MEDICAL HISTORY Past Medical History Cardiovascular: HTN, HLP, PSVT, PAD Pulmonary: Asthma CENTRAL NERVOUS SYSTEM: Other (no pertinent hx) GI: GERD, Other (gastric erosions ) Heme/Onc: No pertinent hx Hepatobiliary: Other (elevated liver enzymes) Musculoskeletal: low back pain, Other (sciatica ) Rheumatologic: Gout Infectious disease: No pertinent hx ENT: No pertinent hx Renal/: No pertinent hx Endocrine: Diabetes PAST SURGICAL HISTORY Past Surgical History FAMILY HISTORY Family History: Coronary Artery Disease (father CABG), Diabetes SOCIAL HISTORY PAST SURGICAL HISTORY Past Surgical History Appendectomy, Arthroscopy (left knee), Other ([facility] yrs ago nml per pt; right toe spur removal), 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 FAMILY HISTORY Family History: Coronary Artery Disease (father) SOCIAL HISTORY Social History Smoke: Quit (40 years ago) ALCOHOL: other (2-3 beers per day) Drugs: None Lives: with Family CURRENT MEDICATIONS CURRENT MEDICATIONS Current Medications Medications (Trade) Dose Ordered Sig/Eyad Route PRN Reason Start Time Stop Time Status Last Admin Dose Admin Morphine Sulfate (Morphine Sulfate) 4 mg 1X ONCE IV 05/06/20 21:30 05/06/20 21:31 DC 05/06/20 21:34 Ondansetron HCl (Zofran) 4 mg 1X ONCE IV 05/06/20 21:30 05/06/20 21:31 DC 05/06/20 21:28 Prochlorperazine Edisylate (Compazine) 10 mg 1X ONCE IV 05/06/20 21:30 05/06/20 21:39 DC 05/06/20 21:34 Sodium Chloride 1,000 ml @ 0 mls/hr 1X ONCE IV 05/06/20 22:15 05/06/20 22:16 DC 05/06/20 22:15 Calcium Gluconate (Calcium Gluconate) 1,000 mg 1X ONCE IVP 05/06/20 23:00 05/06/20 23:01 DC 05/06/20 23:10 Insulin Human Regular (HumuLIN R VIAL) 10 unit 1X ONCE IV 05/06/20 23:00 05/06/20 23:01 DC 05/06/20 23:07 Dextrose (Dextrose 50%-Water Syringe) 25 gm 1X ONCE IV 05/06/20 23:00 05/06/20 23:01 DC 05/06/20 23:11 Morphine Sulfate (Morphine Sulfate) 4 mg 1X ONCE IV 05/06/20 23:00 05/06/20 23:01 DC 05/06/20 23:12 Ondansetron HCl (Zofran) 4 mg 1X ONCE IVP 05/06/20 23:00 05/06/20 23:01 DC 05/06/20 23:06 Prochlorperazine Edisylate (Compazine) 10 mg 1X ONCE IV 05/06/20 23:30 05/06/20 23:31 DC 05/06/20 23:31 Piperacillin Sod/ Tazobactam Sod 4.5 gm/Sodium Chloride 100 ml @ 200 mls/hr Q6HRS IV 05/07/20 06:00 05/07/20 06:05 Prochlorperazine Edisylate (Compazine) 10 mg 1X ONCE IV 05/07/20 03:30 05/07/20 03:31 DC 05/07/20 03:19 Hydromorphone HCl (Dilaudid) 1 mg PRN Q2HRS PRN IV SEVERE PAIN 7-05/07/20 03:30 05/07/20 10:52 Prochlorperazine Edisylate (Compazine) 10 mg PRN Q6HRS PRN IV NAUSEA/VOMITING 05/07/20 03:30 05/07/20 07:44 Sodium Chloride 1,000 ml @ 75 mls/hr 1X ONCE IV 05/07/20 03:45 05/07/20 17:04 05/07/20 04:02 Lorazepam (Ativan Inj) 1 mg PRN Q5MIN PRN IVP ANXIETY / AGITATION 05/07/20 10:45 05/07/20 10:49 ALLERGIES ALLERGIES: Coded Allergies: No Known Drug Allergies (Unverified , 04/15/20) ROS Review of System 14 point ROS evaluated with pertinent positives noted per HPI Musculoskeletal: Yes Other PHYSICAL EXAM General: Alert, Oriented X3, Cooperative, No acute distress HEENT: Atraumatic, Mucous membr. moist/pink Lungs: Clear to auscultation, Normal air movement Abdomen: Soft, Other (soft with abdominal tenderness per palpation) Extremities: No cyanosis, No edema Skin: No breakdown, No significant lesion Neuro: Normal speech, Sensation intact Psych/Mental Status: Mental status NL, Mood NL MUSCULOSKELETAL: Osteoarthritic changes both hands VITALS/I&O VITALS/I&O: Vital Signs Date Time Temp Pulse Resp B/P (MAP) Pulse Ox O2 Delivery O2 Flow Rate FiO2 05/07/20 11:00 98.4 92 18 183/74 (110) 97 Room Air 98.4 I & O 0 05/06/20 05/06/20 05/07/20 15:00 23:00 07:00 Intake Total 1000 ml Output Total 50 ml Balance 950 ml LABS Lab: Laboratory Tests Test 05/06/20 21:26 05/06/20 21:35 05/06/20 22:44 05/07/20 00:15 Glucose (Fingerstick) 214 mg/dL (70-99) H White Blood Count 13.1 x10^3/uL (4.0-11.0) H Red Blood Count 4.00 x10^6/uL (4.30-5.70) L Hemoglobin 12.9 g/dL (13.0-17.5) L Hematocrit 37.1 % (39.0-53.0) L Mean Corpuscular Volume 93 fL (79-100) Mean Corpuscular Hemoglobin 32 pg (25-35) Mean Corpuscular Hemoglobin Concent 35 g/dL (31-37) Red Cell Distribution Width 12.9 % (11.5-14.5) Platelet Count 300 x10^3/uL (140-400) Neutrophils (%) (Auto) 81 % (31-73) H Lymphocytes (%) (Auto) 13 % (24-48) L Monocytes (%) (Auto) 6 % (0-9) Eosinophils (%) (Auto) 0 % (0-3) Basophils (%) (Auto) 1 % (0-3) Neutrophils # (Auto) 10.6 x10^3/uL (1.8-7.7) H Lymphocytes # (Auto) 1.7 x10^3/uL (1.0-4.8) Monocytes # (Auto) 0.7 x10^3/uL (0.0-1.1) Eosinophils # (Auto) 0.0 x10^3/uL (0.0-0.7) Basophils # (Auto) 0.1 x10^3/uL (0.0-0.2) Sodium Level 136 mmol/L (136-145) 137 mmol/L (136-145) Potassium Level 5.3 mmol/L (3.5-5.1) H 4.9 mmol/L (3.5-5.1) Chloride Level 100 mmol/L (98-107) 103 mmol/L (98-107) Carbon Dioxide Level 20 mmol/L (21-32) L 20 mmol/L (21-32) L Anion Gap 16 (6-14) H 14 (6-14) Blood Urea Nitrogen 31 mg/dL (8-26) H 29 mg/dL (8-26) H Creatinine 1.5 mg/dL (0.7-1.3) H 1.3 mg/dL (0.7-1.3) Estimated GFR (Cockcroft-Gault) 46.5 54.9 BUN/Creatinine Ratio 21 (6-20) H Glucose Level 232 mg/dL (70-99) H 260 mg/dL (70-99) H Calcium Level 10.4 mg/dL (8.5-10.1) H 9.8 mg/dL (8.5-10.1) Total Bilirubin 0.9 mg/dL (0.2-1.0) Aspartate Amino Transferase (AST) 32 U/L (15-37) Alanine Aminotransferase (ALT) 33 U/L (16-63) Alkaline Phosphatase 287 U/L (46-116) H Creatine Kinase 34 U/L (39-308) L Creatine Kinase MB (Mass) 1.6 ng/mL (0.0-3.6) Creatine Kinase MB Relative Index % (0-4) Troponin I Quantitative < 0.017 ng/mL (0.000-0.055) Total Protein 9.3 g/dL (6.4-8.2) H Albumin 4.3 g/dL (3.4-5.0) Albumin/Globulin Ratio 0.9 (1.0-1.7) L Lipase 31 U/L (73-393) L Urine Collection Type Unknown Urine Color Yellow Urine Clarity Clear Urine pH 6.5 (<5.0-8.0) Urine Specific [place] 1.015 (1.000-1.030) Urine Protein 30 mg/dL (NEG-TRACE) Urine Glucose (UA) Negative mg/dL (NEG) Urine Ketones (Stick) Trace mg/dL (NEG) Urine Blood Negative (NEG) Urine Nitrite Negative (NEG) Urine Bilirubin Negative (NEG) Urine Urobilinogen Dipstick 0.2 mg/dL (0.2 mg/dL) Urine Leukocyte Esterase Negative (NEG) Urine RBC 1-2 /HPF (0-2) Urine WBC Occ /HPF (0-4) Urine Bacteria 0 /HPF (0-FEW) Urine Hyaline Casts Moderate /HPF Test 05/07/20 06:11 05/07/20 07:58 Prothrombin Time 14.7 SEC (11.7-14.0) H Prothrombin Time INR 1.2 (0.8-1.1) H Potassium Level 5.2 mmol/L (3.5-5.1) H Magnesium Level 2.2 mg/dL (1.8-2.4) Troponin I Quantitative < 0.017 ng/mL (0.000-0.055) Glucose (Fingerstick) 203 mg/dL (70-99) H Laboratory Tests 05/06/20 21:35 Laboratory Tests 05/06/20 21:35 05/07/20 00:15 05/07/20 06:11 ASSESSMENT/PLAN ASSESSMENT/PLAN 1. Abdominal pain/vomiting: GB disease. GI following 2. Arrhythmia: LBBB with first degree AV block likely rate dependent with fluid/lyte shifts and no associated cardiac symptoms and trops are nml 3. LIVE with mild hyperkalemia: treated. per PCP 4. 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 Unclear details. Clinically stable 5. HTN urgency 6. HLP 7. DM2 8. Hx of NICM. Echo 2014 with LVEF 35-40% and has recovered 9. Hx of alcoholism Recommendations 1. LBBB is not new for him and actually had an episode in 2018 and had an unremarkable ischemic workup. He takes BB at home and given that he is NPO, will start on IV lopressor, NTG paste with PRN labetolol 2. Obtain TTE and will obtain [facility] records regarding AD COPY WRITER. 3. May resume ASA when able to take PO. May hold plavix for any possible surgery 4. Supportive care at this time and monitor any dysrrhythmias. Will repeat serum K JENNY HINOJOSA MD 05/07/20 1346: CARDIAC CONSULT ASSESSMENT/PLAN ASSESSMENT/PLAN Patient seen and examined. Agree with CHILD SUPPORT AGENT's assessment and plan. LBBB probably chronic and rate dependent. Cardiac enzymes negative. Check 2D echocardiogram to assess LV function and rule out wall motion abnormalities. PAD status clinically stable. Okay to hold Plavix for possible surgery. Agree with intravenous beta-blockers while n.p.o. for blood pressure control. Thank you for your consultation. YAS DUARTE APRN May 07, 2020 11:35 JENNY HINOJOSA MD May 07, 2020 13:46
[2020-05-07] MEDS ORDERED: MORPHINE SULFATE 4 MG/ML VIAL. ONE (11:59)
[2020-05-07] MEDS: FOLIC ACID 1 MG TABLET. PO SCH (12:00)
[2020-05-07] MEDS ORDERED: MORPHINE SULFATE 4 MG/ML VIAL. IV ONE (12:00)
[2020-05-07] MEDS: THIAMINE 100 MG TABLET. PO SCH (12:00)
[2020-05-07] MEDS: MULTIVITAMIN with MINERAL TABLET. PO SCH (12:00)
--- NOTE | 2020-05-07 12:18 | PDOC2 ---
GI CONSULT Reason For Consult: epigastric pain n/v heavy alcohol use HPI: HPI: 69 y/o male w/ intermittent abdominal pain, probably worse w/ eating. Admitted for same w/ n/v. EGD for UGI bleeding on ASA in 02/2018 showed no varices or M-W tear, grade II reflux esophagitis, several antral erosions, small 3-4mm prepyloric ulcer, normal proximal stomach, few duodenal bulb erosions, 8mm ulcer on anterior wall near apex of bulb w/ visible vessel/sentinel clot (injected w/ epi, BiCAP applied). Biopsies negative for H. pylori. doesn't think he takes a PPI. Previously reported normal colonoscopy <10 years ago. We have seen in the past for elevated LFTs possibly. Has also seen surgery in the past re: possible cholecystectomy. 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 Hepatitis serologies negative in 2015. Normal iron profile in 2014. Normal B12 this year. Elevated AFP (10.8) in 2015. H/o PAD on Plavix. Labs and current imaging as below - CT note cirrhosis, edematous GB and cholelithiasis, and partially atrophic pancreas. US notes 8mm CBD (stable compared to past imaging), cholelithiasis w/ mild GB wall thickening, coarse hepatic contour, and patent PV. HIDA abnormal w/ nonvisualization of GB. D/w Dr. Calvillo earlier, concern for PUD. PMH: PMH: NICM, HTN, CHF, asthma PSVT, PAD, LBHP, sciatica, gout, DM, peripheral neuropathy left knee arthroscopy, right toe surgery x 2, left fifth toe osteomyelitis/amputation, heart cath, appendectomy FH: Family History: Cancer, CAD, DM Social History: Smoke: Quit ALCOHOL: heavy Drugs: None ROS: GEN: Denies fevers, chills, sweats HEENT: Denies blurred vision, sore throat CV: Denies chest pain RESP: Denies shortness of air, cough GI: Per HPI : Denies hematuria, dysuria ENDO: Denies weight changes NEURO: Denies confusion, dizziness MSK: Denies weakness, joint pain/swelling SKIN: Denies jaundice, pruritus Vitals: Vitals: Vital Signs Date Time Temp Pulse Resp B/P (MAP) Pulse Ox O2 Delivery O2 Flow Rate FiO2 05/07/20 12:06 16 05/07/20 11:00 98.4 92 183/74 (110) 97 Room Air 98.4 Labs: Labs: Laboratory Tests Test 05/06/20 21:26 05/06/20 21:35 05/06/20 22:44 05/07/20 00:15 Glucose (Fingerstick) 214 mg/dL (70-99) White Blood Count 13.1 x10^3/uL (4.0-11.0) Red Blood Count 4.00 x10^6/uL (4.30-5.70) Hemoglobin 12.9 g/dL (13.0-17.5) Hematocrit 37.1 % (39.0-53.0) Mean Corpuscular Volume 93 fL (79-100) Mean Corpuscular Hemoglobin 32 pg (25-35) Mean Corpuscular Hemoglobin Concent 35 g/dL (31-37) Red Cell Distribution Width 12.9 % (11.5-14.5) Platelet Count 300 x10^3/uL (140-400) Neutrophils (%) (Auto) 81 % (31-73) Lymphocytes (%) (Auto) 13 % (24-48) Monocytes (%) (Auto) 6 % (0-9) Eosinophils (%) (Auto) 0 % (0-3) Basophils (%) (Auto) 1 % (0-3) Neutrophils # (Auto) 10.6 x10^3/uL (1.8-7.7) Lymphocytes # (Auto) 1.7 x10^3/uL (1.0-4.8) Monocytes # (Auto) 0.7 x10^3/uL (0.0-1.1) Eosinophils # (Auto) 0.0 x10^3/uL (0.0-0.7) Basophils # (Auto) 0.1 x10^3/uL (0.0-0.2) Sodium Level 136 mmol/L (136-145) 137 mmol/L (136-145) Potassium Level 5.3 mmol/L (3.5-5.1) 4.9 mmol/L (3.5-5.1) Chloride Level 100 mmol/L (98-107) 103 mmol/L (98-107) Carbon Dioxide Level 20 mmol/L (21-32) 20 mmol/L (21-32) Anion Gap 16 (6-14) 14 (6-14) Blood Urea Nitrogen 31 mg/dL (8-26) 29 mg/dL (8-26) Creatinine 1.5 mg/dL (0.7-1.3) 1.3 mg/dL (0.7-1.3) Estimated GFR (Cockcroft-Gault) 46.5 54.9 BUN/Creatinine Ratio 21 (6-20) Glucose Level 232 mg/dL (70-99) 260 mg/dL (70-99) Calcium Level 10.4 mg/dL (8.5-10.1) 9.8 mg/dL (8.5-10.1) Total Bilirubin 0.9 mg/dL (0.2-1.0) Aspartate Amino Transf (AST/SGOT) 32 U/L (15-37) Alanine Aminotransferase (ALT/SGPT) 33 U/L (16-63) Alkaline Phosphatase 287 U/L (46-116) Creatine Kinase 34 U/L (39-308) Creatine Kinase MB (Mass) 1.6 ng/mL (0.0-3.6) Creatine Kinase MB Relative Index % (0-4) Troponin I Quantitative < 0.017 ng/mL (0.000-0.055) Total Protein 9.3 g/dL (6.4-8.2) Albumin 4.3 g/dL (3.4-5.0) Albumin/Globulin Ratio 0.9 (1.0-1.7) Lipase 31 U/L (73-393) Urine Collection Type Unknown Urine Color Yellow Urine Clarity Clear Urine pH 6.5 (<5.0-8.0) Urine Specific [place] 1.015 (1.000-1.030) Urine Protein 30 mg/dL (NEG-TRACE) Urine Glucose (UA) Negative mg/dL (NEG) Urine Ketones (Stick) Trace mg/dL (NEG) Urine Blood Negative (NEG) Urine Nitrite Negative (NEG) Urine Bilirubin Negative (NEG) Urine Urobilinogen Dipstick 0.2 mg/dL (0.2 mg/dL) Urine Leukocyte Esterase Negative (NEG) Urine RBC 1-2 /HPF (0-2) Urine WBC Occ /HPF (0-4) Urine Bacteria 0 /HPF (0-FEW) Urine Hyaline Casts Moderate /HPF Test 05/07/20 06:11 05/07/20 07:58 Prothrombin Time 14.7 SEC (11.7-14.0) Prothromb Time International Ratio 1.2 (0.8-1.1) Potassium Level 5.2 mmol/L (3.5-5.1) Magnesium Level 2.2 mg/dL (1.8-2.4) Troponin I Quantitative < 0.017 ng/mL (0.000-0.055) Thyroid Stimulating Hormone (TSH) 2.930 uIU/mL (0.358-3.74) Glucose (Fingerstick) 203 mg/dL (70-99) Allergies: Coded Allergies: No Known Drug Allergies (Unverified , 04/15/20) Medications: Current Medications Medications (Trade) Dose Ordered Sig/Eyad Route PRN Reason Start Time Stop Time Status Last Admin Dose Admin Morphine Sulfate (Morphine Sulfate) 4 mg 1X ONCE IV 05/06/20 21:30 05/06/20 21:31 DC 05/06/20 21:34 Ondansetron HCl (Zofran) 4 mg 1X ONCE IV 05/06/20 21:30 05/06/20 21:31 DC 05/06/20 21:28 Prochlorperazine Edisylate (Compazine) 10 mg 1X ONCE IV 05/06/20 21:30 05/06/20 21:39 DC 05/06/20 21:34 Sodium Chloride 1,000 ml @ 0 mls/hr 1X ONCE IV 05/06/20 22:15 05/06/20 22:16 DC 05/06/20 22:15 Calcium Gluconate (Calcium Gluconate) 1,000 mg 1X ONCE IVP 05/06/20 23:00 05/06/20 23:01 DC 05/06/20 23:10 Insulin Human Regular (HumuLIN R VIAL) 10 unit 1X ONCE IV 05/06/20 23:00 05/06/20 23:01 DC 05/06/20 23:07 Dextrose (Dextrose 50%-Water Syringe) 25 gm 1X ONCE IV 05/06/20 23:00 05/06/20 23:01 DC 05/06/20 23:11 Morphine Sulfate (Morphine Sulfate) 4 mg 1X ONCE IV 05/06/20 23:00 05/06/20 23:01 DC 05/06/20 23:12 Ondansetron HCl (Zofran) 4 mg 1X ONCE IVP 05/06/20 23:00 05/06/20 23:01 DC 05/06/20 23:06 Prochlorperazine Edisylate (Compazine) 10 mg 1X ONCE IV 05/06/20 23:30 05/06/20 23:31 DC 05/06/20 23:31 Piperacillin Sod/ Tazobactam Sod 4.5 gm/Sodium Chloride 100 ml @ 200 mls/hr Q6HRS IV 05/07/20 06:00 05/07/20 06:05 Prochlorperazine Edisylate (Compazine) 10 mg 1X ONCE IV 05/07/20 03:30 05/07/20 03:31 DC 05/07/20 03:19 Hydromorphone HCl (Dilaudid) 1 mg PRN Q2HRS PRN IV SEVERE PAIN 05-0705/07/20 03:30 05/07/20 10:52 Prochlorperazine Edisylate (Compazine) 10 mg PRN Q6HRS PRN IV NAUSEA/VOMITING 05/07/20 03:30 05/07/20 07:44 Sodium Chloride 1,000 ml @ 75 mls/hr 1X ONCE IV 05/07/20 03:45 05/07/20 17:04 05/07/20 04:02 Lorazepam (Ativan Inj) 1 mg PRN Q5MIN PRN IVP ANXIETY / AGITATION 05/07/20 10:45 05/07/20 10:49 Morphine Sulfate (Morphine Sulfate) 4 mg 1X ONCE IV 05/07/20 12:00 05/07/20 12:01 DC 05/07/20 12:06 Imaging: Imaging: CT A/P 05/06 Impression: 1. Cirrhotic morphology of the liver and mild splenomegaly. 2. Edematous gallbladder wall and small gallstones but the degree of wall thickening is much less pronounced from 2018. Wall thickening is favored secondary to underlying hepatic dysfunction but if there are symptoms referrable to this region sonography could be performed. 3. Moderate bladder distention. Correlate for voluntary or involuntary bladder retention. 4. Additional chronic findings as detailed above to include extensive calcific atherosclerosis. Abd US 05/06 IMPRESSION: 1. Cholelithiasis. Mild gallbladder wall thickening, which could be secondary to hepatocellular disease or potentially acute or chronic cholecystitis. No pericholecystic fluid. Correlate with laboratory values. 2. Prominent common bile duct measuring 8 mm, stable from CT of 03/13/2018 for differences in modality. 3. Slightly coarse hepatic echotexture, which could be due to hepatocellular disease. HIDA 05/07 IMPRESSION: Nonvisualization of the gallbladder on post morphine imaging compatible with acute cholecystitis. PE: GEN: NAD HEENT: Atraumatic, PERRL LUNGS: CTAB HEART: RRR ABD: NABS, S/ND, upper abdominal discomfort EXTREMITY: No edema SKIN: No rashes, no jaundice NEURO/PSYCH: drowsy A/P: A/P: Recurrent abd pain w/ n/v Abnormal HIDA suggestive of cholecystitis Cholelithiasis, stable CBD dilation Chronic anemia, LIVE, hyperkalemia Elevated Alk Phos - noted in the past GERD, h/o PUD CRC screen - reportedly normal colonoscopy in the past Hepatic steatosis/?cirrhosis, h/o alcohol overuse H/o pancreatitis HTN, PAD on Plavix (recent LLE revascularization @ [facility]), DM -- HIDA as above, await surgery follow-up. Agree w/ PPI - will change to IV since NPO. GEORGIE KLINE May 07, 2020 12:18
[2020-05-07] MEDS: METOPROLOL TARTRATE 5 MG/5 ML VIAL. IVP SCH ×2 (12:58→17:54)
[2020-05-07] MEDS: ENOXAPARIN 40 MG/0.4 ML SYRINGE. SQ SCH (13:00)
[2020-05-07] MEDS: NITROGLYCERIN OINT 1 GM PACKET. TP SCH ×2 (13:11→17:53)
--- NOTE | 2020-05-07 13:43 | NUR ---
SS following for discharge planning. SS reviewed pt chart and discussed with pt RN. Pt is from home with spouse and is currently on room air. Pt on IV Zosyn. Possible need for surgery. SS will continue to follow for discharge planning.
--- NOTE | 2020-05-07 13:46 | RAD ---
HEPATOBILIARY SCAN History: Reason: cholecystitis /abdominal pain. Comparison: Limited abdominal ultrasound, same day. Procedure: Serial static images are obtained of the liver and biliary system in the frontal projection following IV administration of 5.5 mCi of Technetium 99m Choletec. Gallbladder not visualized at 60 minutes. Morphine 4 mg IV administered, imaging continued x30 minutes. Findings: There is prompt hepatic clearance of tracer from the blood pool. Hepatic rim sign is identified. Normal emptying into the bile ducts. Tracer is seen in small bowel by 30 minutes. Gallbladder is nonvisualized at 60 minutes. Gallbladder is not seen after 30 minutes post morphine imaging. IMPRESSION: Nonvisualization of the gallbladder on post morphine imaging compatible with acute cholecystitis. Findings discussed with Tiffanie patient's nurse at 05/07/2020 1:39 PM. FOR INTERNAL CODING PURPOSES Critical result: RESULT CODE: (C) Electronically signed by: Efren Hutchinson MD (05/07/2020 1:43 PM) [id number]
--- NOTE | 2020-05-07 15:50 | CARD ---
MR#: [id number] Date of Study: 05/07/2020 Ordering Physician: YAS DUARTE, Referring Physician: YAS DUARTE, Tech: Fanta Hall [facility] APPROVED REPORT EXAM: Two-dimensional and M-mode echocardiogram with Doppler and color Doppler. Other Information Quality : Good INDICATION EKG Changes 2D DIMENSIONS RVDd2.9 (2.9-3.5cm)Left Atrium(2D)3.7 (1.6-4.0cm) IVSd1.4 (0.7-1.1cm)Aortic Root(2D)3.5 (2.0-3.7cm) LVDd3.7 (3.9-5.9cm)LVOT Diameter2.0 (1.8-2.4cm) PWd1.0 (0.7-1.1cm)LVDs2.5 (2.5-4.0cm) FS (%) 32.8 %SV35.8 ml LVEF(%)62.1 (>50%) Aortic Valve AoV Peak Wagner.115.8cm/sAoV VTI20.6cm AO Peak GR.5.4mmHgLVOT VTI 13.79cm AO Mean GR.3mmHgAVA (VTI)2.20cm2 Mitral Valve MV E Edrvfboe38.7cm/sMV DECEL [id number] MV A Xvcwgbkw62.2cm/sE/A Ratio0.7 TDI Lateral E' P. V6.76cm/sMedial E' P. V5.53cm/s E/Lateral E'9.9E/Medial E'12.1 Pulmonary Vein S1 Sdhajshl51.6cm/sS2 Mdpocxix44.78cm/s D2 Abtcxhli05.8cm/s LEFT VENTRICLE The left ventricle is normal size. There is mild concentric left ventricular hypertrophy. The left ve ntricular systolic function is normal and the ejection fraction is within normal range. The Ejection Fraction is 55-60%. Septal motion consistent with conduction abnormality. Otherwise, grossly normal w all motion. Transmitral Doppler flow pattern is Grade I-abnormal relaxation pattern. RIGHT VENTRICLE The right ventricle is normal size. The right ventricular systolic function is normal. ATRIA The left atrium size is normal. The right atrium size is normal. The interatrial septum is intact wit h no evidence for an atrial septal defect or patent foramen ovale as noted on 2-D or Doppler imaging. AORTIC VALVE The aortic valve is calcified but opens well. Doppler and Color Flow revealed no significant aortic r egurgitation. There is no significant aortic valvular stenosis. MITRAL VALVE The mitral valve is calcified but opens well. Posterior mitral annular calcification is mild to moder ate. There is no evidence of mitral valve prolapse. There is no mitral valve stenosis. Doppler and Co swetha-flow revealed trace mitral regurgitation. TRICUSPID VALVE The tricuspid valve is normal in structure and function. Doppler and Color Flow revealed no tricuspid valve regurgitation noted. There is no tricuspid valve stenosis. PULMONIC VALVE The pulmonic valve is not well visualized. Doppler and Color Flow revealed no pulmonic valvular regur gitation. There is no pulmonic valvular stenosis. GREAT VESSELS The aortic root is normal in size. The ascending aorta is mildly dilated at 3.5 cm. The IVC is normal in size and collapses >50% with inspiration. PERICARDIAL EFFUSION There is no evidence of significant pericardial effusion. Critical Notification Critical Value: No <Conclusion> The left ventricular systolic function is normal and the ejection fraction is within normal range. Th e Ejection Fraction is 55-60%. Septal motion consistent with conduction abnormality. Otherwise, grossly normal wall motion. The ascending aorta is mildly dilated at 3.5 cm. Signed by : Tez Rooney, Electronically Approved : 05/07/2020 15:49:59
--- NOTE | 2020-05-07 16:31 | NUR ---
Wound Care Wound Type/Assessment: left lateral foot dfu. healing surgical incision from 5th toe amp, very small opening at distal end. Pt also has stage II pu to R buttock Treatment Recommendations/Plan: Cleansed foot wound, applied xeroform and bandaid, recommend to change every 3 days. A&D ointment applied to buttocks. Recommend to reapply BID and PRN Education provided: Educated pt on PU prevention and WC POC Offloading surface/device: WC cushion ordered and wedge used to offload buttock while in bed Recommended Referrals/Tests: none Discharge Recommendations for dressings: Continue as above noted
[2020-05-07] MEDS ORDERED: VITS A & D/LANOLIN TOPICAL OINTMENT 42GM TUBE. TP PRN (16:45)
[2020-05-07] MEDS: IV NORMAL SALINE 1000ML BAG 1,000 ML IV SCH (20:38)
[2020-05-07] MEDS: cloNIDine HCL 0.1 MG TABLET PO PRN (20:38)
[2020-05-07] MEDS: ATORVASTATIN CALCIUM 10 MG TABLET. PO SCH (20:39)
[2020-05-07] MEDS ORDERED: INSULIN GLARGINE SYRINGE. SQ SCH (21:00)
[2020-05-08] VITALS (8 sets, daily range): BP systolic 134–211; BP diastolic 61–117
[2020-05-08] MEDS: NITROGLYCERIN OINT 1 GM PACKET. TP SCH ×4 (00:45→17:45)
[2020-05-08] MEDS: METOPROLOL TARTRATE 5 MG/5 ML VIAL. IVP SCH ×4 (00:45→17:46)
[2020-05-08] MEDS: PIPERACILLIN/TAZOBACTAM 4.5 GM in IV NORMAL SALINE 100ML 100 ML IV SCH ×4 (00:50→17:48)
[2020-05-08] MEDS: PROCHLORPERAZINE 10 MG/2 ML VIAL. IV PRN (03:18)
[2020-05-08] MEDS: HYDROmorphone 2 MG/ML VIAL IV PRN ×3 (04:32→14:53)
[2020-05-08] MEDS: LABETALOL 20 MG/4 ML DISP.SYRIN. IVP PRN (05:06)
[2020-05-08 05:52] LABS: ALBUMIN 3.5 g/dL (3.4-5.0); ALBUMIN/GLOBULIN RATIO 0.8 (1.0-1.7); CALCIUM 9.3 mg/dL (8.5-10.1); CREATININE 1.2 mg/dL (0.7-1.3); GFR 60.2; TOTAL BILIRUBIN 1.3 mg/dL (0.2-1.0); TOTAL PROTEIN 7.8 g/dL (6.4-8.2)
[2020-05-08 06:19] LABS: BASO # 0.1 x10^3/uL (0.0-0.2); BASO % 1 % (0-3); EOS # 0.2 x10^3/uL (0.0-0.7); EOS % 2 % (0-3); HEMATOCRIT 33.2 % (39.0-53.0); HEMOGLOBIN 11.3 g/dL (13.0-17.5); LYMPH # 1.9 x10^3/uL (1.0-4.8); LYMPH % 20 % (24-48); MEAN CORPUSCULAR HEMOGLOBIN 32 pg (25-35); MEAN CORPUSCULAR HGB CONC 34 g/dL (31-37); MEAN CORPUSCULAR VOLUME 94 fL (79-100); MONO # 0.9 x10^3/uL (0.0-1.1); MONO % 10 % (0-9); NEUT # 6.4 x10^3/uL (1.8-7.7); NEUT % 68 % (31-73); PLATELET COUNT 191 x10^3/uL (140-400); RED BLOOD COUNT 3.55 x10^6/uL (4.30-5.70); WHITE BLOOD COUNT 9.4 x10^3/uL (4.0-11.0)
[2020-05-08] MEDS: PANTOPRAZOLE IV PUSH 40 MG VIAL. IVP SCH (07:30)
[2020-05-08] MEDS: ASPIRIN ENTERIC COATED 81 MG TABLET.DR. PO SCH (08:00)
[2020-05-08] MEDS: ENOXAPARIN 40 MG/0.4 ML SYRINGE. SQ SCH (08:37)
[2020-05-08] MEDS: IV NORMAL SALINE 1000ML BAG 1,000 ML IV SCH ×2 (08:38→22:51)
[2020-05-08] MEDS: INSULIN LISPRO 300 UNITS/3 ML VIAL. SQ SCH ×4 (08:39→21:00)
[2020-05-08] MEDS: LACTOBACILLUS RHAMNOSUS GG 1 CAPSULE. PO SCH ×2 (08:42→22:43)
[2020-05-08] MEDS: MULTIVITAMIN with MINERAL TABLET. PO SCH (08:43)
[2020-05-08] MEDS: GABAPENTIN 100 MG CAPSULE. PO SCH ×3 (08:43→22:43)
[2020-05-08] MEDS: THIAMINE 100 MG TABLET. PO SCH (08:43)
[2020-05-08] MEDS: FOLIC ACID 1 MG TABLET. PO SCH (08:43)
[2020-05-08] MEDS: METOPROLOL SUCC 24HR ER 100 MG TAB.ER.24H. PO SCH (09:00)
--- NOTE | 2020-05-08 13:24 | PDOC ---
G I PROGRESS NOTE Subjective Upper abdominal pain continues. Objective Apparently being considered for percutaneous cholecystostomy. Physical Exam Lungs clear. RRR Abdomen soft, upper abdominal tenderness. Review of Relevant I have reviewed the following items alyse (where applicable) has been applied. Labs Laboratory Tests Test 05/06/20 21:26 05/06/20 21:35 05/06/20 22:44 05/07/20 00:15 Glucose (Fingerstick) 214 mg/dL (70-99) White Blood Count 13.1 x10^3/uL (4.0-11.0) Red Blood Count 4.00 x10^6/uL (4.30-5.70) Hemoglobin 12.9 g/dL (13.0-17.5) Hematocrit 37.1 % (39.0-53.0) Mean Corpuscular Volume 93 fL (79-100) Mean Corpuscular Hemoglobin 32 pg (25-35) Mean Corpuscular Hemoglobin Concent 35 g/dL (31-37) Red Cell Distribution Width 12.9 % (11.5-14.5) Platelet Count 300 x10^3/uL (140-400) Neutrophils (%) (Auto) 81 % (31-73) Lymphocytes (%) (Auto) 13 % (24-48) Monocytes (%) (Auto) 6 % (0-9) Eosinophils (%) (Auto) 0 % (0-3) Basophils (%) (Auto) 1 % (0-3) Neutrophils # (Auto) 10.6 x10^3/uL (1.8-7.7) Lymphocytes # (Auto) 1.7 x10^3/uL (1.0-4.8) Monocytes # (Auto) 0.7 x10^3/uL (0.0-1.1) Eosinophils # (Auto) 0.0 x10^3/uL (0.0-0.7) Basophils # (Auto) 0.1 x10^3/uL (0.0-0.2) Sodium Level 136 mmol/L (136-145) 137 mmol/L (136-145) Potassium Level 5.3 mmol/L (3.5-5.1) 4.9 mmol/L (3.5-5.1) Chloride Level 100 mmol/L (98-107) 103 mmol/L (98-107) Carbon Dioxide Level 20 mmol/L (21-32) 20 mmol/L (21-32) Anion Gap 16 (6-14) 14 (6-14) Blood Urea Nitrogen 31 mg/dL (8-26) 29 mg/dL (8-26) Creatinine 1.5 mg/dL (0.7-1.3) 1.3 mg/dL (0.7-1.3) Estimated GFR (Cockcroft-Gault) 46.5 54.9 BUN/Creatinine Ratio 21 (6-20) Glucose Level 232 mg/dL (70-99) 260 mg/dL (70-99) Calcium Level 10.4 mg/dL (8.5-10.1) 9.8 mg/dL (8.5-10.1) Total Bilirubin 0.9 mg/dL (0.2-1.0) Aspartate Amino Transf (AST/SGOT) 32 U/L (15-37) Alanine Aminotransferase (ALT/SGPT) 33 U/L (16-63) Alkaline Phosphatase 287 U/L (46-116) Creatine Kinase 34 U/L (39-308) Creatine Kinase MB (Mass) 1.6 ng/mL (0.0-3.6) Creatine Kinase MB Relative Index % (0-4) Troponin I Quantitative < 0.017 ng/mL (0.000-0.055) Total Protein 9.3 g/dL (6.4-8.2) Albumin 4.3 g/dL (3.4-5.0) Albumin/Globulin Ratio 0.9 (1.0-1.7) Lipase 31 U/L (73-393) Urine Collection Type Unknown Urine Color Yellow Urine Clarity Clear Urine pH 6.5 (<5.0-8.0) Urine Specific [place] 1.015 (1.000-1.030) Urine Protein 30 mg/dL (NEG-TRACE) Urine Glucose (UA) Negative mg/dL (NEG) Urine Ketones (Stick) Trace mg/dL (NEG) Urine Blood Negative (NEG) Urine Nitrite Negative (NEG) Urine Bilirubin Negative (NEG) Urine Urobilinogen Dipstick 0.2 mg/dL (0.2 mg/dL) Urine Leukocyte Esterase Negative (NEG) Urine RBC 1-2 /HPF (0-2) Urine WBC Occ /HPF (0-4) Urine Bacteria 0 /HPF (0-FEW) Urine Hyaline Casts Moderate /HPF Test 05/07/20 06:11 05/07/20 07:58 05/07/20 14:00 05/07/20 14:45 Prothrombin Time 14.7 SEC (11.7-14.0) Prothromb Time International Ratio 1.2 (0.8-1.1) Potassium Level 5.2 mmol/L (3.5-5.1) 4.4 mmol/L (3.5-5.1) Magnesium Level 2.2 mg/dL (1.8-2.4) Troponin I Quantitative < 0.017 ng/mL (0.000-0.055) Thyroid Stimulating Hormone (TSH) 2.930 uIU/mL (0.358-3.74) Glucose (Fingerstick) 203 mg/dL (70-99) Coronavirus (COVID-19)(PCR) Negative (NEGATIVE) Test 05/07/20 16:56 05/07/20 20:31 05/08/20 05:15 05/08/20 05:25 Glucose (Fingerstick) 152 mg/dL (70-99) 156 mg/dL (70-99) White Blood Count 9.4 x10^3/uL (4.0-11.0) Red Blood Count 3.55 x10^6/uL (4.30-5.70) Hemoglobin 11.3 g/dL (13.0-17.5) Hematocrit 33.2 % (39.0-53.0) Mean Corpuscular Volume 94 fL (79-100) Mean Corpuscular Hemoglobin 32 pg (25-35) Mean Corpuscular Hemoglobin Concent 34 g/dL (31-37) Red Cell Distribution Width 13.0 % (11.5-14.5) Platelet Count 191 x10^3/uL (140-400) Neutrophils (%) (Auto) 68 % (31-73) Lymphocytes (%) (Auto) 20 % (24-48) Monocytes (%) (Auto) 10 % (0-9) Eosinophils (%) (Auto) 2 % (0-3) Basophils (%) (Auto) 1 % (0-3) Neutrophils # (Auto) 6.4 x10^3/uL (1.8-7.7) Lymphocytes # (Auto) 1.9 x10^3/uL (1.0-4.8) Monocytes # (Auto) 0.9 x10^3/uL (0.0-1.1) Eosinophils # (Auto) 0.2 x10^3/uL (0.0-0.7) Basophils # (Auto) 0.1 x10^3/uL (0.0-0.2) Sodium Level 140 mmol/L (136-145) Potassium Level 4.0 mmol/L (3.5-5.1) Chloride Level 105 mmol/L (98-107) Carbon Dioxide Level 22 mmol/L (21-32) Anion Gap 13 (6-14) Blood Urea Nitrogen 20 mg/dL (8-26) Creatinine 1.2 mg/dL (0.7-1.3) Estimated GFR (Cockcroft-Gault) 60.2 BUN/Creatinine Ratio 17 (6-20) Glucose Level 200 mg/dL (70-99) Calcium Level 9.3 mg/dL (8.5-10.1) Total Bilirubin 1.3 mg/dL (0.2-1.0) Aspartate Amino Transf (AST/SGOT) 42 U/L (15-37) Alanine Aminotransferase (ALT/SGPT) 40 U/L (16-63) Alkaline Phosphatase 246 U/L (46-116) Total Protein 7.8 g/dL (6.4-8.2) Albumin 3.5 g/dL (3.4-5.0) Albumin/Globulin Ratio 0.8 (1.0-1.7) Prothrombin Time 15.0 SEC (11.7-14.0) Prothromb Time International Ratio 1.2 (0.8-1.1) Test 05/08/20 07:41 05/08/20 11:42 Glucose (Fingerstick) 246 mg/dL (70-99) 238 mg/dL (70-99) Laboratory Tests Test 05/07/20 14:00 05/07/20 14:45 05/07/20 16:56 05/07/20 20:31 Potassium Level 4.4 mmol/L (3.5-5.1) Coronavirus (COVID-19)(PCR) Negative (NEGATIVE) Glucose (Fingerstick) 152 mg/dL (70-99) 156 mg/dL (70-99) Test 05/08/20 05:15 05/08/20 05:25 05/08/20 07:41 05/08/20 11:42 White Blood Count 9.4 x10^3/uL (4.0-11.0) Red Blood Count 3.55 x10^6/uL (4.30-5.70) Hemoglobin 11.3 g/dL (13.0-17.5) Hematocrit 33.2 % (39.0-53.0) Mean Corpuscular Volume 94 fL (79-100) Mean Corpuscular Hemoglobin 32 pg (25-35) Mean Corpuscular Hemoglobin Concent 34 g/dL (31-37) Red Cell Distribution Width 13.0 % (11.5-14.5) Platelet Count 191 x10^3/uL (140-400) Neutrophils (%) (Auto) 68 % (31-73) Lymphocytes (%) (Auto) 20 % (24-48) Monocytes (%) (Auto) 10 % (0-9) Eosinophils (%) (Auto) 2 % (0-3) Basophils (%) (Auto) 1 % (0-3) Neutrophils # (Auto) 6.4 x10^3/uL (1.8-7.7) Lymphocytes # (Auto) 1.9 x10^3/uL (1.0-4.8) Monocytes # (Auto) 0.9 x10^3/uL (0.0-1.1) Eosinophils # (Auto) 0.2 x10^3/uL (0.0-0.7) Basophils # (Auto) 0.1 x10^3/uL (0.0-0.2) Sodium Level 140 mmol/L (136-145) Potassium Level 4.0 mmol/L (3.5-5.1) Chloride Level 105 mmol/L (98-107) Carbon Dioxide Level 22 mmol/L (21-32) Anion Gap 13 (6-14) Blood Urea Nitrogen 20 mg/dL (8-26) Creatinine 1.2 mg/dL (0.7-1.3) Estimated GFR (Cockcroft-Gault) 60.2 BUN/Creatinine Ratio 17 (6-20) Glucose Level 200 mg/dL (70-99) Calcium Level 9.3 mg/dL (8.5-10.1) Total Bilirubin 1.3 mg/dL (0.2-1.0) Aspartate Amino Transf (AST/SGOT) 42 U/L (15-37) Alanine Aminotransferase (ALT/SGPT) 40 U/L (16-63) Alkaline Phosphatase 246 U/L (46-116) Total Protein 7.8 g/dL (6.4-8.2) Albumin 3.5 g/dL (3.4-5.0) Albumin/Globulin Ratio 0.8 (1.0-1.7) Prothrombin Time 15.0 SEC (11.7-14.0) Prothromb Time International Ratio 1.2 (0.8-1.1) Glucose (Fingerstick) 246 mg/dL (70-99) 238 mg/dL (70-99) Vitals/I & O Vital Sign - Last 24 Hours 05/07/20 05/07/20 05/07/20 05/07/20 13:54 15:00 17:53 17:54 Temp 98.3 98.3 Pulse 87 87 87 Resp 18 B/P (MAP) 157/71 (99) 157/71 157/71 Pulse Ox 97 97 O2 Delivery Room Air Room Air 05/07/20 05/07/20 05/07/20 05/07/20 19:35 20:00 20:38 23:45 Temp 98.2 98.0 98.2 98.0 Pulse 86 86 68 Resp 20 22 B/P (MAP) 216/79 (124) 216/79 194/100 (131) Pulse Ox 98 94 O2 Delivery Room Air Room Air Room Air 05/08/20 05/08/20 05/08/20 05/08/20 00:45 00:45 03:00 04:48 Temp 98.7 98.7 Pulse 68 68 84 Resp 18 B/P (MAP) 194/100 194/100 189/89 (122) Pulse Ox 95 O2 Delivery Room Air 05/08/20 05/08/20 05/08/20 05/08/20 05:06 06:24 06:24 07:00 Temp 98.0 98.0 Pulse 84 84 84 82 Resp 20 B/P (MAP) 189/89 189/89 189/89 167/66 (99) Pulse Ox 98 O2 Delivery Room Air 05/08/20 05/08/20 05/08/20 05/08/20 08:00 08:37 09:07 11:21 Temp 99.0 99.0 Pulse 81 Resp 20 18 B/P (MAP) 134/61 (85) Pulse Ox 95 95 95 O2 Delivery Room Air Room Air Room Air Room Air 05/08/20 05/08/20 12:41 12:42 Pulse 91 91 B/P (MAP) 167/74 167/74 Intake and Output 05/07/20 05/07/20 05/08/20 15:00 23:00 07:00 Intake Total 0 ml 30 ml 30 ml Output Total 550 ml 400 ml 900 ml Balance -550 ml -370 ml -870 ml Problem List Problems Medical Problems: (1) Abdominal pain Status: Acute (2) Acute electrocardiogram changes Status: Acute (3) Cholecystitis Status: Acute (4) Hyperkalemia Status: Acute Assessment Acute cholecystitis. Prior NSAID ulcer, on PPI here. Plan of Care Note Await surgical service's thoughts. Justicifation of Admission Dx: Justifications for Admission: Justification of Admission Dx: Yes TRESSA MOJICA MD May 08, 2020 13:24
--- NOTE | 2020-05-08 14:16 | PDOC ---
SURGICAL PROGRESS NOTE Subjective Pt with c/o pain and dry heaves Vital Signs Vital Signs Date Time Temp Pulse Resp B/P (MAP) Pulse Ox O2 Delivery O2 Flow Rate FiO2 05/08/20 12:42 91 167/74 05/08/20 11:21 99.0 18 95 Room Air 99.0 I&O Intake and Output 05/08/20 07:00 Intake Total 60 ml Output Total 1850 ml Balance -1790 ml Intake Oral 60 ml Output Urine Total 1850 ml General: Alert, Oriented X3, Cooperative, mild distress Abdomen: Soft, Other (mild TTP epigastric, RUQ) Labs Laboratory Tests Test 05/06/20 21:26 05/06/20 21:35 05/06/20 22:44 05/07/20 00:15 Glucose (Fingerstick) 214 mg/dL (70-99) White Blood Count 13.1 x10^3/uL (4.0-11.0) Red Blood Count 4.00 x10^6/uL (4.30-5.70) Hemoglobin 12.9 g/dL (13.0-17.5) Hematocrit 37.1 % (39.0-53.0) Mean Corpuscular Volume 93 fL (79-100) Mean Corpuscular Hemoglobin 32 pg (25-35) Mean Corpuscular Hemoglobin Concent 35 g/dL (31-37) Red Cell Distribution Width 12.9 % (11.5-14.5) Platelet Count 300 x10^3/uL (140-400) Neutrophils (%) (Auto) 81 % (31-73) Lymphocytes (%) (Auto) 13 % (24-48) Monocytes (%) (Auto) 6 % (0-9) Eosinophils (%) (Auto) 0 % (0-3) Basophils (%) (Auto) 1 % (0-3) Neutrophils # (Auto) 10.6 x10^3/uL (1.8-7.7) Lymphocytes # (Auto) 1.7 x10^3/uL (1.0-4.8) Monocytes # (Auto) 0.7 x10^3/uL (0.0-1.1) Eosinophils # (Auto) 0.0 x10^3/uL (0.0-0.7) Basophils # (Auto) 0.1 x10^3/uL (0.0-0.2) Sodium Level 136 mmol/L (136-145) 137 mmol/L (136-145) Potassium Level 5.3 mmol/L (3.5-5.1) 4.9 mmol/L (3.5-5.1) Chloride Level 100 mmol/L (98-107) 103 mmol/L (98-107) Carbon Dioxide Level 20 mmol/L (21-32) 20 mmol/L (21-32) Anion Gap 16 (6-14) 14 (6-14) Blood Urea Nitrogen 31 mg/dL (8-26) 29 mg/dL (8-26) Creatinine 1.5 mg/dL (0.7-1.3) 1.3 mg/dL (0.7-1.3) Estimated GFR (Cockcroft-Gault) 46.5 54.9 BUN/Creatinine Ratio 21 (6-20) Glucose Level 232 mg/dL (70-99) 260 mg/dL (70-99) Calcium Level 10.4 mg/dL (8.5-10.1) 9.8 mg/dL (8.5-10.1) Total Bilirubin 0.9 mg/dL (0.2-1.0) Aspartate Amino Transf (AST/SGOT) 32 U/L (15-37) Alanine Aminotransferase (ALT/SGPT) 33 U/L (16-63) Alkaline Phosphatase 287 U/L (46-116) Creatine Kinase 34 U/L (39-308) Creatine Kinase MB (Mass) 1.6 ng/mL (0.0-3.6) Creatine Kinase MB Relative Index % (0-4) Troponin I Quantitative < 0.017 ng/mL (0.000-0.055) Total Protein 9.3 g/dL (6.4-8.2) Albumin 4.3 g/dL (3.4-5.0) Albumin/Globulin Ratio 0.9 (1.0-1.7) Lipase 31 U/L (73-393) Urine Collection Type Unknown Urine Color Yellow Urine Clarity Clear Urine pH 6.5 (<5.0-8.0) Urine Specific Dailey 1.015 (1.000-1.030) Urine Protein 30 mg/dL (NEG-TRACE) Urine Glucose (UA) Negative mg/dL (NEG) Urine Ketones (Stick) Trace mg/dL (NEG) Urine Blood Negative (NEG) Urine Nitrite Negative (NEG) Urine Bilirubin Negative (NEG) Urine Urobilinogen Dipstick 0.2 mg/dL (0.2 mg/dL) Urine Leukocyte Esterase Negative (NEG) Urine RBC 1-2 /HPF (0-2) Urine WBC Occ /HPF (0-4) Urine Bacteria 0 /HPF (0-FEW) Urine Hyaline Casts Moderate /HPF Test 05/07/20 06:11 05/07/20 07:58 05/07/20 14:00 05/07/20 14:45 Prothrombin Time 14.7 SEC (11.7-14.0) Prothromb Time International Ratio 1.2 (0.8-1.1) Potassium Level 5.2 mmol/L (3.5-5.1) 4.4 mmol/L (3.5-5.1) Magnesium Level 2.2 mg/dL (1.8-2.4) Troponin I Quantitative < 0.017 ng/mL (0.000-0.055) Thyroid Stimulating Hormone (TSH) 2.930 uIU/mL (0.358-3.74) Glucose (Fingerstick) 203 mg/dL (70-99) Coronavirus (COVID-19)(PCR) Negative (NEGATIVE) Test 05/07/20 16:56 05/07/20 20:31 05/08/20 05:15 05/08/20 05:25 Glucose (Fingerstick) 152 mg/dL (70-99) 156 mg/dL (70-99) White Blood Count 9.4 x10^3/uL (4.0-11.0) Red Blood Count 3.55 x10^6/uL (4.30-5.70) Hemoglobin 11.3 g/dL (13.0-17.5) Hematocrit 33.2 % (39.0-53.0) Mean Corpuscular Volume 94 fL (79-100) Mean Corpuscular Hemoglobin 32 pg (25-35) Mean Corpuscular Hemoglobin Concent 34 g/dL (31-37) Red Cell Distribution Width 13.0 % (11.5-14.5) Platelet Count 191 x10^3/uL (140-400) Neutrophils (%) (Auto) 68 % (31-73) Lymphocytes (%) (Auto) 20 % (24-48) Monocytes (%) (Auto) 10 % (0-9) Eosinophils (%) (Auto) 2 % (0-3) Basophils (%) (Auto) 1 % (0-3) Neutrophils # (Auto) 6.4 x10^3/uL (1.8-7.7) Lymphocytes # (Auto) 1.9 x10^3/uL (1.0-4.8) Monocytes # (Auto) 0.9 x10^3/uL (0.0-1.1) Eosinophils # (Auto) 0.2 x10^3/uL (0.0-0.7) Basophils # (Auto) 0.1 x10^3/uL (0.0-0.2) Sodium Level 140 mmol/L (136-145) Potassium Level 4.0 mmol/L (3.5-5.1) Chloride Level 105 mmol/L (98-107) Carbon Dioxide Level 22 mmol/L (21-32) Anion Gap 13 (6-14) Blood Urea Nitrogen 20 mg/dL (8-26) Creatinine 1.2 mg/dL (0.7-1.3) Estimated GFR (Cockcroft-Gault) 60.2 BUN/Creatinine Ratio 17 (6-20) Glucose Level 200 mg/dL (70-99) Calcium Level 9.3 mg/dL (8.5-10.1) Total Bilirubin 1.3 mg/dL (0.2-1.0) Aspartate Amino Transf (AST/SGOT) 42 U/L (15-37) Alanine Aminotransferase (ALT/SGPT) 40 U/L (16-63) Alkaline Phosphatase 246 U/L (46-116) Total Protein 7.8 g/dL (6.4-8.2) Albumin 3.5 g/dL (3.4-5.0) Albumin/Globulin Ratio 0.8 (1.0-1.7) Prothrombin Time 15.0 SEC (11.7-14.0) Prothromb Time International Ratio 1.2 (0.8-1.1) Test 05/08/20 07:41 05/08/20 11:42 Glucose (Fingerstick) 246 mg/dL (70-99) 238 mg/dL (70-99) Laboratory Tests Test 05/07/20 14:45 05/07/20 16:56 05/07/20 20:31 05/08/20 05:15 Coronavirus (COVID-19)(PCR) Negative (NEGATIVE) Glucose (Fingerstick) 152 mg/dL (70-99) 156 mg/dL (70-99) White Blood Count 9.4 x10^3/uL (4.0-11.0) Red Blood Count 3.55 x10^6/uL (4.30-5.70) Hemoglobin 11.3 g/dL (13.0-17.5) Hematocrit 33.2 % (39.0-53.0) Mean Corpuscular Volume 94 fL (79-100) Mean Corpuscular Hemoglobin 32 pg (25-35) Mean Corpuscular Hemoglobin Concent 34 g/dL (31-37) Red Cell Distribution Width 13.0 % (11.5-14.5) Platelet Count 191 x10^3/uL (140-400) Neutrophils (%) (Auto) 68 % (31-73) Lymphocytes (%) (Auto) 20 % (24-48) Monocytes (%) (Auto) 10 % (0-9) Eosinophils (%) (Auto) 2 % (0-3) Basophils (%) (Auto) 1 % (0-3) Neutrophils # (Auto) 6.4 x10^3/uL (1.8-7.7) Lymphocytes # (Auto) 1.9 x10^3/uL (1.0-4.8) Monocytes # (Auto) 0.9 x10^3/uL (0.0-1.1) Eosinophils # (Auto) 0.2 x10^3/uL (0.0-0.7) Basophils # (Auto) 0.1 x10^3/uL (0.0-0.2) Sodium Level 140 mmol/L (136-145) Potassium Level 4.0 mmol/L (3.5-5.1) Chloride Level 105 mmol/L (98-107) Carbon Dioxide Level 22 mmol/L (21-32) Anion Gap 13 (6-14) Blood Urea Nitrogen 20 mg/dL (8-26) Creatinine 1.2 mg/dL (0.7-1.3) Estimated GFR (Cockcroft-Gault) 60.2 BUN/Creatinine Ratio 17 (6-20) Glucose Level 200 mg/dL (70-99) Calcium Level 9.3 mg/dL (8.5-10.1) Total Bilirubin 1.3 mg/dL (0.2-1.0) Aspartate Amino Transf (AST/SGOT) 42 U/L (15-37) Alanine Aminotransferase (ALT/SGPT) 40 U/L (16-63) Alkaline Phosphatase 246 U/L (46-116) Total Protein 7.8 g/dL (6.4-8.2) Albumin 3.5 g/dL (3.4-5.0) Albumin/Globulin Ratio 0.8 (1.0-1.7) Test 05/08/20 05:25 05/08/20 07:41 05/08/20 11:42 Prothrombin Time 15.0 SEC (11.7-14.0) Prothromb Time International Ratio 1.2 (0.8-1.1) Glucose (Fingerstick) 246 mg/dL (70-99) 238 mg/dL (70-99) Problem List Problems Medical Problems: (1) Abdominal pain Status: Acute (2) Acute electrocardiogram changes Status: Acute (3) Cholecystitis Status: Acute (4) Hyperkalemia Status: Acute Assessment/Plan cholecystitis, demonstrated by pippda scan d/w pt and pt's supportive options include cholecystostomy tube placement, abx and supportive care, and cholecystectomy. Given liver disease seen on CT pt is at increased risk of perioperative morbidity and mortality R/R/B/A d/w pt and pt's . They will consider. Will f/u in AM. Justicifation of Admission Dx: Justifications for Admission: Justification of Admission Dx: Yes ALEXANDRE STARK MD May 08, 2020 14:16
--- NOTE | 2020-05-08 16:33 | PDOC ---
PROGRESS NOTES Chief Complaint Chief Complaint A/P: Intractable abdominal pain - with signs of acute on chronic cholecytitis. General surgery consulted Nausea and vomiting - IV antiemetics Hyperkalemia - corrected. Will monitor. Likely 2/2 LIVE LIVE - vasomotor nephropathy. Improved with hydration Sepsis - likely 2/2 cholecystitis. Started on zosyn and IVF Cirrhosis of liver - noted on CT scan, likely ETOH related. Counseled on ETOH cessation. 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 Pain is 7 out of 10, colicky in nature. Nausea did not remit with Zofran but did improve after Compazine dosing. Still vomited again in the ED and overnight. despite meds. He is still nauseated currently. CT imaging of patient's abdomen shows gallstones in the gallbladder with a dilated CBD which appears to be stable from previous CT imaging. Dedicated ultrasound was performed which showed cholelithiasis with mild gallbladder wall thickening questionable acute or chronic cholecystitis no pericolic cystic fluid. EKG - Heart rate 95 accelerated junctional rhythm, left axis deviation peaked T waves WBC 13.1, Hb 12.9, platelets 300, NA 136, BUN 31, CR 1.5, glucose 232, alkaline phosphatase 287, calcium 10.4, lipase normal Patient's troponin within normal limits. Patient's potassium was noted to be 5.3. Patient was treated with glucagon, insulin and calcium. Post treatment repeat creatinine and potassium improved potassium resulted at 4.9. Patient was placed on antibiotics Zosyn. Patient was admitted with general surgery and cardiology consults. HIDA scan positive for cholecystitis. Afebrile. WBC down to 9, creatinine improved. Bilirubin up to 1.3. He had a little vomiting overnight. He wants to try some diet today is amenable to staying inpatient for further treatment of his sepsis and cholecystitis with tentative plans for surgery in the next 48 to 72 hours possibly depending on surgery recommendations. No chest pain or shortness of breath Vitals Vitals Vital Signs Date Time Temp Pulse Resp B/P (MAP) Pulse Ox O2 Delivery O2 Flow Rate FiO2 05/08/20 15:23 95 Room Air 05/08/20 15:00 97.7 78 20 191/75 (113) 97.7 Physical Exam General: Alert, Oriented X3, Cooperative, mild distress Heart: Regular rate, No murmurs Lungs: Clear Abdomen: Soft, Other (mild TTP epigastric, RUQ) Extremities: No cyanosis, No edema Skin: No breakdown, No significant lesion Labs LABS Laboratory Tests Test 05/07/20 16:56 05/07/20 20:31 05/08/20 05:15 05/08/20 05:25 Glucose (Fingerstick) 152 mg/dL (70-99) 156 mg/dL (70-99) White Blood Count 9.4 x10^3/uL (4.0-11.0) Red Blood Count 3.55 x10^6/uL (4.30-5.70) Hemoglobin 11.3 g/dL (13.0-17.5) Hematocrit 33.2 % (39.0-53.0) Mean Corpuscular Volume 94 fL (79-100) Mean Corpuscular Hemoglobin 32 pg (25-35) Mean Corpuscular Hemoglobin Concent 34 g/dL (31-37) Red Cell Distribution Width 13.0 % (11.5-14.5) Platelet Count 191 x10^3/uL (140-400) Neutrophils (%) (Auto) 68 % (31-73) Lymphocytes (%) (Auto) 20 % (24-48) Monocytes (%) (Auto) 10 % (0-9) Eosinophils (%) (Auto) 2 % (0-3) Basophils (%) (Auto) 1 % (0-3) Neutrophils # (Auto) 6.4 x10^3/uL (1.8-7.7) Lymphocytes # (Auto) 1.9 x10^3/uL (1.0-4.8) Monocytes # (Auto) 0.9 x10^3/uL (0.0-1.1) Eosinophils # (Auto) 0.2 x10^3/uL (0.0-0.7) Basophils # (Auto) 0.1 x10^3/uL (0.0-0.2) Sodium Level 140 mmol/L (136-145) Potassium Level 4.0 mmol/L (3.5-5.1) Chloride Level 105 mmol/L (98-107) Carbon Dioxide Level 22 mmol/L (21-32) Anion Gap 13 (6-14) Blood Urea Nitrogen 20 mg/dL (8-26) Creatinine 1.2 mg/dL (0.7-1.3) Estimated GFR (Cockcroft-Gault) 60.2 BUN/Creatinine Ratio 17 (6-20) Glucose Level 200 mg/dL (70-99) Calcium Level 9.3 mg/dL (8.5-10.1) Total Bilirubin 1.3 mg/dL (0.2-1.0) Aspartate Amino Transf (AST/SGOT) 42 U/L (15-37) Alanine Aminotransferase (ALT/SGPT) 40 U/L (16-63) Alkaline Phosphatase 246 U/L (46-116) Total Protein 7.8 g/dL (6.4-8.2) Albumin 3.5 g/dL (3.4-5.0) Albumin/Globulin Ratio 0.8 (1.0-1.7) Prothrombin Time 15.0 SEC (11.7-14.0) Prothromb Time International Ratio 1.2 (0.8-1.1) Test 05/08/20 07:41 05/08/20 11:42 05/08/20 16:25 Glucose (Fingerstick) 246 mg/dL (70-99) 238 mg/dL (70-99) 208 mg/dL (70-99) Assessment and Plan Assessmemt and Plan Problems Medical Problems: (1) Abdominal pain Status: Acute (2) Acute electrocardiogram changes Status: Acute (3) Cholecystitis Status: Acute (4) Hyperkalemia Status: Acute Comment Review of Relevant I have reviewed the following items alyse (where applicable) has been applied. Labs Laboratory Tests Test 05/06/20 21:26 05/06/20 21:35 05/06/20 22:44 05/07/20 00:15 Glucose (Fingerstick) 214 mg/dL (70-99) White Blood Count 13.1 x10^3/uL (4.0-11.0) Red Blood Count 4.00 x10^6/uL (4.30-5.70) Hemoglobin 12.9 g/dL (13.0-17.5) Hematocrit 37.1 % (39.0-53.0) Mean Corpuscular Volume 93 fL (79-100) Mean Corpuscular Hemoglobin 32 pg (25-35) Mean Corpuscular Hemoglobin Concent 35 g/dL (31-37) Red Cell Distribution Width 12.9 % (11.5-14.5) Platelet Count 300 x10^3/uL (140-400) Neutrophils (%) (Auto) 81 % (31-73) Lymphocytes (%) (Auto) 13 % (24-48) Monocytes (%) (Auto) 6 % (0-9) Eosinophils (%) (Auto) 0 % (0-3) Basophils (%) (Auto) 1 % (0-3) Neutrophils # (Auto) 10.6 x10^3/uL (1.8-7.7) Lymphocytes # (Auto) 1.7 x10^3/uL (1.0-4.8) Monocytes # (Auto) 0.7 x10^3/uL (0.0-1.1) Eosinophils # (Auto) 0.0 x10^3/uL (0.0-0.7) Basophils # (Auto) 0.1 x10^3/uL (0.0-0.2) Sodium Level 136 mmol/L (136-145) 137 mmol/L (136-145) Potassium Level 5.3 mmol/L (3.5-5.1) 4.9 mmol/L (3.5-5.1) Chloride Level 100 mmol/L (98-107) 103 mmol/L (98-107) Carbon Dioxide Level 20 mmol/L (21-32) 20 mmol/L (21-32) Anion Gap 16 (6-14) 14 (6-14) Blood Urea Nitrogen 31 mg/dL (8-26) 29 mg/dL (8-26) Creatinine 1.5 mg/dL (0.7-1.3) 1.3 mg/dL (0.7-1.3) Estimated GFR (Cockcroft-Gault) 46.5 54.9 BUN/Creatinine Ratio 21 (6-20) Glucose Level 232 mg/dL (70-99) 260 mg/dL (70-99) Calcium Level 10.4 mg/dL (8.5-10.1) 9.8 mg/dL (8.5-10.1) Total Bilirubin 0.9 mg/dL (0.2-1.0) Aspartate Amino Transf (AST/SGOT) 32 U/L (15-37) Alanine Aminotransferase (ALT/SGPT) 33 U/L (16-63) Alkaline Phosphatase 287 U/L (46-116) Creatine Kinase 34 U/L (39-308) Creatine Kinase MB (Mass) 1.6 ng/mL (0.0-3.6) Creatine Kinase MB Relative Index % (0-4) Troponin I Quantitative < 0.017 ng/mL (0.000-0.055) Total Protein 9.3 g/dL (6.4-8.2) Albumin 4.3 g/dL (3.4-5.0) Albumin/Globulin Ratio 0.9 (1.0-1.7) Lipase 31 U/L (73-393) Urine Collection Type Unknown Urine Color Yellow Urine Clarity Clear Urine pH 6.5 (<5.0-8.0) Urine Specific [place] 1.015 (1.000-1.030) Urine Protein 30 mg/dL (NEG-TRACE) Urine Glucose (UA) Negative mg/dL (NEG) Urine Ketones (Stick) Trace mg/dL (NEG) Urine Blood Negative (NEG) Urine Nitrite Negative (NEG) Urine Bilirubin Negative (NEG) Urine Urobilinogen Dipstick 0.2 mg/dL (0.2 mg/dL) Urine Leukocyte Esterase Negative (NEG) Urine RBC 1-2 /HPF (0-2) Urine WBC Occ /HPF (0-4) Urine Bacteria 0 /HPF (0-FEW) Urine Hyaline Casts Moderate /HPF Test 05/07/20 06:11 05/07/20 07:58 05/07/20 14:00 05/07/20 14:45 Prothrombin Time 14.7 SEC (11.7-14.0) Prothromb Time International Ratio 1.2 (0.8-1.1) Potassium Level 5.2 mmol/L (3.5-5.1) 4.4 mmol/L (3.5-5.1) Magnesium Level 2.2 mg/dL (1.8-2.4) Troponin I Quantitative < 0.017 ng/mL (0.000-0.055) Thyroid Stimulating Hormone (TSH) 2.930 uIU/mL (0.358-3.74) Glucose (Fingerstick) 203 mg/dL (70-99) Coronavirus (COVID-19)(PCR) Negative (NEGATIVE) Test 05/07/20 16:56 05/07/20 20:31 05/08/20 05:15 05/08/20 05:25 Glucose (Fingerstick) 152 mg/dL (70-99) 156 mg/dL (70-99) White Blood Count 9.4 x10^3/uL (4.0-11.0) Red Blood Count 3.55 x10^6/uL (4.30-5.70) Hemoglobin 11.3 g/dL (13.0-17.5) Hematocrit 33.2 % (39.0-53.0) Mean Corpuscular Volume 94 fL (79-100) Mean Corpuscular Hemoglobin 32 pg (25-35) Mean Corpuscular Hemoglobin Concent 34 g/dL (31-37) Red Cell Distribution Width 13.0 % (11.5-14.5) Platelet Count 191 x10^3/uL (140-400) Neutrophils (%) (Auto) 68 % (31-73) Lymphocytes (%) (Auto) 20 % (24-48) Monocytes (%) (Auto) 10 % (0-9) Eosinophils (%) (Auto) 2 % (0-3) Basophils (%) (Auto) 1 % (0-3) Neutrophils # (Auto) 6.4 x10^3/uL (1.8-7.7) Lymphocytes # (Auto) 1.9 x10^3/uL (1.0-4.8) Monocytes # (Auto) 0.9 x10^3/uL (0.0-1.1) Eosinophils # (Auto) 0.2 x10^3/uL (0.0-0.7) Basophils # (Auto) 0.1 x10^3/uL (0.0-0.2) Sodium Level 140 mmol/L (136-145) Potassium Level 4.0 mmol/L (3.5-5.1) Chloride Level 105 mmol/L (98-107) Carbon Dioxide Level 22 mmol/L (21-32) Anion Gap 13 (6-14) Blood Urea Nitrogen 20 mg/dL (8-26) Creatinine 1.2 mg/dL (0.7-1.3) Estimated GFR (Cockcroft-Gault) 60.2 BUN/Creatinine Ratio 17 (6-20) Glucose Level 200 mg/dL (70-99) Calcium Level 9.3 mg/dL (8.5-10.1) Total Bilirubin 1.3 mg/dL (0.2-1.0) Aspartate Amino Transf (AST/SGOT) 42 U/L (15-37) Alanine Aminotransferase (ALT/SGPT) 40 U/L (16-63) Alkaline Phosphatase 246 U/L (46-116) Total Protein 7.8 g/dL (6.4-8.2) Albumin 3.5 g/dL (3.4-5.0) Albumin/Globulin Ratio 0.8 (1.0-1.7) Prothrombin Time 15.0 SEC (11.7-14.0) Prothromb Time International Ratio 1.2 (0.8-1.1) Test 05/08/20 07:41 05/08/20 11:42 05/08/20 16:25 Glucose (Fingerstick) 246 mg/dL (70-99) 238 mg/dL (70-99) 208 mg/dL (70-99) Laboratory Tests Test 05/07/20 16:56 05/07/20 20:31 05/08/20 05:15 05/08/20 05:25 Glucose (Fingerstick) 152 mg/dL (70-99) 156 mg/dL (70-99) White Blood Count 9.4 x10^3/uL (4.0-11.0) Red Blood Count 3.55 x10^6/uL (4.30-5.70) Hemoglobin 11.3 g/dL (13.0-17.5) Hematocrit 33.2 % (39.0-53.0) Mean Corpuscular Volume 94 fL (79-100) Mean Corpuscular Hemoglobin 32 pg (25-35) Mean Corpuscular Hemoglobin Concent 34 g/dL (31-37) Red Cell Distribution Width 13.0 % (11.5-14.5) Platelet Count 191 x10^3/uL (140-400) Neutrophils (%) (Auto) 68 % (31-73) Lymphocytes (%) (Auto) 20 % (24-48) Monocytes (%) (Auto) 10 % (0-9) Eosinophils (%) (Auto) 2 % (0-3) Basophils (%) (Auto) 1 % (0-3) Neutrophils # (Auto) 6.4 x10^3/uL (1.8-7.7) Lymphocytes # (Auto) 1.9 x10^3/uL (1.0-4.8) Monocytes # (Auto) 0.9 x10^3/uL (0.0-1.1) Eosinophils # (Auto) 0.2 x10^3/uL (0.0-0.7) Basophils # (Auto) 0.1 x10^3/uL (0.0-0.2) Sodium Level 140 mmol/L (136-145) Potassium Level 4.0 mmol/L (3.5-5.1) Chloride Level 105 mmol/L (98-107) Carbon Dioxide Level 22 mmol/L (21-32) Anion Gap 13 (6-14) Blood Urea Nitrogen 20 mg/dL (8-26) Creatinine 1.2 mg/dL (0.7-1.3) Estimated GFR (Cockcroft-Gault) 60.2 BUN/Creatinine Ratio 17 (6-20) Glucose Level 200 mg/dL (70-99) Calcium Level 9.3 mg/dL (8.5-10.1) Total Bilirubin 1.3 mg/dL (0.2-1.0) Aspartate Amino Transf (AST/SGOT) 42 U/L (15-37) Alanine Aminotransferase (ALT/SGPT) 40 U/L (16-63) Alkaline Phosphatase 246 U/L (46-116) Total Protein 7.8 g/dL (6.4-8.2) Albumin 3.5 g/dL (3.4-5.0) Albumin/Globulin Ratio 0.8 (1.0-1.7) Prothrombin Time 15.0 SEC (11.7-14.0) Prothromb Time International Ratio 1.2 (0.8-1.1) Test 05/08/20 07:41 05/08/20 11:42 05/08/20 16:25 Glucose (Fingerstick) 246 mg/dL (70-99) 238 mg/dL (70-99) 208 mg/dL (70-99) Medications Current Medications Ondansetron HCl (Zofran) 4 mg STK-MED ONCE .ROUTE ; Start 05/06/20 at 20:42; Stop 05/06/20 at 20:42; Status DC Morphine Sulfate (Morphine Sulfate) 4 mg 1X ONCE IV Last administered on 05/06/20at 21:34; Start 05/06/20 at 21:30; Stop 05/06/20 at 21:31; Status DC Ondansetron HCl (Zofran) 4 mg 1X ONCE IV Last administered on 05/06/20at 21:28; Start 05/06/20 at 21:30; Stop 05/06/20 at 21:31; Status DC Prochlorperazine Edisylate (Compazine) 10 mg 1X ONCE IV Last administered on 05/06/20at 21:34; Start 05/06/20 at 21:30; Stop 05/06/20 at 21:39; Status DC Sodium Chloride 1,000 ml @ 0 mls/hr 1X ONCE IV Last administered on 05/06/20at 22:15; Start 05/06/20 at 22:15; Stop 05/06/20 at 22:16; Status DC Calcium Gluconate (Calcium Gluconate) 1,000 mg 1X ONCE IVP Last administered on 05/06/20at 23:10; Start 05/06/20 at 23:00; Stop 05/06/20 at 23:01; Status DC Insulin Human Regular (HumuLIN R VIAL) 10 unit 1X ONCE IV Last administered on 05/06/20at 23:07; Start 05/06/20 at 23:00; Stop 05/06/20 at 23:01; Status DC Dextrose (Dextrose 50%-Water Syringe) 25 gm 1X ONCE IV Last administered on 05/06/20at 23:11; Start 05/06/20 at 23:00; Stop 05/06/20 at 23:01; Status DC Morphine Sulfate (Morphine Sulfate) 4 mg 1X ONCE IV Last administered on 05/06/20 23:12; Start 05/06/20 at 23:00; Stop 05/06/20 at 23:01; Status DC Ondansetron HCl (Zofran) 4 mg 1X ONCE IVP Last administered on 05/06/20at 23:06; Start 05/06/20 at 23:00; Stop 05/06/20 at 23:01; Status DC Prochlorperazine Edisylate (Compazine) 10 mg 1X ONCE IV Last administered on 05/06/20at 23:31; Start 05/06/20 at 23:30; Stop 05/06/20 at 23:31; Status DC Piperacillin Sod/ Tazobactam Sod 4.5 gm/Sodium Chloride 100 ml @ 200 mls/hr Q6HRS IV Last administered on 05/08/20at 12:41; Start 05/07/20 at 06:00 Prochlorperazine Edisylate (Compazine) 10 mg 1X ONCE IV Last administered on 05/07/20at 03:19; Start 05/07/20 at 03:30; Stop 05/07/20 at 03:31; Status DC Ondansetron HCl (Zofran) 4 mg PRN Q4HRS PRN IV NAUSEA/VOMITING (USE 1ST) Last administered on 05/08/20at 11:23; Start 05/07/20 at 03:30; Stop 05/08/20 at 16:26; Status DC Acetaminophen (Tylenol Supp) 650 mg PRN Q4HRS PRN LA TEMP OVER 100.4F OR MILD PAIN; Start 05/07/20 at 03:30 Hydromorphone HCl (Dilaudid) 1 mg PRN Q2HRS PRN IV SEVERE PAIN 7-10 Last administered on 05/08/20at 14:53; Start 05/07/20 at 03:30 Enoxaparin Sodium (Lovenox 40mg Syringe) 40 mg Q24H SQ Last administered on 05/08/20at 08:37; Start 05/07/20 at 09:00 Insulin Human Lispro (HumaLOG) 0-9 UNITS TIDACHC SQ Last administered on 05/08/20at 12:46; Start 05/07/20 at 07:30 Dextrose (Dextrose 50%-Water Syringe) 12.5 gm PRN Q15MIN PRN IV SEE COMMENTS; Start 05/07/20 at 03:30 Acetaminophen (Tylenol) 650 mg PRN Q4HRS PRN PO TEMP OVER 100.4F OR HEADACHE Last administered on 05/07/20at 20:38; Start 05/07/20 at 03:30 Albuterol Sulfate (Ventolin Neb Soln) 2.5 mg PRN Q4HRS PRN NEB SHORTNESS OF BREATH; Start 05/07/20 at 03:30 Aspirin (Ecotrin) 81 mg DAILYWBKFT PO ; Start 05/07/20 at 08:00 Atorvastatin Calcium (Lipitor) 10 mg QHS PO Last administered on 05/07/20at 20:39; Start 05/07/20 at 21:00 Gabapentin (Neurontin) 100 mg TID PO Last administered on 05/07/20at 20:39; Start 05/07/20 at 09:00 Acetaminophen/ Hydrocodone Bitart (Lortab 10/325) 1 tab PRN Q6HRS PRN PO MODERATE PAIN 4-6; Start 05/07/20 at 03:30 Insulin Glargine (Lantus Syringe) 12 unit QHS SQ ; Start 05/07/20 at 21:00 Lactobacillus Rhamnosus (Culturelle) 1 cap BID PO Last administered on 05/07/20at 20:38; Start 05/07/20 at 09:00 Metoprolol Succinate (Toprol Xl) 100 mg DAILY PO ; Start 05/07/20 at 09:00 Pantoprazole Sodium (Protonix) 40 mg DAILYAC PO ; Start 05/07/20 at 07:30; Stop 05/07/20 at 14:12; Status DC Prochlorperazine Edisylate (Compazine) 10 mg PRN Q6HRS PRN IV NAUSEA/VOMITING (USE 2ND) Last administered on 05/08/20at 03:18; Start 05/07/20 at 03:30 Lactulose (Lactulose) 20 gm PRN DAILY PRN PO CONSTIPATION (USE 2ND); Start 05/07/20 at 03:30 Senna/Docusate Sodium (Senna Plus) 2 tab PRN BID PRN PO CONSTIPATION (USE 3RD); Start 05/07/20 at 03:30 Polyethylene Glycol (miraLAX PACKET) 17 gm PRN BID PRN PO CONSTIPATION (1ST CHOICE); Start 05/07/20 at 03:30 Sodium Chloride 1,000 ml @ 75 mls/hr 1X ONCE IV Last administered on 05/07/20at 04:02; Start 05/07/20 at 03:45; Stop 05/07/20 at 17:04; Status DC Lorazepam (Ativan Inj) 1 mg PRN Q5MIN PRN IVP ANXIETY / AGITATION Last administered on 05/07/20at 10:49; Start 05/07/20 at 10:45 Multivitamins (Thera M Plus) 1 tab DAILY PO ; Start 05/07/20 at 12:00 Folic Acid (Folic Acid) 1 mg DAILY PO ; Start 05/07/20 at 12:00 Thiamine Mononitrate (Vitamin B-1) 100 mg DAILY PO ; Start 05/07/20 at 12:00 Lorazepam (Ativan) 2 mg PRN Q1HR PRN PO For CIWA 8-14; Start 05/07/20 at 11:00 Lorazepam (Ativan Inj) 1 mg PRN Q1HR PRN IV For CIWA 8-14; Start 05/07/20 at 11:00 Haloperidol Lactate (Haldol Inj) 5 mg PRN Q4HRS PRN IVP Hallucinatns,Confusn,Delirium; Start 05/07/20 at 11:00 Diphenhydramine HCl (Benadryl) 25 mg PRN Q15MIN PRN IVP EPS symptoms 2'Haldol admin; Start 05/07/20 at 11:00 Clonidine HCl (Catapres) 0.1 mg PRN Q1HR PRN PO SBP > 180 or DBP > 100, MRX3 Last administered on 05/07/20at 20:38; Start 05/07/20 at 11:00 Metoprolol Tartrate (Lopressor Vial) 5 mg Q6HRS IVP Last administered on 05/08/20at 12:42; Start 05/07/20 at 12:00 Nitroglycerin (Nitro-Bid Oint) 1 inch Q6HRS TP Last administered on 05/08/20at 12:41; Start 05/07/20 at 12:00 Labetalol HCl (Normodyne Iv Push) 20 mg PRN Q2HR PRN IVP HYPERTENSION Last administered on 05/08/20at 05:06; Start 05/07/20 at 11:30 Morphine Sulfate (Morphine Sulfate) 4 mg 1X ONCE IV Last administered on 05/07/20at 12:06; Start 05/07/20 at 12:00; Stop 05/07/20 at 12:01; Status DC Morphine Sulfate (Morphine Sulfate) 4 mg STK-MED ONCE .ROUTE ; Start 05/07/20 at 11:59; Stop 05/07/20 at 11:59; Status DC Pantoprazole Sodium (PROTONIX VIAL for IV PUSH) 40 mg DAILYAC IVP Last administered on 05/08/20at 07:30; Start 05/08/20 at 07:30 Vitamin A/Vitamin D (Vitamin A & D Ointment) 1 idalia PRN Q1HR PRN TP SKIN PROTECTION; Start 05/07/20 at 16:45 Sodium Chloride 1,000 ml @ 75 mls/hr [id number] IV Last administered on 05/08/20at 08:38; Start 05/07/20 at 19:30 Ondansetron HCl (Zofran) 4 mg Q4HRS IV ; Start 05/08/20 at 16:30; Status UNV Active Scripts Active Lantus (Insulin Glargine,Hum.rec.anlog) 100 Unit/1 Ml Vial 12 Unit SQ QHS 30 Days Culturelle (Lactobacillus Rhamnosus Gg) 1 Each Cap.sprink 1 Cap PO BID 30 Days Hydrochlorothiazide Tablet (Hydrochlorothiazide) 25 Mg Tablet 25 Mg PO DAILY 30 Days Tylenol (Acetaminophen) 325 Mg Tablet 650 Mg PO PRN Q4HRS PRN 30 Days Aspirin Ec (Aspirin) 81 Mg Tablet.dr 81 Mg PO DAILYWBKFT 30 Days Atorvastatin Calcium 10 Mg Tablet 10 Mg PO QHS 30 Days Proair Hfa (Albuterol Sulfate) 8.5 Gm Hfa.aer.ad 2.5 Mg NEB PRN Q4HRS PRN 30 Days Glucophage (Metformin Hcl) 500 Mg Tablet 500 Mg PO BIDWMEALS MDD 1 Furosemide 40 Mg Tablet 40 Mg PO DAILY MDD 1 Protonix (Pantoprazole Sodium) 20 Mg Tablet.dr 40 Mg PO DAILY 90 Days Reported [freestyle aniyah] 1 Patch TP Q14 DAYS Clopidogrel (Clopidogrel Bisulfate) 75 Mg Tablet 75 Mg PO DAILY Fluconazole 200 Mg Tablet 200 Mg PO DAILY Insulin Lispro 100 Unit/1 Ml Vial 3 Unit SQ TIDWMEALS Ventolin Hfa Inhaler (Albuterol Sulfate) 18 Gm Hfa.aer.ad 1 Puff INH QID Indomethacin 50 Mg Capsule 1 Cap PO PRN PRN Hydrocodone-Apap 10-325 (Hydrocodone Bit/Acetaminophen) 1 Tab Tablet 1 Tab PO PRN Q6HRS PRN Gabapentin (Gabapentin) 100 Mg Capsule 100 Mg PO TID Metoprolol Succinate ( Xl ) (Metoprolol Succinate) 100 Mg Tab.er.24h 100 Mg PO DAILY Vitals/I & O Vital Sign - Last 24 Hours 05/07/20 05/07/20 05/07/20 05/07/20 17:53 17:54 19:35 20:00 Temp 98.2 98.2 Pulse 87 87 86 Resp 20 B/P (MAP) 157/71 157/71 216/79 (124) Pulse Ox 98 O2 Delivery Room Air Room Air 05/07/20 05/07/20 05/08/20 05/08/20 20:38 23:45 00:45 00:45 Temp 98.0 98.0 Pulse 86 68 68 68 Resp 22 B/P (MAP) 216/79 194/100 (131) 194/100 194/100 Pulse Ox 94 O2 Delivery Room Air 05/08/20 05/08/20 05/08/20 05/08/20 03:00 04:48 05:06 06:24 Temp 98.7 98.7 Pulse 84 84 84 Resp 18 B/P (MAP) 189/89 (122) 189/89 189/89 Pulse Ox 95 O2 Delivery Room Air 05/08/20 05/08/20 05/08/20 05/08/20 06:24 07:00 08:00 08:37 Temp 98.0 98.0 Pulse 84 82 Resp 20 20 B/P (MAP) 189/89 167/66 (99) Pulse Ox 98 95 O2 Delivery Room Air Room Air Room Air 05/08/20 05/08/20 05/08/20 05/08/20 09:07 11:21 12:41 12:42 Temp 99.0 99.0 Pulse 81 91 91 Resp 18 B/P (MAP) 134/61 (85) 167/74 167/74 Pulse Ox 95 95 O2 Delivery Room Air Room Air 7/09/1705/08/20 05/08/20 14:53 15:00 15:23 Temp 97.7 97.7 Pulse 78 Resp 20 B/P (MAP) 191/75 (113) Pulse Ox 95 98 95 O2 Delivery Room Air Room Air Room Air Intake and Output 05/07/20 05/07/20 05/08/20 15:00 23:00 07:00 Intake Total 0 ml 30 ml 30 ml Output Total 550 ml 400 ml 900 ml Balance -550 ml -370 ml -870 ml Nutrition Consultation Dietary Evaluation: Recommendations by RD: Dietary education by RD, Increase Calorie Intake, Protein supplementation Comments: REC avoid prolonged NPO status (<4 days), advance diet within 48-72 hrs as able per GI/medical status, goal diet cardiac/ADA REC glucerna (chocolate) BID or TID per pt preference and %PO intake of meals Expected Outcomes/Goals: diet advancement Interpretation of weight loss: >7.5% in 3 months Malnutrition Findings: Food and Nutrition Intake (Mod: <75% est energy req 7days Weight Status: Overweight Justicifation of Admission Dx: Justifications for Admission: Justification of Admission Dx: Yes MASOUD CENTENO MD May 08, 2020 16:33
[2020-05-08] MEDS: ONDANSETRON PF 4 MG/2 ML VIAL. IV SCH ×2 (17:38→17:43)
[2020-05-08] MEDS: INSULIN GLARGINE SYRINGE. SQ SCH (22:43)
[2020-05-08] MEDS: ATORVASTATIN CALCIUM 10 MG TABLET. PO SCH (22:44)
[2020-05-09] MEDS: PIPERACILLIN/TAZOBACTAM 4.5 GM in IV NORMAL SALINE 100ML 100 ML IV SCH ×5 (00:16→23:52)
[2020-05-09] MEDS: ONDANSETRON PF 4 MG/2 ML VIAL. IV SCH ×7 (00:16→23:52)
[2020-05-09] MEDS: LABETALOL 20 MG/4 ML DISP.SYRIN. IVP PRN ×3 (00:17→15:44)
[2020-05-09] MEDS: METOPROLOL TARTRATE 5 MG/5 ML VIAL. IVP SCH ×3 (00:17→11:57)
[2020-05-09] MEDS: NITROGLYCERIN OINT 1 GM PACKET. TP SCH ×5 (00:21→23:53)
[2020-05-09] MEDS: HYDROmorphone 2 MG/ML VIAL IV PRN ×3 (00:48→15:38)
[2020-05-09 04:05] VITALS: BP 186/80
[2020-05-09 06:01] LABS: PROTHROMBIN TIME PATIENT 15.5 SEC (11.7-14.0)
[2020-05-09 06:02] LABS: ALBUMIN 3.2 g/dL (3.4-5.0); ALBUMIN/GLOBULIN RATIO 0.8 (1.0-1.7); CALCIUM 8.7 mg/dL (8.5-10.1); GFR 74.3; POTASSIUM 3.1 mmol/L (3.5-5.1); TOTAL BILIRUBIN 0.9 mg/dL (0.2-1.0); TOTAL PROTEIN 7.4 g/dL (6.4-8.2)
[2020-05-09 07:00] VITALS: BP 206/68
--- NOTE | 2020-05-09 08:10 | PDOC ---
Provider Note Provider Note Late entry for 05/08/2020 S: No chest pain. Continues to have abdominal bloating. O: A/o x3. NAD abd mildly tender clear lungs no edema. Labs/meds reviewed. Impression: 1. Abdominal pain/vomiting: GB disease. GI following 2. Arrhythmia: LBBB with first degree AV block likely rate dependent with fluid/ lyte shifts and no associated cardiac symptoms and trops are nml 3. LIVE with mild hyperkalemia: treated. per PCP 4. PAD: recenet [employer] to LLE at [facility] 03/2020 hence on plavix. Unclear details. Clinically stable 5. HTN urgency 6. HLP 7. DM2 8. Hx of NICM. Echo 2014 with LVEF 35-40% and has recovered 9. Hx of alcoholism Recommendations 1. LBBB is not new for him and actually had an episode in 2017 and had an unremarkable ischemic workup. He takes BB at home and given that he is NPO, will start on IV lopressor, NTG paste with PRN labetolol 2. Obtain TTE and will obtain [facility] records regarding [employer]. 3. May resume ASA when able to take PO. May hold plavix for any possible surgery 4. Supportive care at this time and monitor any dysrrhythmias. Will repeat serum K Justicifation of Admission Dx: Justifications for Admission: Justification of Admission Dx: Yes KATY BUTT MD May 09, 2020 08:10
[2020-05-09] MEDS: PANTOPRAZOLE IV PUSH 40 MG VIAL. IVP SCH (08:47)
[2020-05-09] MEDS: ENOXAPARIN 40 MG/0.4 ML SYRINGE. SQ SCH (08:47)
[2020-05-09] MEDS: INSULIN LISPRO 300 UNITS/3 ML VIAL. SQ SCH ×4 (09:00→21:00)
[2020-05-09] MEDS: IV NORMAL SALINE 1000ML BAG 1,000 ML IV SCH ×2 (10:56→23:53)
[2020-05-09 11:00] VITALS: BP 173/74
[2020-05-09] MEDS ORDERED: POTASSIUM CHLORIDE 20 MEQ TABLET.ER. PO ONE (11:00)
[2020-05-09] MEDS: LACTOBACILLUS RHAMNOSUS GG 1 CAPSULE. PO SCH ×2 (11:03→21:14)
[2020-05-09] MEDS: GABAPENTIN 100 MG CAPSULE. PO SCH ×3 (11:04→21:14)
[2020-05-09] MEDS: THIAMINE 100 MG TABLET. PO SCH (11:04)
[2020-05-09] MEDS: METOPROLOL SUCC 24HR ER 100 MG TAB.ER.24H. PO SCH (11:04)
[2020-05-09] MEDS: MULTIVITAMIN with MINERAL TABLET. PO SCH (11:04)
[2020-05-09] MEDS: FOLIC ACID 1 MG TABLET. PO SCH (11:04)
[2020-05-09] MEDS: ASPIRIN ENTERIC COATED 81 MG TABLET.DR. PO SCH (11:04)
[2020-05-09] MEDS: HYDROcodone/APAP 10/325 1 TAB TABLET PO PRN (11:14)
--- NOTE | 2020-05-09 11:14 | PDOC ---
PROGRESS NOTES Chief Complaint Chief Complaint A/P: Intractable abdominal pain - with signs of acute on chronic cholecytitis. General surgery consulted Nausea and vomiting - IV antiemetics Hyperkalemia - corrected. Will monitor. Likely 2/2 LIVE LIVE - vasomotor nephropathy. Improved with hydration Sepsis - likely 2/2 cholecystitis. Started on zosyn and IVF Cirrhosis of liver - noted on CT scan, likely ETOH related. Counseled on ETOH cessation. 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 Pain is 7 out of 10, colicky in nature. Nausea did not remit with Zofran but did improve after Compazine dosing. Still vomited again in the ED and overnight. despite meds. He is still nauseated currently. CT imaging of patient's abdomen shows gallstones in the gallbladder with a dilated CBD which appears to be stable from previous CT imaging. Dedicated ultrasound was performed which showed cholelithiasis with mild gallbladder wall thickening questionable acute or chronic cholecystitis no pericolic cystic fluid. EKG - Heart rate 95 accelerated junctional rhythm, left axis deviation peaked T waves WBC 13.1, Hb 12.9, platelets 300, NA 136, BUN 31, CR 1.5, glucose 232, alkaline phosphatase 287, calcium 10.4, lipase normal Patient's troponin within normal limits. Patient's potassium was noted to be 5.3. Patient was treated with glucagon, insulin and calcium. Post treatment repeat creatinine and potassium improved potassium resulted at 4.9. Patient was placed on antibiotics Zosyn. Patient was admitted with general surgery and cardiology consults. 05/08: HIDA scan positive for cholecystitis. Afebrile. WBC down to 9, creatinine improved. Bilirubin up to 1.3. He had a little vomiting overnight. Tolerated clears. Overnight afebrile. K 3.1 today. COVID negative. He wants to cont clear diet today is amenable to staying inpatient for further treatment of his sepsis and cholecystitis with tentative plans for surgery depending on surgery recommendations. No chest pain or shortness of breath. Vitals Vitals Vital Signs Date Time Temp Pulse Resp B/P (MAP) Pulse Ox O2 Delivery O2 Flow Rate FiO2 05/09/20 09:12 65 206/68 05/09/20 08:48 20 Room Air 05/09/20 07:00 98.4 96 98.4 Physical Exam General: Alert, Oriented X3, Cooperative, mild distress Heart: Regular rate, No murmurs Lungs: Clear Abdomen: Soft, Other (mild TTP epigastric, RUQ) Extremities: No cyanosis, No edema Skin: No breakdown, No significant lesion Labs LABS Laboratory Tests Test 05/08/20 11:42 05/08/20 16:25 05/08/20 20:51 05/09/20 05:28 Glucose (Fingerstick) 238 mg/dL (70-99) 208 mg/dL (70-99) 178 mg/dL (70-99) Prothrombin Time 15.5 SEC (11.7-14.0) Prothromb Time International Ratio 1.3 (0.8-1.1) Sodium Level 142 mmol/L (136-145) Potassium Level 3.1 mmol/L (3.5-5.1) Chloride Level 105 mmol/L (98-107) Carbon Dioxide Level 24 mmol/L (21-32) Anion Gap 13 (6-14) Blood Urea Nitrogen 16 mg/dL (8-26) Creatinine 1.0 mg/dL (0.7-1.3) Estimated GFR (Cockcroft-Gault) 74.3 BUN/Creatinine Ratio 16 (6-20) Glucose Level 162 mg/dL (70-99) Calcium Level 8.7 mg/dL (8.5-10.1) Total Bilirubin 0.9 mg/dL (0.2-1.0) Aspartate Amino Transf (AST/SGOT) 44 U/L (15-37) Alanine Aminotransferase (ALT/SGPT) 52 U/L (16-63) Alkaline Phosphatase 233 U/L (46-116) Total Protein 7.4 g/dL (6.4-8.2) Albumin 3.2 g/dL (3.4-5.0) Albumin/Globulin Ratio 0.8 (1.0-1.7) Lipase 25 U/L (73-393) Test 05/09/20 08:06 Glucose (Fingerstick) 170 mg/dL (70-99) Assessment and Plan Assessmemt and Plan Problems Medical Problems: (1) Abdominal pain Status: Acute (2) Acute electrocardiogram changes Status: Acute (3) Cholecystitis Status: Acute (4) Hyperkalemia Status: Acute Comment Review of Relevant I have reviewed the following items alyse (where applicable) has been applied. Labs Laboratory Tests Test 05/07/20 14:00 05/07/20 14:45 05/07/20 16:56 05/07/20 20:31 Potassium Level 4.4 mmol/L (3.5-5.1) Coronavirus (COVID-19)(PCR) Negative (NEGATIVE) Glucose (Fingerstick) 152 mg/dL (70-99) 156 mg/dL (70-99) Test 05/08/20 05:15 05/08/20 05:25 05/08/20 07:41 05/08/20 11:42 White Blood Count 9.4 x10^3/uL (4.0-11.0) Red Blood Count 3.55 x10^6/uL (4.30-5.70) Hemoglobin 11.3 g/dL (13.0-17.5) Hematocrit 33.2 % (39.0-53.0) Mean Corpuscular Volume 94 fL (79-100) Mean Corpuscular Hemoglobin 32 pg (25-35) Mean Corpuscular Hemoglobin Concent 34 g/dL (31-37) Red Cell Distribution Width 13.0 % (11.5-14.5) Platelet Count 191 x10^3/uL (140-400) Neutrophils (%) (Auto) 68 % (31-73) Lymphocytes (%) (Auto) 20 % (24-48) Monocytes (%) (Auto) 10 % (0-9) Eosinophils (%) (Auto) 2 % (0-3) Basophils (%) (Auto) 1 % (0-3) Neutrophils # (Auto) 6.4 x10^3/uL (1.8-7.7) Lymphocytes # (Auto) 1.9 x10^3/uL (1.0-4.8) Monocytes # (Auto) 0.9 x10^3/uL (0.0-1.1) Eosinophils # (Auto) 0.2 x10^3/uL (0.0-0.7) Basophils # (Auto) 0.1 x10^3/uL (0.0-0.2) Sodium Level 140 mmol/L (136-145) Potassium Level 4.0 mmol/L (3.5-5.1) Chloride Level 105 mmol/L (98-107) Carbon Dioxide Level 22 mmol/L (21-32) Anion Gap 13 (6-14) Blood Urea Nitrogen 20 mg/dL (8-26) Creatinine 1.2 mg/dL (0.7-1.3) Estimated GFR (Cockcroft-Gault) 60.2 BUN/Creatinine Ratio 17 (6-20) Glucose Level 200 mg/dL (70-99) Calcium Level 9.3 mg/dL (8.5-10.1) Total Bilirubin 1.3 mg/dL (0.2-1.0) Aspartate Amino Transf (AST/SGOT) 42 U/L (15-37) Alanine Aminotransferase (ALT/SGPT) 40 U/L (16-63) Alkaline Phosphatase 246 U/L (46-116) Total Protein 7.8 g/dL (6.4-8.2) Albumin 3.5 g/dL (3.4-5.0) Albumin/Globulin Ratio 0.8 (1.0-1.7) Prothrombin Time 15.0 SEC (11.7-14.0) Prothromb Time International Ratio 1.2 (0.8-1.1) Glucose (Fingerstick) 246 mg/dL (70-99) 238 mg/dL (70-99) Test 05/08/20 16:25 05/08/20 20:51 05/09/20 05:28 05/09/20 08:06 Glucose (Fingerstick) 208 mg/dL (70-99) 178 mg/dL (70-99) 170 mg/dL (70-99) Prothrombin Time 15.5 SEC (11.7-14.0) Prothromb Time International Ratio 1.3 (0.8-1.1) Sodium Level 142 mmol/L (136-145) Potassium Level 3.1 mmol/L (3.5-5.1) Chloride Level 105 mmol/L (98-107) Carbon Dioxide Level 24 mmol/L (21-32) Anion Gap 13 (6-14) Blood Urea Nitrogen 16 mg/dL (8-26) Creatinine 1.0 mg/dL (0.7-1.3) Estimated GFR (Cockcroft-Gault) 74.3 BUN/Creatinine Ratio 16 (6-20) Glucose Level 162 mg/dL (70-99) Calcium Level 8.7 mg/dL (8.5-10.1) Total Bilirubin 0.9 mg/dL (0.2-1.0) Aspartate Amino Transf (AST/SGOT) 44 U/L (15-37) Alanine Aminotransferase (ALT/SGPT) 52 U/L (16-63) Alkaline Phosphatase 233 U/L (46-116) Total Protein 7.4 g/dL (6.4-8.2) Albumin 3.2 g/dL (3.4-5.0) Albumin/Globulin Ratio 0.8 (1.0-1.7) Lipase 25 U/L (73-393) Laboratory Tests Test 05/08/20 11:42 05/08/20 16:25 05/08/20 20:51 05/09/20 05:28 Glucose (Fingerstick) 238 mg/dL (70-99) 208 mg/dL (70-99) 178 mg/dL (70-99) Prothrombin Time 15.5 SEC (11.7-14.0) Prothromb Time International Ratio 1.3 (0.8-1.1) Sodium Level 142 mmol/L (136-145) Potassium Level 3.1 mmol/L (3.5-5.1) Chloride Level 105 mmol/L (98-107) Carbon Dioxide Level 24 mmol/L (21-32) Anion Gap 13 (6-14) Blood Urea Nitrogen 16 mg/dL (8-26) Creatinine 1.0 mg/dL (0.7-1.3) Estimated GFR (Cockcroft-Gault) 74.3 BUN/Creatinine Ratio 16 (6-20) Glucose Level 162 mg/dL (70-99) Calcium Level 8.7 mg/dL (8.5-10.1) Total Bilirubin 0.9 mg/dL (0.2-1.0) Aspartate Amino Transf (AST/SGOT) 44 U/L (15-37) Alanine Aminotransferase (ALT/SGPT) 52 U/L (16-63) Alkaline Phosphatase 233 U/L (46-116) Total Protein 7.4 g/dL (6.4-8.2) Albumin 3.2 g/dL (3.4-5.0) Albumin/Globulin Ratio 0.8 (1.0-1.7) Lipase 25 U/L (73-393) Test 05/09/20 08:06 Glucose (Fingerstick) 170 mg/dL (70-99) Medications Current Medications Ondansetron HCl (Zofran) 4 mg STK-MED ONCE .ROUTE ; Start 05/06/20 at 20:42; Stop 05/06/20 at 20:42; Status DC Morphine Sulfate (Morphine Sulfate) 4 mg 1X ONCE IV Last administered on 05/06/20at 21:34; Start 05/06/20 at 21:30; Stop 05/06/20 at 21:31; Status DC Ondansetron HCl (Zofran) 4 mg 1X ONCE IV Last administered on 05/06/20at 21:28; Start 05/06/20 at 21:30; Stop 05/06/20 at 21:31; Status DC Prochlorperazine Edisylate (Compazine) 10 mg 1X ONCE IV Last administered on 05/06/20at 21:34; Start 05/06/20 at 21:30; Stop 05/06/20 at 21:39; Status DC Sodium Chloride 1,000 ml @ 0 mls/hr 1X ONCE IV Last administered on 05/06/20at 22:15; Start 05/06/20 at 22:15; Stop 05/06/20 at 22:16; Status DC Calcium Gluconate (Calcium Gluconate) 1,000 mg 1X ONCE IVP Last administered on 05/06/20at 23:10; Start 05/06/20 at 23:00; Stop 05/06/20 at 23:01; Status DC Insulin Human Regular (HumuLIN R VIAL) 10 unit 1X ONCE IV Last administered on 05/06/20at 23:07; Start 05/06/20 at 23:00; Stop 05/06/20 at 23:01; Status DC Dextrose (Dextrose 50%-Water Syringe) 25 gm 1X ONCE IV Last administered on 05/06/20at 23:11; Start 05/06/20 at 23:00; Stop 05/06/20 at 23:01; Status DC Morphine Sulfate (Morphine Sulfate) 4 mg 1X ONCE IV Last administered on 05/06/20at 23:12; Start 05/06/20 at 23:00; Stop 05/06/20 at 23:01; Status DC Ondansetron HCl (Zofran) 4 mg 1X ONCE IVP Last administered on 05/06/20at 23:06; Start 05/06/20 at 23:00; Stop 05/06/20 at 23:01; Status DC Prochlorperazine Edisylate (Compazine) 10 mg 1X ONCE IV Last administered on 05/06/20at 23:31; Start 05/06/20 at 23:30; Stop 05/06/20 at 23:31; Status DC Piperacillin Sod/ Tazobactam Sod 4.5 gm/Sodium Chloride 100 ml @ 200 mls/hr Q6HRS IV Last administered on 05/09/20at 05:45; Start 05/07/20 at 06:00 Prochlorperazine Edisylate (Compazine) 10 mg 1X ONCE IV Last administered on 05/07/20at 03:19; Start 05/07/20 at 03:30; Stop 05/07/20 at 03:31; Status DC Ondansetron HCl (Zofran) 4 mg PRN Q4HRS PRN IV NAUSEA/VOMITING (USE 1ST) Last administered on 05/08/20at 11:23; Start 05/07/20 at 03:30; Stop 05/08/20 at 16:26; Status DC Acetaminophen (Tylenol Supp) 650 mg PRN Q4HRS PRN MN TEMP OVER 100.4F OR MILD PAIN; Start 05/07/20 at 03:30 Hydromorphone HCl (Dilaudid) 1 mg PRN Q2HRS PRN IV SEVERE PAIN 7-10 Last administered on 05/09/20at 08:48; Start 05/07/20 at 03:30 Enoxaparin Sodium (Lovenox 40mg Syringe) 40 mg Q24H SQ Last administered on 05/09/20at 08:47; Start 05/07/20 at 09:00 Insulin Human Lispro (HumaLOG) 0-9 UNITS TIDACHC SQ Last administered on 05/09/20at 09:00; Start 05/07/20 at 07:30 Dextrose (Dextrose 50%-Water Syringe) 12.5 gm PRN Q15MIN PRN IV SEE COMMENTS; Start 05/07/20 at 03:30 Acetaminophen (Tylenol) 650 mg PRN Q4HRS PRN PO TEMP OVER 100.4F OR HEADACHE Last administered on 05/07/20at 20:38; Start 05/07/20 at 03:30 Albuterol Sulfate (Ventolin Neb Soln) 2.5 mg PRN Q4HRS PRN NEB SHORTNESS OF BREATH; Start 05/07/20 at 03:30 Aspirin (Ecotrin) 81 mg DAILYWBKFT PO ; Start 05/07/20 at 08:00 Atorvastatin Calcium (Lipitor) 10 mg QHS PO Last administered on 05/08/20at 22:44; Start 05/07/20 at 21:00 Gabapentin (Neurontin) 100 mg TID PO Last administered on 05/08/20at 22:43; Start 05/07/20 at 09:00 Acetaminophen/ Hydrocodone Bitart (Lortab 10/325) 1 tab PRN Q6HRS PRN PO MODERATE PAIN 4-6; Start 05/07/20 at 03:30 Insulin Glargine (Lantus Syringe) 12 unit QHS SQ ; Start 05/07/20 at 21:00; Stop 05/08/20 at 16:28; Status DC Lactobacillus Rhamnosus (Culturelle) 1 cap BID PO Last administered on 05/08/20at 22:43; Start 05/07/20 at 09:00 Metoprolol Succinate (Toprol Xl) 100 mg DAILY PO ; Start 05/07/20 at 09:00 Pantoprazole Sodium (Protonix) 40 mg DAILYAC PO ; Start 05/07/20 at 07:30; Stop 05/07/20 at 14:12; Status DC Prochlorperazine Edisylate (Compazine) 10 mg PRN Q6HRS PRN IV NAUSEA/VOMITING (USE 2ND) Last administered on 05/08/20at 03:18; Start 05/07/20 at 03:30 Lactulose (Lactulose) 20 gm PRN DAILY PRN PO CONSTIPATION (USE 2ND); Start 05/07/20 at 03:30 Senna/Docusate Sodium (Senna Plus) 2 tab PRN BID PRN PO CONSTIPATION (USE 3RD); Start 05/07/20 at 03:30 Polyethylene Glycol (miraLAX PACKET) 17 gm PRN BID PRN PO CONSTIPATION (1ST C HOICE); Start 05/07/20 at 03:30 Sodium Chloride 1,000 ml @ 75 mls/hr 1X ONCE IV Last administered on 05/07/20at 04:02; Start 05/07/20 at 03:45; Stop 05/07/20 at 17:04; Status DC Lorazepam (Ativan Inj) 1 mg PRN Q5MIN PRN IVP ANXIETY / AGITATION Last adm inistered on 05/07/20at 10:49; Start 05/07/20 at 10:45 Multivitamins (Thera M Plus) 1 tab DAILY PO ; Start 05/07/20 at 12:00 Folic Acid (Folic Acid) 1 mg DAILY PO ; Start 05/07/20 at 12:00 Thiamine Mononitrate (Vitamin B-1) 100 mg DAILY PO ; Start 05/07/20 at 12:00 Lorazepam (Ativan) 2 mg PRN Q1HR PRN PO For CIWA 8-14; Start 05/07/20 at 11:00 Lorazepam (Ativan Inj) 1 mg PRN Q1HR PRN IV For CIWA 8-14; Start 05/07/20 at 11:00 Haloperidol Lactate (Haldol Inj) 5 mg PRN Q4HRS PRN IVP Hallucinatns,Confusn,Delirium; Start 05/07/20 at 11:00 Diphenhydramine HCl (Benadryl) 25 mg PRN Q15MIN PRN IVP EPS symptoms 2'Haldol admin; Start 05/07/20 at 11:00 Clonidine HCl (Catapres) 0.1 mg PRN Q1HR PRN PO SBP > 180 or DBP > 100, MRX3 Last administered on 05/07/20at 20:38; Start 05/07/20 at 11:00 Metoprolol Tartrate (Lopressor Vial) 5 mg Q6HRS IVP Last administered on 05/09/20at 05:39; Start 05/07/20 at 12:00 Nitroglycerin (Nitro-Bid Oint) 1 inch Q6HRS TP Last administered on 05/09/20at 05:41; Start 05/07/20 at 12:00 Labetalol HCl (Normodyne Iv Push) 20 mg PRN Q2HR PRN IVP HYPERTENSION Last administered on 05/09/20at 09:12; Start 05/07/20 at 11:30 Morphine Sulfate (Morphine Sulfate) 4 mg 1X ONCE IV Last administered on 05/07/20at 12:06; Start 05/07/20 at 12:00; Stop 05/07/20 at 12:01; Status DC Morphine Sulfate (Morphine Sulfate) 4 mg STK-MED ONCE .ROUTE ; Start 05/07/20 at 11:59; Stop 05/07/20 at 11:59; Status DC Pantoprazole Sodium (PROTONIX VIAL for IV PUSH) 40 mg DAILYAC IVP Last administered on 05/09/20at 08:47; Start 05/08/20 at 07:30 Vitamin A/Vitamin D (Vitamin A & D Ointment) 1 idalia PRN Q1HR PRN TP SKIN PROTECTION; Start 05/07/20 at 16:45 Sodium Chloride 1,000 ml @ 75 mls/hr [id number] IV Last administered on 05/08/20at 22:51; Start 05/07/20 at 19:30 Ondansetron HCl (Zofran) 4 mg Q4HRS IV Last administered on 05/09/20at 08:47; Start 05/08/20 at 16:30 Insulin Glargine (Lantus Syringe) 8 unit QHS SQ Last administered on 05/08/20at 22:43; Start 05/08/20 at 21:00 Active Scripts Active Lantus (Insulin Glargine,Hum.rec.anlog) 100 Unit/1 Ml Vial 12 Unit SQ QHS 30 Days Culturelle (Lactobacillus Rhamnosus Gg) 1 Each Cap.sprink 1 Cap PO BID 30 Days Hydrochlorothiazide Tablet (Hydrochlorothiazide) 25 Mg Tablet 25 Mg PO DAILY 30 Days Tylenol (Acetaminophen) 325 Mg Tablet 650 Mg PO PRN Q4HRS PRN 30 Days Aspirin Ec (Aspirin) 81 Mg Tablet.dr 81 Mg PO DAILYWBKFT 30 Days Atorvastatin Calcium 10 Mg Tablet 10 Mg PO QHS 30 Days Proair Hfa (Albuterol Sulfate) 8.5 Gm Hfa.aer.ad 2.5 Mg NEB PRN Q4HRS PRN 30 Days Glucophage (Metformin Hcl) 500 Mg Tablet 500 Mg PO BIDWMEALS MDD 1 Furosemide 40 Mg Tablet 40 Mg PO DAILY MDD 1 Protonix (Pantoprazole Sodium) 20 Mg Tablet.dr 40 Mg PO DAILY 90 Days Reported [freestyle aniyah] 1 Patch TP Q14 DAYS Clopidogrel (Clopidogrel Bisulfate) 75 Mg Tablet 75 Mg PO DAILY Fluconazole 200 Mg Tablet 200 Mg PO DAILY Insulin Lispro 100 Unit/1 Ml Vial 3 Unit SQ TIDWMEALS Ventolin Hfa Inhaler (Albuterol Sulfate) 18 Gm Hfa.aer.ad 1 Puff INH QID Indomethacin 50 Mg Capsule 1 Cap PO PRN PRN Hydrocodone-Apap 10-325 (Hydrocodone Bit/Acetaminophen) 1 Tab Tablet 1 Tab PO PRN Q6HRS PRN Gabapentin (Gabapentin) 100 Mg Capsule 100 Mg PO TID Metoprolol Succinate ( Xl ) (Metoprolol Succinate) 100 Mg Tab.er.24h 100 Mg PO DAILY Vitals/I & O Vital Sign - Last 24 Hours 05/08/20 05/08/20 05/08/20 05/08/20 11:21 12:41 12:42 14:53 Temp 99.0 99.0 Pulse 81 91 91 Resp 18 B/P (MAP) 134/61 (85) 167/74 167/74 Pulse Ox 95 95 O2 Delivery Room Air Room Air 05/08/20 05/08/20 05/08/20 05/08/20 15:00 15:23 17:45 17:46 Temp 97.7 97.7 Pulse 78 Resp 20 B/P (MAP) 191/75 (113) 190/85 190/75 Pulse Ox 98 95 O2 Delivery Room Air Room Air 05/08/20 05/08/20 05/08/20 05/08/20 18:44 19:00 20:20 23:12 Temp 97.7 99.0 97.7 99.0 Pulse 88 88 Resp 18 20 B/P (MAP) 187/65 (105) 187/65 (105) 211/76 (121) Pulse Ox 95 96 O2 Delivery Room Air Room Air Room Air 05/09/20 05/09/20 05/09/20 05/09/20 00:17 00:17 00:21 00:48 Pulse 88 88 88 B/P (MAP) 211/76 211/76 211/76 O2 Delivery Room Air 05/09/20 05/09/20 05/09/20 05/09/20 03:00 04:05 05:39 05:41 Temp 98.7 98.7 Pulse 79 80 80 80 Resp 20 B/P (MAP) 186/80 (115) 186/80 186/80 Pulse Ox 98 O2 Delivery Room Air 05/09/20 05/09/20 05/09/20 05/09/20 07:00 08:00 08:48 09:12 Temp 98.4 98.4 Pulse 65 65 Resp 18 20 B/P (MAP) 206/68 (114) 206/68 Pulse Ox 96 O2 Delivery Room Air Room Air Room Air Intake and Output 05/08/20 05/08/20 05/09/20 15:00 23:00 07:00 Intake Total 0 ml 240 ml 220 ml Output Total 300 ml 1800 ml 400 ml Balance -300 ml -1560 ml -180 ml Nutrition Consultation Dietary Evaluation: Recommendations by RD: Dietary education by RD, Increase Calorie Intake, Protein supplementation Comments: REC avoid prolonged NPO status (<4 days), advance diet within 48-72 hrs as able per GI/medical status, goal diet cardiac/ADA REC glucerna (chocolate) BID or TID per pt preference and %PO intake of meals Expected Outcomes/Goals: diet advancement Interpretation of weight loss: >7.5% in 3 months Malnutrition Findings: Food and Nutrition Intake (Mod: <75% est energy req 7days Weight Status: Overweight Justicifation of Admission Dx: Justifications for Admission: Justification of Admission Dx: Yes MASOUD CENTENO MD May 09, 2020 11:14
--- NOTE | 2020-05-09 12:02 | PDOC ---
G I PROGRESS NOTE Subjective Pain improved. Few complaints. On clears. Physical Exam Lungs clear. RRR Abdomen soft, not distended. Mild RUQ tenderness. Review of Relevant I have reviewed the following items alyse (where applicable) has been applied. Labs Laboratory Tests Test 05/07/20 14:00 05/07/20 14:45 05/07/20 16:56 05/07/20 20:31 Potassium Level 4.4 mmol/L (3.5-5.1) Coronavirus (COVID-19)(PCR) Negative (NEGATIVE) Glucose (Fingerstick) 152 mg/dL (70-99) 156 mg/dL (70-99) Test 05/08/20 05:15 05/08/20 05:25 05/08/20 07:41 05/08/20 11:42 White Blood Count 9.4 x10^3/uL (4.0-11.0) Red Blood Count 3.55 x10^6/uL (4.30-5.70) Hemoglobin 11.3 g/dL (13.0-17.5) Hematocrit 33.2 % (39.0-53.0) Mean Corpuscular Volume 94 fL (79-100) Mean Corpuscular Hemoglobin 32 pg (25-35) Mean Corpuscular Hemoglobin Concent 34 g/dL (31-37) Red Cell Distribution Width 13.0 % (11.5-14.5) Platelet Count 191 x10^3/uL (140-400) Neutrophils (%) (Auto) 68 % (31-73) Lymphocytes (%) (Auto) 20 % (24-48) Monocytes (%) (Auto) 10 % (0-9) Eosinophils (%) (Auto) 2 % (0-3) Basophils (%) (Auto) 1 % (0-3) Neutrophils # (Auto) 6.4 x10^3/uL (1.8-7.7) Lymphocytes # (Auto) 1.9 x10^3/uL (1.0-4.8) Monocytes # (Auto) 0.9 x10^3/uL (0.0-1.1) Eosinophils # (Auto) 0.2 x10^3/uL (0.0-0.7) Basophils # (Auto) 0.1 x10^3/uL (0.0-0.2) Sodium Level 140 mmol/L (136-145) Potassium Level 4.0 mmol/L (3.5-5.1) Chloride Level 105 mmol/L (98-107) Carbon Dioxide Level 22 mmol/L (21-32) Anion Gap 13 (6-14) Blood Urea Nitrogen 20 mg/dL (8-26) Creatinine 1.2 mg/dL (0.7-1.3) Estimated GFR (Cockcroft-Gault) 60.2 BUN/Creatinine Ratio 17 (6-20) Glucose Level 200 mg/dL (70-99) Calcium Level 9.3 mg/dL (8.5-10.1) Total Bilirubin 1.3 mg/dL (0.2-1.0) Aspartate Amino Transf (AST/SGOT) 42 U/L (15-37) Alanine Aminotransferase (ALT/SGPT) 40 U/L (16-63) Alkaline Phosphatase 246 U/L (46-116) Total Protein 7.8 g/dL (6.4-8.2) Albumin 3.5 g/dL (3.4-5.0) Albumin/Globulin Ratio 0.8 (1.0-1.7) Prothrombin Time 15.0 SEC (11.7-14.0) Prothromb Time International Ratio 1.2 (0.8-1.1) Glucose (Fingerstick) 246 mg/dL (70-99) 238 mg/dL (70-99) Test 05/08/20 16:25 05/08/20 20:51 05/09/20 05:28 05/09/20 08:06 Glucose (Fingerstick) 208 mg/dL (70-99) 178 mg/dL (70-99) 170 mg/dL (70-99) Prothrombin Time 15.5 SEC (11.7-14.0) Prothromb Time International Ratio 1.3 (0.8-1.1) Sodium Level 142 mmol/L (136-145) Potassium Level 3.1 mmol/L (3.5-5.1) Chloride Level 105 mmol/L (98-107) Carbon Dioxide Level 24 mmol/L (21-32) Anion Gap 13 (6-14) Blood Urea Nitrogen 16 mg/dL (8-26) Creatinine 1.0 mg/dL (0.7-1.3) Estimated GFR (Cockcroft-Gault) 74.3 BUN/Creatinine Ratio 16 (6-20) Glucose Level 162 mg/dL (70-99) Calcium Level 8.7 mg/dL (8.5-10.1) Magnesium Level 2.0 mg/dL (1.8-2.4) Total Bilirubin 0.9 mg/dL (0.2-1.0) Aspartate Amino Transf (AST/SGOT) 44 U/L (15-37) Alanine Aminotransferase (ALT/SGPT) 52 U/L (16-63) Alkaline Phosphatase 233 U/L (46-116) Total Protein 7.4 g/dL (6.4-8.2) Albumin 3.2 g/dL (3.4-5.0) Albumin/Globulin Ratio 0.8 (1.0-1.7) Lipase 25 U/L (73-393) Laboratory Tests Test 05/08/20 16:25 05/08/20 20:51 05/09/20 05:28 05/09/20 08:06 Glucose (Fingerstick) 208 mg/dL (70-99) 178 mg/dL (70-99) 170 mg/dL (70-99) Prothrombin Time 15.5 SEC (11.7-14.0) Prothromb Time International Ratio 1.3 (0.8-1.1) Sodium Level 142 mmol/L (136-145) Potassium Level 3.1 mmol/L (3.5-5.1) Chloride Level 105 mmol/L (98-107) Carbon Dioxide Level 24 mmol/L (21-32) Anion Gap 13 (6-14) Blood Urea Nitrogen 16 mg/dL (8-26) Creatinine 1.0 mg/dL (0.7-1.3) Estimated GFR (Cockcroft-Gault) 74.3 BUN/Creatinine Ratio 16 (6-20) Glucose Level 162 mg/dL (70-99) Calcium Level 8.7 mg/dL (8.5-10.1) Magnesium Level 2.0 mg/dL (1.8-2.4) Total Bilirubin 0.9 mg/dL (0.2-1.0) Aspartate Amino Transf (AST/SGOT) 44 U/L (15-37) Alanine Aminotransferase (ALT/SGPT) 52 U/L (16-63) Alkaline Phosphatase 233 U/L (46-116) Total Protein 7.4 g/dL (6.4-8.2) Albumin 3.2 g/dL (3.4-5.0) Albumin/Globulin Ratio 0.8 (1.0-1.7) Lipase 25 U/L (73-393) Vitals/I & O Vital Sign - Last 24 Hours 05/08/20 05/08/20 05/08/20 05/08/20 12:41 12:42 14:53 15:00 Temp 97.7 97.7 Pulse 91 91 78 Resp 20 B/P (MAP) 167/74 167/74 191/75 (113) Pulse Ox 95 98 O2 Delivery Room Air Room Air 05/08/20 05/08/20 05/08/20 05/08/20 15:23 17:45 17:46 18:44 B/P (MAP) 190/85 190/75 187/65 (105) Pulse Ox 95 O2 Delivery Room Air 05/08/20 05/08/20 05/08/20 05/09/20 19:00 20:20 23:12 00:17 Temp 97.7 99.0 97.7 99.0 Pulse 88 88 88 Resp 18 20 B/P (MAP) 187/65 (105) 211/76 (121) 211/76 Pulse Ox 95 96 O2 Delivery Room Air Room Air Room Air 05/09/20 05/09/20 05/09/20 05/09/20 00:17 00:21 00:48 03:00 Pulse 88 88 79 B/P (MAP) 211/76 211/76 O2 Delivery Room Air 05/09/20 05/09/20 05/09/20 05/09/20 04:05 05:39 05:41 07:00 Temp 98.7 98.4 98.7 98.4 Pulse 80 80 80 65 Resp 20 18 B/P (MAP) 186/80 (115) 186/80 186/80 206/68 (114) Pulse Ox 98 96 O2 Delivery Room Air Room Air 05/09/20 05/09/20 05/09/20 05/09/20 08:00 08:48 09:12 09:18 Pulse 65 Resp 20 18 B/P (MAP) 206/68 O2 Delivery Room Air Room Air Room Air 05/09/20 05/09/20 05/09/20 11:00 11:04 11:14 Temp 99.0 99.0 Pulse 78 78 Resp 18 18 B/P (MAP) 173/74 (107) 173/74 Pulse Ox 98 O2 Delivery Room Air Room Air Intake and Output 05/08/20 05/08/20 05/09/20 15:00 23:00 07:00 Intake Total 0 ml 240 ml 220 ml Output Total 300 ml 1800 ml 400 ml Balance -300 ml -1560 ml -180 ml Problem List Problems Medical Problems: (1) Abdominal pain Status: Acute (2) Acute electrocardiogram changes Status: Acute (3) Cholecystitis Status: Acute (4) Hyperkalemia Status: Acute Assessment Cholecystitis, stable. Pain better. Final therapeutic decision pending. Plan of Care Note Continue as now. Justicifation of Admission Dx: Justifications for Admission: Justification of Admission Dx: Yes TRESSA MOJICA MD May 09, 2020 12:02
[2020-05-09] MEDS: POTASSIUM CHLORIDE 10MEQ 100 ML IV SCH ×2 (12:21→13:32)
--- NOTE | 2020-05-09 13:36 | PDOC ---
SURGICAL PROGRESS NOTE Subjective Pt feels better, venkatesh some PO, pain improved Vital Signs Vital Signs Date Time Temp Pulse Resp B/P (MAP) Pulse Ox O2 Delivery O2 Flow Rate FiO2 05/09/20 12:22 78 173/74 05/09/20 12:14 20 Room Air 05/09/20 11:00 99.0 98 99.0 I&O Intake and Output 05/09/20 07:00 Intake Total 460 ml Output Total 2500 ml Balance -2040 ml Intake Oral 360 ml IV Total 100 ml Output Urine Total 2500 ml General: Alert, Oriented X3, Cooperative, No acute distress Abdomen: Soft, Other (mild TTP RUQ) Labs Laboratory Tests Test 05/07/20 14:00 05/07/20 14:45 05/07/20 16:56 05/07/20 20:31 Potassium Level 4.4 mmol/L (3.5-5.1) Coronavirus (COVID-19)(PCR) Negative (NEGATIVE) Glucose (Fingerstick) 152 mg/dL (70-99) 156 mg/dL (70-99) Test 05/08/20 05:15 05/08/20 05:25 05/08/20 07:41 05/08/20 11:42 White Blood Count 9.4 x10^3/uL (4.0-11.0) Red Blood Count 3.55 x10^6/uL (4.30-5.70) Hemoglobin 11.3 g/dL (13.0-17.5) Hematocrit 33.2 % (39.0-53.0) Mean Corpuscular Volume 94 fL (79-100) Mean Corpuscular Hemoglobin 32 pg (25-35) Mean Corpuscular Hemoglobin Concent 34 g/dL (31-37) Red Cell Distribution Width 13.0 % (11.5-14.5) Platelet Count 191 x10^3/uL (140-400) Neutrophils (%) (Auto) 68 % (31-73) Lymphocytes (%) (Auto) 20 % (24-48) Monocytes (%) (Auto) 10 % (0-9) Eosinophils (%) (Auto) 2 % (0-3) Basophils (%) (Auto) 1 % (0-3) Neutrophils # (Auto) 6.4 x10^3/uL (1.8-7.7) Lymphocytes # (Auto) 1.9 x10^3/uL (1.0-4.8) Monocytes # (Auto) 0.9 x10^3/uL (0.0-1.1) Eosinophils # (Auto) 0.2 x10^3/uL (0.0-0.7) Basophils # (Auto) 0.1 x10^3/uL (0.0-0.2) Sodium Level 140 mmol/L (136-145) Potassium Level 4.0 mmol/L (3.5-5.1) Chloride Level 105 mmol/L (98-107) Carbon Dioxide Level 22 mmol/L (21-32) Anion Gap 13 (6-14) Blood Urea Nitrogen 20 mg/dL (8-26) Creatinine 1.2 mg/dL (0.7-1.3) Estimated GFR (Cockcroft-Gault) 60.2 BUN/Creatinine Ratio 17 (6-20) Glucose Level 200 mg/dL (70-99) Calcium Level 9.3 mg/dL (8.5-10.1) Total Bilirubin 1.3 mg/dL (0.2-1.0) Aspartate Amino Transf (AST/SGOT) 42 U/L (15-37) Alanine Aminotransferase (ALT/SGPT) 40 U/L (16-63) Alkaline Phosphatase 246 U/L (46-116) Total Protein 7.8 g/dL (6.4-8.2) Albumin 3.5 g/dL (3.4-5.0) Albumin/Globulin Ratio 0.8 (1.0-1.7) Prothrombin Time 15.0 SEC (11.7-14.0) Prothromb Time International Ratio 1.2 (0.8-1.1) Glucose (Fingerstick) 246 mg/dL (70-99) 238 mg/dL (70-99) Test 05/08/20 16:25 05/08/20 20:51 05/09/20 05:28 05/09/20 08:06 Glucose (Fingerstick) 208 mg/dL (70-99) 178 mg/dL (70-99) 170 mg/dL (70-99) Prothrombin Time 15.5 SEC (11.7-14.0) Prothromb Time International Ratio 1.3 (0.8-1.1) Sodium Level 142 mmol/L (136-145) Potassium Level 3.1 mmol/L (3.5-5.1) Chloride Level 105 mmol/L (98-107) Carbon Dioxide Level 24 mmol/L (21-32) Anion Gap 13 (6-14) Blood Urea Nitrogen 16 mg/dL (8-26) Creatinine 1.0 mg/dL (0.7-1.3) Estimated GFR (Cockcroft-Gault) 74.3 BUN/Creatinine Ratio 16 (6-20) Glucose Level 162 mg/dL (70-99) Calcium Level 8.7 mg/dL (8.5-10.1) Magnesium Level 2.0 mg/dL (1.8-2.4) Total Bilirubin 0.9 mg/dL (0.2-1.0) Aspartate Amino Transf (AST/SGOT) 44 U/L (15-37) Alanine Aminotransferase (ALT/SGPT) 52 U/L (16-63) Alkaline Phosphatase 233 U/L (46-116) Total Protein 7.4 g/dL (6.4-8.2) Albumin 3.2 g/dL (3.4-5.0) Albumin/Globulin Ratio 0.8 (1.0-1.7) Lipase 25 U/L (73-393) Test 05/09/20 12:03 Glucose (Fingerstick) 225 mg/dL (70-99) Laboratory Tests Test 05/08/20 16:25 05/08/20 20:51 05/09/20 05:28 05/09/20 08:06 Glucose (Fingerstick) 208 mg/dL (70-99) 178 mg/dL (70-99) 170 mg/dL (70-99) Prothrombin Time 15.5 SEC (11.7-14.0) Prothromb Time International Ratio 1.3 (0.8-1.1) Sodium Level 142 mmol/L (136-145) Potassium Level 3.1 mmol/L (3.5-5.1) Chloride Level 105 mmol/L (98-107) Carbon Dioxide Level 24 mmol/L (21-32) Anion Gap 13 (6-14) Blood Urea Nitrogen 16 mg/dL (8-26) Creatinine 1.0 mg/dL (0.7-1.3) Estimated GFR (Cockcroft-Gault) 74.3 BUN/Creatinine Ratio 16 (6-20) Glucose Level 162 mg/dL (70-99) Calcium Level 8.7 mg/dL (8.5-10.1) Magnesium Level 2.0 mg/dL (1.8-2.4) Total Bilirubin 0.9 mg/dL (0.2-1.0) Aspartate Amino Transf (AST/SGOT) 44 U/L (15-37) Alanine Aminotransferase (ALT/SGPT) 52 U/L (16-63) Alkaline Phosphatase 233 U/L (46-116) Total Protein 7.4 g/dL (6.4-8.2) Albumin 3.2 g/dL (3.4-5.0) Albumin/Globulin Ratio 0.8 (1.0-1.7) Lipase 25 U/L (73-393) Test 05/09/20 12:03 Glucose (Fingerstick) 225 mg/dL (70-99) Problem List Problems Medical Problems: (1) Abdominal pain Status: Acute (2) Acute electrocardiogram changes Status: Acute (3) Cholecystitis Status: Acute (4) Hyperkalemia Status: Acute Assessment/Plan d/w pt and pt's supportive R/R/B/A of cholecystectomy vs observation as pt feels better and comorbidities, he favors observation at this time and avoid surgery. Justicifation of Admission Dx: Justifications for Admission: Justification of Admission Dx: Yes ALEXANDRE STARK MD May 09, 2020 13:36
[2020-05-09 15:00] VITALS: BP 210/82
--- NOTE | 2020-05-09 16:47 | PDOC ---
CARDIOLOGY PROGRESS NOTE SUBJECTIVE: No new CV events overnight. Denies any chest pain OBJECTIVE: Vital Signs/I&O: Vital Signs Date Time Temp Pulse Resp B/P (MAP) Pulse Ox O2 Delivery O2 Flow Rate FiO2 05/09/20 15:44 64 210/82 05/09/20 15:38 18 Room Air 05/09/20 15:00 98.8 97 98.8 l I & O 05/08/20 05/08/20 05/09/20 15:00 23:00 07:00 Intake Total 0 ml 240 ml 220 ml Output Total 300 ml 1800 ml 400 ml Balance -300 ml -1560 ml -180 ml Objective: GEN.: No apparent distress. Alert and oriented. HEENT: Head is normocephalic, atraumatic NECK: Supple. LUNGS: Clear to auscultation. HEART: RRR, S1, S2 present. Peripheral pulses intact ABDOMEN: Soft, nontender. Positive bowel sounds. EXTREMITIES: Without any cyanosis. NEUROLOGIC: Normal speech, normal tone PSYCHIATRIC: Normal affect, normal mood. SKIN: No ulcerations CURRENT MEDICATIONS: Current Medications Medications (Trade) Dose Ordered Sig/Eyad Route PRN Reason Start Time Stop Time Status Last Admin Dose Admin Insulin Glargine (Lantus Syringe) 8 unit QHS SQ 05/08/20 21:00 05/08/20 22:43 Potassium Chloride/Water 100 ml @ 100 mls/hr Q1H IV 05/09/20 11:00 05/09/20 12:59 DC 05/09/20 13:32 Potassium Chloride (Klor-Con) 40 meq 1X ONCE PO 05/09/20 11:00 05/09/20 11:08 DC 05/09/20 12:22 DIAGNOSTIC TESTING: labs reviewed Labs: Laboratory Tests 05/09/20 05:28 Laboratory Tests Test 05/08/20 20:51 05/09/20 05:28 05/09/20 08:06 05/09/20 12:03 Glucose (Fingerstick) 178 mg/dL (70-99) H 170 mg/dL (70-99) H 225 mg/dL (70-99) H Prothrombin Time 15.5 SEC (11.7-14.0) H Prothromb Time International Ratio 1.3 (0.8-1.1) H Sodium Level 142 mmol/L (136-145) Potassium Level 3.1 mmol/L (3.5-5.1) L Chloride Level 105 mmol/L (98-107) Carbon Dioxide Level 24 mmol/L (21-32) Anion Gap 13 (6-14) Blood Urea Nitrogen 16 mg/dL (8-26) Creatinine 1.0 mg/dL (0.7-1.3) Estimated GFR (Cockcroft-Gault) 74.3 BUN/Creatinine Ratio 16 (6-20) Glucose Level 162 mg/dL (70-99) H Calcium Level 8.7 mg/dL (8.5-10.1) Total Bilirubin 0.9 mg/dL (0.2-1.0) Aspartate Amino Transf (AST/SGOT) 44 U/L (15-37) H Alkaline Phosphatase 233 U/L (46-116) H Total Protein 7.4 g/dL (6.4-8.2) Albumin 3.2 g/dL (3.4-5.0) L Albumin/Globulin Ratio 0.8 (1.0-1.7) L Lipase 25 U/L (73-393) L ASSESSMENT: 1. LBBB 2. Hx of NICM with normal LV function on echo in 04/2020 3. HTN PLAN: 1. Since he is tolerating clear liquids, will restart some medical therapy for BP and PAD. -He was on Metoprol XL at home, HR only 70 now, will instead start Amlodipine 10mg daily and use hydralazine prn as needed until BP stabilizes and may need to also go home on hydralazine as well. -He likely also merits arely-inh use but will monitor for now. -Ok to restart asa, plavix, statin if no plans for any surgery currently. Thanks. Justicifation of Admission Dx: Justifications for Admission: Justification of Admission Dx: Yes KATY BUTT MD May 09, 2020 16:47
[2020-05-09] MEDS ORDERED: amLODIPine BESYLATE 5 MG TABLET PO ONE (17:00)
[2020-05-09] MEDS ORDERED: hydrALAZINE 20 MG/ML VIAL. IVP ONE (17:00)
[2020-05-09 19:20] VITALS: BP 174/62
[2020-05-09] MEDS: ATORVASTATIN CALCIUM 10 MG TABLET. PO SCH (21:14)
[2020-05-09] MEDS: INSULIN GLARGINE SYRINGE. SQ SCH (21:16)
[2020-05-09 22:45] VITALS: BP 198/70
[2020-05-09] MEDS: hydrALAZINE 20 MG/ML VIAL. IVP PRN (22:57)
[2020-05-10 03:20] VITALS: BP 213/65
[2020-05-10] MEDS: cloNIDine HCL 0.1 MG TABLET PO PRN (03:46)
[2020-05-10] MEDS: ONDANSETRON PF 4 MG/2 ML VIAL. IV SCH ×5 (03:55→20:14)
[2020-05-10] MEDS: PIPERACILLIN/TAZOBACTAM 4.5 GM in IV NORMAL SALINE 100ML 100 ML IV SCH ×3 (06:01→17:57)
[2020-05-10] MEDS: NITROGLYCERIN OINT 1 GM PACKET. TP SCH ×3 (06:03→17:45)
[2020-05-10 06:17] LABS: BASO % 0 % (0-3); EOS % 0 % (0-3); HEMATOCRIT 33.4 % (39.0-53.0); HEMOGLOBIN 11.4 g/dL (13.0-17.5); LYMPH # 2.2 x10^3/uL (1.0-4.8); LYMPH % 17 % (24-48); MEAN CORPUSCULAR HEMOGLOBIN 32 pg (25-35); MEAN CORPUSCULAR HGB CONC 34 g/dL (31-37); MEAN CORPUSCULAR VOLUME 92 fL (79-100); MONO # 1.2 x10^3/uL (0.0-1.1); MONO % 9 % (0-9); NEUT # 9.3 x10^3/uL (1.8-7.7); NEUT % 73 % (31-73); PLATELET COUNT 184 x10^3/uL (140-400); RED BLOOD COUNT 3.63 x10^6/uL (4.30-5.70); WHITE BLOOD COUNT 12.7 x10^3/uL (4.0-11.0)
[2020-05-10 06:38] LABS: ALBUMIN 3.3 g/dL (3.4-5.0); ALBUMIN/GLOBULIN RATIO 0.8 (1.0-1.7); CALCIUM 8.9 mg/dL (8.5-10.1); CREATININE 0.9 mg/dL (0.7-1.3); GFR 83.9; POTASSIUM 3.2 mmol/L (3.5-5.1); TOTAL BILIRUBIN 1.2 mg/dL (0.2-1.0); TOTAL PROTEIN 7.4 g/dL (6.4-8.2)
[2020-05-10 07:00] VITALS: BP 216/70
[2020-05-10] MEDS: PANTOPRAZOLE IV PUSH 40 MG VIAL. IVP SCH (07:56)
[2020-05-10] MEDS: HYDROmorphone 2 MG/ML VIAL IV PRN (07:57)
[2020-05-10] MEDS: hydrALAZINE 20 MG/ML VIAL. IVP PRN (07:57)
--- NOTE | 2020-05-10 07:58 | PDOC ---
PROGRESS NOTES Chief Complaint Chief Complaint A/P: Intractable abdominal pain - with signs of acute on chronic cholecytitis. General surgery consulted Nausea and vomiting - IV antiemetics Hyperkalemia - corrected. Will monitor. Likely 2/2 LIVE LIVE - vasomotor nephropathy. Improved with hydration Sepsis - likely 2/2 cholecystitis. Started on zosyn and IVF Cirrhosis of liver - noted on CT scan, likely ETOH related. Counseled on ETOH cessation. 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 Pain is 7 out of 10, colicky in nature. Nausea did not remit with Zofran but did improve after Compazine dosing. Still vomited again in the ED and overnight. despite meds. He is still nauseated currently. CT imaging of patient's abdomen shows gallstones in the gallbladder with a dilated CBD which appears to be stable from previous CT imaging. Dedicated ultrasound was performed which showed cholelithiasis with mild gallbladder wall thickening questionable acute or chronic cholecystitis no pericolic cystic fluid. EKG - Heart rate 95 accelerated junctional rhythm, left axis deviation peaked T waves WBC 13.1, Hb 12.9, platelets 300, NA 136, BUN 31, CR 1.5, glucose 232, alkaline phosphatase 287, calcium 10.4, lipase normal Patient's troponin within normal limits. Patient's potassium was noted to be 5.3. Patient was treated with glucagon, insulin and calcium. Post treatment repeat creatinine and potassium improved potassium resulted at 4.9. Patient was placed on antibiotics Zosyn. Patient was admitted with general surgery and cardiology consults. 05/08: HIDA scan positive for cholecystitis. Afebrile. WBC down to 9, creatinine improved. Bilirubin up to 1.3. He had a little vomiting overnight. Tolerated clears. 05/09: Overnight afebrile. K 3.1 today. COVID negative. He wants to cont clear diet today is amenable to staying inpatient for further treatment of his sepsis and cholecystitis with tentative plans for surgery depending on surgery recommendations. No chest pain or shortness of breath. Overnight afebrile K3.2 AST 56 ALT 73 alkaline phosphatase 229 this morning WBC up to 12.7. Plan: Monitor CBC, can transition to oral antibiotics over the next 24 hours, will get PT and OT for his deconditioning he may need some rehab prior to going home. Replace K IV and p.o. Vitals Vitals Vital Signs Date Time Temp Pulse Resp B/P (MAP) Pulse Ox O2 Delivery O2 Flow Rate FiO2 05/10/20 07:38 Room Air 05/10/20 06:03 63 188/69 05/10/20 03:20 99.3 20 96 99.3 Physical Exam General: Alert, Oriented X3, Cooperative, No acute distress Heart: Regular rate, No murmurs Lungs: Clear Abdomen: Soft, Other (mild TTP RUQ) Extremities: No cyanosis, No edema Skin: No breakdown, No significant lesion Labs LABS Laboratory Tests Test 05/09/20 08:06 05/09/20 12:03 05/09/20 17:08 05/09/20 21:00 Glucose (Fingerstick) 170 mg/dL (70-99) 225 mg/dL (70-99) 178 mg/dL (70-99) 165 mg/dL (70-99) Test 05/10/20 05:14 05/10/20 07:37 White Blood Count 12.7 x10^3/uL (4.0-11.0) Red Blood Count 3.63 x10^6/uL (4.30-5.70) Hemoglobin 11.4 g/dL (13.0-17.5) Hematocrit 33.4 % (39.0-53.0) Mean Corpuscular Volume 92 fL (79-100) Mean Corpuscular Hemoglobin 32 pg (25-35) Mean Corpuscular Hemoglobin Concent 34 g/dL (31-37) Red Cell Distribution Width 13.0 % (11.5-14.5) Platelet Count 184 x10^3/uL (140-400) Neutrophils (%) (Auto) 73 % (31-73) Lymphocytes (%) (Auto) 17 % (24-48) Monocytes (%) (Auto) 9 % (0-9) Eosinophils (%) (Auto) 0 % (0-3) Basophils (%) (Auto) 0 % (0-3) Neutrophils # (Auto) 9.3 x10^3/uL (1.8-7.7) Lymphocytes # (Auto) 2.2 x10^3/uL (1.0-4.8) Monocytes # (Auto) 1.2 x10^3/uL (0.0-1.1) Eosinophils # (Auto) 0.0 x10^3/uL (0.0-0.7) Basophils # (Auto) 0.0 x10^3/uL (0.0-0.2) Sodium Level 139 mmol/L (136-145) Potassium Level 3.2 mmol/L (3.5-5.1) Chloride Level 101 mmol/L (98-107) Carbon Dioxide Level 25 mmol/L (21-32) Anion Gap 13 (6-14) Blood Urea Nitrogen 13 mg/dL (8-26) Creatinine 0.9 mg/dL (0.7-1.3) Estimated GFR (Cockcroft-Gault) 83.9 BUN/Creatinine Ratio 14 (6-20) Glucose Level 158 mg/dL (70-99) Calcium Level 8.9 mg/dL (8.5-10.1) Total Bilirubin 1.2 mg/dL (0.2-1.0) Aspartate Amino Transf (AST/SGOT) 56 U/L (15-37) Alanine Aminotransferase (ALT/SGPT) 73 U/L (16-63) Alkaline Phosphatase 229 U/L (46-116) Total Protein 7.4 g/dL (6.4-8.2) Albumin 3.3 g/dL (3.4-5.0) Albumin/Globulin Ratio 0.8 (1.0-1.7) Glucose (Fingerstick) 151 mg/dL (70-99) Assessment and Plan Assessmemt and Plan Problems Medical Problems: (1) Abdominal pain Status: Acute (2) Acute electrocardiogram changes Status: Acute (3) Cholecystitis Status: Acute (4) Hyperkalemia Status: Acute Comment Review of Relevant I have reviewed the following items alyse (where applicable) has been applied. Labs Laboratory Tests Test 05/08/20 11:42 05/08/20 16:25 05/08/20 20:51 05/09/20 05:28 Glucose (Fingerstick) 238 mg/dL (70-99) 208 mg/dL (70-99) 178 mg/dL (70-99) Prothrombin Time 15.5 SEC (11.7-14.0) Prothromb Time International Ratio 1.3 (0.8-1.1) Sodium Level 142 mmol/L (136-145) Potassium Level 3.1 mmol/L (3.5-5.1) Chloride Level 105 mmol/L (98-107) Carbon Dioxide Level 24 mmol/L (21-32) Anion Gap 13 (6-14) Blood Urea Nitrogen 16 mg/dL (8-26) Creatinine 1.0 mg/dL (0.7-1.3) Estimated GFR (Cockcroft-Gault) 74.3 BUN/Creatinine Ratio 16 (6-20) Glucose Level 162 mg/dL (70-99) Calcium Level 8.7 mg/dL (8.5-10.1) Magnesium Level 2.0 mg/dL (1.8-2.4) Total Bilirubin 0.9 mg/dL (0.2-1.0) Aspartate Amino Transf (AST/SGOT) 44 U/L (15-37) Alanine Aminotransferase (ALT/SGPT) 52 U/L (16-63) Alkaline Phosphatase 233 U/L (46-116) Total Protein 7.4 g/dL (6.4-8.2) Albumin 3.2 g/dL (3.4-5.0) Albumin/Globulin Ratio 0.8 (1.0-1.7) Lipase 25 U/L (73-393) Test 05/09/20 08:06 05/09/20 12:03 05/09/20 17:08 05/09/20 21:00 Glucose (Fingerstick) 170 mg/dL (70-99) 225 mg/dL (70-99) 178 mg/dL (70-99) 165 mg/dL (70-99) Test 05/10/20 05:14 05/10/20 07:37 White Blood Count 12.7 x10^3/uL (4.0-11.0) Red Blood Count 3.63 x10^6/uL (4.30-5.70) Hemoglobin 11.4 g/dL (13.0-17.5) Hematocrit 33.4 % (39.0-53.0) Mean Corpuscular Volume 92 fL (79-100) Mean Corpuscular Hemoglobin 32 pg (25-35) Mean Corpuscular Hemoglobin Concent 34 g/dL (31-37) Red Cell Distribution Width 13.0 % (11.5-14.5) Platelet Count 184 x10^3/uL (140-400) Neutrophils (%) (Auto) 73 % (31-73) Lymphocytes (%) (Auto) 17 % (24-48) Monocytes (%) (Auto) 9 % (0-9) Eosinophils (%) (Auto) 0 % (0-3) Basophils (%) (Auto) 0 % (0-3) Neutrophils # (Auto) 9.3 x10^3/uL (1.8-7.7) Lymphocytes # (Auto) 2.2 x10^3/uL (1.0-4.8) Monocytes # (Auto) 1.2 x10^3/uL (0.0-1.1) Eosinophils # (Auto) 0.0 x10^3/uL (0.0-0.7) Basophils # (Auto) 0.0 x10^3/uL (0.0-0.2) Sodium Level 139 mmol/L (136-145) Potassium Level 3.2 mmol/L (3.5-5.1) Chloride Level 101 mmol/L (98-107) Carbon Dioxide Level 25 mmol/L (21-32) Anion Gap 13 (6-14) Blood Urea Nitrogen 13 mg/dL (8-26) Creatinine 0.9 mg/dL (0.7-1.3) Estimated GFR (Cockcroft-Gault) 83.9 BUN/Creatinine Ratio 14 (6-20) Glucose Level 158 mg/dL (70-99) Calcium Level 8.9 mg/dL (8.5-10.1) Total Bilirubin 1.2 mg/dL (0.2-1.0) Aspartate Amino Transf (AST/SGOT) 56 U/L (15-37) Alanine Aminotransferase (ALT/SGPT) 73 U/L (16-63) Alkaline Phosphatase 229 U/L (46-116) Total Protein 7.4 g/dL (6.4-8.2) Albumin 3.3 g/dL (3.4-5.0) Albumin/Globulin Ratio 0.8 (1.0-1.7) Glucose (Fingerstick) 151 mg/dL (70-99) Laboratory Tests Test 05/09/20 08:06 05/09/20 12:03 05/09/20 17:08 05/09/20 21:00 Glucose (Fingerstick) 170 mg/dL (70-99) 225 mg/dL (70-99) 178 mg/dL (70-99) 165 mg/dL (70-99) Test 05/10/20 05:14 05/10/20 07:37 White Blood Count 12.7 x10^3/uL (4.0-11.0) Red Blood Count 3.63 x10^6/uL (4.30-5.70) Hemoglobin 11.4 g/dL (13.0-17.5) Hematocrit 33.4 % (39.0-53.0) Mean Corpuscular Volume 92 fL (79-100) Mean Corpuscular Hemoglobin 32 pg (25-35) Mean Corpuscular Hemoglobin Concent 34 g/dL (31-37) Red Cell Distribution Width 13.0 % (11.5-14.5) Platelet Count 184 x10^3/uL (140-400) Neutrophils (%) (Auto) 73 % (31-73) Lymphocytes (%) (Auto) 17 % (24-48) Monocytes (%) (Auto) 9 % (0-9) Eosinophils (%) (Auto) 0 % (0-3) Basophils (%) (Auto) 0 % (0-3) Neutrophils # (Auto) 9.3 x10^3/uL (1.8-7.7) Lymphocytes # (Auto) 2.2 x10^3/uL (1.0-4.8) Monocytes # (Auto) 1.2 x10^3/uL (0.0-1.1) Eosinophils # (Auto) 0.0 x10^3/uL (0.0-0.7) Basophils # (Auto) 0.0 x10^3/uL (0.0-0.2) Sodium Level 139 mmol/L (136-145) Potassium Level 3.2 mmol/L (3.5-5.1) Chloride Level 101 mmol/L (98-107) Carbon Dioxide Level 25 mmol/L (21-32) Anion Gap 13 (6-14) Blood Urea Nitrogen 13 mg/dL (8-26) Creatinine 0.9 mg/dL (0.7-1.3) Estimated GFR (Cockcroft-Gault) 83.9 BUN/Creatinine Ratio 14 (6-20) Glucose Level 158 mg/dL (70-99) Calcium Level 8.9 mg/dL (8.5-10.1) Total Bilirubin 1.2 mg/dL (0.2-1.0) Aspartate Amino Transf (AST/SGOT) 56 U/L (15-37) Alanine Aminotransferase (ALT/SGPT) 73 U/L (16-63) Alkaline Phosphatase 229 U/L (46-116) Total Protein 7.4 g/dL (6.4-8.2) Albumin 3.3 g/dL (3.4-5.0) Albumin/Globulin Ratio 0.8 (1.0-1.7) Glucose (Fingerstick) 151 mg/dL (70-99) Medications Current Medications Ondansetron HCl (Zofran) 4 mg STK-MED ONCE .ROUTE ; Start 05/06/20 at 20:42; Stop 05/06/20 at 20:42; Status DC Morphine Sulfate (Morphine Sulfate) 4 mg 1X ONCE IV Last administered on 05/06/20at 21:34; Start 05/06/20 at 21:30; Stop 05/06/20 at 21:31; Status DC Ondansetron HCl (Zofran) 4 mg 1X ONCE IV Last administered on 05/06/20at 21:28; Start 05/06/20 at 21:30; Stop 05/06/20 at 21:31; Status DC Prochlorperazine Edisylate (Compazine) 10 mg 1X ONCE IV Last administered on 05/06/20at 21:34; Start 05/06/20 at 21:30; Stop 05/06/20 at 21:39; Status DC Sodium Chloride 1,000 ml @ 0 mls/hr 1X ONCE IV Last administered on 05/06/20at 22:15; Start 05/06/20 at 22:15; Stop 05/06/20 at 22:16; Status DC Calcium Gluconate (Calcium Gluconate) 1,000 mg 1X ONCE IVP Last administered on 05/06/20at 23:10; Start 05/06/20 at 23:00; Stop 05/06/20 at 23:01; Status DC Insulin Human Regular (HumuLIN R VIAL) 10 unit 1X ONCE IV Last administered on 05/06/20at 23:07; Start 05/06/20 at 23:00; Stop 05/06/20 at 23:01; Status DC Dextrose (Dextrose 50%-Water Syringe) 25 gm 1X ONCE IV Last administered on 05/06/20at 23:11; Start 05/06/20 at 23:00; Stop 05/06/20 at 23:01; Status DC Morphine Sulfate (Morphine Sulfate) 4 mg 1X ONCE IV Last administered on 05/06/20at 23:12; Start 05/06/20 at 23:00; Stop 05/06/20 at 23:01; Status DC Ondansetron HCl (Zofran) 4 mg 1X ONCE IVP Last administered on 05/06/20at 23:06; Start 05/06/20 at 23:00; Stop 05/06/20 at 23:01; Status DC Prochlorperazine Edisylate (Compazine) 10 mg 1X ONCE IV Last administered on 05/06/20at 23:31; Start 05/06/20 at 23:30; Stop 05/06/20 at 23:31; Status DC Piperacillin Sod/ Tazobactam Sod 4.5 gm/Sodium Chloride 100 ml @ 200 mls/hr Q6HRS IV Last administered on 05/10/20at 06:01; Start 05/07/20 at 06:00 Prochlorperazine Edisylate (Compazine) 10 mg 1X ONCE IV Last administered on 05/07/20at 03:19; Start 05/07/20 at 03:30; Stop 05/07/20 at 03:31; Status DC Ondansetron HCl (Zofran) 4 mg PRN Q4HRS PRN IV NAUSEA/VOMITING (USE 1ST) Last administered on 05/08/20at 11:23; Start 05/07/20 at 03:30; Stop 05/08/20 at 16:26; Status DC Acetaminophen (Tylenol Supp) 650 mg PRN Q4HRS PRN OR TEMP OVER 100.4F OR MILD PAIN; Start 05/07/20 at 03:30 Hydromorphone HCl (Dilaudid) 1 mg PRN Q2HRS PRN IV SEVERE PAIN 7-10 Last administered on 05/09/20 15:38; Start 05/07/20 at 03:30 Enoxaparin Sodium (Lovenox 40mg Syringe) 40 mg Q24H SQ Last administered on 05/09/20 08:47; Start 05/07/20 at 09:00 Insulin Human Lispro (HumaLOG) 0-9 UNITS TIDACHC SQ Last administered on 05/09/20 17:59; Start 05/07/20 at 07:30 Dextrose (Dextrose 50%-Water Syringe) 12.5 gm PRN Q15MIN PRN IV SEE COMMENTS; Start 05/07/20 at 03:30 Acetaminophen (Tylenol) 650 mg PRN Q4HRS PRN PO TEMP OVER 100.4F OR HEADACHE Last administered on 05/07/20 20:38; Start 05/07/20 at 03:30 Albuterol Sulfate (Ventolin Neb Soln) 2.5 mg PRN Q4HRS PRN NEB SHORTNESS OF BREATH; Start 05/07/20 at 03:30 Aspirin (Ecotrin) 81 mg DAILYWBKFT PO Last administered on 05/09/20at 11:04; Start 05/07/20 at 08:00 Atorvastatin Calcium (Lipitor) 10 mg QHS PO Last administered on 05/09/20 21:14; Start 05/07/20 at 21:00 Gabapentin (Neurontin) 100 mg TID PO Last administered on 05/09/20 21:14; Start 05/07/20 at 09:00 Acetaminophen/ Hydrocodone Bitart (Lortab 10/325) 1 tab PRN Q6HRS PRN PO MODERATE PAIN 4-6 Last administered on 05/09/20 11:14; Start 05/07/20 at 03:30 Insulin Glargine (Lantus Syringe) 12 unit QHS SQ ; Start 05/07/20 at 21:00; Stop 05/08/20 at 16:28; Status DC Lactobacillus Rhamnosus (Culturelle) 1 cap BID PO Last administered on 05/09/20at 21:14; Start 05/07/20 at 09:00 Metoprolol Succinate (Toprol Xl) 100 mg DAILY PO Last administered on 05/09/20at 11:04; Start 05/07/20 at 09:00 Pantoprazole Sodium (Protonix) 40 mg DAILYAC PO ; Start 05/07/20 at 07:30; Stop 05/07/20 at 14:12; Status DC Prochlorperazine Edisylate (Compazine) 10 mg PRN Q6HRS PRN IV NAUSEA/VOMITING (USE 2ND) Last administered on 05/08/20at 03:18; Start 05/07/20 at 03:30 Lactulose (Lactulose) 20 gm PRN DAILY PRN PO CONSTIPATION (USE 2ND); Start 05/07/20 at 03:30 Senna/Docusate Sodium (Senna Plus) 2 tab PRN BID PRN PO CONSTIPATION (USE 3RD); Start 05/07/20 at 03:30 Polyethylene Glycol (miraLAX PACKET) 17 gm PRN BID PRN PO CONSTIPATION (1ST CHOICE); Start 05/07/20 at 03:30 Sodium Chloride 1,000 ml @ 75 mls/hr 1X ONCE IV Last administered on 05/07/20at 04:02; Start 05/07/20 at 03:45; Stop 05/07/20 at 17:04; Status DC Lorazepam (Ativan Inj) 1 mg PRN Q5MIN PRN IVP ANXIETY / AGITATION Last administered on 05/07/20at 10:49; Start 05/07/20 at 10:45 Multivitamins (Thera M Plus) 1 tab DAILY PO Last administered on 05/09/20at 11:04; Start 05/07/20 at 12:00 Folic Acid (Folic Acid) 1 mg DAILY PO Last administered on 05/09/20at 11:04; Start 05/07/20 at 12:00 Thiamine Mononitrate (Vitamin B-1) 100 mg DAILY PO Last administered on 05/09/20at 11:04; Start 05/07/20 at 12:00 Lorazepam (Ativan) 2 mg PRN Q1HR PRN PO For CIWA 8-14; Start 05/07/20 at 11:00 Lorazepam (Ativan Inj) 1 mg PRN Q1HR PRN IV For CIWA 8-14; Start 05/07/20 at 11:00 Haloperidol Lactate (Haldol Inj) 5 mg PRN Q4HRS PRN IVP Hallucinatns,Confusn,Delirium; Start 05/07/20 at 11:00 Diphenhydramine HCl (Benadryl) 25 mg PRN Q15MIN PRN IVP EPS symptoms 2'Haldol admin; Start 05/07/20 at 11:00 Clonidine HCl (Catapres) 0.1 mg PRN Q1HR PRN PO SBP > 180 or DBP > 100, MRX3 Last administered on 05/10/20at 03:46; Start 05/07/20 at 11:00 Metoprolol Tartrate (Lopressor Vial) 5 mg Q6HRS IVP Last administered on 05/09/20at 05:39; Start 05/07/20 at 12:00; Stop 05/09/20 at 17:37; Status DC Nitroglycerin (Nitro-Bid Oint) 1 inch Q6HRS TP Last administered on 05/10/20at 06:03; Start 05/07/20 at 12:00 Labetalol HCl (Normodyne Iv Push) 20 mg PRN Q2HR PRN IVP HYPERTENSION Last administered on 05/09/20at 15:44; Start 05/07/20 at 11:30 Morphine Sulfate (Morphine Sulfate) 4 mg 1X ONCE IV Last administered on 05/07/20at 12:06; Start 05/07/20 at 12:00; Stop 05/07/20 at 12:01; Status DC Morphine Sulfate (Morphine Sulfate) 4 mg STK-MED ONCE .ROUTE ; Start 05/07/20 at 11:59; Stop 05/07/20 at 11:59; Status DC Pantoprazole Sodium (PROTONIX VIAL for IV PUSH) 40 mg DAILYAC IVP Last administered on 05/09/20at 08:47; Start 05/08/20 at 07:30 Vitamin A/Vitamin D (Vitamin A & D Ointment) 1 idalia PRN Q1HR PRN TP SKIN PROTECTION Last administered on 05/09/20at 15:54; Start 05/07/20 at 16:45 Sodium Chloride 1,000 ml @ 75 mls/hr [id number] IV Last administered on 05/09/20at 23:53; Start 05/07/20 at 19:30 Ondansetron HCl (Zofran) 4 mg Q4HRS IV Last administered on 05/10/20at 03:55; Start 05/08/20 at 16:30 Insulin Glargine (Lantus Syringe) 8 unit QHS SQ Last administered on 05/09/20at 21:16; Start 05/08/20 at 21:00 Potassium Chloride/Water 100 ml @ 100 mls/hr Q1H IV Last administered on 05/09/20at 13:32; Start 05/09/20 at 11:00; Stop 05/09/20 at 12:59; Status DC Potassium Chloride (Klor-Con) 40 meq 1X ONCE PO Last administered on 05/09/20at 12:22; Start 05/09/20 at 11:00; Stop 05/09/20 at 11:08; Status DC Hydralazine HCl (Apresoline Inj) 10 mg PRN Q4HRS PRN IVP ELEVATED BP, SEE COM MENTS Last administered on 05/09/20at 22:57; Start 05/09/20 at 17:00 Hydralazine HCl (Apresoline Inj) 10 mg 1X ONCE IVP Last administered on 05/09/20at 17:51; Start 05/09/20 at 17:00; Stop 05/09/20 at 17:01; Status DC Amlodipine Besylate (Norvasc) 5 mg 1X ONCE PO Last administered on 05/09/20at 17:51; Start 05/09/20 at 17:00; Stop 05/09/20 at 17:01; Status DC Potassium Chloride (Klor-Con) 40 meq 1X ONCE PO ; Start 05/10/20 at 08:00; Stop 05/10/20 at 08:01; Status UNV Potassium Chloride/Water 100 ml @ 100 mls/hr Q1H IV ; Start 05/10/20 at 08:00; Stop 05/10/20 at 09:59; Status UNV Active Scripts Active Lantus (Insulin Glargine,Hum.rec.anlog) 100 Unit/1 Ml Vial 12 Unit SQ QHS 30 Days Culturelle (Lactobacillus Rhamnosus Gg) 1 Each Cap.sprink 1 Cap PO BID 30 Days Hydrochlorothiazide Tablet (Hydrochlorothiazide) 25 Mg Tablet 25 Mg PO DAILY 30 Days Tylenol (Acetaminophen) 325 Mg Tablet 650 Mg PO PRN Q4HRS PRN 30 Days Aspirin Ec (Aspirin) 81 Mg Tablet.dr 81 Mg PO DAILYWBKFT 30 Days Atorvastatin Calcium 10 Mg Tablet 10 Mg PO QHS 30 Days Proair Hfa (Albuterol Sulfate) 8.5 Gm Hfa.aer.ad 2.5 Mg NEB PRN Q4HRS PRN 30 Days Glucophage (Metformin Hcl) 500 Mg Tablet 500 Mg PO BIDWMEALS MDD 1 Furosemide 40 Mg Tablet 40 Mg PO DAILY MDD 1 Protonix (Pantoprazole Sodium) 20 Mg Tablet.dr 40 Mg PO DAILY 90 Days Reported [isra dill] 1 Patch TP Q14 DAYS Clopidogrel (Clopidogrel Bisulfate) 75 Mg Tablet 75 Mg PO DAILY Fluconazole 200 Mg Tablet 200 Mg PO DAILY Insulin Lispro 100 Unit/1 Ml Vial 3 Unit SQ TIDWMEALS Ventolin Hfa Inhaler (Albuterol Sulfate) 18 Gm Hfa.aer.ad 1 Puff INH QID Indomethacin 50 Mg Capsule 1 Cap PO PRN PRN Hydrocodone-Apap 10-325 (Hydrocodone Bit/Acetaminophen) 1 Tab Tablet 1 Tab PO PRN Q6HRS PRN Gabapentin (Gabapentin) 100 Mg Capsule 100 Mg PO TID Metoprolol Succinate ( Xl ) (Metoprolol Succinate) 100 Mg Tab.er.24h 100 Mg PO DAILY Vitals/I & O Vital Sign - Last 24 Hours 05/09/20 05/09/20 05/09/20 05/09/20 08:00 08:48 09:12 09:18 Pulse 65 Resp 20 18 B/P (MAP) 206/68 O2 Delivery Room Air Room Air Room Air 05/09/20 05/09/20 05/09/20 05/09/20 11:00 11:04 11:14 12:14 Temp 99.0 99.0 Pulse 78 78 Resp 18 18 20 B/P (MAP) 173/74 (107) 173/74 Pulse Ox 98 O2 Delivery Room Air Room Air Room Air 05/09/20 05/09/20 05/09/20 05/09/20 12:22 15:00 15:38 15:44 Temp 98.8 98.8 Pulse 78 64 64 Resp 18 18 B/P (MAP) 173/74 210/82 (124) 210/82 Pulse Ox 97 O2 Delivery Room Air Room Air 05/09/20 05/09/20 05/09/20 05/09/20 16:08 17:51 17:51 17:51 Pulse 70 70 70 Resp 18 B/P (MAP) 209/68 209/68 209/68 O2 Delivery Room Air 05/09/20 05/09/20 05/09/20 05/09/20 19:20 19:46 22:45 22:57 Temp 99.2 99.0 99.2 99.0 Pulse 78 67 70 Resp 18 18 B/P (MAP) 174/62 (99) 198/70 (112) 198/70 Pulse Ox 97 98 O2 Delivery Room Air Room Air Room Air 05/09/20 05/10/20 05/10/20 05/10/20 23:53 03:20 03:46 06:03 Temp 99.3 99.3 Pulse 70 77 77 63 Resp 20 B/P (MAP) 198/70 213/65 (114) 213/65 188/69 Pulse Ox 96 O2 Delivery Room Air 05/10/20 07:38 O2 Delivery Room Air Intake and Output 0 05/09/20 05/09/20 05/10/20 15:00 23:00 07:00 Intake Total 600 ml 150 ml 150 ml Output Total 400 ml 600 ml 900 ml Balance 200 ml -450 ml -750 ml Nutrition Consultation Dietary Evaluation: Recommendations by RD: Dietary education by RD, Increase Calorie Intake, Protein supplementation Comments: REC avoid prolonged NPO status (<4 days), advance diet within 48-72 hrs as able per GI/medical status, goal diet cardiac/ADA REC glucerna (chocolate) BID or TID per pt preference and %PO intake of meals Expected Outcomes/Goals: diet advancement Interpretation of weight loss: >7.5% in 3 months Malnutrition Findings: Food and Nutrition Intake (Mod: <75% est energy req 7days Weight Status: Overweight Justicifation of Admission Dx: Justifications for Admission: Justification of Admission Dx: Yes MASOUD CENTENO MD May 10, 2020 07:58
[2020-05-10] MEDS ORDERED: POTASSIUM CHLORIDE 20 MEQ TABLET.ER. PO ONE (08:00)
[2020-05-10] MEDS: GABAPENTIN 100 MG CAPSULE. PO SCH ×3 (08:21→20:12)
[2020-05-10] MEDS: THIAMINE 100 MG TABLET. PO SCH (08:21)
[2020-05-10] MEDS: LACTOBACILLUS RHAMNOSUS GG 1 CAPSULE. PO SCH ×2 (08:21→20:11)
[2020-05-10] MEDS: ENOXAPARIN 40 MG/0.4 ML SYRINGE. SQ SCH (08:21)
[2020-05-10] MEDS: MULTIVITAMIN with MINERAL TABLET. PO SCH (08:21)
[2020-05-10] MEDS: FOLIC ACID 1 MG TABLET. PO SCH (08:21)
[2020-05-10] MEDS: ASPIRIN ENTERIC COATED 81 MG TABLET.DR. PO SCH (08:21)
[2020-05-10] MEDS: POTASSIUM CHLORIDE 10MEQ 100 ML IV SCH ×2 (08:23→10:11)
[2020-05-10] MEDS: INSULIN LISPRO 300 UNITS/3 ML VIAL. SQ SCH ×4 (08:34→20:16)
--- NOTE | 2020-05-10 09:49 | PDOC ---
EJ BRYANT HYDROGRAPHICAL TECHNICAL OFFICER 05/10/20 0949: SURGICAL PROGRESS NOTE Subjective pain minimal no n/v Vital Signs Vital Signs Date Time Temp Pulse Resp B/P (MAP) Pulse Ox O2 Delivery O2 Flow Rate FiO2 05/10/20 08:27 18 Room Air 05/10/20 07:57 69 216/70 05/10/20 07:00 99.2 96 99.2 I&O Intake and Output 05/10/20 07:00 Intake Total 900 ml Output Total 1900 ml Balance -1000 ml Intake Oral 900 ml Output Urine Total 1900 ml General: Alert, Oriented X3, Cooperative Abdomen: Soft, No tenderness Labs Laboratory Tests Test 05/08/20 11:42 05/08/20 16:25 05/08/20 20:51 05/09/20 05:28 Glucose (Fingerstick) 238 mg/dL (70-99) 208 mg/dL (70-99) 178 mg/dL (70-99) Prothrombin Time 15.5 SEC (11.7-14.0) Prothromb Time International Ratio 1.3 (0.8-1.1) Sodium Level 142 mmol/L (136-145) Potassium Level 3.1 mmol/L (3.5-5.1) Chloride Level 105 mmol/L (98-107) Carbon Dioxide Level 24 mmol/L (21-32) Anion Gap 13 (6-14) Blood Urea Nitrogen 16 mg/dL (8-26) Creatinine 1.0 mg/dL (0.7-1.3) Estimated GFR (Cockcroft-Gault) 74.3 BUN/Creatinine Ratio 16 (6-20) Glucose Level 162 mg/dL (70-99) Calcium Level 8.7 mg/dL (8.5-10.1) Magnesium Level 2.0 mg/dL (1.8-2.4) Total Bilirubin 0.9 mg/dL (0.2-1.0) Aspartate Amino Transf (AST/SGOT) 44 U/L (15-37) Alanine Aminotransferase (ALT/SGPT) 52 U/L (16-63) Alkaline Phosphatase 233 U/L (46-116) Total Protein 7.4 g/dL (6.4-8.2) Albumin 3.2 g/dL (3.4-5.0) Albumin/Globulin Ratio 0.8 (1.0-1.7) Lipase 25 U/L (73-393) Test 05/09/20 08:06 05/09/20 12:03 05/09/20 17:08 05/09/20 21:00 Glucose (Fingerstick) 170 mg/dL (70-99) 225 mg/dL (70-99) 178 mg/dL (70-99) 165 mg/dL (70-99) Test 05/10/20 05:14 05/10/20 07:37 White Blood Count 12.7 x10^3/uL (4.0-11.0) Red Blood Count 3.63 x10^6/uL (4.30-5.70) Hemoglobin 11.4 g/dL (13.0-17.5) Hematocrit 33.4 % (39.0-53.0) Mean Corpuscular Volume 92 fL (79-100) Mean Corpuscular Hemoglobin 32 pg (25-35) Mean Corpuscular Hemoglobin Concent 34 g/dL (31-37) Red Cell Distribution Width 13.0 % (11.5-14.5) Platelet Count 184 x10^3/uL (140-400) Neutrophils (%) (Auto) 73 % (31-73) Lymphocytes (%) (Auto) 17 % (24-48) Monocytes (%) (Auto) 9 % (0-9) Eosinophils (%) (Auto) 0 % (0-3) Basophils (%) (Auto) 0 % (0-3) Neutrophils # (Auto) 9.3 x10^3/uL (1.8-7.7) Lymphocytes # (Auto) 2.2 x10^3/uL (1.0-4.8) Monocytes # (Auto) 1.2 x10^3/uL (0.0-1.1) Eosinophils # (Auto) 0.0 x10^3/uL (0.0-0.7) Basophils # (Auto) 0.0 x10^3/uL (0.0-0.2) Sodium Level 139 mmol/L (136-145) Potassium Level 3.2 mmol/L (3.5-5.1) Chloride Level 101 mmol/L (98-107) Carbon Dioxide Level 25 mmol/L (21-32) Anion Gap 13 (6-14) Blood Urea Nitrogen 13 mg/dL (8-26) Creatinine 0.9 mg/dL (0.7-1.3) Estimated GFR (Cockcroft-Gault) 83.9 BUN/Creatinine Ratio 14 (6-20) Glucose Level 158 mg/dL (70-99) Calcium Level 8.9 mg/dL (8.5-10.1) Total Bilirubin 1.2 mg/dL (0.2-1.0) Aspartate Amino Transf (AST/SGOT) 56 U/L (15-37) Alanine Aminotransferase (ALT/SGPT) 73 U/L (16-63) Alkaline Phosphatase 229 U/L (46-116) Total Protein 7.4 g/dL (6.4-8.2) Albumin 3.3 g/dL (3.4-5.0) Albumin/Globulin Ratio 0.8 (1.0-1.7) Glucose (Fingerstick) 151 mg/dL (70-99) Laboratory Tests Test 05/09/20 12:03 05/09/20 17:08 05/09/20 21:00 05/10/20 05:14 Glucose (Fingerstick) 225 mg/dL (70-99) 178 mg/dL (70-99) 165 mg/dL (70-99) White Blood Count 12.7 x10^3/uL (4.0-11.0) Red Blood Count 3.63 x10^6/uL (4.30-5.70) Hemoglobin 11.4 g/dL (13.0-17.5) Hematocrit 33.4 % (39.0-53.0) Mean Corpuscular Volume 92 fL (79-100) Mean Corpuscular Hemoglobin 32 pg (25-35) Mean Corpuscular Hemoglobin Concent 34 g/dL (31-37) Red Cell Distribution Width 13.0 % (11.5-14.5) Platelet Count 184 x10^3/uL (140-400) Neutrophils (%) (Auto) 73 % (31-73) Lymphocytes (%) (Auto) 17 % (24-48) Monocytes (%) (Auto) 9 % (0-9) Eosinophils (%) (Auto) 0 % (0-3) Basophils (%) (Auto) 0 % (0-3) Neutrophils # (Auto) 9.3 x10^3/uL (1.8-7.7) Lymphocytes # (Auto) 2.2 x10^3/uL (1.0-4.8) Monocytes # (Auto) 1.2 x10^3/uL (0.0-1.1) Eosinophils # (Auto) 0.0 x10^3/uL (0.0-0.7) Basophils # (Auto) 0.0 x10^3/uL (0.0-0.2) Sodium Level 139 mmol/L (136-145) Potassium Level 3.2 mmol/L (3.5-5.1) Chloride Level 101 mmol/L (98-107) Carbon Dioxide Level 25 mmol/L (21-32) Anion Gap 13 (6-14) Blood Urea Nitrogen 13 mg/dL (8-26) Creatinine 0.9 mg/dL (0.7-1.3) Estimated GFR (Cockcroft-Gault) 83.9 BUN/Creatinine Ratio 14 (6-20) Glucose Level 158 mg/dL (70-99) Calcium Level 8.9 mg/dL (8.5-10.1) Total Bilirubin 1.2 mg/dL (0.2-1.0) Aspartate Amino Transf (AST/SGOT) 56 U/L (15-37) Alanine Aminotransferase (ALT/SGPT) 73 U/L (16-63) Alkaline Phosphatase 229 U/L (46-116) Total Protein 7.4 g/dL (6.4-8.2) Albumin 3.3 g/dL (3.4-5.0) Albumin/Globulin Ratio 0.8 (1.0-1.7) Test 05/10/20 07:37 Glucose (Fingerstick) 151 mg/dL (70-99) Problem List Problems Medical Problems: (1) Abdominal pain Status: Acute (2) Acute electrocardiogram changes Status: Acute (3) Cholecystitis Status: Acute (4) Hyperkalemia Status: Acute Assessment/Plan labs noted poor surgical candidate, pt not interested continue abx will sign off, please call with questions Justicifation of Admission Dx: Justifications for Admission: Justification of Admission Dx: Yes DOLLY ALMONTE MD 05/11/20 0856: SURGICAL PROGRESS NOTE Assessment/Plan Patient poor surgical candidate due to his comorbidities. He is feeling better clinically at this point is not interested in having surgery, agree with [place] assessment and plan EJ BRYANT APRN May 10, 2020 09:49 DOLLY ALMONTE MD May 11, 2020 08:56
[2020-05-10] MEDS: amLODIPine BESYLATE 10 MG TABLET PO SCH (10:11)
--- NOTE | 2020-05-10 10:37 | PDOC ---
MARJORIE DE LEON OIL FIRE SPECIALIST 05/10/20 1037: CARDIO Progress Notes Date and Time Date of Service 05/10/20 Time of Evaluation 1100 Subjective Subjective: Other (Abdominal pain improved ) Vitals Vitals Vital Signs Date Time Temp Pulse Resp B/P (MAP) Pulse Ox O2 Delivery O2 Flow Rate FiO2 05/10/20 10:11 69 216/70 05/10/20 08:27 18 Room Air 05/10/20 07:00 99.2 96 99.2 Weight Weight [ ] Input and Output Intake and Output Intake and Output 05/10/20 07:00 Intake Total 900 ml Output Total 1900 ml Balance -1000 ml Intake Oral 900 ml Output Urine Total 1900 ml Laboratory Labs Laboratory Tests Test 05/09/20 12:03 05/09/20 17:08 05/09/20 21:00 05/10/20 05:14 Glucose (Fingerstick) 225 mg/dL (70-99) 178 mg/dL (70-99) 165 mg/dL (70-99) White Blood Count 12.7 x10^3/uL (4.0-11.0) Red Blood Count 3.63 x10^6/uL (4.30-5.70) Hemoglobin 11.4 g/dL (13.0-17.5) Hematocrit 33.4 % (39.0-53.0) Mean Corpuscular Volume 92 fL (79-100) Mean Corpuscular Hemoglobin 32 pg (25-35) Mean Corpuscular Hemoglobin Concent 34 g/dL (31-37) Red Cell Distribution Width 13.0 % (11.5-14.5) Platelet Count 184 x10^3/uL (140-400) Neutrophils (%) (Auto) 73 % (31-73) Lymphocytes (%) (Auto) 17 % (24-48) Monocytes (%) (Auto) 9 % (0-9) Eosinophils (%) (Auto) 0 % (0-3) Basophils (%) (Auto) 0 % (0-3) Neutrophils # (Auto) 9.3 x10^3/uL (1.8-7.7) Lymphocytes # (Auto) 2.2 x10^3/uL (1.0-4.8) Monocytes # (Auto) 1.2 x10^3/uL (0.0-1.1) Eosinophils # (Auto) 0.0 x10^3/uL (0.0-0.7) Basophils # (Auto) 0.0 x10^3/uL (0.0-0.2) Sodium Level 139 mmol/L (136-145) Potassium Level 3.2 mmol/L (3.5-5.1) Chloride Level 101 mmol/L (98-107) Carbon Dioxide Level 25 mmol/L (21-32) Anion Gap 13 (6-14) Blood Urea Nitrogen 13 mg/dL (8-26) Creatinine 0.9 mg/dL (0.7-1.3) Estimated GFR (Cockcroft-Gault) 83.9 BUN/Creatinine Ratio 14 (6-20) Glucose Level 158 mg/dL (70-99) Calcium Level 8.9 mg/dL (8.5-10.1) Total Bilirubin 1.2 mg/dL (0.2-1.0) Aspartate Amino Transf (AST/SGOT) 56 U/L (15-37) Alanine Aminotransferase (ALT/SGPT) 73 U/L (16-63) Alkaline Phosphatase 229 U/L (46-116) Total Protein 7.4 g/dL (6.4-8.2) Albumin 3.3 g/dL (3.4-5.0) Albumin/Globulin Ratio 0.8 (1.0-1.7) Test 05/10/20 07:37 Glucose (Fingerstick) 151 mg/dL (70-99) Physical Exam HEENT: Neck Supple W Full Motion Chest: Symmetric LUNGS: Clear to Auscultation Heart: S1S2, RRR Abdomen: Other (soft ) Extremities: No Edema Neurology: alert, oriented, follow commands Assessment Assessment 1. Abdominal pain/vomiting: GB disease. improved GI following 2. Arrhythmia: LBBB with first degree AV block 3. LIVE; resolved 4. 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 Hypertension; labile 6. HLP 7. DM2 8. Hx of NICM. LVEF previously 35-40%. Echo shows recovery in LV function 9. Hx of alcoholism 10. Hypokalemia; replaced Recommendations Check Mg and replace as warranted Secondary prevention Continue Norvasc Add lisinopril for BP control Hydralazine PRN Justicifation of Admission Dx: Justifications for Admission: Justification of Admission Dx: Yes JENNY HINOJOSA MD 05/10/20 1640: CARDIO Progress Notes Assessment Assessment Patient seen and examined. Agree with ONLINE AFFILIATE MARKETING MANAGER's assessment and plan. LBBB probably chronic 2D echo showed normalized left ventricle systolic function. PAD status clinically stable. GI/GS planning conservative medical management for abdominal pain/N/V/GB dz Resume Plavix prior to discharge. MARJORIE DE LEON APRN May 10, 2020 10:37 JENNY HINOJOSA MD May 10, 2020 16:40
[2020-05-10 11:00] VITALS: BP 157/57
--- NOTE | 2020-05-10 11:00 | PDOC ---
Subjective: Subjective: Doesn't want surgery. Taking clear liquids, sometimes diffuse abdominal pain, sometimes retching. Objective: Vital Signs: Vital Signs Date Time Temp Pulse Resp B/P (MAP) Pulse Ox O2 Delivery O2 Flow Rate FiO2 05/10/20 10:11 69 216/70 05/10/20 08:27 18 Room Air 05/10/20 07:00 99.2 96 99.2 Labs: Laboratory Tests Test 05/09/20 12:03 05/09/20 17:08 05/09/20 21:00 05/10/20 07:37 Glucose (Fingerstick) 225 mg/dL (70-99) 178 mg/dL (70-99) 165 mg/dL (70-99) 151 mg/dL (70-99) PE: GEN: NAD. present LUNGS: CTAB HEART: RRR ABD: soft, does not seem particularly tender NEURO/PSYCH: A & O 3 A/P: Recurrent abd pain w/ n/v Abnormal HIDA/cholecystitis, cholelithiasis Leukocytosis, chronic anemia, elevated LFTs GERD, h/o PUD - on PPI ?alcoholic liver disease PAD on Plavix, DM -- No plans for surgery. Change to PO PPI. Justicifation of Admission Dx: Justifications for Admission: Justification of Admission Dx: Yes GEORGIE KLINE May 10, 2020 11:00
--- NOTE | 2020-05-10 12:51 | NUR ---
SS following up with discharge planning. SS reviewed pt chart and discussed with pt RN. Pt is currently on room air. Pt COVID19 negative. Pt on IV Zosyn. Per RN, no surgical intervention at this time. Per RN, potassium is low and BP unstable. Pt to discharge to home when medically stable. SS will continue to follow for discharge planning.
[2020-05-10 15:00] VITALS: BP 166/72
[2020-05-10] MEDS: HYDROcodone/APAP 10/325 1 TAB TABLET PO PRN (15:00)
[2020-05-10] MEDS ORDERED: METOPROLOL TARTRATE 5 MG/5 ML VIAL. IVP PRN (17:15)
--- NOTE | 2020-05-10 17:24 | EKG ---
[facility] [address] [place] [address] Test Date: 2020-05-10 Test Time: 17:18:39 Pat Name: PHOENIX FRANCISCO Department: Room: 256 1 Gender: M Technical Communication Teacher: KIRAN : 1950 Requested By: MARJORIE DE LEON Order Number: [id number] Reading MD: Measurements Intervals [place] Rate: 140 P: [place]: QRS: -56 QRSD: 126 T: 108 QT: 326 QTc: 502 Interpretive Statements SUPRAVENTRICULAR TACHYCARDIA ABNORMAL LEFT AXIS DEVIATION NON SPECIFIC INTRAVENTRICULAR BLOCK QRS(T) CONTOUR ABNORMALITY CONSISTENT WITH INFERIOR INFARCT PROBABLY OLD ABNORMAL ECG RI6.02 Compared to ECG 05/07/2020 08:35:23 Myocardial infarct finding now present Sinus rhythm no longer present Left ventricular hypertrophy no longer present Early repolarization no longer present
[2020-05-10] MEDS ORDERED: METOPROLOL TARTRATE 5 MG/5 ML VIAL. IVP ONE (17:30)
--- NOTE | 2020-05-10 17:37 | NUR ---
Rapid Response note: Rapid response called for SVT with a rate of 170s, RN had previously spoke with cardiology LIBRARY CLERK TALKING BOOKS regarding tachycardia, order received to give 5 mg Metoprolol IV. BP 140/98, patient denies chest pain, shortness of air, or dizziness. Patient instructed to cough and bear down, did not change rate. Metoprolol given. HR improved to 130s. Patient remains on the floor. Addendum: 05/10/20 at 1743 by JULIO CHAMPION RN Amended: Links added.
[2020-05-10] MEDS ORDERED: DIGOXIN IV 500 MCG/2 ML AMPUL. IV ONE ×2 (17:45→18:15)
[2020-05-10] MEDS: LISINOPRIL 10 MG TABLET PO SCH (17:57)
--- NOTE | 2020-05-10 18:30 | NUR ---
RN Note: At approximately 1715, patient's HR in 170s. Patient asymptomatic, dangling at bedside eating dinner. Rapid Response called. Cardiology VISUAL EDUCATION DIRECTOR paged. Orders received for 5mg Lopressor IVP and stat EKG. ICU charge nurse and nursing dials supervisor at bedside. 1735: HR improved to 140s. Dr. Rae returned call. Orders received to administer 250 digoxin IVP. Patient remains asymptomatic, denying shortness of breath or chest pain. BP 141/98. 1800: Dr. Mae paged for patient's HR remaining in 140s. Received orders for 250 digoxin IVP. Upon administering medication, patient's HR down to 90s and BP 157/100. Will continue to monitor.
[2020-05-10 19:30] VITALS: BP 176/85
[2020-05-10] MEDS: ATORVASTATIN CALCIUM 10 MG TABLET. PO SCH (20:11)
[2020-05-10] MEDS: INSULIN GLARGINE SYRINGE. SQ SCH (20:16)
[2020-05-10] MEDS ORDERED: METOPROLOL TART IMMED RELEASE 25 MG TABLET. PO ONE (21:00)
[2020-05-10] MEDS: IV NORMAL SALINE 1000ML BAG 1,000 ML IV SCH (21:54)
[2020-05-10 23:15] VITALS: BP 165/70
[2020-05-11] VITALS (21 sets, daily range): BP systolic 124–225; BP diastolic 70–142
[2020-05-11] MEDS: ONDANSETRON PF 4 MG/2 ML VIAL. IV SCH ×6 (00:38→19:30)
[2020-05-11] MEDS: PIPERACILLIN/TAZOBACTAM 4.5 GM in IV NORMAL SALINE 100ML 100 ML IV SCH ×4 (00:40→17:43)
[2020-05-11] MEDS: NITROGLYCERIN OINT 1 GM PACKET. TP SCH ×4 (00:40→17:59)
[2020-05-11] MEDS: IV NORMAL SALINE 1000ML BAG 1,000 ML IV SCH ×2 (03:30→16:50)
[2020-05-11] MEDS: hydrALAZINE 20 MG/ML VIAL. IVP PRN (03:37)
[2020-05-11] MEDS: HYDROmorphone 2 MG/ML VIAL IV PRN (03:43)
--- NOTE | 2020-05-11 07:00 | NUR ---
Rapid Response Note: Rapid response called by patients RN for HR 160's. RN states patient had Rapid response called earlier 05/11/20 am for same arrhythmia. On arrival patient alert/oriented x4, denies chest discomfort or shortness of breath but does state increased heart rate causes 'warm feeling in chest', nausea, and increased lower abdominal discomfort . Heart tones regular rapid rate S1S2, tele shows wide complex tachycardia with HR 160s, EKG completed and reviewed by this RN--SVT without any ST elevation/depression, no edema seen. Lung sounds clear to auscultation anteriorly-patient denies cough.; abdomen with hypoactive bowel sounds and tender to palpation. RN stated attempted cough and vagal maneuver which did slow HR down minimally but short lasting. Vital signs on arrival BP 173/113, HR 160, RR 16, O2 sat 97% on room air. PRN Metoprolol 5MG IVP given at 0650, BP 175/109, HR 164. by 0655 HR decreased to 140, BP 129/100 and patient states he is no longer feeling the warm feeling, nausea is resolved and lower abdominal discomfort has also decreased. Notified RN to call Systems Spec and notify of even and review medication. Patient remains on unit. Addendum: 05/12/20 at 0204 by LARA ALBERTO RN Amended: Links added.
[2020-05-11] MEDS: METOPROLOL SUCC 24HR ER 100 MG TAB.ER.24H. PO SCH (07:04)
[2020-05-11] MEDS: INSULIN LISPRO 300 UNITS/3 ML VIAL. SQ SCH ×4 (07:30→20:48)
[2020-05-11] MEDS ORDERED: dilTIAZem IV PUSH 25 MG/5 ML VIAL IVP ONE (07:50)
[2020-05-11] MEDS ORDERED: NS IV PRN (08:00)
[2020-05-11] MEDS ORDERED: DILTIAZEM IV PRN (08:00)
[2020-05-11 08:27] LABS: CALCIUM 8.7 mg/dL (8.5-10.1); CREATININE 0.8 mg/dL (0.7-1.3); GFR 96.1; MAGNESIUM 2.1 mg/dL (1.8-2.4); POTASSIUM 3.2 mmol/L (3.5-5.1)
[2020-05-11 08:42] LABS: BASO % 0 % (0-3); EOS # 0.1 x10^3/uL (0.0-0.7); EOS % 1 % (0-3); HEMATOCRIT 34.5 % (39.0-53.0); HEMOGLOBIN 11.7 g/dL (13.0-17.5); LYMPH # 2.3 x10^3/uL (1.0-4.8); LYMPH % 18 % (24-48); MEAN CORPUSCULAR HEMOGLOBIN 31 pg (25-35); MEAN CORPUSCULAR HGB CONC 34 g/dL (31-37); MEAN CORPUSCULAR VOLUME 92 fL (79-100); MONO % 8 % (0-9); NEUT % 73 % (31-73); PLATELET COUNT 174 x10^3/uL (140-400); RED BLOOD COUNT 3.74 x10^6/uL (4.30-5.70); RED CELL DISTRIBUTION WIDTH 12.7 % (11.5-14.5); WHITE BLOOD COUNT 12.4 x10^3/uL (4.0-11.0)
[2020-05-11] MEDS: HYDROcodone/APAP 10/325 1 TAB TABLET PO PRN ×2 (08:57→20:47)
[2020-05-11] MEDS: GABAPENTIN 100 MG CAPSULE. PO SCH ×3 (08:58→20:47)
[2020-05-11] MEDS: ASPIRIN ENTERIC COATED 81 MG TABLET.DR. PO SCH (08:58)
[2020-05-11] MEDS: FOLIC ACID 1 MG TABLET. PO SCH (08:58)
[2020-05-11] MEDS: MULTIVITAMIN with MINERAL TABLET. PO SCH (08:58)
[2020-05-11] MEDS: THIAMINE 100 MG TABLET. PO SCH (08:58)
[2020-05-11] MEDS: amLODIPine BESYLATE 10 MG TABLET PO SCH (08:58)
[2020-05-11] MEDS: LACTOBACILLUS RHAMNOSUS GG 1 CAPSULE. PO SCH ×2 (08:59→20:47)
[2020-05-11] MEDS: PANTOPRAZOLE 40 MG TABLET.DR. PO SCH (08:59)
[2020-05-11] MEDS: LISINOPRIL 10 MG TABLET PO SCH (08:59)
[2020-05-11] MEDS: ENOXAPARIN 40 MG/0.4 ML SYRINGE. SQ SCH (08:59)
--- NOTE | 2020-05-11 09:59 | PDOC ---
Subjective: Subjective: Finding it difficult to even drink water and take pills 2/2 nausea and upper abd pain. Ask if he could use home glucometer. Objective: Objective: Reviewed chart - SVT overnight. Vital Signs: Vital Signs Date Time Temp Pulse Resp B/P (MAP) Pulse Ox O2 Delivery O2 Flow Rate FiO2 05/11/20 08:59 75 05/11/20 07:00 98.8 18 137/90 (106) 99 Nasal Cannula 98.8 Labs: Laboratory Tests Test 05/10/20 11:45 05/10/20 17:05 05/10/20 20:10 05/11/20 04:40 Glucose (Fingerstick) 183 mg/dL 126 mg/dL 134 mg/dL White Blood Count 12.4 x10^3/uL Red Blood Count 3.74 x10^6/uL Hemoglobin 11.7 g/dL Hematocrit 34.5 % Mean Corpuscular Volume 92 fL Mean Corpuscular Hemoglobin 31 pg Mean Corpuscular Hemoglobin Concent 34 g/dL Red Cell Distribution Width 12.7 % Platelet Count 174 x10^3/uL Neutrophils (%) (Auto) 73 % Lymphocytes (%) (Auto) 18 % Monocytes (%) (Auto) 8 % Eosinophils (%) (Auto) 1 % Basophils (%) (Auto) 0 % Neutrophils # (Auto) 9.0 x10^3/uL Lymphocytes # (Auto) 2.3 x10^3/uL Monocytes # (Auto) 1.0 x10^3/uL Eosinophils # (Auto) 0.1 x10^3/uL Basophils # (Auto) 0.0 x10^3/uL Sodium Level 137 mmol/L Potassium Level 3.2 mmol/L Chloride Level 100 mmol/L Carbon Dioxide Level 25 mmol/L Anion Gap 12 Blood Urea Nitrogen 13 mg/dL Creatinine 0.8 mg/dL Estimated GFR (Cockcroft-Gault) 96.1 Glucose Level 132 mg/dL Calcium Level 8.7 mg/dL Magnesium Level 2.1 mg/dL Test 05/11/20 07:44 Glucose (Fingerstick) 173 mg/dL PE: GEN: NAD, present LUNGS: CTAB HEART: RR when I saw ABD: soft, mild upper abd discomfort NEURO/PSYCH: A & O 3 A/P: Upper abd discomfort, nausea Abnormal HIDA/cholecystitis, cholelithiasis GERD, h/o PUD, ?alcoholic liver disease SVT, PAD, DM -- Difficulty w/ PO intake. Recheck LFTs tomorrow. Continue PPI. Justicifation of Admission Dx: Justifications for Admission: Justification of Admission Dx: Yes GEORGIE KLINE May 11, 2020 09:59
--- NOTE | 2020-05-11 10:05 | PDOC ---
PROGRESS NOTES Chief Complaint Chief Complaint impression Intractable abdominal pain - with signs of acute on chronic cholecytitis. General surgery consulted Nausea and vomiting - IV antiemetics Hyperkalemia - corrected. Will monitor. Likely 2/2 LIVE LIVE - vasomotor nephropathy. Improved with hydration Sepsis - likely 2/2 cholecystitis. Started on zosyn and IVF Cirrhosis of liver - noted on CT scan, likely ETOH related. Counseled on ETOH cessation. GI consulted, was going to appt in june 2020 anyway tobacco dependence, in remission COPD with asthma DM2 - with hyperglycemia - will place on sliding scale insulin HTN Chronic back pain OA Heavy ETOH use - counseled Hx of NICM. LVEF previously 35-40%. Echo shows recovery in LV function Hx of alcoholism Hypokalemia; replaced LABILE HTN Nonvisualization of the gallbladder on post morphine imaging compatible with acute cholecystitis. 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 Pain is 7 out of 10, colicky in nature. Nausea did not remit with Zofran but did improve after Compazine dosing. Still vomited again in the ED and overnight. despite meds. He is still nauseated currently. CT imaging of patient's abdomen shows gallstones in the gallbladder with a dilated CBD which appears to be stable from previous CT imaging. Dedicated ultrasound was performed which showed cholelithiasis with mild gallbladder wall thickening questionable acute or chronic cholecystitis no pericolic cystic fluid. EKG - Heart rate 95 accelerated junctional rhythm, left axis deviation peaked T waves WBC 13.1, Hb 12.9, platelets 300, NA 136, BUN 31, CR 1.5, glucose 232, alkaline phosphatase 287, calcium 10.4, lipase normal Patient's troponin within normal limits. Patient's potassium was noted to be 5.3. Patient was treated with glucagon, insulin and calcium. Post treatment repeat creatinine and potassium improved potassium resulted at 4.9. Patient was placed on antibiotics Zosyn. Patient was admitted with general surgery and cardiology consults. 05/08: HIDA scan positive for cholecystitis. Afebrile. WBC down to 9, creatinine improved. Bilirubin up to 1.3. He had a little vomiting overnight. Tolerated clears. 05/09: Overnight afebrile. K 3.1 today. COVID negative. He wants to cont clear diet today is amenable to staying inpatient for further treatment of his sepsis and cholecystitis with tentative plans for surgery depending on surgery recommendations. No chest pain or shortness of breath. Overnight afebrile K3.2 AST 56 ALT 73 alkaline phosphatase 229 this morning WBC up to 12.7. Plan: Monitor CBC, can transition to oral antibiotics over the next 24 hours, will get PT and OT for his deconditioning he may need some rehab prior to going home. Replace K IV and p.o. Vitals Vitals Vital Signs Date Time Temp Pulse Resp B/P (MAP) Pulse Ox O2 Delivery O2 Flow Rate FiO2 05/11/20 08:59 75 05/11/20 07:00 98.8 18 137/90 (106) 99 Nasal Cannula 98.8 Physical Exam General: Alert, Oriented X3, Cooperative, No acute distress Heart: Regular rate, No murmurs Lungs: Clear Abdomen: Normal bowel sounds, Soft, No tenderness Extremities: No cyanosis, No edema Skin: No breakdown, No significant lesion Labs LABS HEPATOBILIARY SCAN History: Reason: cholecystitis /abdominal pain. Comparison: Limited abdominal ultrasound, same day. Procedure: Serial static images are obtained of the liver and biliary system in the frontal projection following IV administration of 5.5 mCi of Technetium 99m Choletec. Gallbladder not visualized at 60 minutes. Morphine 4 mg IV administered, imaging continued x30 minutes. Findings: There is prompt hepatic clearance of tracer from the blood pool. Hepatic rim sign is identified. Normal emptying into the bile ducts. Tracer is seen in small bowel by 30 minutes. Gallbladder is nonvisualized at 60 minutes. Gallbladder is not seen after 30 minutes post morphine imaging. IMPRESSION: Nonvisualization of the gallbladder on post morphine imaging compatible with acute cholecystitis. Findings discussed with Tiffanie, patient's nurse at 05/07/2020 1:39 PM. FOR INTERNAL CODING PURPOSES Critical result: RESULT CODE: (C) Electronically signed by: Efren Hutchinson MD (05/07/2020 1:43 PM) [id number] DICTATED and SIGNED BY: EFREN HUTCHINSON MD DATE: 05/07/20 134 Laboratory Tests Test 05/10/20 11:45 05/10/20 17:05 05/10/20 20:10 05/11/20 04:40 Glucose (Fingerstick) 183 mg/dL (70-99) 126 mg/dL (70-99) 134 mg/dL (70-99) White Blood Count 12.4 x10^3/uL (4.0-11.0) Red Blood Count 3.74 x10^6/uL (4.30-5.70) Hemoglobin 11.7 g/dL (13.0-17.5) Hematocrit 34.5 % (39.0-53.0) Mean Corpuscular Volume 92 fL (79-100) Mean Corpuscular Hemoglobin 31 pg (25-35) Mean Corpuscular Hemoglobin Concent 34 g/dL (31-37) Red Cell Distribution Width 12.7 % (11.5-14.5) Platelet Count 174 x10^3/uL (140-400) Neutrophils (%) (Auto) 73 % (31-73) Lymphocytes (%) (Auto) 18 % (24-48) Monocytes (%) (Auto) 8 % (0-9) Eosinophils (%) (Auto) 1 % (0-3) Basophils (%) (Auto) 0 % (0-3) Neutrophils # (Auto) 9.0 x10^3/uL (1.8-7.7) Lymphocytes # (Auto) 2.3 x10^3/uL (1.0-4.8) Monocytes # (Auto) 1.0 x10^3/uL (0.0-1.1) Eosinophils # (Auto) 0.1 x10^3/uL (0.0-0.7) Basophils # (Auto) 0.0 x10^3/uL (0.0-0.2) Sodium Level 137 mmol/L (136-145) Potassium Level 3.2 mmol/L (3.5-5.1) Chloride Level 100 mmol/L (98-107) Carbon Dioxide Level 25 mmol/L (21-32) Anion Gap 12 (6-14) Blood Urea Nitrogen 13 mg/dL (8-26) Creatinine 0.8 mg/dL (0.7-1.3) Estimated GFR (Cockcroft-Gault) 96.1 Glucose Level 132 mg/dL (70-99) Calcium Level 8.7 mg/dL (8.5-10.1) Magnesium Level 2.1 mg/dL (1.8-2.4) Test 05/11/20 07:44 Glucose (Fingerstick) 173 mg/dL (70-99) Assessment and Plan Assessmemt and Plan Problems Medical Problems: (1) Abdominal pain Status: Acute (2) Acute electrocardiogram changes Status: Acute (3) Cholecystitis Status: Acute (4) Hyperkalemia Status: Acute Comment Review of Relevant I have reviewed the following items alyse (where applicable) has been applied. Labs Laboratory Tests Test 05/09/20 12:03 05/09/20 17:08 05/09/20 21:00 05/10/20 05:14 Glucose (Fingerstick) 225 mg/dL (70-99) 178 mg/dL (70-99) 165 mg/dL (70-99) White Blood Count 12.7 x10^3/uL (4.0-11.0) Red Blood Count 3.63 x10^6/uL (4.30-5.70) Hemoglobin 11.4 g/dL (13.0-17.5) Hematocrit 33.4 % (39.0-53.0) Mean Corpuscular Volume 92 fL (79-100) Mean Corpuscular Hemoglobin 32 pg (25-35) Mean Corpuscular Hemoglobin Concent 34 g/dL (31-37) Red Cell Distribution Width 13.0 % (11.5-14.5) Platelet Count 184 x10^3/uL (140-400) Neutrophils (%) (Auto) 73 % (31-73) Lymphocytes (%) (Auto) 17 % (24-48) Monocytes (%) (Auto) 9 % (0-9) Eosinophils (%) (Auto) 0 % (0-3) Basophils (%) (Auto) 0 % (0-3) Neutrophils # (Auto) 9.3 x10^3/uL (1.8-7.7) Lymphocytes # (Auto) 2.2 x10^3/uL (1.0-4.8) Monocytes # (Auto) 1.2 x10^3/uL (0.0-1.1) Eosinophils # (Auto) 0.0 x10^3/uL (0.0-0.7) Basophils # (Auto) 0.0 x10^3/uL (0.0-0.2) Sodium Level 139 mmol/L (136-145) Potassium Level 3.2 mmol/L (3.5-5.1) Chloride Level 101 mmol/L (98-107) Carbon Dioxide Level 25 mmol/L (21-32) Anion Gap 13 (6-14) Blood Urea Nitrogen 13 mg/dL (8-26) Creatinine 0.9 mg/dL (0.7-1.3) Estimated GFR (Cockcroft-Gault) 83.9 BUN/Creatinine Ratio 14 (6-20) Glucose Level 158 mg/dL (70-99) Calcium Level 8.9 mg/dL (8.5-10.1) Magnesium Level 2.1 mg/dL (1.8-2.4) Total Bilirubin 1.2 mg/dL (0.2-1.0) Aspartate Amino Transf (AST/SGOT) 56 U/L (15-37) Alanine Aminotransferase (ALT/SGPT) 73 U/L (16-63) Alkaline Phosphatase 229 U/L (46-116) Total Protein 7.4 g/dL (6.4-8.2) Albumin 3.3 g/dL (3.4-5.0) Albumin/Globulin Ratio 0.8 (1.0-1.7) Test 05/10/20 07:37 05/10/20 11:45 05/10/20 17:05 05/10/20 20:10 Glucose (Fingerstick) 151 mg/dL (70-99) 183 mg/dL (70-99) 126 mg/dL (70-99) 134 mg/dL (70-99) Test 05/11/20 04:40 05/11/20 07:44 White Blood Count 12.4 x10^3/uL (4.0-11.0) Red Blood Count 3.74 x10^6/uL (4.30-5.70) Hemoglobin 11.7 g/dL (13.0-17.5) Hematocrit 34.5 % (39.0-53.0) Mean Corpuscular Volume 92 fL (79-100) Mean Corpuscular Hemoglobin 31 pg (25-35) Mean Corpuscular Hemoglobin Concent 34 g/dL (31-37) Red Cell Distribution Width 12.7 % (11.5-14.5) Platelet Count 174 x10^3/uL (140-400) Neutrophils (%) (Auto) 73 % (31-73) Lymphocytes (%) (Auto) 18 % (24-48) Monocytes (%) (Auto) 8 % (0-9) Eosinophils (%) (Auto) 1 % (0-3) Basophils (%) (Auto) 0 % (0-3) Neutrophils # (Auto) 9.0 x10^3/uL (1.8-7.7) Lymphocytes # (Auto) 2.3 x10^3/uL (1.0-4.8) Monocytes # (Auto) 1.0 x10^3/uL (0.0-1.1) Eosinophils # (Auto) 0.1 x10^3/uL (0.0-0.7) Basophils # (Auto) 0.0 x10^3/uL (0.0-0.2) Sodium Level 137 mmol/L (136-145) Potassium Level 3.2 mmol/L (3.5-5.1) Chloride Level 100 mmol/L (98-107) Carbon Dioxide Level 25 mmol/L (21-32) Anion Gap 12 (6-14) Blood Urea Nitrogen 13 mg/dL (8-26) Creatinine 0.8 mg/dL (0.7-1.3) Estimated GFR (Cockcroft-Gault) 96.1 Glucose Level 132 mg/dL (70-99) Calcium Level 8.7 mg/dL (8.5-10.1) Magnesium Level 2.1 mg/dL (1.8-2.4) Glucose (Fingerstick) 173 mg/dL (70-99) Laboratory Tests Test 05/10/20 11:45 05/10/20 17:05 05/10/20 20:10 05/11/20 04:40 Glucose (Fingerstick) 183 mg/dL (70-99) 126 mg/dL (70-99) 134 mg/dL (70-99) White Blood Count 12.4 x10^3/uL (4.0-11.0) Red Blood Count 3.74 x10^6/uL (4.30-5.70) Hemoglobin 11.7 g/dL (13.0-17.5) Hematocrit 34.5 % (39.0-53.0) Mean Corpuscular Volume 92 fL (79-100) Mean Corpuscular Hemoglobin 31 pg (25-35) Mean Corpuscular Hemoglobin Concent 34 g/dL (31-37) Red Cell Distribution Width 12.7 % (11.5-14.5) Platelet Count 174 x10^3/uL (140-400) Neutrophils (%) (Auto) 73 % (31-73) Lymphocytes (%) (Auto) 18 % (24-48) Monocytes (%) (Auto) 8 % (0-9) Eosinophils (%) (Auto) 1 % (0-3) Basophils (%) (Auto) 0 % (0-3) Neutrophils # (Auto) 9.0 x10^3/uL (1.8-7.7) Lymphocytes # (Auto) 2.3 x10^3/uL (1.0-4.8) Monocytes # (Auto) 1.0 x10^3/uL (0.0-1.1) Eosinophils # (Auto) 0.1 x10^3/uL (0.0-0.7) Basophils # (Auto) 0.0 x10^3/uL (0.0-0.2) Sodium Level 137 mmol/L (136-145) Potassium Level 3.2 mmol/L (3.5-5.1) Chloride Level 100 mmol/L (98-107) Carbon Dioxide Level 25 mmol/L (21-32) Anion Gap 12 (6-14) Blood Urea Nitrogen 13 mg/dL (8-26) Creatinine 0.8 mg/dL (0.7-1.3) Estimated GFR (Cockcroft-Gault) 96.1 Glucose Level 132 mg/dL (70-99) Calcium Level 8.7 mg/dL (8.5-10.1) Magnesium Level 2.1 mg/dL (1.8-2.4) Test 05/11/20 07:44 Glucose (Fingerstick) 173 mg/dL (70-99) Medications Current Medications Ondansetron HCl (Zofran) 4 mg STK-MED ONCE .ROUTE ; Start 05/06/20 at 20:42; Stop 05/06/20 at 20:42; Status DC Morphine Sulfate (Morphine Sulfate) 4 mg 1X ONCE IV Last administered on 05/06/20at 21:34; Start 05/06/20 at 21:30; Stop 05/06/20 at 21:31; Status DC Ondansetron HCl (Zofran) 4 mg 1X ONCE IV Last administered on 05/06/20at 21:28; Start 05/06/20 at 21:30; Stop 05/06/20 at 21:31; Status DC Prochlorperazine Edisylate (Compazine) 10 mg 1X ONCE IV Last administered on 05/06/20at 21:34; Start 05/06/20 at 21:30; Stop 05/06/20 at 21:39; Status DC Sodium Chloride 1,000 ml @ 0 mls/hr 1X ONCE IV Last administered on 05/06/20at 22:15; Start 05/06/20 at 22:15; Stop 05/06/20 at 22:16; Status DC Calcium Gluconate (Calcium Gluconate) 1,000 mg 1X ONCE IVP Last administered on 05/06/20at 23:10; Start 05/06/20 at 23:00; Stop 05/06/20 at 23:01; Status DC Insulin Human Regular (HumuLIN R VIAL) 10 unit 1X ONCE IV Last administered on 05/06/20at 23:07; Start 05/06/20 at 23:00; Stop 05/06/20 at 23:01; Status DC Dextrose (Dextrose 50%-Water Syringe) 25 gm 1X ONCE IV Last administered on 05/06/20at 23:11; Start 05/06/20 at 23:00; Stop 05/06/20 at 23:01; Status DC Morphine Sulfate (Morphine Sulfate) 4 mg 1X ONCE IV Last administered on 05/06/20at 23:12; Start 05/06/20 at 23:00; Stop 05/06/20 at 23:01; Status DC Ondansetron HCl (Zofran) 4 mg 1X ONCE IVP Last administered on 05/06/20at 23:06; Start 05/06/20 at 23:00; Stop 05/06/20 at 23:01; Status DC Prochlorperazine Edisylate (Compazine) 10 mg 1X ONCE IV Last administered on 05/06/20at 23:31; Start 05/06/20 at 23:30; Stop 05/06/20 at 23:31; Status DC Piperacillin Sod/ Tazobactam Sod 4.5 gm/Sodium Chloride 100 ml @ 200 mls/hr Q6HRS IV Last administered on 05/11/20at 00:40; Start 05/07/20 at 06:00 Prochlorperazine Edisylate (Compazine) 10 mg 1X ONCE IV Last administered on 05/07/20at 03:19; Start 05/07/20 at 03:30; Stop 05/07/20 at 03:31; Status DC Ondansetron HCl (Zofran) 4 mg PRN Q4HRS PRN IV NAUSEA/VOMITING (USE 1ST) Last administered on 05/08/20at 11:23; Start 05/07/20 at 03:30; Stop 05/08/20 at 16:26; Status DC Acetaminophen (Tylenol Supp) 650 mg PRN Q4HRS PRN NC TEMP OVER 100.4F OR MILD PAIN; Start 05/07/20 at 03:30 Hydromorphone HCl (Dilaudid) 1 mg PRN Q2HRS PRN IV SEVERE PAIN 7-10 Last administered on 05/11/20at 03:43; Start 05/07/20 at 03:30 Enoxaparin Sodium (Lovenox 40mg Syringe) 40 mg Q24H SQ Last administered on 05/11/20at 08:59; Start 05/07/20 at 09:00 Insulin Human Lispro (HumaLOG) 0-9 UNITS TIDACHC SQ Last administered on 05/10/20at 12:26; Start 05/07/20 at 07:30 Dextrose (Dextrose 50%-Water Syringe) 12.5 gm PRN Q15MIN PRN IV SEE COMMENTS; Start 05/07/20 at 03:30 Acetaminophen (Tylenol) 650 mg PRN Q4HRS PRN PO TEMP OVER 100.4F OR HEADACHE Last administered on 05/07/20at 20:38; Start 05/07/20 at 03:30 Albuterol Sulfate (Ventolin Neb Soln) 2.5 mg PRN Q4HRS PRN NEB SHORTNESS OF BR EATH; Start 05/07/20 at 03:30 Aspirin (Ecotrin) 81 mg DAILYWBKFT PO Last administered on 05/11/20at 08:58; Start 05/07/20 at 08:00 Atorvastatin Calcium (Lipitor) 10 mg QHS PO Last administered on 05/10/20at 20:11; Start 05/07/20 at 21:00 Gabapentin (Neurontin) 100 mg TID PO Last administered on 05/11/20 08:58; Start 05/07/20 at 09:00 Acetaminophen/ Hydrocodone Bitart (Lortab 10/325) 1 tab PRN Q6HRS PRN PO MODERATE PAIN 4-6 Last administered on 05/11/20at 08:57; Start 05/07/20 at 03:30 Insulin Glargine (Lantus Syringe) 12 unit QHS SQ ; Start 05/07/20 at 21:00; Stop 05/08/20 at 16:28; Status DC Lactobacillus Rhamnosus (Culturelle) 1 cap BID PO Last administered on 05/11/20at 08:59; Start 05/07/20 at 09:00 Metoprolol Succinate (Toprol Xl) 100 mg DAILY PO Last administered on 05/09/20at 11:04; Start 05/07/20 at 09:00; Stop 05/10/20 at 09:11; Status DC Pantoprazole Sodium (Protonix) 40 mg DAILYAC PO ; Start 05/07/20 at 07:30; Stop 05/07/20 at 14:12; Status DC Prochlorperazine Edisylate (Compazine) 10 mg PRN Q6HRS PRN IV NAUSEA/VOMITING (USE 2ND) Last administered on 05/08/20at 03:18; Start 05/07/20 at 03:30 Lactulose (Lactulose) 20 gm PRN DAILY PRN PO CONSTIPATION (USE 2ND); Start 05/07/20 at 03:30 Senna/Docusate Sodium (Senna Plus) 2 tab PRN BID PRN PO CONSTIPATION (USE 3RD); Start 05/07/20 at 03:30 Polyethylene Glycol (miraLAX PACKET) 17 gm PRN BID PRN PO CONSTIPATION (1ST CHOICE); Start 05/07/20 at 03:30 Sodium Chloride 1,000 ml @ 75 mls/hr 1X ONCE IV Last administered on 05/07/20at 04:02; Start 05/07/20 at 03:45; Stop 05/07/20 at 17:04; Status DC Lorazepam (Ativan Inj) 1 mg PRN Q5MIN PRN IVP ANXIETY / AGITATION Last administered on 05/07/20at 10:49; Start 05/07/20 at 10:45 Multivitamins (Thera M Plus) 1 tab DAILY PO Last administered on 05/11/20at 08:5 8; Start 05/07/20 at 12:00 Folic Acid (Folic Acid) 1 mg DAILY PO Last administered on 05/11/20at 08:58; Start 05/07/20 at 12:00 Thiamine Mononitrate (Vitamin B-1) 100 mg DAILY PO Last administered on 05/11/20at 08:58; Start 05/07/20 at 12:00 Lorazepam (Ativan) 2 mg PRN Q1HR PRN PO For CIWA 8-14; Start 05/07/20 at 11:00 Lorazepam (Ativan Inj) 1 mg PRN Q1HR PRN IV For CIWA 8-14; Start 05/07/20 at 11:00 Haloperidol Lactate (Haldol Inj) 5 mg PRN Q4HRS PRN IVP Hallucinatns,Confusn,Delirium; Start 05/07/20 at 11:00 Diphenhydramine HCl (Benadryl) 25 mg PRN Q15MIN PRN IVP EPS symptoms 2'Haldol admin; Start 05/07/20 at 11:00 Clonidine HCl (Catapres) 0.1 mg PRN Q1HR PRN PO SBP > 180 or DBP > 100, MRX3 Last administered on 05/10/20at 03:46; Start 05/07/20 at 11:00 Metoprolol Tartrate (Lopressor Vial) 5 mg Q6HRS IVP Last administered on 05/09/20at 05:39; Start 05/07/20 at 12:00; Stop 05/09/20 at 17:37; Status DC Nitroglycerin (Nitro-Bid Oint) 1 inch Q6HRS TP Last administered on 05/11/20at 00:40; Start 05/07/20 at 12:00 Labetalol HCl (Normodyne Iv Push) 20 mg PRN Q2HR PRN IVP HYPERTENSION Last administered on 05/09/20at 15:44; Start 05/07/20 at 11:30; Stop 05/10/20 at 17:12; Status DC Morphine Sulfate (Morphine Sulfate) 4 mg 1X ONCE IV Last administered on 05/07/20at 12:06; Start 05/07/20 at 12:00; Stop 05/07/20 at 12:01; Status DC Morphine Sulfate (Morphine Sulfate) 4 mg STK-MED ONCE .ROUTE ; Start 05/07/20 at 11:59; Stop 05/07/20 at 11:59; Status DC Pantoprazole Sodium (PROTONIX VIAL for IV PUSH) 40 mg DAILYAC IVP Last administered on 05/10/20at 07:56; Start 05/08/20 at 07:30; Stop 05/10/20 at 11:01; Status DC Vitamin A/Vitamin D (Vitamin A & D Ointment) 1 idalia PRN Q1HR PRN TP SKIN PROTECTION Last administered on 05/09/20at 15:54; Start 05/07/20 at 16:45 Sodium Chloride 1,000 ml @ 75 mls/hr [id number] IV Last administered on 05/10/20at 21:54; Start 05/07/20 at 19:30 Ondansetron HCl (Zofran) 4 mg Q4HRS IV Last administered on 05/11/20at 03:37; Start 05/08/20 at 16:30 Insulin Glargine (Lantus Syringe) 8 unit QHS SQ Last administered on 05/10/20at 20:16; Start 05/08/20 at 21:00 Potassium Chloride/Water 100 ml @ 100 mls/hr Q1H IV Last administered on 05/09/20at 13:32; Start 05/09/20 at 11:00; Stop 05/09/20 at 12:59; Status DC Potassium Chloride (Klor-Con) 40 meq 1X ONCE PO Last administered on 05/09/20at 12:22; Start 05/09/20 at 11:00; Stop 05/09/20 at 11:08; Status DC Hydralazine HCl (Apresoline Inj) 10 mg PRN Q4HRS PRN IVP ELEVATED BP, SEE COMMENTS Last administered on 05/11/20at 03:37; Start 05/09/20 at 17:00 Hydralazine HCl (Apresoline Inj) 10 mg 1X ONCE IVP Last administered on 05/09/20at 17:51; Start 05/09/20 at 17:00; Stop 05/09/20 at 17:01; Status DC Amlodipine Besylate (Norvasc) 5 mg 1X ONCE PO Last administered on 05/09/20at 17:51; Start 05/09/20 at 17:00; Stop 05/09/20 at 17:01; Status DC Potassium Chloride (Klor-Con) 40 meq 1X ONCE PO Last administered on 05/10/20at 08:20; Start 05/10/20 at 08:00; Stop 05/10/20 at 08:01; Status DC Potassium Chloride/Water 100 ml @ 100 mls/hr Q1H IV Last administered on 05/10/20at 10:11; Start 05/10/20 at 09:00; Stop 05/10/20 at 10:59; Status DC Amlodipine Besylate (Norvasc) 10 mg DAILY PO Last administered on 05/11/20at 08:58; Start 05/10/20 at 09:15 Pantoprazole Sodium (Protonix) 40 mg DAILYAC PO Last administered on 05/11/20at 08:59; Start 05/11/20 at 07:30 Lisinopril (Prinivil) 10 mg DAILY PO Last administered on 05/11/20at 08:59; Start 05/10/20 at 15:30 Metoprolol Tartrate (Lopressor Vial) 5 mg PRN Q6HRS PRN IVP HYPERTENSION; Start 05/10/20 at 17:15 Metoprolol Tartrate (Lopressor Vial) 5 mg 1X ONCE IVP Last administered on 05/10/20at 17:40; Start 05/10/20 at 17:30; Stop 05/10/20 at 17:31; Status DC Digoxin (Lanoxin) 250 mcg 1X ONCE IV Last administered on 05/10/20at 17:41; Start 05/10/20 at 17:45; Stop 05/10/20 at 17:46; Status DC Digoxin (Lanoxin) 250 mcg 1X ONCE IV Last administered on 05/10/20at 18:17; Start 05/10/20 at 18:15; Stop 05/10/20 at 18:16; Status DC Metoprolol Tartrate (Lopressor) 25 mg 1X ONCE PO Last administered on 05/10/20at 20:14; Start 05/10/20 at 21:00; Stop 05/10/20 at 21:01; Status DC Metoprolol Succinate (Toprol Xl) 100 mg DAILY PO ; Start 05/11/20 at 09:00 Diltiazem HCl (Cardizem Iv Push) 10 mg 1X ONCE IVP ; Start 05/11/20 at 07:50; Stop 05/11/20 at 08:32; Status DC Diltiazem HCl 125 mg/Sodium Chloride 125 ml @ 5 mls/hr CONT PRN IV SEE I/O RECORD; Start 05/11/20 at 08:00 Active Scripts Active Lantus (Insulin Glargine,Hum.rec.anlog) 100 Unit/1 Ml Vial 12 Unit SQ QHS 30 Days Culturelle (Lactobacillus Rhamnosus Gg) 1 Each Cap.sprink 1 Cap PO BID 30 Days Hydrochlorothiazide Tablet (Hydrochlorothiazide) 25 Mg Tablet 25 Mg PO DAILY 30 Days Tylenol (Acetaminophen) 325 Mg Tablet 650 Mg PO PRN Q4HRS PRN 30 Days Aspirin Ec (Aspirin) 81 Mg Tablet. 81 Mg PO DAILYWBKFT 30 Days Atorvastatin Calcium 10 Mg Tablet 10 Mg PO QHS 30 Days Proair Hfa (Albuterol Sulfate) 8.5 Gm Hfa.aer.ad 2.5 Mg NEB PRN Q4HRS PRN 30 Days Glucophage (Metformin Hcl) 500 Mg Tablet 500 Mg PO BIDWMEALS MDD 1 Furosemide 40 Mg Tablet 40 Mg PO DAILY MDD 1 Protonix (Pantoprazole Sodium) 20 Mg Tablet. 40 Mg PO DAILY 90 Days Reported [freestyle aniyah] 1 Patch TP Q14 DAYS Clopidogrel (Clopidogrel Bisulfate) 75 Mg Tablet 75 Mg PO DAILY Fluconazole 200 Mg Tablet 200 Mg PO DAILY Insulin Lispro 100 Unit/1 Ml Vial 3 Unit SQ TIDWMEALS Ventolin Hfa Inhaler (Albuterol Sulfate) 18 Gm Hfa.aer.ad 1 Puff INH QID Indomethacin 50 Mg Capsule 1 Cap PO PRN PRN Hydrocodone-Apap 10-325 (Hydrocodone Bit/Acetaminophen) 1 Tab Tablet 1 Tab P O PRN Q6HRS PRN Gabapentin (Gabapentin) 100 Mg Capsule 100 Mg PO TID Metoprolol Succinate ( Xl ) (Metoprolol Succinate) 100 Mg Tab.er.24h 100 Mg PO DAILY Vitals/I & O Vital Sign - Last 24 Hours 05/10/20 05/10/20 05/10/20 05/10/20 10:11 11:00 12:15 15:00 Temp 99.0 99.3 99.0 99.3 Pulse 69 74 74 75 Resp 16 18 B/P (MAP) 216/70 157/57 (90) 157/57 166/72 (103) Pulse Ox 98 98 O2 Delivery Room Air Room Air 05/10/20 05/10/20 05/10/20 05/10/20 15:00 16:00 17:40 17:41 Pulse 170 140 Resp 18 18 B/P (MAP) 166/72 O2 Delivery Room Air Room Air 05/10/20 05/10/20 05/10/20 05/10/20 17:45 17:57 18:17 19:30 Temp 97.4 97.4 Pulse 144 144 146 90 Resp 18 B/P (MAP) 141/98 148/93 157/100 176/85 (115) Pulse Ox 98 O2 Delivery Room Air 05/10/20 05/10/20 05/10/20 05/11/20 20:14 20:26 23:15 00:40 Temp 99.0 99.0 Pulse 90 76 76 Resp 18 B/P (MAP) 176/85 165/70 (101) 165/70 Pulse Ox 96 O2 Delivery Room Air Room Air 05/11/20 05/11/20 05/11/20 05/11/20 03:00 03:37 03:43 07:00 Temp 99.3 98.8 99.3 98.8 Pulse 71 72 153 Resp 18 18 B/P (MAP) 225/90 (135) 225/90 137/90 (106) Pulse Ox 97 99 O2 Delivery Room Air Room Air Nasal Cannula 05/11/20 05/11/20 08:58 08:59 Pulse 75 75 Intake and Output 05/10/20 05/10/20 05/11/20 15:00 23:00 07:00 Intake Total 540 ml 250 ml 200 ml Output Total 600 ml 200 ml Balance -60 ml 50 ml 200 ml Nutrition Consultation Dietary Evaluation: Recommendations by RD: Dietary education by RD, Increase Calorie Intake, Protein supplementation Comments: REC avoid prolonged NPO status (<4 days), advance diet within 48-72 hrs as able per GI/medical status, goal diet cardiac/ADA REC glucerna (chocolate) BID or TID per pt preference and %PO intake of meals Expected Outcomes/Goals: diet advancement Interpretation of weight loss: >7.5% in 3 months Malnutrition Findings: Food and Nutrition Intake (Mod: <75% est energy req 7days Weight Status: Overweight Justicifation of Admission Dx: Justifications for Admission: Justification of Admission Dx: Yes DOLLY CRUZ MD May 11, 2020 10:05
--- NOTE | 2020-05-11 11:47 | NUR ---
SS following up with discharge planning. SS reviewed pt chart and discussed with pt RN. Pt is currently on room air and IV Zosyn. PT/OT recommended home with home healthcare. Per RN, pt having SVT today and now on Cardizem drip. SS met with pt and spouse in room and discussed home healthcare services. Pt and pt's spouse agreeable to home healthcare with no preference of company. SS will continue to follow for discharge planning.
[2020-05-11] MEDS ORDERED: POTASSIUM CHLORIDE 20 MEQ TABLET.ER. PO ONE (12:30)
--- NOTE | 2020-05-11 13:06 | PDOC ---
MARJORIE DE LEON VOCATIONAL EDUCATION PROFESSIONAL 05/11/20 1306: CARDIO Progress Notes Date and Time Date of Service 05/11/20 Time of Evaluation 1310 Subjective Subjective: No Chest Pain, No shortness of breath, No Palpitations, Other (abd pain improved ) Vitals Vitals Vital Signs Date Time Temp Pulse Resp B/P (MAP) Pulse Ox O2 Delivery O2 Flow Rate FiO2 05/11/20 12:40 85 05/11/20 11:00 99.0 16 203/76 (118) 98 Room Air 99.0 Weight Weight [ ] Input and Output Intake and Output Intake and Output 05/11/20 07:00 Intake Total 990 ml Output Total 800 ml Balance 190 ml Intake Oral 990 ml Output Urine Total 800 ml # Voids 2 Laboratory Labs Laboratory Tests Test 05/10/20 17:05 05/10/20 20:10 05/11/20 04:40 05/11/20 07:44 Glucose (Fingerstick) 126 mg/dL (70-99) 134 mg/dL (70-99) 173 mg/dL (70-99) White Blood Count 12.4 x10^3/uL (4.0-11.0) Red Blood Count 3.74 x10^6/uL (4.30-5.70) Hemoglobin 11.7 g/dL (13.0-17.5) Hematocrit 34.5 % (39.0-53.0) Mean Corpuscular Volume 92 fL (79-100) Mean Corpuscular Hemoglobin 31 pg (25-35) Mean Corpuscular Hemoglobin Concent 34 g/dL (31-37) Red Cell Distribution Width 12.7 % (11.5-14.5) Platelet Count 174 x10^3/uL (140-400) Neutrophils (%) (Auto) 73 % (31-73) Lymphocytes (%) (Auto) 18 % (24-48) Monocytes (%) (Auto) 8 % (0-9) Eosinophils (%) (Auto) 1 % (0-3) Basophils (%) (Auto) 0 % (0-3) Neutrophils # (Auto) 9.0 x10^3/uL (1.8-7.7) Lymphocytes # (Auto) 2.3 x10^3/uL (1.0-4.8) Monocytes # (Auto) 1.0 x10^3/uL (0.0-1.1) Eosinophils # (Auto) 0.1 x10^3/uL (0.0-0.7) Basophils # (Auto) 0.0 x10^3/uL (0.0-0.2) Sodium Level 137 mmol/L (136-145) Potassium Level 3.2 mmol/L (3.5-5.1) Chloride Level 100 mmol/L (98-107) Carbon Dioxide Level 25 mmol/L (21-32) Anion Gap 12 (6-14) Blood Urea Nitrogen 13 mg/dL (8-26) Creatinine 0.8 mg/dL (0.7-1.3) Estimated GFR (Cockcroft-Gault) 96.1 Glucose Level 132 mg/dL (70-99) Calcium Level 8.7 mg/dL (8.5-10.1) Magnesium Level 2.1 mg/dL (1.8-2.4) Test 05/11/20 11:11 Glucose (Fingerstick) 138 mg/dL (70-99) Physical Exam HEENT: Neck Supple W Full Motion Chest: Symmetric LUNGS: Clear to Auscultation Heart: S1S2, RRR Abdomen: Other (soft ) Extremities: No Edema Neurology: alert, oriented, follow commands, other (flat affect.) Assessment Assessment 1. Abdominal pain/vomiting: h/o alcoholism with underlying liver disease. as per GI 2. Arrhythmia: LBBB with first degree AV block 3. LIVE; resolved 4. PAD: recenet [employer]ET[employer]IST to LLE at [facility] 03/2020 5. Hypertension; labile 6. HLP 7. DM2 8. Hx of NICM. LVEF previously 35-40%. Echo shows recovery in LV function 9. Hypokalemia; replaced 10. Tachyarrhythmia. Appears to be SVT due to regularity. s/p IV Dig. Rate now controlled with Cardizem gtt and resumption of metoprolol. Recommendations Unable to start Amiodarone with underlying liver disease Continue metoprolol for rate control Start Cardizem CD 120mg now. Titrate off gtt. Secondary prevention measures. Hydralazine PRN Supportive care Will arrange outpatient event monitor for rhythm monitoring. Justicifation of Admission Dx: Justifications for Admission: Justification of Admission Dx: Yes JENNY HINOJOSA MD 7/14/20 1936: CARDIO Progress Notes Assessment Assessment Patient seen and examined. Agree with ENVIRONMENT COORDINATOR's assessment and plan, PSVT with BBB presently in SR Continue CCB and BB Plan for outpatient event monitor to assess arrhythmia burden and need for anti-arryththymic therapy MARJORIE DE LEON APRN May 11, 2020 13:06 JENNY HINOJOSA MD May 11, 2020 19:36
[2020-05-11] MEDS: ATORVASTATIN CALCIUM 10 MG TABLET. PO SCH (20:48)
[2020-05-11] MEDS: INSULIN GLARGINE SYRINGE. SQ SCH (20:49)
[2020-05-12] VITALS (7 sets, daily range): BP systolic 146–219; BP diastolic 58–81
[2020-05-12] MEDS: PIPERACILLIN/TAZOBACTAM 4.5 GM in IV NORMAL SALINE 100ML 100 ML IV SCH ×5 (00:23→23:52)
[2020-05-12] MEDS: ONDANSETRON PF 4 MG/2 ML VIAL. IV SCH ×7 (00:23→23:55)
[2020-05-12] MEDS: NITROGLYCERIN OINT 1 GM PACKET. TP SCH ×4 (00:24→17:46)
[2020-05-12] MEDS: HYDROcodone/APAP 10/325 1 TAB TABLET PO PRN ×3 (02:21→17:56)
[2020-05-12] MEDS: INSULIN LISPRO 300 UNITS/3 ML VIAL. SQ SCH ×4 (07:30→20:40)
[2020-05-12 08:09] LABS: BASO % 0 % (0-3); EOS # 0.1 x10^3/uL (0.0-0.7); EOS % 1 % (0-3); HEMATOCRIT 32.3 % (39.0-53.0); HEMOGLOBIN 11.1 g/dL (13.0-17.5); LYMPH % 26 % (24-48); MEAN CORPUSCULAR HEMOGLOBIN 32 pg (25-35); MEAN CORPUSCULAR HGB CONC 34 g/dL (31-37); MEAN CORPUSCULAR VOLUME 92 fL (79-100); MONO # 1.3 x10^3/uL (0.0-1.1); MONO % 11 % (0-9); NEUT # 7.3 x10^3/uL (1.8-7.7); NEUT % 62 % (31-73); PLATELET COUNT 157 x10^3/uL (140-400); RED BLOOD COUNT 3.52 x10^6/uL (4.30-5.70); RED CELL DISTRIBUTION WIDTH 12.7 % (11.5-14.5); WHITE BLOOD COUNT 11.7 x10^3/uL (4.0-11.0)
[2020-05-12 08:20] LABS: ALBUMIN 2.9 g/dL (3.4-5.0); ALBUMIN/GLOBULIN RATIO 0.8 (1.0-1.7); CREATININE 0.8 mg/dL (0.7-1.3); DIRECT BILIRUBIN 0.9 mg/dL (0.0-0.2); GFR 96.1; TOTAL BILIRUBIN 1.3 mg/dL (0.2-1.0); TOTAL PROTEIN 6.4 g/dL (6.4-8.2)
[2020-05-12] MEDS: LACTOBACILLUS RHAMNOSUS GG 1 CAPSULE. PO SCH ×2 (08:44→20:32)
[2020-05-12] MEDS: ASCORBIC ACID 500 MG TABLET PO SCH (08:45)
[2020-05-12] MEDS: LISINOPRIL 10 MG TABLET PO SCH (08:45)
[2020-05-12] MEDS: MULTIVITAMIN with MINERAL TABLET. PO SCH (08:45)
[2020-05-12] MEDS: GABAPENTIN 100 MG CAPSULE. PO SCH ×3 (08:46→20:32)
[2020-05-12] MEDS: THIAMINE 100 MG TABLET. PO SCH (08:46)
[2020-05-12] MEDS: ENOXAPARIN 40 MG/0.4 ML SYRINGE. SQ SCH (08:46)
[2020-05-12] MEDS: ASPIRIN ENTERIC COATED 81 MG TABLET.DR. PO SCH (08:46)
[2020-05-12] MEDS: amLODIPine BESYLATE 10 MG TABLET PO SCH (08:46)
[2020-05-12] MEDS: PANTOPRAZOLE 40 MG TABLET.DR. PO SCH (08:46)
[2020-05-12] MEDS: FOLIC ACID 1 MG TABLET. PO SCH (08:46)
[2020-05-12] MEDS: POTASSIUM CHLORIDE 20 MEQ TABLET.ER. PO SCH (08:47)
[2020-05-12] MEDS: METOPROLOL SUCC 24HR ER 100 MG TAB.ER.24H. PO SCH (08:52)
[2020-05-12] MEDS: IV NORMAL SALINE 1000ML BAG 1,000 ML IV SCH ×2 (08:53→23:52)
--- NOTE | 2020-05-12 08:54 | PDOC ---
PROGRESS NOTES Chief Complaint Chief Complaint impression Intractable abdominal pain - with signs of acute on chronic cholecytitis. General surgery consulted Nausea and vomiting - IV antiemetics Hyperkalemia - corrected. Will monitor. Likely 2/2 LIVE LIVE - vasomotor nephropathy. Improved with hydration Sepsis - likely 2/2 cholecystitis. Started on zosyn and IVF Cirrhosis of liver - noted on CT scan, likely ETOH related. Counseled on ETOH cessation. GI consulted, was going to appt in june 2020 anyway tobacco dependence, in remission COPD with asthma DM2 - with hyperglycemia - will place on sliding scale insulin HTN Chronic back pain OA Heavy ETOH use - counseled Hx of NICM. LVEF previously 35-40%. Echo shows recovery in LV function Hx of alcoholism Hypokalemia; replaced LABILE HTN Nonvisualization of the gallbladder on post morphine imaging compatible with acute cholecystitis. plan ADMIT CVC BED FEN - Clear liquid PPX - Lovenox FULL CODE Dispo - inpatient 2 midnights GI FOLLOWING CARDIOLOGY FOLLOWING poor surgical candidate, pt not interested continue iv abx possibly less tender. Will recheck sono. 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 Pain is 7 out of 10, colicky in nature. Nausea did not remit with Zofran but did improve after Compazine dosing. Still vomited again in the ED and overnight. despite meds. He is still nauseated currently. CT imaging of patient's abdomen shows gallstones in the gallbladder with a dilated CBD which appears to be stable from previous CT imaging. Dedicated ultrasound was performed which showed cholelithiasis with mild gallbladder wall thickening questionable acute or chronic cholecystitis no pericolic cystic fluid. EKG - Heart rate 95 accelerated junctional rhythm, left axis deviation peaked T waves WBC 13.1, Hb 12.9, platelets 300, NA 136, BUN 31, CR 1.5, glucose 232, alkaline phosphatase 287, calcium 10.4, lipase normal Patient's troponin within normal limits. Patient's potassium was noted to be 5.3. Patient was treated with glucagon, insulin and calcium. Post treatment repeat creatinine and potassium improved potassium resulted at 4.9. Patient was placed on antibiotics Zosyn. Patient was admitted with general surgery and cardiology consults. 05/08: HIDA scan positive for cholecystitis. Afebrile. WBC down to 9, cr eatinine improved. Bilirubin up to 1.3. He had a little vomiting overnight. Tolerated clears. 05/09: Overnight afebrile. K 3.1 today. COVID negative. He wants to cont clear diet today is amenable to staying inpatient for further treatment of his sepsis and cholecystitis with tentative plans for surgery depending on surgery recommendations. No chest pain or shortness of breath. 05/12 SONO PENDING Overnight afebrile K3.2 AST 56 ALT 73 alkaline phosphatase 229 this morning WBC up to 12.7. Plan: Monitor CBC, can transition to oral antibiotics over the next 24 hours, will get PT and OT for his deconditioning he may need some rehab prior to going home. Replace K IV and p.o. Vitals Vitals Vital Signs Date Time Temp Pulse Resp B/P (MAP) Pulse Ox O2 Delivery O2 Flow Rate FiO2 05/12/20 06:20 75 174/63 05/12/20 06:17 99.0 18 96 Room Air 99.0 Physical Exam General: Alert, Oriented X3, Cooperative, No acute distress Heart: Regular rate, No murmurs Lungs: Clear Abdomen: Normal bowel sounds, Soft, No tenderness Extremities: No cyanosis, No edema Skin: No breakdown, No significant lesion Labs LABS Laboratory Tests Test 05/11/20 11:11 05/11/20 17:11 05/11/20 20:44 05/12/20 06:30 Glucose (Fingerstick) 138 mg/dL (70-99) 140 mg/dL (70-99) 153 mg/dL (70-99) Sodium Level 136 mmol/L (136-145) Potassium Level 3.0 mmol/L (3.5-5.1) Chloride Level 101 mmol/L (98-107) Carbon Dioxide Level 26 mmol/L (21-32) Anion Gap 9 (6-14) Blood Urea Nitrogen 13 mg/dL (8-26) Creatinine 0.8 mg/dL (0.7-1.3) Estimated GFR (Cockcroft-Gault) 96.1 BUN/Creatinine Ratio 16 (6-20) Glucose Level 152 mg/dL (70-99) Calcium Level 8.0 mg/dL (8.5-10.1) Total Bilirubin 1.3 mg/dL (0.2-1.0) Direct Bilirubin 0.9 mg/dL (0.0-0.2) Aspartate Amino Transf (AST/SGOT) 57 U/L (15-37) Alanine Aminotransferase (ALT/SGPT) 98 U/L (16-63) Alkaline Phosphatase 173 U/L (46-116) Total Protein 6.4 g/dL (6.4-8.2) Albumin 2.9 g/dL (3.4-5.0) Albumin/Globulin Ratio 0.8 (1.0-1.7) Test 05/12/20 06:55 05/12/20 08:15 White Blood Count 11.7 x10^3/uL (4.0-11.0) Red Blood Count 3.52 x10^6/uL (4.30-5.70) Hemoglobin 11.1 g/dL (13.0-17.5) Hematocrit 32.3 % (39.0-53.0) Mean Corpuscular Volume 92 fL (79-100) Mean Corpuscular Hemoglobin 32 pg (25-35) Mean Corpuscular Hemoglobin Concent 34 g/dL (31-37) Red Cell Distribution Width 12.7 % (11.5-14.5) Platelet Count 157 x10^3/uL (140-400) Neutrophils (%) (Auto) 62 % (31-73) Lymphocytes (%) (Auto) 26 % (24-48) Monocytes (%) (Auto) 11 % (0-9) Eosinophils (%) (Auto) 1 % (0-3) Basophils (%) (Auto) 0 % (0-3) Neutrophils # (Auto) 7.3 x10^3/uL (1.8-7.7) Lymphocytes # (Auto) 3.0 x10^3/uL (1.0-4.8) Monocytes # (Auto) 1.3 x10^3/uL (0.0-1.1) Eosinophils # (Auto) 0.1 x10^3/uL (0.0-0.7) Basophils # (Auto) 0.0 x10^3/uL (0.0-0.2) Glucose (Fingerstick) 151 mg/dL (70-99) Assessment and Plan Assessmemt and Plan Problems Medical Problems: (1) Abdominal pain Status: Acute (2) Acute electrocardiogram changes Status: Acute (3) Cholecystitis Status: Acute (4) Hyperkalemia Status: Acute Comment Review of Relevant I have reviewed the following items alyse (where applicable) has been applied. Labs Laboratory Tests Test 05/10/20 11:45 05/10/20 17:05 05/10/20 20:10 05/11/20 04:40 Glucose (Fingerstick) 183 mg/dL (70-99) 126 mg/dL (70-99) 134 mg/dL (70-99) White Blood Count 12.4 x10^3/uL (4.0-11.0) Red Blood Count 3.74 x10^6/uL (4.30-5.70) Hemoglobin 11.7 g/dL (13.0-17.5) Hematocrit 34.5 % (39.0-53.0) Mean Corpuscular Volume 92 fL (79-100) Mean Corpuscular Hemoglobin 31 pg (25-35) Mean Corpuscular Hemoglobin Concent 34 g/dL (31-37) Red Cell Distribution Width 12.7 % (11.5-14.5) Platelet Count 174 x10^3/uL (140-400) Neutrophils (%) (Auto) 73 % (31-73) Lymphocytes (%) (Auto) 18 % (24-48) Monocytes (%) (Auto) 8 % (0-9) Eosinophils (%) (Auto) 1 % (0-3) Basophils (%) (Auto) 0 % (0-3) Neutrophils # (Auto) 9.0 x10^3/uL (1.8-7.7) Lymphocytes # (Auto) 2.3 x10^3/uL (1.0-4.8) Monocytes # (Auto) 1.0 x10^3/uL (0.0-1.1) Eosinophils # (Auto) 0.1 x10^3/uL (0.0-0.7) Basophils # (Auto) 0.0 x10^3/uL (0.0-0.2) Sodium Level 137 mmol/L (136-145) Potassium Level 3.2 mmol/L (3.5-5.1) Chloride Level 100 mmol/L (98-107) Carbon Dioxide Level 25 mmol/L (21-32) Anion Gap 12 (6-14) Blood Urea Nitrogen 13 mg/dL (8-26) Creatinine 0.8 mg/dL (0.7-1.3) Estimated GFR (Cockcroft-Gault) 96.1 Glucose Level 132 mg/dL (70-99) Calcium Level 8.7 mg/dL (8.5-10.1) Magnesium Level 2.1 mg/dL (1.8-2.4) Test 05/11/20 07:44 05/11/20 11:11 05/11/20 17:11 05/11/20 20:44 Glucose (Fingerstick) 173 mg/dL (70-99) 138 mg/dL (70-99) 140 mg/dL (70-99) 153 mg/dL (70-99) Test 05/12/20 06:30 05/12/20 06:55 05/12/20 08:15 Sodium Level 136 mmol/L (136-145) Potassium Level 3.0 mmol/L (3.5-5.1) Chloride Level 101 mmol/L (98-107) Carbon Dioxide Level 26 mmol/L (21-32) Anion Gap 9 (6-14) Blood Urea Nitrogen 13 mg/dL (8-26) Creatinine 0.8 mg/dL (0.7-1.3) Estimated GFR (Cockcroft-Gault) 96.1 BUN/Creatinine Ratio 16 (6-20) Glucose Level 152 mg/dL (70-99) Calcium Level 8.0 mg/dL (8.5-10.1) Total Bilirubin 1.3 mg/dL (0.2-1.0) Direct Bilirubin 0.9 mg/dL (0.0-0.2) Aspartate Amino Transf (AST/SGOT) 57 U/L (15-37) Alanine Aminotransferase (ALT/SGPT) 98 U/L (16-63) Alkaline Phosphatase 173 U/L (46-116) Total Protein 6.4 g/dL (6.4-8.2) Albumin 2.9 g/dL (3.4-5.0) Albumin/Globulin Ratio 0.8 (1.0-1.7) White Blood Count 11.7 x10^3/uL (4.0-11.0) Red Blood Count 3.52 x10^6/uL (4.30-5.70) Hemoglobin 11.1 g/dL (13.0-17.5) Hematocrit 32.3 % (39.0-53.0) Mean Corpuscular Volume 92 fL (79-100) Mean Corpuscular Hemoglobin 32 pg (25-35) Mean Corpuscular Hemoglobin Concent 34 g/dL (31-37) Red Cell Distribution Width 12.7 % (11.5-14.5) Platelet Count 157 x10^3/uL (140-400) Neutrophils (%) (Auto) 62 % (31-73) Lymphocytes (%) (Auto) 26 % (24-48) Monocytes (%) (Auto) 11 % (0-9) Eosinophils (%) (Auto) 1 % (0-3) Basophils (%) (Auto) 0 % (0-3) Neutrophils # (Auto) 7.3 x10^3/uL (1.8-7.7) Lymphocytes # (Auto) 3.0 x10^3/uL (1.0-4.8) Monocytes # (Auto) 1.3 x10^3/uL (0.0-1.1) Eosinophils # (Auto) 0.1 x10^3/uL (0.0-0.7) Basophils # (Auto) 0.0 x10^3/uL (0.0-0.2) Glucose (Fingerstick) 151 mg/dL (70-99) Laboratory Tests Test 05/11/20 11:11 05/11/20 17:11 05/11/20 20:44 05/12/20 06:30 Glucose (Fingerstick) 138 mg/dL (70-99) 140 mg/dL (70-99) 153 mg/dL (70-99) Sodium Level 136 mmol/L (136-145) Potassium Level 3.0 mmol/L (3.5-5.1) Chloride Level 101 mmol/L (98-107) Carbon Dioxide Level 26 mmol/L (21-32) Anion Gap 9 (6-14) Blood Urea Nitrogen 13 mg/dL (8-26) Creatinine 0.8 mg/dL (0.7-1.3) Estimated GFR (Cockcroft-Gault) 96.1 BUN/Creatinine Ratio 16 (6-20) Glucose Level 152 mg/dL (70-99) Calcium Level 8.0 mg/dL (8.5-10.1) Total Bilirubin 1.3 mg/dL (0.2-1.0) Direct Bilirubin 0.9 mg/dL (0.0-0.2) Aspartate Amino Transf (AST/SGOT) 57 U/L (15-37) Alanine Aminotransferase (ALT/SGPT) 98 U/L (16-63) Alkaline Phosphatase 173 U/L (46-116) Total Protein 6.4 g/dL (6.4-8.2) Albumin 2.9 g/dL (3.4-5.0) Albumin/Globulin Ratio 0.8 (1.0-1.7) Test 05/12/20 06:55 05/12/20 08:15 White Blood Count 11.7 x10^3/uL (4.0-11.0) Red Blood Count 3.52 x10^6/uL (4.30-5.70) Hemoglobin 11.1 g/dL (13.0-17.5) Hematocrit 32.3 % (39.0-53.0) Mean Corpuscular Volume 92 fL (79-100) Mean Corpuscular Hemoglobin 32 pg (25-35) Mean Corpuscular Hemoglobin Concent 34 g/dL (31-37) Red Cell Distribution Width 12.7 % (11.5-14.5) Platelet Count 157 x10^3/uL (140-400) Neutrophils (%) (Auto) 62 % (31-73) Lymphocytes (%) (Auto) 26 % (24-48) Monocytes (%) (Auto) 11 % (0-9) Eosinophils (%) (Auto) 1 % (0-3) Basophils (%) (Auto) 0 % (0-3) Neutrophils # (Auto) 7.3 x10^3/uL (1.8-7.7) Lymphocytes # (Auto) 3.0 x10^3/uL (1.0-4.8) Monocytes # (Auto) 1.3 x10^3/uL (0.0-1.1) Eosinophils # (Auto) 0.1 x10^3/uL (0.0-0.7) Basophils # (Auto) 0.0 x10^3/uL (0.0-0.2) Glucose (Fingerstick) 151 mg/dL (70-99) Medications Current Medications Ondansetron HCl (Zofran) 4 mg STK-MED ONCE .ROUTE ; Start 05/06/20 at 20:42; Stop 05/06/20 at 20:42; Status DC Morphine Sulfate (Morphine Sulfate) 4 mg 1X ONCE IV Last administered on 05/06/20at 21:34; Start 05/06/20 at 21:30; Stop 05/06/20 at 21:31; Status DC Ondansetron HCl (Zofran) 4 mg 1X ONCE IV Last administered on 05/06/20at 21:28; Start 05/06/20 at 21:30; Stop 05/06/20 at 21:31; Status DC Prochlorperazine Edisylate (Compazine) 10 mg 1X ONCE IV Last administered on 05/06/20at 21:34; Start 05/06/20 at 21:30; Stop 05/06/20 at 21:39; Status DC Sodium Chloride 1,000 ml @ 0 mls/hr 1X ONCE IV Last administered on 05/06/20at 22:15; Start 05/06/20 at 22:15; Stop 05/06/20 at 22:16; Status DC Calcium Gluconate (Calcium Gluconate) 1,000 mg 1X ONCE IVP Last administered on 05/06/20at 23:10; Start 05/06/20 at 23:00; Stop 05/06/20 at 23:01; Status DC Insulin Human Regular (HumuLIN R VIAL) 10 unit 1X ONCE IV Last administered on 05/06/20at 23:07; Start 05/06/20 at 23:00; Stop 05/06/20 at 23:01; Status DC Dextrose (Dextrose 50%-Water Syringe) 25 gm 1X ONCE IV Last administered on 05/06/20at 23:11; Start 05/06/20 at 23:00; Stop 05/06/20 at 23:01; Status DC Morphine Sulfate (Morphine Sulfate) 4 mg 1X ONCE IV Last administered on 05/06/20at 23:12; Start 05/06/20 at 23:00; Stop 05/06/20 at 23:01; Status DC Ondansetron HCl (Zofran) 4 mg 1X ONCE IVP Last administered on 05/06/20at 23:06; Start 05/06/20 at 23:00; Stop 05/06/20 at 23:01; Status DC Prochlorperazine Edisylate (Compazine) 10 mg 1X ONCE IV Last administered on 05/06/20at 23:31; Start 05/06/20 at 23:30; Stop 05/06/20 at 23:31; Status DC Piperacillin Sod/ Tazobactam Sod 4.5 gm/Sodium Chloride 100 ml @ 200 mls/hr Q6HRS IV Last administered on 05/12/20at 06:19; Start 05/07/20 at 06:00 Prochlorperazine Edisylate (Compazine) 10 mg 1X ONCE IV Last administered on 05/07/20at 03:19; Start 05/07/20 at 03:30; Stop 05/07/20 at 03:31; Status DC Ondansetron HCl (Zofran) 4 mg PRN Q4HRS PRN IV NAUSEA/VOMITING (USE 1ST) Last administered on 05/08/20at 11:23; Start 05/07/20 at 03:30; Stop 05/08/20 at 16 :26; Status DC Acetaminophen (Tylenol Supp) 650 mg PRN Q4HRS PRN MA TEMP OVER 100.4F OR MILD PAIN; Start 05/07/20 at 03:30 Hydromorphone HCl (Dilaudid) 1 mg PRN Q2HRS PRN IV SEVERE PAIN 7- Last administered on 05/11/20at 03:43; Start 05/07/20 at 03:30 Enoxaparin Sodium (Lovenox 40mg Syringe) 40 mg Q24H SQ Last administered on 05/11/20at 08:59; Start 05/07/20 at 09:00 Insulin Human Lispro (HumaLOG) 0-9 UNITS TIDACHC SQ Last administered on 05/10/20at 12:26; Start 05/07/20 at 07:30 Dextrose (Dextrose 50%-Water Syringe) 12.5 gm PRN Q15MIN PRN IV SEE COMMENTS; Start 05/07/20 at 03:30 Acetaminophen (Tylenol) 650 mg PRN Q4HRS PRN PO TEMP OVER 100.4F OR HEADACHE Last administered on 05/07/20at 20:38; Start 05/07/20 at 03:30 Albuterol Sulfate (Ventolin Neb Soln) 2.5 mg PRN Q4HRS PRN NEB SHORTNESS OF BREATH; Start 05/07/20 at 03:30 Aspirin (Ecotrin) 81 mg DAILYWBKFT PO Last administered on 05/11/20at 08:58; Start 05/07/20 at 08:00 Atorvastatin Calcium (Lipitor) 10 mg QHS PO Last administered on 05/11/20 20:48; Start 05/07/20 at 21:00 Gabapentin (Neurontin) 100 mg TID PO Last administered on 05/11/20at 20:47; Start 05/07/20 at 09:00 Acetaminophen/ Hydrocodone Bitart (Lortab 10/325) 1 tab PRN Q6HRS PRN PO MODERATE PAIN 4-6 Last administered on 05/12/20at 02:21; Start 05/07/20 at 03:30 Insulin Glargine (Lantus Syringe) 12 unit QHS SQ ; Start 05/07/20 at 21:00; Stop 05/08/20 at 16:28; Status DC Lactobacillus Rhamnosus (Culturelle) 1 cap BID PO Last administered on 05/11/20at 20:47; Start 05/07/20 at 09:00 Metoprolol Succinate (Toprol Xl) 100 mg DAILY PO Last administered on 05/09/20at 11:04; Start 05/07/20 at 09:00; Stop 05/10/20 at 09:11; Status DC Pantoprazole Sodium (Protonix) 40 mg DAILYAC PO ; Start 05/07/20 at 07:30; Stop 05/07/20 at 14:12; Status DC Prochlorperazine Edisylate (Compazine) 10 mg PRN Q6HRS PRN IV NAUSEA/VOMITING (USE 2ND) Last administered on 05/08/20at 03:18; Start 05/07/20 at 03:30 Lactulose (Lactulose) 20 gm PRN DAILY PRN PO CONSTIPATION (USE 2ND); Start 05/07/20 at 03:30 Senna/Docusate Sodium (Senna Plus) 2 tab PRN BID PRN PO CONSTIPATION (USE 3RD); Start 05/07/20 at 03:30 Polyethylene Glycol (miraLAX PACKET) 17 gm PRN BID PRN PO CONSTIPATION (1ST CHOICE); Start 05/07/20 at 03:30 Sodium Chloride 1,000 ml @ 75 mls/hr 1X ONCE IV Last administered on 05/07/20at 04:02; Start 05/07/20 at 03:45; Stop 05/07/20 at 17:04; Status DC Lorazepam (Ativan Inj) 1 mg PRN Q5MIN PRN IVP ANXIETY / AGITATION Last administered on 05/07/20at 10:49; Start 05/07/20 at 10:45 Multivitamins (Thera M Plus) 1 tab DAILY PO Last administered on 05/11/20at 08:58; Start 05/07/20 at 12:00; Stop 05/11/20 at 18:15; Status DC Folic Acid (Folic Acid) 1 mg DAILY PO Last administered on 05/11/20at 08:58; Start 05/07/20 at 12:00 Thiamine Mononitrate (Vitamin B-1) 100 mg DAILY PO Last administered on 05/11/20at 08:58; Start 05/07/20 at 12:00 Lorazepam (Ativan) 2 mg PRN Q1HR PRN PO For CIWA 8-14; Start 05/07/20 at 11:00 Lorazepam (Ativan Inj) 1 mg PRN Q1HR PRN IV For CIWA 8-14; Start 05/07/20 at 11:00 Haloperidol Lactate (Haldol Inj) 5 mg PRN Q4HRS PRN IVP Hallucinatns,Confusn,Delirium; Start 05/07/20 at 11:00 Diphenhydramine HCl (Benadryl) 25 mg PRN Q15MIN PRN IVP EPS symptoms 2'Haldol admin; Start 05/07/20 at 11:00 Clonidine HCl (Catapres) 0.1 mg PRN Q1HR PRN PO SBP > 180 or DBP > 100, MRX3 Last administered on 05/10/20at 03:46; Start 05/07/20 at 11:00 Metoprolol Tartrate (Lopressor Vial) 5 mg Q6HRS IVP Last administered on 05/09/20at 05:39; Start 05/07/20 at 12:00; Stop 05/09/20 at 17:37; Status DC Nitroglycerin (Nitro-Bid Oint) 1 inch Q6HRS TP Last administered on 05/12/20at 06:20; Start 05/07/20 at 12:00 Labetalol HCl (Normodyne Iv Push) 20 mg PRN Q2HR PRN IVP HYPERTENSION Last administered on 05/09/20at 15:44; Start 05/07/20 at 11:30; Stop 05/10/20 at 17:12; Status DC Morphine Sulfate (Morphine Sulfate) 4 mg 1X ONCE IV Last administered on 05/07/20at 12:06; Start 05/07/20 at 12:00; Stop 05/07/20 at 12:01; Status DC Morphine Sulfate (Morphine Sulfate) 4 mg STK-MED ONCE .ROUTE ; Start 05/07/20 at 11:59; Stop 05/07/20 at 11:59; Status DC Pantoprazole Sodium (PROTONIX VIAL for IV PUSH) 40 mg DAILYAC IVP Last administered on 05/10/20at 07:56; Start 05/08/20 at 07:30; Stop 05/10/20 at 11:01; Status DC Vitamin A/Vitamin D (Vitamin A & D Ointment) 1 idalia PRN Q1HR PRN TP SKIN MA OTECTION Last administered on 05/09/20at 15:54; Start 05/07/20 at 16:45 Sodium Chloride 1,000 ml @ 75 mls/hr [id number] IV Last administered on 05/11/20at 16:50; Start 05/07/20 at 19:30 Ondansetron HCl (Zofran) 4 mg Q4HRS IV Last administered on 05/12/20at 03:37; Start 05/08/20 at 16:30 Insulin Glargine (Lantus Syringe) 8 unit QHS SQ Last administered on 05/11/20at 20:49; Start 05/08/20 at 21:00 Potassium Chloride/Water 100 ml @ 100 mls/hr Q1H IV Last administered on 05/09/20at 13:32; Start 05/09/20 at 11:00; Stop 05/09/20 at 12:59; Status DC Potassium Chloride (Klor-Con) 40 meq 1X ONCE PO Last administered on 05/09/20at 12:22; Start 05/09/20 at 11:00; Stop 05/09/20 at 11:08; Status DC Hydralazine HCl (Apresoline Inj) 10 mg PRN Q4HRS PRN IVP ELEVATED BP, SEE COMMENTS Last administered on 05/11/20at 03:37; Start 05/09/20 at 17:00 Hydralazine HCl (Apresoline Inj) 10 mg 1X ONCE IVP Last administered on 05/09/20at 17:51; Start 05/09/20 at 17:00; Stop 05/09/20 at 17:01; Status DC Amlodipine Besylate (Norvasc) 5 mg 1X ONCE PO Last administered on 05/09/20at 17:51; Start 05/09/20 at 17:00; Stop 05/09/20 at 17:01; Status DC Potassium Chloride (Klor-Con) 40 meq 1X ONCE PO Last administered on 05/10/20at 08:20; Start 05/10/20 at 08:00; Stop 05/10/20 at 08:01; Status DC Potassium Chloride/Water 100 ml @ 100 mls/hr Q1H IV Last administered on 05/10/20at 10:11; Start 05/10/20 at 09:00; Stop 05/10/20 at 10:59; Status DC Amlodipine Besylate (Norvasc) 10 mg DAILY PO Last administered on 05/11/20at 08:58; Start 05/10/20 at 09:15 Pantoprazole Sodium (Protonix) 40 mg DAILYAC PO Last administered on 05/11/20at 08:59; Start 05/11/20 at 07:30 Lisinopril (Prinivil) 10 mg DAILY PO Last administered on 05/11/20at 08:59; Start 05/10/20 at 15:30 Metoprolol Tartrate (Lopressor Vial) 5 mg PRN Q6HRS PRN IVP HYPERTENSION Last administered on 05/11/20at 06:48; Start 05/10/20 at 17:15 Metoprolol Tartrate (Lopressor Vial) 5 mg 1X ONCE IVP Last administered on 05/10/20at 17:40; Start 05/10/20 at 17:30; Stop 05/10/20 at 17:31; Status DC Digoxin (Lanoxin) 250 mcg 1X ONCE IV Last administered on 05/10/20at 17:41; Start 05/10/20 at 17:45; Stop 05/10/20 at 17:46; Status DC Digoxin (Lanoxin) 250 mcg 1X ONCE IV Last administered on 05/10/20at 18:17; Start 05/10/20 at 18:15; Stop 05/10/20 at 18:16; Status DC Metoprolol Tartrate (Lopressor) 25 mg 1X ONCE PO Last administered on 05/10/20at 20:14; Start 05/10/20 at 21:00; Stop 05/10/20 at 21:01; Status DC Metoprolol Succinate (Toprol Xl) 100 mg DAILY PO Last administered on 05/11/20at 07:04; Start 05/11/20 at 09:00 Diltiazem HCl (Cardizem Iv Push) 10 mg 1X ONCE IVP Last administered on 05/11/20at 07:50; Start 05/11/20 at 07:50; Stop 05/11/20 at 08:32; Status DC Diltiazem HCl 125 mg/Sodium Chloride 125 ml @ 5 mls/hr CONT PRN IV SEE I/O RECORD Last administered on 05/11/20at 09:15; Start 05/11/20 at 08:00 Potassium Chloride (Klor-Con) 40 meq 1X ONCE PO Last administered on 05/11/20at 12:39; Start 05/11/20 at 12:30; Stop 05/11/20 at 12:31; Status DC Potassium Chloride (Klor-Con) 20 meq DAILYWBKFT PO ; Start 05/12/20 at 08:00 Diltiazem HCl (Cardizem 24hr Cd) 120 mg DAILY PO Last administered on 05/11/20at 15:29; Start 05/11/20 at 15:00 Multivitamins (Thera M Plus) 1 tab DAILY PO ; Start 05/12/20 at 09:00 Ascorbic Acid (Vitamin C) 500 mg DAILY PO ; Start 05/12/20 at 09:00 Active Scripts Active Lantus (Insulin Glargine,Hum.rec.anlog) 100 Unit/1 Ml Vial 12 Unit SQ QHS 30 Days Culturelle (Lactobacillus Rhamnosus Gg) 1 Each Cap.sprink 1 Cap PO BID 30 Days Hydrochlorothiazide Tablet (Hydrochlorothiazide) 25 Mg Tablet 25 Mg PO DAILY 30 Days Tylenol (Acetaminophen) 325 Mg Tablet 650 Mg PO PRN Q4HRS PRN 30 Days Aspirin Ec (Aspirin) 81 Mg Tablet.dr 81 Mg PO DAILYWBKFT 30 Days Atorvastatin Calcium 10 Mg Tablet 10 Mg PO QHS 30 Days Proair Hfa (Albuterol Sulfate) 8.5 Gm Hfa.aer.ad 2.5 Mg NEB PRN Q4HRS PRN 30 Days Glucophage (Metformin Hcl) 500 Mg Tablet 500 Mg PO BIDWMEALS MDD 1 Furosemide 40 Mg Tablet 40 Mg PO DAILY MDD 1 Protonix (Pantoprazole Sodium) 20 Mg Tablet.dr 40 Mg PO DAILY 90 Days Reported [freestyle aniyah] 1 Patch TP Q14 DAYS Clopidogrel (Clopidogrel Bisulfate) 75 Mg Tablet 75 Mg PO DAILY Fluconazole 200 Mg Tablet 200 Mg PO DAILY Insulin Lispro 100 Unit/1 Ml Vial 3 Unit SQ TIDWMEALS Ventolin Hfa Inhaler (Albuterol Sulfate) 18 Gm Hfa.aer.ad 1 Puff INH QID Indomethacin 50 Mg Capsule 1 Cap PO PRN PRN Hydrocodone-Apap 10-325 (Hydrocodone Bit/Acetaminophen) 1 Tab Tablet 1 Tab PO PRN Q6HRS PRN Gabapentin (Gabapentin) 100 Mg Capsule 100 Mg PO TID Metoprolol Succinate ( Xl ) (Metoprolol Succinate) 100 Mg Tab.er.24h 100 Mg PO DAILY Vitals/I & O Vital Sign - Last 24 Hours 05/11/20 05/11/20 05/11/20 05/11/20 08:58 08:59 09:03 09:34 Pulse 75 75 77 71 B/P (MAP) 155/70 (98) 173/77 (109) 05/11/20 05/11/20 05/11/20 05/11/20 10:04 11:00 11:06 12:05 Temp 99.0 99.0 Pulse 71 67 67 78 Resp 16 B/P (MAP) 174/78 (110) 203/76 (118) 203/76 (118) 160/142 (148) Pulse Ox 98 97 O2 Delivery Room Air Room Air 05/11/20 05/11/20 05/11/20 05/11/20 12:40 13:43 14:43 15:00 Temp 98.6 98.6 Pulse 85 64 61 63 Resp 16 B/P (MAP) 173/70 (104) 168/70 (102) 168/70 (102) Pulse Ox 98 O2 Delivery Room Air 05/11/20 05/11/20 05/11/20 05/11/20 15:29 16:43 17:59 19:34 Pulse 65 69 69 B/P (MAP) 180/75 (110) 180/75 Pulse Ox 98 O2 Delivery Room Air Room Air 05/11/20 05/11/20 05/11/20 05/12/20 19:45 20:47 22:50 00:24 Temp 98.4 98.7 98.4 98.7 Pulse 66 66 66 Resp 18 18 B/P (MAP) 168/71 (103) 166/76 (106) 166/76 Pulse Ox 97 97 O2 Delivery Room Air Room Air Room Air 05/12/20 05/12/20 05/12/20 05/12/20 02:21 03:10 03:21 06:17 Temp 99.3 99.0 99.3 99.0 Pulse 70 75 Resp 18 18 B/P (MAP) 200/77 (118) 174/63 (100) Pulse Ox 98 96 O2 Delivery Room Air Room Air Room Air Room Air 05/12/20 06:20 Pulse 75 B/P (MAP) 174/63 Intake and Output 05/11/20 05/11/20 05/12/20 15:00 23:00 07:00 Intake Total 170 ml 520 ml Output Total 0 ml Balance 0 ml 170 ml 520 ml Nutrition Consultation Dietary Evaluation: Recommendations by RD: Dietary education by RD, Increase Calorie Intake, Protein supplementation Comments: REC Ensure clear w/dinner and more often if pt likes it REC Vit C - wound healing; continue w/MVI (wound healing) If unable to advance past clear liquids within 24 48 hrs, recommend consideration of PPN to supplement poor PO intake Expected Outcomes/Goals: diet advancement- goal ongoing Interpretation of weight loss: >7.5% in 3 months Malnutrition Findings: Food and Nutrition Intake (Mod: <75% est energy req 7days Weight Status: Overweight Justicifation of Admission Dx: Justifications for Admission: Justification of Admission Dx: Yes DOLLY CRUZ MD May 12, 2020 08:54
--- NOTE | 2020-05-12 10:15 | PDOC ---
MARJORIE DE LEON DAIRY CONSULTANT 05/12/20 1015: CARDIO Progress Notes Date and Time Date of Service 05/12/20 Time of Evaluation 1015 Subjective Subjective: No Chest Pain, No shortness of breath, No Palpitations, Other (abd pain improved ) Vitals Vitals Vital Signs Date Time Temp Pulse Resp B/P (MAP) Pulse Ox O2 Delivery O2 Flow Rate FiO2 05/12/20 09:45 16 Room Air 05/12/20 08:52 75 174/63 05/12/20 06:17 99.0 96 99.0 Weight Weight [ ] Input and Output Intake and Output Intake and Output 05/12/20 07:00 Intake Total 690 ml Output Total 0 ml Balance 690 ml Intake Oral 690 ml Output Urine Total 0 ml # Voids 3 Laboratory Labs Laboratory Tests Test 05/11/20 11:11 05/11/20 17:11 05/11/20 20:44 05/12/20 06:30 Glucose (Fingerstick) 138 mg/dL (70-99) 140 mg/dL (70-99) 153 mg/dL (70-99) Sodium Level 136 mmol/L (136-145) Potassium Level 3.0 mmol/L (3.5-5.1) Chloride Level 101 mmol/L (98-107) Carbon Dioxide Level 26 mmol/L (21-32) Anion Gap 9 (6-14) Blood Urea Nitrogen 13 mg/dL (8-26) Creatinine 0.8 mg/dL (0.7-1.3) Estimated GFR (Cockcroft-Gault) 96.1 BUN/Creatinine Ratio 16 (6-20) Glucose Level 152 mg/dL (70-99) Calcium Level 8.0 mg/dL (8.5-10.1) Total Bilirubin 1.3 mg/dL (0.2-1.0) Direct Bilirubin 0.9 mg/dL (0.0-0.2) Aspartate Amino Transf (AST/SGOT) 57 U/L (15-37) Alanine Aminotransferase (ALT/SGPT) 98 U/L (16-63) Alkaline Phosphatase 173 U/L (46-116) Total Protein 6.4 g/dL (6.4-8.2) Albumin 2.9 g/dL (3.4-5.0) Albumin/Globulin Ratio 0.8 (1.0-1.7) Test 05/12/20 06:55 05/12/20 08:15 White Blood Count 11.7 x10^3/uL (4.0-11.0) Red Blood Count 3.52 x10^6/uL (4.30-5.70) Hemoglobin 11.1 g/dL (13.0-17.5) Hematocrit 32.3 % (39.0-53.0) Mean Corpuscular Volume 92 fL (79-100) Mean Corpuscular Hemoglobin 32 pg (25-35) Mean Corpuscular Hemoglobin Concent 34 g/dL (31-37) Red Cell Distribution Width 12.7 % (11.5-14.5) Platelet Count 157 x10^3/uL (140-400) Neutrophils (%) (Auto) 62 % (31-73) Lymphocytes (%) (Auto) 26 % (24-48) Monocytes (%) (Auto) 11 % (0-9) Eosinophils (%) (Auto) 1 % (0-3) Basophils (%) (Auto) 0 % (0-3) Neutrophils # (Auto) 7.3 x10^3/uL (1.8-7.7) Lymphocytes # (Auto) 3.0 x10^3/uL (1.0-4.8) Monocytes # (Auto) 1.3 x10^3/uL (0.0-1.1) Eosinophils # (Auto) 0.1 x10^3/uL (0.0-0.7) Basophils # (Auto) 0.0 x10^3/uL (0.0-0.2) Glucose (Fingerstick) 151 mg/dL (70-99) Physical Exam HEENT: Neck Supple W Full Motion Chest: Symmetric LUNGS: Clear to Auscultation Heart: S1S2, RRR Abdomen: Other (soft ) Extremities: No Edema Neurology: alert, oriented, follow commands, other (flat affect.) Assessment Assessment 1. Abdominal pain/vomiting: h/o alcoholism with underlying liver disease. as per GI 2. Arrhythmia: LBBB with first degree AV block 3. LIVE; resolved 4. PAD: recenet [employer] to L[facility] at [facility] 03/2020 5. Hypertension; labile 6. HLP 7. DM2 8. Hx of NICM. LVEF previously 35-40%. Echo shows recovery in LV function 9. Hypokalemia, recurrent: replaced. 10. PSVT; mostly maintaining SR. Brief burst of SVT this am. MCOT monitor last month showed SR with occasional PAC's, PVC's. No AF noted Recommendations Check Mg replace as warranted Continue metoprolol, Cardizem for rate control Secondary prevention measures. Hydralazine PRN Supportive care Justicifation of Admission Dx: Justifications for Admission: Justification of Admission Dx: Yes JENNY HINOJOSA MD 05/12/206: CARDIO Progress Notes Assessment Assessment Patient seen and examined. Agree with BOOKER's assessment and plan. Brief SVT noted on tele this morning, presently in SR Continue CCB and BB Plan outpatient event monitor to determine need for anti-arrhythmic therapy MARJORIE DE LEON APRN May 12, 2020 10:15 JENNY HINOJOSA MD May 12, 2020 21:36
--- NOTE | 2020-05-12 10:50 | PDOC ---
Subjective: Subjective: Feels better today. Drinking more. Abd discomfort better. Nausea comes and goes. Objective: Vital Signs: Vital Signs Date Time Temp Pulse Resp B/P (MAP) Pulse Ox O2 Delivery O2 Flow Rate FiO2 05/12/20 09:45 16 Room Air 05/12/20 08:52 75 174/63 05/12/20 06:17 99.0 96 99.0 Labs: Laboratory Tests Test 05/11/20 11:11 05/11/20 17:11 05/11/20 20:44 05/12/20 08:15 Glucose (Fingerstick) 138 mg/dL (70-99) 140 mg/dL (70-99) 153 mg/dL (70-99) 151 mg/dL (70-99) PE: GEN: NAD LUNGS: CTAB HEART: RRR ABD: soft, BS+, non-tender NEURO/PSYCH: A & O 3, smiling A/P: Upper abd discomfort, nausea Abnormal LFTs - fluctuating/stable Abnormal HIDA/cholecystitis, cholelithiasis - no plans for surgery GERD, h/o PUD, ?alcoholic liver disease SVT, PAD, DM, HTN -- Seems about the same, continue support. Justicifation of Admission Dx: Justifications for Admission: Justification of Admission Dx: Yes GEORGIE KLINE May 12, 2020 10:50
--- NOTE | 2020-05-12 13:03 | NUR ---
SS following up with discharge planning. SS reviewed pt chart and discussed with pt RN. Pt is currently on room air. Pt off Cardizem drip. Pt on IV Zosyn. Discharge plan is to home with home healthcare when ready. SS will continue to follow for discharge planning.
--- NOTE | 2020-05-12 14:15 | RAD ---
Examination: ABDOMEN LTD History: Reason: Acute cholecystitis, status?/ATE BREAKFAST DO AFTERNOON / Spl. Instructions: / History: Comparison/Correlation: 05/07/2020 Limited abdominal ultrasound exam Findings: Limited right upper quadrant ultrasound exam was performed. Cholelithiasis is again seen with 2 several calculi are present. No gallbladder wall thickening of 0.65 cm is present. No pericholecystic fluid. Liver is not fully included on this exam. No biliary dilatation involving the partially visualized liver. No definite pericholecystic fluid. Impression: Cholelithiasis. Gallbladder wall thickening which may represent cholecystitis in the appropriate clinical setting. No significant interval changes. Electronically signed by: Liu Lindquist MD (05/12/2020 2:12 PM) [id number]
[2020-05-12] MEDS ORDERED: POTASSIUM CHLORIDE 20 MEQ TABLET.ER. PO ONE (17:00)
[2020-05-12] MEDS: hydrALAZINE 20 MG/ML VIAL. IVP PRN (18:16)
[2020-05-12] MEDS: ATORVASTATIN CALCIUM 10 MG TABLET. PO SCH (20:32)
[2020-05-12] MEDS: INSULIN GLARGINE SYRINGE. SQ SCH (20:39)
[2020-05-13] VITALS (7 sets, daily range): BP systolic 157–188; BP diastolic 56–74
[2020-05-13] MEDS: ONDANSETRON PF 4 MG/2 ML VIAL. IV SCH ×5 (04:07→20:55)
[2020-05-13] MEDS: PIPERACILLIN/TAZOBACTAM 4.5 GM in IV NORMAL SALINE 100ML 100 ML IV SCH ×3 (06:05→18:02)
[2020-05-13] MEDS: NITROGLYCERIN OINT 1 GM PACKET. TP SCH ×4 (06:05→18:02)
[2020-05-13] MEDS: INSULIN LISPRO 300 UNITS/3 ML VIAL. SQ SCH ×4 (07:30→20:55)
--- NOTE | 2020-05-13 08:18 | PDOC ---
PROGRESS NOTES Chief Complaint Chief Complaint DISCHARGE DX Intractable abdominal pain - with signs of acute on chronic cholecytitis. General surgery consulted Nausea and vomiting - IV antiemetics Hyperkalemia - corrected. Will monitor. Likely 2/2 LIVE LIVE - vasomotor nephropathy. Improved with hydration Sepsis - likely 2/2 cholecystitis. Started on zosyn and IVF Cirrhosis of liver - noted on CT scan, likely ETOH related. Counseled on ETOH cessation. GI consulted, was going to appt in june 2020 anyway tobacco dependence, in remission COPD with asthma DM2 - with hyperglycemia - will place on sliding scale insulin HTN Chronic back pain OA Heavy ETOH use - counseled Hx of NICM. LVEF previously 35-40%. Echo shows recovery in LV function Hx of alcoholism Hypokalemia; replaced LABILE HTN Nonvisualization of the gallbladder on post morphine imaging compatible with acute cholecystitis. plan ADMIT CVC BED FEN - Clear liquid PPX - Lovenox FULL CODE Dispo - inpatient 2 midnights GI FOLLOWING CARDIOLOGY FOLLOWING poor surgical candidate, pt not interested continue iv abx possibly less tender. Will recheck sono. 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 Pain is 7 out of 10, colicky in nature. Nausea did not remit with Zofran but did improve after Compazine dosing. Still vomited again in the ED and overnight. despite meds. He is still nauseated currently. CT imaging of patient's abdomen shows gallstones in the gallbladder with a dilated CBD which appears to be stable from previous CT imaging. Dedicated ultrasound was performed which showed cholelithiasis with mild gallbladder wall thickening questionable acute or chronic cholecystitis no pericolic cystic fluid. EKG - Heart rate 95 accelerated junctional rhythm, left axis deviation peaked T waves WBC 13.1, Hb 12.9, platelets 300, NA 136, BUN 31, CR 1.5, glucose 232, alkaline phosphatase 287, calcium 10.4, lipase normal Patient's troponin within normal limits. Patient's potassium was noted to be 5.3. Patient was treated with glucagon, insulin and calcium. Post treatment repeat creatinine and potassium improved potassium resulted at 4.9. Patient was placed on antibiotics Zosyn. Patient was admitted with general surgery and cardiology consults. 05/08: HIDA scan positive for cholecystitis. Afebrile. WBC down to 9, creatinine improved. Bilirubin up to 1.3. He had a little vomiting overnight. Tolerated clears. 05/09: Overnight afebrile. K 3.1 today. COVID negative. He wants to cont clear diet today is amenable to staying inpatient for further treatment of his sepsis and cholecystitis with tentative plans for surgery depending on surgery recommendations. No chest pain or shortness of breath. 05/12 SONO PENDING Overnight afebrile K3.2 AST 56 ALT 73 alkaline phosphatase 229 this morning WBC up to 12.7. Plan: Monitor CBC, can transition to oral antibiotics over the next 24 hours, will get PT and OT for his deconditioning he may need some rehab prior to going home. Replace K IV and p.o. Vitals Vitals Vital Signs Date Time Temp Pulse Resp B/P (MAP) Pulse Ox O2 Delivery O2 Flow Rate FiO2 05/13/20 07:15 98.5 69 18 173/56 (95) 97 Room Air 98.5 Physical Exam General: Alert, Oriented X3, Cooperative, No acute distress Heart: Regular rate, No murmurs Lungs: Clear Abdomen: Normal bowel sounds, Soft, No tenderness Extremities: No cyanosis, No edema Skin: No breakdown, No significant lesion Labs LABS Examination: ABDOMEN LTD History: Reason: Acute cholecystitis, status?/ATE BREAKFAST DO AFTERNOON / Spl. Instructions: / History: Comparison/Correlation: 05/07/2020 Limited abdominal ultrasound exam Findings: Limited right upper quadrant ultrasound exam was performed. Cholelithiasis is again seen with 2 several calculi are present. No gallbladder wall thickening of 0.65 cm is present. No pericholecystic fluid. Liver is not fully included on this exam. No biliary dilatation involving the partially visualized liver. No definite pericholecystic fluid. Impression: Cholelithiasis. Gallbladder wall thickening which may represent cholecystitis in the appropriate clinical setting. No significant interval changes. Electronically signed by: Liu Sheikh MD (05/12/2020 2:12 PM) [id number] DICTATED and SIGNED BY: LIU SHEIKH MD Laboratory Tests Test 05/12/20 12:04 05/12/20 16:26 05/12/20 20:31 05/13/20 07:23 Glucose (Fingerstick) 158 mg/dL (70-99) 212 mg/dL (70-99) 93 mg/dL (70-99) 106 mg/dL (70-99) Assessment and Plan Assessmemt and Plan Problems Medical Problems: (1) Abdominal pain Status: Acute (2) Acute electrocardiogram changes Status: Acute (3) Cholecystitis Status: Acute (4) Hyperkalemia Status: Acute Comment Review of Relevant I have reviewed the following items alyse (where applicable) has been applied. Labs Laboratory Tests Test 05/11/20 11:11 05/11/20 17:11 05/11/20 20:44 05/12/20 06:30 Glucose (Fingerstick) 138 mg/dL (70-99) 140 mg/dL (70-99) 153 mg/dL (70-99) Sodium Level 136 mmol/L (136-145) Potassium Level 3.0 mmol/L (3.5-5.1) Chloride Level 101 mmol/L (98-107) Carbon Dioxide Level 26 mmol/L (21-32) Anion Gap 9 (6-14) Blood Urea Nitrogen 13 mg/dL (8-26) Creatinine 0.8 mg/dL (0.7-1.3) Estimated GFR (Cockcroft-Gault) 96.1 BUN/Creatinine Ratio 16 (6-20) Glucose Level 152 mg/dL (70-99) Calcium Level 8.0 mg/dL (8.5-10.1) Total Bilirubin 1.3 mg/dL (0.2-1.0) Direct Bilirubin 0.9 mg/dL (0.0-0.2) Aspartate Amino Transf (AST/SGOT) 57 U/L (15-37) Alanine Aminotransferase (ALT/SGPT) 98 U/L (16-63) Alkaline Phosphatase 173 U/L (46-116) Total Protein 6.4 g/dL (6.4-8.2) Albumin 2.9 g/dL (3.4-5.0) Albumin/Globulin Ratio 0.8 (1.0-1.7) Test 05/12/20 06:55 05/12/20 08:15 05/12/20 12:04 05/12/20 16:26 White Blood Count 11.7 x10^3/uL (4.0-11.0) Red Blood Count 3.52 x10^6/uL (4.30-5.70) Hemoglobin 11.1 g/dL (13.0-17.5) Hematocrit 32.3 % (39.0-53.0) Mean Corpuscular Volume 92 fL (79-100) Mean Corpuscular Hemoglobin 32 pg (25-35) Mean Corpuscular Hemoglobin Concent 34 g/dL (31-37) Red Cell Distribution Width 12.7 % (11.5-14.5) Platelet Count 157 x10^3/uL (140-400) Neutrophils (%) (Auto) 62 % (31-73) Lymphocytes (%) (Auto) 26 % (24-48) Monocytes (%) (Auto) 11 % (0-9) Eosinophils (%) (Auto) 1 % (0-3) Basophils (%) (Auto) 0 % (0-3) Neutrophils # (Auto) 7.3 x10^3/uL (1.8-7.7) Lymphocytes # (Auto) 3.0 x10^3/uL (1.0-4.8) Monocytes # (Auto) 1.3 x10^3/uL (0.0-1.1) Eosinophils # (Auto) 0.1 x10^3/uL (0.0-0.7) Basophils # (Auto) 0.0 x10^3/uL (0.0-0.2) Magnesium Level 2.2 mg/dL (1.8-2.4) Glucose (Fingerstick) 151 mg/dL (70-99) 158 mg/dL (70-99) 212 mg/dL (70-99) Test 05/12/20 20:31 05/13/20 07:23 Glucose (Fingerstick) 93 mg/dL (70-99) 106 mg/dL (70-99) Laboratory Tests Test 05/12/20 12:04 05/12/20 16:26 05/12/20 20:31 05/13/20 07:23 Glucose (Fingerstick) 158 mg/dL (70-99) 212 mg/dL (70-99) 93 mg/dL (70-99) 106 mg/dL (70-99) Medications Current Medications Ondansetron HCl (Zofran) 4 mg STK-MED ONCE .ROUTE ; Start 05/06/20 at 20:42; Stop 05/06/20 at 20:42; Status DC Morphine Sulfate (Morphine Sulfate) 4 mg 1X ONCE IV Last administered on 05/06/20at 21:34; Start 05/06/20 at 21:30; Stop 05/06/20 at 21:31; Status DC Ondansetron HCl (Zofran) 4 mg 1X ONCE IV Last administered on 05/06/20at 21:28; Start 05/06/20 at 21:30; Stop 05/06/20 at 21:31; Status DC Prochlorperazine Edisylate (Compazine) 10 mg 1X ONCE IV Last administered on 05/06/20at 21:34; Start 05/06/20 at 21:30; Stop 05/06/20 at 21:39; Status DC Sodium Chloride 1,000 ml @ 0 mls/hr 1X ONCE IV Last administered on 05/06/20at 22:15; Start 05/06/20 at 22:15; Stop 05/06/20 at 22:16; Status DC Calcium Gluconate (Calcium Gluconate) 1,000 mg 1X ONCE IVP Last administered o n 05/06/20at 23:10; Start 05/06/20 at 23:00; Stop 05/06/20 at 23:01; Status DC Insulin Human Regular (HumuLIN R VIAL) 10 unit 1X ONCE IV Last administered on 05/06/20at 23:07; Start 05/06/20 at 23:00; Stop 05/06/20 at 23:01; Status DC Dextrose (Dextrose 50%-Water Syringe) 25 gm 1X ONCE IV Last administered on 05/06/20at 23:11; Start 05/06/20 at 23:00; Stop 05/06/20 at 23:01; Status DC Morphine Sulfate (Morphine Sulfate) 4 mg 1X ONCE IV Last administered on 05/06/20at 23:12; Start 05/06/20 at 23:00; Stop 05/06/20 at 23:01; Status DC Ondansetron HCl (Zofran) 4 mg 1X ONCE IVP Last administered on 05/06/20at 23:06; Start 05/06/20 at 23:00; Stop 05/06/20 at 23:01; Status DC Prochlorperazine Edisylate (Compazine) 10 mg 1X ONCE IV Last administered on 05/06/20at 23:31; Start 05/06/20 at 23:30; Stop 05/06/20 at 23:31; Status DC Piperacillin Sod/ Tazobactam Sod 4.5 gm/Sodium Chloride 100 ml @ 200 mls/hr Q6HRS IV Last administered on 05/13/20at 06:05; Start 05/07/20 at 06:00 Prochlorperazine Edisylate (Compazine) 10 mg 1X ONCE IV Last administered on 05/07/20at 03:19; Start 05/07/20 at 03:30; Stop 05/07/20 at 03:31; Status DC Ondansetron HCl (Zofran) 4 mg PRN Q4HRS PRN IV NAUSEA/VOMITING (USE 1ST) Last administered on 05/08/20at 11:23; Start 05/07/20 at 03:30; Stop 05/08/20 at 16:26; Status DC Acetaminophen (Tylenol Supp) 650 mg PRN Q4HRS PRN ID TEMP OVER 100.4F OR MILD PAIN; Start 05/07/20 at 03:30 Hydromorphone HCl (Dilaudid) 1 mg PRN Q2HRS PRN IV SEVERE PAIN 7 Last administered on 05/11/20at 03:43; Start 05/07/20 at 03:30 Enoxaparin Sodium (Lovenox 40mg Syringe) 40 mg Q24H SQ Last administered on 05/12/20at 08:46; Start 05/07/20 at 09:00 Insulin Human Lispro (HumaLOG) 0-9 UNITS TIDACHC SQ Last administered on 05/12/20at 17:58; Start 05/07/20 at 07:30 Dextrose (Dextrose 50%-Water Syringe) 12.5 gm PRN Q15MIN PRN IV SEE COMMENTS; Start 05/07/20 at 03:30 Acetaminophen (Tylenol) 650 mg PRN Q4HRS PRN PO TEMP OVER 100.4F OR HEADACHE Last administered on 05/07/20at 20:38; Start 05/07/20 at 03:30 Albuterol Sulfate (Ventolin Neb Soln) 2.5 mg PRN Q4HRS PRN NEB SHORTNESS OF BREATH; Start 05/07/20 at 03:30 Aspirin (Ecotrin) 81 mg DAILYWBKFT PO Last administered on 05/12/20at 08:46; Start 05/07/20 at 08:00 Atorvastatin Calcium (Lipitor) 10 mg QHS PO Last administered on 05/12/20at 2 0:32; Start 05/07/20 at 21:00 Gabapentin (Neurontin) 100 mg TID PO Last administered on 05/12/20at 20:32; Start 05/07/20 at 09:00 Acetaminophen/ Hydrocodone Bitart (Lortab 10/325) 1 tab PRN Q6HRS PRN PO MODERATE PAIN 4-6 Last administered on 05/12/20at 17:56; Start 05/07/20 at 03:30 Insulin Glargine (Lantus Syringe) 12 unit QHS SQ ; Start 05/07/20 at 21:00; Stop 05/08/20 at 16:28; Status DC Lactobacillus Rhamnosus (Culturelle) 1 cap BID PO Last administered on 05/12/20at 20:32; Start 05/07/20 at 09:00 Metoprolol Succinate (Toprol Xl) 100 mg DAILY PO Last administered on 05/09/20at 11:04; Start 05/07/20 at 09:00; Stop 05/10/20 at 09:11; Status DC Pantoprazole Sodium (Protonix) 40 mg DAILYAC PO ; Start 05/07/20 at 07:30; Stop 05/07/20 at 14:12; Status DC Prochlorperazine Edisylate (Compazine) 10 mg PRN Q6HRS PRN IV NAUSEA/VOMITING (USE 2ND) Last administered on 05/08/20at 03:18; Start 05/07/20 at 03:30 Lactulose (Lactulose) 20 gm PRN DAILY PRN PO CONSTIPATION (USE 2ND); Start 05/07/20 at 03:30 Senna/Docusate Sodium (Senna Plus) 2 tab PRN BID PRN PO CONSTIPATION (USE 3RD); Start 05/07/20 at 03:30 Polyethylene Glycol (miraLAX PACKET) 17 gm PRN BID PRN PO CONSTIPATION (1ST CHOICE); Start 05/07/20 at 03:30 Sodium Chloride 1,000 ml @ 75 mls/hr 1X ONCE IV Last administered on 05/07/20at 04:02; Start 05/07/20 at 03:45; Stop 05/07/20 at 17:04; Status DC Lorazepam (Ativan Inj) 1 mg PRN Q5MIN PRN IVP ANXIETY / AGITATION Last administered on 05/07/20at 10:49; Start 05/07/20 at 10:45 Multivitamins (Thera M Plus) 1 tab DAILY PO Last administered on 05/11/20at 08:58; Start 05/07/20 at 12:00; Stop 05/11/20 at 18:15; Status DC Folic Acid (Folic Acid) 1 mg DAILY PO Last administered on 05/12/20at 08:46; Start 05/07/20 at 12:00 Thiamine Mononitrate (Vitamin B-1) 100 mg DAILY PO Last administered on 05/12/20at 08:46; Start 05/07/20 at 12:00 Lorazepam (Ativan) 2 mg PRN Q1HR PRN PO For CIWA 8-14; Start 05/07/20 at 11:00 Lorazepam (Ativan Inj) 1 mg PRN Q1HR PRN IV For CIWA 8-14; Start 05/07/20 at 11:00 Haloperidol Lactate (Haldol Inj) 5 mg PRN Q4HRS PRN IVP Hallucinatns,Confusn,Delirium; Start 05/07/20 at 11:00 Diphenhydramine HCl (Benadryl) 25 mg PRN Q15MIN PRN IVP EPS symptoms 2'Haldol admin; Start 05/07/20 at 11:00 Clonidine HCl (Catapres) 0.1 mg PRN Q1HR PRN PO SBP > 180 or DBP > 100, MRX3 Last administered on 05/10/20at 03:46; Start 05/07/20 at 11:00 Metoprolol Tartrate (Lopressor Vial) 5 mg Q6HRS IVP Last administered on 05/09/20at 05:39; Start 05/07/20 at 12:00; Stop 05/09/20 at 17:37; Status DC Nitroglycerin (Nitro-Bid Oint) 1 inch Q6HRS TP Last administered on 05/13/20at 06:05; Start 05/07/20 at 12:00 Labetalol HCl (Normodyne Iv Push) 20 mg PRN Q2HR PRN IVP HYPERTENSION Last administered on 05/09/20at 15:44; Start 05/07/20 at 11:30; Stop 05/10/20 at 17:12; Status DC Morphine Sulfate (Morphine Sulfate) 4 mg 1X ONCE IV Last administered on 05/07/20at 12:06; Start 05/07/20 at 12:00; Stop 05/07/20 at 12:01; Status DC Morphine Sulfate (Morphine Sulfate) 4 mg STK-MED ONCE .ROUTE ; Start 05/07/20 at 11:59; Stop 05/07/20 at 11:59; Status DC Pantoprazole Sodium (PROTONIX VIAL for IV PUSH) 40 mg DAILYAC IVP Last administered on 05/10/20at 07:56; Start 05/08/20 at 07:30; Stop 05/10/20 at 11:01; Status DC Vitamin A/Vitamin D (Vitamin A & D Ointment) 1 idalia PRN Q1HR PRN TP SKIN PROTECTION Last administered on 05/09/20at 15:54; Start 05/07/20 at 16:45 Sodium Chloride 1,000 ml @ 75 mls/hr [id number] IV Last administered on 05/12/20at 23:52; Start 05/07/20 at 19:30 Ondansetron HCl (Zofran) 4 mg Q4HRS IV Last administered on 05/13/20at 04:07; Start 05/08/20 at 16:30 Insulin Glargine (Lantus Syringe) 8 unit QHS SQ Last administered on 05/12/20at 20:39; Start 05/08/20 at 21:00 Potassium Chloride/Water 100 ml @ 100 mls/hr Q1H IV Last administered on 05/09/20at 13:32; Start 05/09/20 at 11:00; Stop 05/09/20 at 12:59; Status DC Potassium Chloride (Klor-Con) 40 meq 1X ONCE PO Last administered on 05/09/20at 12:22; Start 05/09/20 at 11:00; Stop 05/09/20 at 11:08; Status DC Hydralazine HCl (Apresoline Inj) 10 mg PRN Q4HRS PRN IVP ELEVATED BP, SEE COMMENTS Last administered on 05/12/20at 18:16; Start 05/09/20 at 17:00 Hydralazine HCl (Apresoline Inj) 10 mg 1X ONCE IVP Last administered on 05/09/20at 17:51; Start 05/09/20 at 17:00; Stop 05/09/20 at 17:01; Status DC Amlodipine Besylate (Norvasc) 5 mg 1X ONCE PO Last administered on 05/09/20at 17:51; Start 05/09/20 at 17:00; Stop 05/09/20 at 17:01; Status DC Potassium Chloride (Klor-Con) 40 meq 1X ONCE PO Last administered on 05/10/20at 08:20; Start 05/10/20 at 08:00; Stop 05/10/20 at 08:01; Status DC Potassium Chloride/Water 100 ml @ 100 mls/hr Q1H IV Last administered on 05/10/20at 10:11; Start 05/10/20 at 09:00; Stop 05/10/20 at 10:59; Status DC Amlodipine Besylate (Norvasc) 10 mg DAILY PO Last administered on 05/12/20at 08:46; Start 05/10/20 at 09:15 Pantoprazole Sodium (Protonix) 40 mg DAILYAC PO Last administered on 05/12/20at 08:46; Start 05/11/20 at 07:30 Lisinopril (Prinivil) 10 mg DAILY PO Last administered on 05/12/20at 08:45; Start 05/10/20 at 15:30 Metoprolol Tartrate (Lopressor Vial) 5 mg PRN Q6HRS PRN IVP HYPERTENSION Last administered on 05/11/20at 06:48; Start 05/10/20 at 17:15 Metoprolol Tartrate (Lopressor Vial) 5 mg 1X ONCE IVP Last administered on 05/10/20at 17:40; Start 05/10/20 at 17:30; Stop 05/10/20 at 17:31; Status DC Digoxin (Lanoxin) 250 mcg 1X ONCE IV Last administered on 05/10/20at 17:41; Start 05/10/20 at 17:45; Stop 05/10/20 at 17:46; Status DC Digoxin (Lanoxin) 250 mcg 1X ONCE IV Last administered on 05/10/20at 18:17; Start 05/10/20 at 18:15; Stop 05/10/20 at 18:16; Status DC Metoprolol Tartrate (Lopressor) 25 mg 1X ONCE PO Last administered on 05/10/20at 20:14; Start 05/10/20 at 21:00; Stop 05/10/20 at 21:01; Status DC Metoprolol Succinate (Toprol Xl) 100 mg DAILY PO Last administered on 05/12/20at 08:52; Start 05/11/20 at 09:00 Diltiazem HCl (Cardizem Iv Push) 10 mg 1X ONCE IVP Last administered on 05/11/20at 07:50; Start 05/11/20 at 07:50; Stop 05/11/20 at 08:32; Status DC Diltiazem HCl 125 mg/Sodium Chloride 125 ml @ 5 mls/hr CONT PRN IV SEE I/O R ECORD Last administered on 05/11/20at 09:15; Start 05/11/20 at 08:00 Potassium Chloride (Klor-Con) 40 meq 1X ONCE PO Last administered on 05/11/20at 12:39; Start 05/11/20 at 12:30; Stop 05/11/20 at 12:31; Status DC Potassium Chloride (Klor-Con) 20 meq DAILYWBKFT PO Last administered on 05/12/20at 08:47; Start 05/12/20 at 08:00 Diltiazem HCl (Cardizem 24hr Cd) 120 mg DAILY PO Last administered on 05/12/20at 08:45; Start 05/11/20 at 15:00 Multivitamins (Thera M Plus) 1 tab DAILY PO Last administered on 05/12/20at 08:45; Start 05/12/20 at 09:00 Ascorbic Acid (Vitamin C) 500 mg DAILY PO Last administered on 05/12/20at 08:45; Start 05/12/20 at 09:00 Potassium Chloride (Klor-Con) 20 meq 1X ONCE PO Last administered on 05/12/20at 17:45; Start 05/12/20 at 17:00; Stop 05/12/20 at 17:01; Status DC Active Scripts Active Lantus (Insulin Glargine,Hum.rec.anlog) 100 Unit/1 Ml Vial 12 Unit SQ QHS 30 Days Culturelle (Lactobacillus Rhamnosus Gg) 1 Each Cap.sprink 1 Cap PO BID 30 Days Hydrochlorothiazide Tablet (Hydrochlorothiazide) 25 Mg Tablet 25 Mg PO DAILY 30 Days Tylenol (Acetaminophen) 325 Mg Tablet 650 Mg PO PRN Q4HRS PRN 30 Days Aspirin Ec (Aspirin) 81 Mg Tablet.dr 81 Mg PO DAILYWBKFT 30 Days Atorvastatin Calcium 10 Mg Tablet 10 Mg PO QHS 30 Days Proair Hfa (Albuterol Sulfate) 8.5 Gm Hfa.aer.ad 2.5 Mg NEB PRN Q4HRS PRN 30 Days Glucophage (Metformin Hcl) 500 Mg Tablet 500 Mg PO BIDWMEALS MDD 1 Furosemide 40 Mg Tablet 40 Mg PO DAILY MDD 1 Protonix (Pantoprazole Sodium) 20 Mg Tablet.dr 40 Mg PO DAILY 90 Days Reported [freestyle aniyah] 1 Patch TP Q14 DAYS Clopidogrel (Clopidogrel Bisulfate) 75 Mg Tablet 75 Mg PO DAILY Fluconazole 200 Mg Tablet 200 Mg PO DAILY Insulin Lispro 100 Unit/1 Ml Vial 3 Unit SQ TIDWMEALS Ventolin Hfa Inhaler (Albuterol Sulfate) 18 Gm Hfa.aer.ad 1 Puff INH QID Indomethacin 50 Mg Capsule 1 Cap PO PRN PRN Hydrocodone-Apap 10-325 (Hydrocodone Bit/Acetaminophen) 1 Tab Tablet 1 Tab PO PRN Q6HRS PRN Gabapentin (Gabapentin) 100 Mg Capsule 100 Mg PO TID Metoprolol Succinate ( Xl ) (Metoprolol Succinate) 100 Mg Tab.er.24h 100 Mg PO DAILY Vitals/I & O Vital Sign - Last 24 Hours 05/12/20 05/12/20 05/12/20 05/12/20 08:45 08:45 08:45 08:46 Pulse 75 75 75 Resp 18 B/P (MAP) 174/63 174/63 174/63 O2 Delivery Room Air 7/05/12/20 05/12/20 05/12/20 08:52 09:45 11:00 11:54 Temp 98.3 98.3 Pulse 75 72 75 Resp 16 18 B/P (MAP) 174/63 174/81 (112) 174/63 Pulse Ox 96 O2 Delivery Room Air 05/12/20 05/12/20 05/12/20 05/12/20 15:00 17:46 17:56 18:00 Temp 98.7 99.0 98.7 99.0 Pulse 65 65 61 Resp 18 18 20 B/P (MAP) 219/64 (115) 181/63 (102) Pulse Ox 98 O2 Delivery Room Air Room Air 05/12/20 05/12/20 05/12/20 05/12/20 18:16 18:56 20:00 20:00 Temp 98.0 98.0 Pulse 61 72 Resp 18 20 B/P (MAP) 181/63 146/69 (94) Pulse Ox 99 O2 Delivery Room Air Room Air Room Air 05/12/20 05/13/20 05/13/20 05/13/20 22:58 03:00 06:05 07:15 Temp 98.8 98.9 98.5 98.8 98.9 98.5 Pulse 64 65 65 69 Resp 16 16 18 B/P (MAP) 154/58 (90) 162/59 (93) 162/59 173/56 (95) Pulse Ox 97 98 97 O2 Delivery Room Air Room Air Room Air Intake and Output 05/12/20 05/12/20 05/13/20 15:00 23:00 07:00 Intake Total 200 ml 0 ml 0 ml Balance 200 ml 0 ml 0 ml Nutrition Consultation Dietary Evaluation: Recommendations by RD: Dietary education by RD, Increase Calorie Intake, Protein supplementation Comments: REC Ensure clear w/dinner and more often if pt likes it REC Vit C - wound healing; continue w/MVI (wound healing) If unable to advance past clear liquids within 24 48 hrs, recommend consideration of PPN to supplement poor PO intake Expected Outcomes/Goals: diet advancement- goal ongoing Interpretation of weight loss: >7.5% in 3 months Malnutrition Findings: Food and Nutrition Intake (Mod: <75% est energy req 7days Weight Status: Overweight Justicifation of Admission Dx: Justifications for Admission: Justification of Admission Dx: Yes FULBRIGHT,DOLLY W MD May 13, 2020 08:18
[2020-05-13] MEDS: MULTIVITAMIN with MINERAL TABLET. PO SCH (08:49)
[2020-05-13] MEDS: PANTOPRAZOLE 40 MG TABLET.DR. PO SCH (08:49)
[2020-05-13] MEDS: METOPROLOL SUCC 24HR ER 100 MG TAB.ER.24H. PO SCH (08:49)
[2020-05-13] MEDS: GABAPENTIN 100 MG CAPSULE. PO SCH ×3 (08:49→20:54)
[2020-05-13] MEDS: THIAMINE 100 MG TABLET. PO SCH (08:49)
[2020-05-13] MEDS: FOLIC ACID 1 MG TABLET. PO SCH (08:49)
[2020-05-13] MEDS: ASCORBIC ACID 500 MG TABLET PO SCH (08:49)
[2020-05-13] MEDS: LACTOBACILLUS RHAMNOSUS GG 1 CAPSULE. PO SCH ×2 (08:49→20:53)
[2020-05-13] MEDS: LISINOPRIL 10 MG TABLET PO SCH (08:50)
[2020-05-13] MEDS: ASPIRIN ENTERIC COATED 81 MG TABLET.DR. PO SCH (08:50)
[2020-05-13] MEDS: POTASSIUM CHLORIDE 20 MEQ TABLET.ER. PO SCH (08:50)
[2020-05-13] MEDS: amLODIPine BESYLATE 10 MG TABLET PO SCH (08:50)
[2020-05-13] MEDS: ENOXAPARIN 40 MG/0.4 ML SYRINGE. SQ SCH (08:51)
[2020-05-13] MEDS: IV NORMAL SALINE 1000ML BAG 1,000 ML IV SCH (08:51)
--- NOTE | 2020-05-13 10:32 | PDOC ---
Subjective: Subjective: Taking liquids better but doesn't want to advance diet. Objective: Objective: D/w nurse - DC today? Vital Signs: Vital Signs Date Time Temp Pulse Resp B/P (MAP) Pulse Ox O2 Delivery O2 Flow Rate FiO2 05/13/20 08:50 69 173/56 05/13/20 08:00 Room Air 05/13/20 07:15 98.5 18 97 98.5 Labs: Laboratory Tests Test 05/12/20 12:04 05/12/20 16:26 05/12/20 20:31 05/13/20 07:23 Glucose (Fingerstick) 158 mg/dL 212 mg/dL 93 mg/dL 106 mg/dL Imaging: Abd US 05/12 Impression: Cholelithiasis. Gallbladder wall thickening which may represent cholecystitis in the appropriate clinical setting. No significant intervalchanges. PE: GEN: NAD, sitting on edge of bed LUNGS: CTAB HEART: RR ABD: soft, less tender NEURO/PSYCH: A & O 3 A/P: Upper abd discomfort, nausea Cholecystitis, cholelithiasis - no plans for surgery Suspected alcoholic liver disease PSVT, PAD, DM -- Doesn't want more than clears. Dc per primary on PPI. Justicifation of Admission Dx: Justifications for Admission: Justification of Admission Dx: Yes GEORGIE KLINE May 13, 2020 10:32
[2020-05-13] MEDS ORDERED: LISINOPRIL 10 MG TABLET PO SCH (11:30)
[2020-05-13] MEDS: hydrALAZINE 20 MG/ML VIAL. IVP PRN ×2 (12:30→18:03)
[2020-05-13 14:01] LABS: CALCIUM 8.4 mg/dL (8.5-10.1); CREATININE 0.8 mg/dL (0.7-1.3); GFR 96.1; POTASSIUM 3.3 mmol/L (3.5-5.1)
--- NOTE | 2020-05-13 14:59 | PDOC ---
MARJORIE DE LEON LABOR ECONOMIST 05/13/20 1459: CARDIO Progress Notes Date and Time Date of Service 05/13/20 Time of Evaluation 1210 Subjective Subjective: No Chest Pain, No shortness of breath, No Palpitations Vitals Vitals Vital Signs Date Time Temp Pulse Resp B/P (MAP) Pulse Ox O2 Delivery O2 Flow Rate FiO2 05/13/20 12:30 67 188/69 05/13/20 11:03 99.0 18 97 99.0 05/13/20 08:00 Room Air Weight Weight [ ] Input and Output Intake and Output Intake and Output 05/13/20 07:00 Intake Total 200 ml Balance 200 ml Intake Oral 200 ml # Voids 1 Laboratory Labs Laboratory Tests Test 05/12/20 16:26 05/12/20 20:31 05/13/20 07:23 05/13/20 11:29 Glucose (Fingerstick) 212 mg/dL (70-99) 93 mg/dL (70-99) 106 mg/dL (70-99) 128 mg/dL (70-99) Test 05/13/20 13:40 Sodium Level 136 mmol/L (136-145) Potassium Level 3.3 mmol/L (3.5-5.1) Chloride Level 101 mmol/L (98-107) Carbon Dioxide Level 24 mmol/L (21-32) Anion Gap 11 (6-14) Blood Urea Nitrogen 8 mg/dL (8-26) Creatinine 0.8 mg/dL (0.7-1.3) Estimated GFR (Cockcroft-Gault) 96.1 Glucose Level 142 mg/dL (70-99) Calcium Level 8.4 mg/dL (8.5-10.1) Physical Exam HEENT: Neck Supple W Full Motion Chest: Symmetric LUNGS: Clear to Auscultation Heart: S1S2, RRR Abdomen: Other (soft ) Extremities: No Edema Neurology: alert, oriented, follow commands, other (flat affect.) Assessment Assessment 1. Abdominal pain/vomiting: h/o alcoholism with underlying liver disease. as per GI 2. Arrhythmia: LBBB with first degree AV block 3. LIVE; resolved 4. PAD: recenet [employer] to LLE at [facility] 03/2020 5. Hypertension; remains elevated 6. HLP 7. DM2 8. Hx of NICM. LVEF previously 35-40%. Echo shows recovery in LV function 9. Hypokalemia, recurrent: replaced. 10. PSVT; maintaining SR. MCOT monitor last month showed SR with occasional PAC's, PVC's. No AF noted Recommendations Continue metoprolol, Cardizem for rate control Discontinue amlodipine as patient is on Cardizem Increase lisinopril Add oral hydralazine Secondary prevention measures. Supportive care Follow up in our office with Dr. Mae as scheduled Justicifation of Admission Dx: Justifications for Admission: Justification of Admission Dx: Yes JENNY MAE MD 05/13/20 191: CARDIO Progress Notes Assessment Assessment Patient seen and examined. Agree with SMOKE CHASER's assessment and plan. PSVT maintaining SR Agree with stopping amlodipine, increasing lisinopril dose and adding hydralazine for better BP control Plan outpatient event monitor to determine need for anti-arrhythmic therapy Follow up with our office as scheduled MARJORIE DE LEON APRN May 13, 2020 14:59 JENNY MAE MD May 13, 2020 19:12
[2020-05-13] MEDS ORDERED: LISINOPRIL 10 MG TABLET PO ONE (15:00)
[2020-05-13] MEDS: LISINOPRIL 20 MG TABLET PO SCH (20:54)
[2020-05-13] MEDS: ATORVASTATIN CALCIUM 10 MG TABLET. PO SCH (20:54)
[2020-05-13] MEDS: INSULIN GLARGINE SYRINGE. SQ SCH (21:59)
[2020-05-14] MEDS: ONDANSETRON PF 4 MG/2 ML VIAL. IV SCH ×4 (01:32→08:53)
[2020-05-14] MEDS: PIPERACILLIN/TAZOBACTAM 4.5 GM in IV NORMAL SALINE 100ML 100 ML IV SCH ×2 (01:35→06:17)
[2020-05-14] MEDS: NITROGLYCERIN OINT 1 GM PACKET. TP SCH ×2 (01:35→06:18)
[2020-05-14 02:58] VITALS: BP 145/49
[2020-05-14] MEDS: IV NORMAL SALINE 1000ML BAG 1,000 ML IV SCH (05:13)
--- NOTE | 2020-05-14 06:24 | PDOC ---
PROGRESS NOTES Chief Complaint Chief Complaint DISCHARGE DX Intractable abdominal pain - with signs of acute on chronic cholecytitis. General surgery consulted Nausea and vomiting - IV antiemetics Hyperkalemia - corrected. Will monitor. Likely 2/2 LIVE LIVE - vasomotor nephropathy. Improved with hydration Sepsis - likely 2/2 cholecystitis. Started on zosyn and IVF Cirrhosis of liver - noted on CT scan, likely ETOH related. Counseled on ETOH cessation. GI consulted, was going to appt in june 2020 anyway tobacco dependence, in remission COPD with asthma DM2 - with hyperglycemia - will place on sliding scale insulin HTN Chronic back pain OA Heavy ETOH use - counseled Hx of NICM. LVEF previously 35-40%. Echo shows recovery in LV function Hx of alcoholism Hypokalemia; replaced LABILE HTN UNCONTROLLED, NOW IMPROVED 05/14 Nonvisualization of the gallbladder on post morphine imaging compatible with acute cholecystitis. plan ADMIT CVC BED FEN - Clear liquid PPX - Lovenox FULL CODE Dispo - inpatient 2 midnights GI FOLLOWING CARDIOLOGY FOLLOWING poor surgical candidate, pt not interested continue iv abx possibly less tender. Will recheck sono. 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 Pain is 7 out of 10, colicky in nature. Nausea did not remit with Zofran but did improve after Compazine dosing. Still vomited again in the ED and overnight. despite meds. He is still nauseated currently. CT imaging of patient's abdomen shows gallstones in the gallbladder with a dila samantha CBD which appears to be stable from previous CT imaging. Dedicated ultrasound was performed which showed cholelithiasis with mild gallbladder wall thickening questionable acute or chronic cholecystitis no pericolic cystic fluid. EKG - Heart rate 95 accelerated junctional rhythm, left axis deviation peaked T waves WBC 13.1, Hb 12.9, platelets 300, NA 136, BUN 31, CR 1.5, glucose 232, alkaline phosphatase 287, calcium 10.4, lipase normal Patient's troponin within normal limits. Patient's potassium was noted to be 5.3. Patient was treated with glucagon, insulin and calcium. Post treatment repeat creatinine and potassium improved potassium resulted at 4.9. Patient was placed on antibiotics Zosyn. Patient was admitted with general surgery and cardiology consults. 05/08: HIDA scan positive for cholecystitis. Afebrile. WBC down to 9, creatinine improved. Bilirubin up to 1.3. He had a little vomiting overnight. Tolerated clears. 05/09: Overnight afebrile. K 3.1 today. COVID negative. He wants to cont clear diet today is amenable to staying inpatient for further treatment of his sepsis and cholecystitis with tentative plans for surgery depending on surgery recommendations. No chest pain or shortness of breath. 05/12 SONO PENDING Overnight afebrile K3.2 AST 56 ALT 73 alkaline phosphatase 229 this morning WBC up to 12.7. Plan: Monitor CBC, can transition to oral antibiotics over the next 24 hours, will get PT and OT for his deconditioning he may need some rehab prior to going home. Replace K IV and p.o. Vitals Vitals Vital Signs Date Time Temp Pulse Resp B/P (MAP) Pulse Ox O2 Delivery O2 Flow Rate FiO2 05/14/20 06:18 68 154/52 05/14/20 02:58 98.7 20 99 Room Air 98.7 Physical Exam General: Alert, Oriented X3, Cooperative, No acute distress Heart: Regular rate, No murmurs Lungs: Clear Abdomen: Normal bowel sounds, Soft, No tenderness Extremities: No cyanosis, No edema Skin: No breakdown, No significant lesion Labs LABS Laboratory Tests Test 05/13/20 07:23 05/13/20 11:29 05/13/20 13:40 05/13/20 16:48 Glucose (Fingerstick) 106 mg/dL (70-99) 128 mg/dL (70-99) 131 mg/dL (70-99) Sodium Level 136 mmol/L (136-145) Potassium Level 3.3 mmol/L (3.5-5.1) Chloride Level 101 mmol/L (98-107) Carbon Dioxide Level 24 mmol/L (21-32) Anion Gap 11 (6-14) Blood Urea Nitrogen 8 mg/dL (8-26) Creatinine 0.8 mg/dL (0.7-1.3) Estimated GFR (Cockcroft-Gault) 96.1 Glucose Level 142 mg/dL (70-99) Calcium Level 8.4 mg/dL (8.5-10.1) Test 05/13/20 20:24 Glucose (Fingerstick) 169 mg/dL (70-99) Assessment and Plan Assessmemt and Plan Problems Medical Problems: (1) Abdominal pain Status: Acute (2) Acute electrocardiogram changes Status: Acute (3) Cholecystitis Status: Acute (4) Hyperkalemia Status: Acute Comment Review of Relevant I have reviewed the following items alyse (where applicable) has been applied. Labs Laboratory Tests Test 05/12/20 06:30 05/12/20 06:55 05/12/20 08:15 05/12/20 12:04 Sodium Level 136 mmol/L (136-145) Potassium Level 3.0 mmol/L (3.5-5.1) Chloride Level 101 mmol/L (98-107) Carbon Dioxide Level 26 mmol/L (21-32) Anion Gap 9 (6-14) Blood Urea Nitrogen 13 mg/dL (8-26) Creatinine 0.8 mg/dL (0.7-1.3) Estimated GFR (Cockcroft-Gault) 96.1 BUN/Creatinine Ratio 16 (6-20) Glucose Level 152 mg/dL (70-99) Calcium Level 8.0 mg/dL (8.5-10.1) Total Bilirubin 1.3 mg/dL (0.2-1.0) Direct Bilirubin 0.9 mg/dL (0.0-0.2) Aspartate Amino Transf (AST/SGOT) 57 U/L (15-37) Alanine Aminotransferase (ALT/SGPT) 98 U/L (16-63) Alkaline Phosphatase 173 U/L (46-116) Total Protein 6.4 g/dL (6.4-8.2) Albumin 2.9 g/dL (3.4-5.0) Albumin/Globulin Ratio 0.8 (1.0-1.7) White Blood Count 11.7 x10^3/uL (4.0-11.0) Red Blood Count 3.52 x10^6/uL (4.30-5.70) Hemoglobin 11.1 g/dL (13.0-17.5) Hematocrit 32.3 % (39.0-53.0) Mean Corpuscular Volume 92 fL (79-100) Mean Corpuscular Hemoglobin 32 pg (25-35) Mean Corpuscular Hemoglobin Concent 34 g/dL (31-37) Red Cell Distribution Width 12.7 % (11.5-14.5) Platelet Count 157 x10^3/uL (140-400) Neutrophils (%) (Auto) 62 % (31-73) Lymphocytes (%) (Auto) 26 % (24-48) Monocytes (%) (Auto) 11 % (0-9) Eosinophils (%) (Auto) 1 % (0-3) Basophils (%) (Auto) 0 % (0-3) Neutrophils # (Auto) 7.3 x10^3/uL (1.8-7.7) Lymphocytes # (Auto) 3.0 x10^3/uL (1.0-4.8) Monocytes # (Auto) 1.3 x10^3/uL (0.0-1.1) Eosinophils # (Auto) 0.1 x10^3/uL (0.0-0.7) Basophils # (Auto) 0.0 x10^3/uL (0.0-0.2) Magnesium Level 2.2 mg/dL (1.8-2.4) Glucose (Fingerstick) 151 mg/dL (70-99) 158 mg/dL (70-99) Test 05/12/20 16:26 05/12/20 20:31 05/13/20 07:23 05/13/20 11:29 Glucose (Fingerstick) 212 mg/dL (70-99) 93 mg/dL (70-99) 106 mg/dL (70-99) 128 mg/dL (70-99) Test 05/13/20 13:40 05/13/20 16:48 05/13/20 20:24 Sodium Level 136 mmol/L (136-145) Potassium Level 3.3 mmol/L (3.5-5.1) Chloride Level 101 mmol/L (98-107) Carbon Dioxide Level 24 mmol/L (21-32) Anion Gap 11 (6-14) Blood Urea Nitrogen 8 mg/dL (8-26) Creatinine 0.8 mg/dL (0.7-1.3) Estimated GFR (Cockcroft-Gault) 96.1 Glucose Level 142 mg/dL (70-99) Calcium Level 8.4 mg/dL (8.5-10.1) Glucose (Fingerstick) 131 mg/dL (70-99) 169 mg/dL (70-99) Laboratory Tests Test 05/13/20 07:23 05/13/20 11:29 05/13/20 13:40 05/13/20 16:48 Glucose (Fingerstick) 106 mg/dL (70-99) 128 mg/dL (70-99) 131 mg/dL (70-99) Sodium Level 136 mmol/L (136-145) Potassium Level 3.3 mmol/L (3.5-5.1) Chloride Level 101 mmol/L (98-107) Carbon Dioxide Level 24 mmol/L (21-32) Anion Gap 11 (6-14) Blood Urea Nitrogen 8 mg/dL (8-26) Creatinine 0.8 mg/dL (0.7-1.3) Estimated GFR (Cockcroft-Gault) 96.1 Glucose Level 142 mg/dL (70-99) Calcium Level 8.4 mg/dL (8.5-10.1) Test 05/13/20 20:24 Glucose (Fingerstick) 169 mg/dL (70-99) Medications Current Medications Ondansetron HCl (Zofran) 4 mg STK-MED ONCE .ROUTE ; Start 05/06/20 at 20:42; Stop 05/06/20 at 20:42; Status DC Morphine Sulfate (Morphine Sulfate) 4 mg 1X ONCE IV Last administered on 05/06/20at 21:34; Start 05/06/20 at 21:30; Stop 05/06/20 at 21:31; Status DC Ondansetron HCl (Zofran) 4 mg 1X ONCE IV Last administered on 05/06/20at 21:28; Start 05/06/20 at 21:30; Stop 05/06/20 at 21:31; Status DC Prochlorperazine Edisylate (Compazine) 10 mg 1X ONCE IV Last administered on 05/06/20at 21:34; Start 05/06/20 at 21:30; Stop 05/06/20 at 21:39; Status DC Sodium Chloride 1,000 ml @ 0 mls/hr 1X ONCE IV Last administered on 05/06/20at 22:15; Start 05/06/20 at 22:15; Stop 05/06/20 at 22:16; Status DC Calcium Gluconate (Calcium Gluconate) 1,000 mg 1X ONCE IVP Last administered on 05/06/20at 23:10; Start 05/06/20 at 23:00; Stop 05/06/20 at 23:01; Status DC Insulin Human Regular (HumuLIN R VIAL) 10 unit 1X ONCE IV Last administered on 05/06/20at 23:07; Start 05/06/20 at 23:00; Stop 05/06/20 at 23:01; Status DC Dextrose (Dextrose 50%-Water Syringe) 25 gm 1X ONCE IV Last administered on 05/06/20at 23:11; Start 05/06/20 at 23:00; Stop 05/06/20 at 23:01; Status DC Morphine Sulfate (Morphine Sulfate) 4 mg 1X ONCE IV Last administered on 05/06/20at 23:12; Start 05/06/20 at 23:00; Stop 05/06/20 at 23:01; Status DC Ondansetron HCl (Zofran) 4 mg 1X ONCE IVP Last administered on 05/06/20at 23:06; Start 05/06/20 at 23:00; Stop 05/06/20 at 23:01; Status DC Prochlorperazine Edisylate (Compazine) 10 mg 1X ONCE IV Last administered on 05/06/20at 23:31; Start 05/06/20 at 23:30; Stop 05/06/20 at 23:31; Status DC Piperacillin Sod/ Tazobactam Sod 4.5 gm/Sodium Chloride 100 ml @ 200 mls/hr Q6HRS IV Last administered on 05/14/20at 06:17; Start 05/07/20 at 06:00 Prochlorperazine Edisylate (Compazine) 10 mg 1X ONCE IV Last administered on 05/07/20at 03:19; Start 05/07/20 at 03:30; Stop 05/07/20 at 03:31; Status DC Ondansetron HCl (Zofran) 4 mg PRN Q4HRS PRN IV NAUSEA/VOMITING (USE 1ST) Last administered on 05/08/20at 11:23; Start 05/07/20 at 03:30; Stop 05/08/20 at 16:26; Status DC Acetaminophen (Tylenol Supp) 650 mg PRN Q4HRS PRN [place] TEMP OVER 100.4F OR MILD PAIN; Start 05/07/20 at 03:30 Hydromorphone HCl (Dilaudid) 1 mg PRN Q2HRS PRN IV SEVERE PAIN 7 Last administered on 05/11/20 03:43; Start 05/07/20 at 03:30 Enoxaparin Sodium (Lovenox 40mg Syringe) 40 mg Q24H SQ Last administered on 05/13/20at 08:51; Start 05/07/20 at 09:00 Insulin Human Lispro (HumaLOG) 0-9 UNITS TIDACHC SQ Last administered on 05/12/20at 17:58; Start 05/07/20 at 07:30 Dextrose (Dextrose 50%-Water Syringe) 12.5 gm PRN Q15MIN PRN IV SEE COMMENTS; Start 05/07/20 at 03:30 Acetaminophen (Tylenol) 650 mg PRN Q4HRS PRN PO TEMP OVER 100.4F OR HEADACHE Last administered on 05/07/20at 20:38; Start 05/07/20 at 03:30 Albuterol Sulfate (Ventolin Neb Soln) 2.5 mg PRN Q4HRS PRN NEB SHORTNESS OF BREATH; Start 05/07/20 at 03:30 Aspirin (Ecotrin) 81 mg DAILYWBKFT PO Last administered on 05/13/20at 08:50; St art 05/07/20 at 08:00 Atorvastatin Calcium (Lipitor) 10 mg QHS PO Last administered on 05/13/20 20:54; Start 05/07/20 at 21:00 Gabapentin (Neurontin) 100 mg TID PO Last administered on 05/13/20at 20:54; Start 05/07/20 at 09:00 Acetaminophen/ Hydrocodone Bitart (Lortab 10/325) 1 tab PRN Q6HRS PRN PO MODERATE PAIN 4-6 Last administered on 05/12/20at 17:56; Start 05/07/20 at 03:30 Insulin Glargine (Lantus Syringe) 12 unit QHS SQ ; Start 05/07/20 at 21:00; Stop 05/08/20 at 16:28; Status DC Lactobacillus Rhamnosus (Culturelle) 1 cap BID PO Last administered on 05/13/20at 20:53; Start 05/07/20 at 09:00 Metoprolol Succinate (Toprol Xl) 100 mg DAILY PO Last administered on 05/09/20at 11:04; Start 05/07/20 at 09:00; Stop 05/10/20 at 09:11; Status DC Pantoprazole Sodium (Protonix) 40 mg DAILYAC PO ; Start 05/07/20 at 07:30; Stop 05/07/20 at 14:12; Status DC Prochlorperazine Edisylate (Compazine) 10 mg PRN Q6HRS PRN IV NAUSEA/VOMITING (USE 2ND) Last administered on 05/08/20at 03:18; Start 05/07/20 at 03:30 Lactulose (Lactulose) 20 gm PRN DAILY PRN PO CONSTIPATION (USE 2ND); Start 05/07/20 at 03:30 Senna/Docusate Sodium (Senna Plus) 2 tab PRN BID PRN PO CONSTIPATION (USE 3RD); Start 05/07/20 at 03:30 Polyethylene Glycol (miraLAX PACKET) 17 gm PRN BID PRN PO CONSTIPATION (1ST CHOICE); Start 05/07/20 at 03:30 Sodium Chloride 1,000 ml @ 75 mls/hr 1X ONCE IV Last administered on 05/07/20at 04:02; Start 05/07/20 at 03:45; Stop 05/07/20 at 17:04; Status DC Lorazepam (Ativan Inj) 1 mg PRN Q5MIN PRN IVP ANXIETY / AGITATION Last administered on 05/07/20at 10:49; Start 05/07/20 at 10:45 Multivitamins (Thera M Plus) 1 tab DAILY PO Last administered on 05/11/20at 08:58; Start 05/07/20 at 12:00; Stop 05/11/20 at 18:15; Status DC Folic Acid (Folic Acid) 1 mg DAILY PO Last administered on 05/13/20at 08:49; Start 05/07/20 at 12:00 Thiamine Mononitrate (Vitamin B-1) 100 mg DAILY PO Last administered on at 08:49; Start 05/07/20 at 12:00 Lorazepam (Ativan) 2 mg PRN Q1HR PRN PO For CIWA 8-14; Start 05/07/20 at 11:00 Lorazepam (Ativan Inj) 1 mg PRN Q1HR PRN IV For CIWA 8-14; Start 05/07/20 at 11:00 Haloperidol Lactate (Haldol Inj) 5 mg PRN Q4HRS PRN IVP Hallucinatns,Confusn,Delirium; Start 05/07/20 at 11:00 Diphenhydramine HCl (Benadryl) 25 mg PRN Q15MIN PRN IVP EPS symptoms 2'Haldol admin; Start 05/07/20 at 11:00 Clonidine HCl (Catapres) 0.1 mg PRN Q1HR PRN PO SBP > 180 or DBP > 100, MRX3 Last administered on 05/10/20at 03:46; Start 05/07/20 at 11:00 Metoprolol Tartrate (Lopressor Vial) 5 mg Q6HRS IVP Last administered on 05/09/20at 05:39; Start 05/07/20 at 12:00; Stop 05/09/20 at 17:37; Status DC Nitroglycerin (Nitro-Bid Oint) 1 inch Q6HRS TP Last administered on 05/14/20at 06:18; Start 05/07/20 at 12:00 Labetalol HCl (Normodyne Iv Push) 20 mg PRN Q2HR PRN IVP HYPERTENSION Last administered on 05/09/20at 15:44; Start 05/07/20 at 11:30; Stop 05/10/20 at 17:12; Status DC Morphine Sulfate (Morphine Sulfate) 4 mg 1X ONCE IV Last administered on 05/07/20at 12:06; Start 05/07/20 at 12:00; Stop 05/07/20 at 12:01; Status DC Morphine Sulfate (Morphine Sulfate) 4 mg STK-MED ONCE .ROUTE ; Start 05/07/20 at 11:59; Stop 05/07/20 at 11:59; Status DC Pantoprazole Sodium (PROTONIX VIAL for IV PUSH) 40 mg DAILYAC IVP Last administered on 05/10/20at 07:56; Start 05/08/20 at 07:30; Stop 05/10/20 at 11:01; Status DC Vitamin A/Vitamin D (Vitamin A & D Ointment) 1 idalia PRN Q1HR PRN TP SKIN PROTECTION Last administered on 05/09/20at 15:54; Start 05/07/20 at 16:45 Sodium Chloride 1,000 ml @ 75 mls/hr [id number] IV Last administered on 05/14/20at 05:13; Start 05/07/20 at 19:30 Ondansetron HCl (Zofran) 4 mg Q4HRS IV Last administered on 05/14/20at 01:32; Start 05/08/20 at 16:30 Insulin Glargine (Lantus Syringe) 8 unit QHS SQ Last administered on 05/13/20at 21:59; Start 05/08/20 at 21:00 Potassium Chloride/Water 100 ml @ 100 mls/hr Q1H IV Last administered on 05/09/20at 13:32; Start 05/09/20 at 11:00; Stop 05/09/20 at 12:59; Status DC Potassium Chloride (Klor-Con) 40 meq 1X ONCE PO Last administered on 05/09/20at 12:22; Start 05/09/20 at 11:00; Stop 05/09/20 at 11:08; Status DC Hydralazine HCl (Apresoline Inj) 10 mg PRN Q4HRS PRN IVP ELEVATED BP, SEE COMMENTS Last administered on 05/13/20at 18:03; Start 05/09/20 at 17:00 Hydralazine HCl (Apresoline Inj) 10 mg 1X ONCE IVP Last administered on at 17:51; Start 05/09/20 at 17:00; Stop 05/09/20 at 17:01; Status DC Amlodipine Besylate (Norvasc) 5 mg 1X ONCE PO Last administered on 05/09/20at 17:51; Start 05/09/20 at 17:00; Stop 05/09/20 at 17:01; Status DC Potassium Chloride (Klor-Con) 40 meq 1X ONCE PO Last administered on 05/10/20at 08:20; Start 05/10/20 at 08:00; Stop 05/10/20 at 08:01; Status DC Potassium Chloride/Water 100 ml @ 100 mls/hr Q1H IV Last administered on 05/10/20at 10:11; Start 05/10/20 at 09:00; Stop 05/10/20 at 10:59; Status DC Amlodipine Besylate (Norvasc) 10 mg DAILY PO Last administered on 05/13/20at 08:50; Start 05/10/20 at 09:15; Stop 05/13/20 at 14:46; Status DC Pantoprazole Sodium (Protonix) 40 mg DAILYAC PO Last administered on 05/13/20at 08:49; Start 05/11/20 at 07:30 Lisinopril (Prinivil) 10 mg DAILY PO Last administered on 05/13/20at 08:50; Start 05/10/20 at 15:30; Stop 05/13/20 at 11:28; Status DC Metoprolol Tartrate (Lopressor Vial) 5 mg PRN Q6HRS PRN IVP HYPERTENSION Last administered on 05/11/20at 06:48; Start 05/10/20 at 17:15 Metoprolol Tartrate (Lopressor Vial) 5 mg 1X ONCE IVP Last administered on 05/10/20at 17:40; Start 05/10/20 at 17:30; Stop 05/10/20 at 17:31; Status DC Digoxin (Lanoxin) 250 mcg 1X ONCE IV Last administered on 05/10/20at 17:41; Start 05/10/20 at 17:45; Stop 05/10/20 at 17:46; Status DC Digoxin (Lanoxin) 250 mcg 1X ONCE IV Last administered on 05/10/20at 18:17; Start 05/10/20 at 18:15; Stop 05/10/20 at 18:16; Status DC Metoprolol Tartrate (Lopressor) 25 mg 1X ONCE PO Last administered on 05/10/20at 20:14; Start 05/10/20 at 21:00; Stop 05/10/20 at 21:01; Status DC Metoprolol Succinate (Toprol Xl) 100 mg DAILY PO Last administered on 05/13/20at 08:49; Start 05/11/20 at 09:00 Diltiazem HCl (Cardizem Iv Push) 10 mg 1X ONCE IVP Last administered on 05/11/20at 07:50; Start 05/11/20 at 07:50; Stop 05/11/20 at 08:32; Status DC Diltiazem HCl 125 mg/Sodium Chloride 125 ml @ 5 mls/hr CONT PRN IV SEE I/O RECORD Last administered on 05/11/20at 09:15; Start 05/11/20 at 08:00; Stop 05/13/20 at 14:46; Status DC Potassium Chloride (Klor-Con) 40 meq 1X ONCE PO Last administered on 05/11/20at 12:39; Start 05/11/20 at 12:30; Stop 05/11/20 at 12:31; Status DC Potassium Chloride (Klor-Con) 20 meq DAILYWBKFT PO Last administered on 05/13/20at 08:50; Start 05/12/20 at 08:00 Diltiazem HCl (Cardizem 24hr Cd) 120 mg DAILY PO Last administered on 05/13/20at 08:49; Start 05/11/20 at 15:00 Multivitamins (Thera M Plus) 1 tab DAILY PO Last administered on 05/13/20at 08:49; Start 05/12/20 at 09:00 Ascorbic Acid (Vitamin C) 500 mg DAILY PO Last administered on 05/13/20at 08:49; Start 05/12/20 at 09:00 Potassium Chloride (Klor-Con) 20 meq 1X ONCE PO Last administered on 05/12/20at 17:45; Start 05/12/20 at 17:00; Stop 05/12/20 at 17:01; Status DC Lisinopril (Prinivil) 10 mg BID PO Last administered on 05/13/20at 12:29; Start 05/13/20 at 11:30; Stop 05/13/20 at 14:46; Status DC Lisinopril (Prinivil) 20 mg BID PO Last administered on 05/13/20at 20:54; Start 05/13/20 at 21:00 Lisinopril (Prinivil) 10 mg 1X ONCE PO Last administered on 05/13/20at 15:11; Start 05/13/20 at 15:00; Stop 05/13/20 at 15:01; Status DC Hydralazine HCl (Apresoline) 50 mg BID PO Last administered on 05/13/20at 20:53; Start 05/13/20 at 21:00 Active Scripts Active Lantus (Insulin Glargine,Hum.rec.anlog) 100 Unit/1 Ml Vial 12 Unit SQ QHS 30 Days Culturelle (Lactobacillus Rhamnosus Gg) 1 Each Cap.sprink 1 Cap PO BID 30 Days Hydrochlorothiazide Tablet (Hydrochlorothiazide) 25 Mg Tablet 25 Mg PO DAILY 30 Days Tylenol (Acetaminophen) 325 Mg Tablet 650 Mg PO PRN Q4HRS PRN 30 Days Aspirin Ec (Aspirin) 81 Mg Tablet.dr 81 Mg PO DAILYWBKFT 30 Days Atorvastatin Calcium 10 Mg Tablet 10 Mg PO QHS 30 Days Proair Hfa (Albuterol Sulfate) 8.5 Gm Hfa.aer.ad 2.5 Mg NEB PRN Q4HRS PRN 30 Days Glucophage (Metformin Hcl) 500 Mg Tablet 500 Mg PO BIDWMEALS MDD 1 Furosemide 40 Mg Tablet 40 Mg PO DAILY MDD 1 Protonix (Pantoprazole Sodium) 20 Mg Tablet.dr 40 Mg PO DAILY 90 Days Reported [freestyle aniyah] 1 Patch TP Q14 DAYS Clopidogrel (Clopidogrel Bisulfate) 75 Mg Tablet 75 Mg PO DAILY Fluconazole 200 Mg Tablet 200 Mg PO DAILY Insulin Lispro 100 Unit/1 Ml Vial 3 Unit SQ TIDWMEALS Ventolin Hfa Inhaler (Albuterol Sulfate) 18 Gm Hfa.aer.ad 1 Puff INH QID Indomethacin 50 Mg Capsule 1 Cap PO PRN PRN Hydrocodone-Apap 10-325 (Hydrocodone Bit/Acetaminophen) 1 Tab Tablet 1 Tab PO PRN Q6HRS PRN Gabapentin (Gabapentin) 100 Mg Capsule 100 Mg PO TID Metoprolol Succinate ( Xl ) (Metoprolol Succinate) 100 Mg Tab.er.24h 100 Mg PO DAILY Vitals/I & O Vital Sign - Last 24 Hours 05/13/20 05/13/20 05/13/20 05/13/20 07:15 08:00 08:49 08:49 Temp 98.5 98.5 Pulse 69 69 69 Resp 18 B/P (MAP) 173/56 (95) 173/56 173/56 Pulse Ox 97 O2 Delivery Room Air Room Air 05/13/20 05/13/20 05/13/20 05/13/20 08:50 08:50 11:03 12:29 Temp 99.0 99.0 Pulse 69 69 67 67 Resp 18 B/P (MAP) 173/56 173/56 188/69 (108) 188/69 Pulse Ox 97 05/13/20 05/13/20 05/13/20 05/13/20 12:30 12:30 15:09 15:11 Temp 98.6 98.6 Pulse 67 67 78 90 Resp 18 B/P (MAP) 188/69 188/69 171/66 (101) 171/66 Pulse Ox 98 O2 Delivery Room Air 05/13/20 05/13/20 05/13/20 05/13/20 17:00 18:02 18:03 18:53 Temp 98.1 98.1 Pulse 69 69 69 74 Resp 20 B/P (MAP) 164/74 (104) 164/74 164/74 165/70 (101) Pulse Ox 99 O2 Delivery Room Air Room Air 05/13/20 05/13/20 05/13/20 05/13/20 20:00 20:53 20:54 21:14 Pulse 72 72 B/P (MAP) 143/56 143/56 Pulse Ox 98 O2 Delivery Room Air Room Air 05/13/20 05/14/20 05/14/20 05/14/20 23:22 01:35 02:58 06:18 Temp 98.9 98.7 98.9 98.7 Pulse 76 71 71 68 Resp 16 20 B/P (MAP) 157/56 (89) 146/55 145/49 (81) 154/52 Pulse Ox 97 99 O2 Delivery Room Air Room Air Intake and Output 05/13/20 05/13/20 05/14/20 15:00 23:00 07:00 Intake Total 120 ml 2418 ml Output Total 550 ml 500 ml Balance -550 ml 120 ml 1918 ml Nutrition Consultation Dietary Evaluation: Recommendations by RD: Dietary education by RD, Increase Calorie Intake, Protein supplementation Comments: REC advance diet as tolerated, pt wanting to stay on clears for now; wants to try Ensure clear apple flavor tonight Encouraged high-protein, low fat foods at discharge Expected Outcomes/Goals: diet advancement- goal ongoing Interpretation of weight loss: >7.5% in 3 months Malnutrition Findings: Food and Nutrition Intake (Mod: <75% est energy req 7days Weight Status: Overweight Justicifation of Admission Dx: Justifications for Admission: Justification of Admission Dx: Yes DOLLY CRUZ MD May 14, 2020 06:24
[2020-05-14 07:00] VITALS: BP 160/60
[2020-05-14] MEDS: INSULIN LISPRO 300 UNITS/3 ML VIAL. SQ SCH (07:30)
[2020-05-14] MEDS: ASPIRIN ENTERIC COATED 81 MG TABLET.DR. PO SCH (08:53)
[2020-05-14] MEDS: ASCORBIC ACID 500 MG TABLET PO SCH (08:53)
[2020-05-14] MEDS: FOLIC ACID 1 MG TABLET. PO SCH (08:53)
[2020-05-14] MEDS: POTASSIUM CHLORIDE 20 MEQ TABLET.ER. PO SCH (08:54)
[2020-05-14] MEDS: METOPROLOL SUCC 24HR ER 100 MG TAB.ER.24H. PO SCH (08:54)
[2020-05-14] MEDS: LACTOBACILLUS RHAMNOSUS GG 1 CAPSULE. PO SCH (08:54)
[2020-05-14] MEDS: THIAMINE 100 MG TABLET. PO SCH (08:54)
[2020-05-14] MEDS: PANTOPRAZOLE 40 MG TABLET.DR. PO SCH (08:54)
[2020-05-14] MEDS: LISINOPRIL 20 MG TABLET PO SCH (08:55)
[2020-05-14] MEDS: GABAPENTIN 100 MG CAPSULE. PO SCH (08:55)
[2020-05-14] MEDS: MULTIVITAMIN with MINERAL TABLET. PO SCH (08:55)
[2020-05-14] MEDS: ENOXAPARIN 40 MG/0.4 ML SYRINGE. SQ SCH (09:05)
--- NOTE | 2020-05-14 10:18 | PDOC3 ---
Discharge Summary Date of Admission: May 07, 2020 Date of Discharge: May 14, 2020 Follow-Up: 3-5 days Admitting Diagnosis comment: DISCHARGE DX Intractable abdominal pain - with signs of acute on chronic cholecytitis. General surgery consulted Nausea and vomiting - IV antiemetics Hyperkalemia - corrected. Will monitor. Likely 2/2 LIVE LIVE - vasomotor nephropathy. Improved with hydration Sepsis - likely 2/2 cholecystitis. Started on zosyn and IVF Cirrhosis of liver - noted on CT scan, likely ETOH related. Counseled on ETOH cessation. GI consulted, was going to appt in june 2020 anyway tobacco dependence, in remission COPD with asthma DM2 - with hyperglycemia - will place on sliding scale insulin HTN Chronic back pain OA Heavy ETOH use - counseled Hx of NICM. LVEF previously 35-40%. Echo shows recovery in LV function Hx of alcoholism Hypokalemia; replaced LABILE HTN UNCONTROLLED, NOW IMPROVED 05/14 Nonvisualization of the gallbladder on post morphine imaging compatible with acute cholecystitis. plan ADMIT CVC BED FEN - Clear liquid PPX - Lovenox FULL CODE Dispo - inpatient 2 midnights GI FOLLOWING CARDIOLOGY FOLLOWING poor surgical candidate, pt not interested continue iv abx possibly less tender. Will recheck sono. 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 Pain is 7 out of 10, colicky in nature. Nausea did not remit with Zofran but did improve after Compazine dosing. Still vomited again in the ED and overnight. despite meds. He is still nauseated currently. CT imaging of patient's abdomen shows gallstones in the gallbladder with a dilated CBD which appears to be stable from previous CT imaging. Dedicated ultrasound was performed which showed cholelithiasis with mild gallbladder wall thickening questionable acute or chronic cholecystitis no pericolic cystic fluid. EKG - Heart rate 95 accelerated junctional rhythm, left axis deviation peaked T waves WBC 13.1, Hb 12.9, platelets 300, NA 136, BUN 31, CR 1.5, glucose 232, alkaline phosphatase 287, calcium 10.4, lipase normal Patient's troponin within normal limits. Patient's potassium was noted to be 5.3. Patient was treated with glucagon, insulin and calcium. Post treatment repeat creatinine and potassium improved potassium resulted at 4.9. Patient was placed on antibiotics Zosyn. Patient was admitted with general surgery and cardiology consults. 05/08: HIDA scan positive for cholecystitis. Afebrile. WBC down to 9, creatinine improved. Bilirubin up to 1.3. He had a little vomiting overnight. Tolerated clears. 05/09: Overnight afebrile. K 3.1 today. COVID negative. He wants to cont clear diet today is amenable to staying inpatient for further treatment of his sepsis and cholecystitis with tentative plans for surgery depending on surgery recommendations. No chest pain or shortness of breath. 05/12 SONO REVIEWED Overnight afebrile K3.2 AST 56 ALT 73 alkaline phosphatase 229 this morning WBC up to 12.7. Plan: Monitor CBC, can transition to oral antibiotics over the next 24 hours, will get PT and OT for his deconditioning he may need some rehab prior to going home. Replace K IV and p.o. Vitals Vitals Vital Signs Date Time Temp Pulse Resp B/P (MAP) Pulse Ox O2 Delivery O2 Flow Rate FiO2 05/14/20 06:18 68 154/52 05/14/20 02:58 98.7 20 99 Room Air 98.7 Physical Exam General: Alert, Oriented X3, Cooperative, No acute distress Heart: Regular rate, No murmurs Lungs: Clear Abdomen: Normal bowel sounds, Soft, No tenderness Extremities: No cyanosis, No edema Skin: No breakdown, No significant lesion FINAL DIAGNOSIS Problems Medical Problems: (1) Abdominal pain Status: Acute (2) Acute electrocardiogram changes Status: Acute (3) Cholecystitis Status: Acute (4) Hyperkalemia Status: Acute Brief Hospital Course Mr. Fritz is a 69 old [sex] who presented with [ ACUTE CHOLECYSTITIS ] CONDITION AT DISCHARGE: Improved Discharge Medications Current Medications Ondansetron HCl (Zofran) 4 mg STK-MED ONCE .ROUTE ; Start 05/06/20 at 20:42; Stop 05/06/20 at 20:42; Status DC Morphine Sulfate (Morphine Sulfate) 4 mg 1X ONCE IV Last administered on 05/06/20at 21:34; Start 05/06/20 at 21:30; Stop 05/06/20 at 21:31; Status DC Ondansetron HCl (Zofran) 4 mg 1X ONCE IV Last administered on 05/06/20at 21:28; Start 05/06/20 at 21:30; Stop 05/06/20 at 21:31; Status DC Prochlorperazine Edisylate (Compazine) 10 mg 1X ONCE IV Last administered on 05/06/20at 21:34; Start 05/06/20 at 21:30; Stop 05/06/20 at 21:39; Status DC Sodium Chloride 1,000 ml @ 0 mls/hr 1X ONCE IV Last administered on 05/06/20at 22:15; Start 05/06/20 at 22:15; Stop 05/06/20 at 22:16; Status DC Calcium Gluconate (Calcium Gluconate) 1,000 mg 1X ONCE IVP Last administered on 05/06/20at 23:10; Start 05/06/20 at 23:00; Stop 05/06/20 at 23:01; Status DC Insulin Human Regular (HumuLIN R VIAL) 10 unit 1X ONCE IV Last administered on 05/06/20at 23:07; Start 05/06/20 at 23:00; Stop 05/06/20 at 23:01; Status DC Dextrose (Dextrose 50%-Water Syringe) 25 gm 1X ONCE IV Last administered on 05/06/20at 23:11; Start 05/06/20 at 23:00; Stop 05/06/20 at 23:01; Status DC Morphine Sulfate (Morphine Sulfate) 4 mg 1X ONCE IV Last administered on 05/06/20at 23:12; Start 05/06/20 at 23:00; Stop 05/06/20 at 23:01; Status DC Ondansetron HCl (Zofran) 4 mg 1X ONCE IVP Last administered on 05/06/20at 23:06; Start 05/06/20 at 23:00; Stop 05/06/20 at 23:01; Status DC Prochlorperazine Edisylate (Compazine) 10 mg 1X ONCE IV Last administered on 05/06/20at 23:31; Start 05/06/20 at 23:30; Stop 05/06/20 at 23:31; Status DC Piperacillin Sod/ Tazobactam Sod 4.5 gm/Sodium Chloride 100 ml @ 200 mls/hr Q6HRS IV Last administered on 05/14/20at 06:17; Start 05/07/20 at 06:00 Prochlorperazine Edisylate (Compazine) 10 mg 1X ONCE IV Last administered on 05/07/20at 03:19; Start 05/07/20 at 03:30; Stop 05/07/20 at 03:31; Status DC Ondansetron HCl (Zofran) 4 mg PRN Q4HRS PRN IV NAUSEA/VOMITING (USE 1ST) Last administered on 05/08/20at 11:23; Start 05/07/20 at 03:30; Stop 05/08/20 at 16:26; Status DC Acetaminophen (Tylenol Supp) 650 mg PRN Q4HRS PRN ID TEMP OVER 100.4F OR MILD PAIN; Start 05/07/20 at 03:30 Hydromorphone HCl (Dilaudid) 1 mg PRN Q2HRS PRN IV SEVERE PAIN 05-07 Last administered on 05/11/20at 03:43; Start 05/07/20 at 03:30 Enoxaparin Sodium (Lovenox 40mg Syringe) 40 mg Q24H SQ Last administered on 05/14/20at 09:05; Start 05/07/20 at 09:00 Insulin Human Lispro (HumaLOG) 0-9 UNITS TIDACHC SQ Last administered on 05/12/20at 17:58; Start 05/07/20 at 07:30 Dextrose (Dextrose 50%-Water Syringe) 12.5 gm PRN Q15MIN PRN IV SEE COMMENTS; Start 05/07/20 at 03:30 Acetaminophen (Tylenol) 650 mg PRN Q4HRS PRN PO TEMP OVER 100.4F OR HEADACHE Last administered on 05/07/20at 20:38; Start 05/07/20 at 03:30 Albuterol Sulfate (Ventolin Neb Soln) 2.5 mg PRN Q4HRS PRN NEB SHORTNESS OF BREATH; Start 05/07/20 at 03:30 Aspirin (Ecotrin) 81 mg DAILYWBKFT PO Last administered on 05/14/20at 08:53; Start 05/07/20 at 08:00 Atorvastatin Calcium (Lipitor) 10 mg QHS PO Last administered on 05/13/20at 20:54; Start 05/07/20 at 21:00 Gabapentin (Neurontin) 100 mg TID PO Last administered on 05/14/20at 08:55; Start 05/07/20 at 09:00 Acetaminophen/ Hydrocodone Bitart (Lortab 10325) 1 tab PRN Q6HRS PRN PO MODERATE PAIN 4-6 Last administered on 05/12/20at 17:56; Start 05/07/20 at 03:30 Insulin Glargine (Lantus Syringe) 12 unit QHS SQ ; Start 05/07/20 at 21:00; Stop 05/08/20 at 16:28; Status DC Lactobacillus Rhamnosus (Culturelle) 1 cap BID PO Last administered on 05/14/20at 08:54; Start 05/07/20 at 09:00 Metoprolol Succinate (Toprol Xl) 100 mg DAILY PO Last administered on 05/09/20at 11:04; Start 05/07/20 at 09:00; Stop 05/10/20 at 09:11; Status DC Pantoprazole Sodium (Protonix) 40 mg DAILYAC PO ; Start 05/07/20 at 07:30; Stop 05/07/20 at 14:12; Status DC Prochlorperazine Edisylate (Compazine) 10 mg PRN Q6HRS PRN IV NAUSEA/VOMITING (USE 2ND) Last administered on 05/08/20at 03:18; Start 05/07/20 at 03:30 Lactulose (Lactulose) 20 gm PRN DAILY PRN PO CONSTIPATION (USE 2ND); Start 05/07/20 at 03:30 Senna/Docusate Sodium (Senna Plus) 2 tab PRN BID PRN PO CONSTIPATION (USE 3RD); Start 05/07/20 at 03:30 Polyethylene Glycol (miraLAX PACKET) 17 gm PRN BID PRN PO CONSTIPATION (1ST CHOICE); Start 05/07/20 at 03:30 Sodium Chloride 1,000 ml @ 75 mls/hr 1X ONCE IV Last administered on 05/07/20at 04:02; Start 05/07/20 at 03:45; Stop 05/07/20 at 17:04; Status DC Lorazepam (Ativan Inj) 1 mg PRN Q5MIN PRN IVP ANXIETY / AGITATION Last administered on 05/07/20at 10:49; Start 05/07/20 at 10:45 Multivitamins (Thera M Plus) 1 tab DAILY PO Last administered on 05/11/20at 08:58; Start 05/07/20 at 12:00; Stop 05/11/20 at 18:15; Status DC Folic Acid (Folic Acid) 1 mg DAILY PO Last administered on 05/14/20at 08:53; Start 05/07/20 at 12:00 Thiamine Mononitrate (Vitamin B-1) 100 mg DAILY PO Last administered on 05/14/20at 08:54; Start 05/07/20 at 12:00 Lorazepam (Ativan) 2 mg PRN Q1HR PRN PO For CIWA 8-14; Start 05/07/20 at 11:00 Lorazepam (Ativan Inj) 1 mg PRN Q1HR PRN IV For CIWA 8-14; Start 05/07/20 at 11:00 Haloperidol Lactate (Haldol Inj) 5 mg PRN Q4HRS PRN IVP Hallucinatns,Confusn,Delirium; Start 05/07/20 at 11:00 Diphenhydramine HCl (Benadryl) 25 mg PRN Q15MIN PRN IVP EPS symptoms 2'Haldol admin; Start 05/07/20 at 11:00 Clonidine HCl (Catapres) 0.1 mg PRN Q1HR PRN PO SBP > 180 or DBP > 100, MRX3 Last administered on 05/10/20at 03:46; Start 05/07/20 at 11:00 Metoprolol Tartrate (Lopressor Vial) 5 mg Q6HRS IVP Last administered on 05/09/20at 05:39; Start 05/07/20 at 12:00; Stop 05/09/20 at 17:37; Status DC Nitroglycerin (Nitro-Bid Oint) 1 inch Q6HRS TP Last administered on 05/14/20at 06:18; Start 05/07/20 at 12:00 Labetalol HCl (Normodyne Iv Push) 20 mg PRN Q2HR PRN IVP HYPERTENSION Last administered on 05/09/20at 15:44; Start 05/07/20 at 11:30; Stop 05/10/20 at 17:12; Status DC Morphine Sulfate (Morphine Sulfate) 4 mg 1X ONCE IV Last administered on 05/07/20at 12:06; Start 05/07/20 at 12:00; Stop 05/07/20 at 12:01; Status DC Morphine Sulfate (Morphine Sulfate) 4 mg STK-MED ONCE .ROUTE ; Start 05/07/20 at 11:59; Stop 05/07/20 at 11:59; Status DC Pantoprazole Sodium (PROTONIX VIAL for IV PUSH) 40 mg DAILYAC IVP Last administered on 05/10/20at 07:56; Start 05/08/20 at 07:30; Stop 05/10/20 at 11:01; Status DC Vitamin A/Vitamin D (Vitamin A & D Ointment) 1 idalia PRN Q1HR PRN TP SKIN PROTECTION Last administered on 05/09/20at 15:54; Start 05/07/20 at 16:45 Sodium Chloride 1,000 ml @ 75 mls/hr [id number] IV Last administered on 05/14/20at 05:13; Start 05/07/20 at 19:30 Ondansetron HCl (Zofran) 4 mg Q4HRS IV Last administered on 05/14/20at 08:53; Start 05/08/20 at 16:30 Insulin Glargine (Lantus Syringe) 8 unit QHS SQ Last administered on 05/13/20at 21:59; Start 05/08/20 at 21:00 Potassium Chloride/Water 100 ml @ 100 mls/hr Q1H IV Last administered on 05/09/20at 13:32; Start 05/09/20 at 11:00; Stop 05/09/20 at 12:59; Status DC Potassium Chloride (Klor-Con) 40 meq 1X ONCE PO Last administered on 05/09/20at 12:22; Start 05/09/20 at 11:00; Stop 05/09/20 at 11:08; Status DC Hydralazine HCl (Apresoline Inj) 10 mg PRN Q4HRS PRN IVP ELEVATED BP, SEE COMMENTS Last administered on 05/13/20at 18:03; Start 05/09/20 at 17:00 Hydralazine HCl (Apresoline Inj) 10 mg 1X ONCE IVP Last administered on 05/09/20at 17:51; Start 05/09/20 at 17:00; Stop 05/09/20 at 17:01; Status DC Amlodipine Besylate (Norvasc) 5 mg 1X ONCE PO Last administered on 05/09/20at 17:51; Start 05/09/20 at 17:00; Stop 05/09/20 at 17:01; Status DC Potassium Chloride (Klor-Con) 40 meq 1X ONCE PO Last administered on 05/10/20at 08:20; Start 05/10/20 at 08:00; Stop 05/10/20 at 08:01; Status DC Potassium Chloride/Water 100 ml @ 100 mls/hr Q1H IV Last administered on 05/10/20at 10:11; Start 05/10/20 at 09:00; Stop 05/10/20 at 10:59; Status DC Amlodipine Besylate (Norvasc) 10 mg DAILY PO Last administered on 05/13/20at 08:50; Start 05/10/20 at 09:15; Stop 05/13/20 at 14:46; Status DC Pantoprazole Sodium (Protonix) 40 mg DAILYAC PO Last administered on 05/14/20at 08:54; Start 05/11/20 at 07:30 Lisinopril (Prinivil) 10 mg DAILY PO Last administered on 05/13/20at 08:50; Start 05/10/20 at 15:30; Stop 05/13/20 at 11:28; Status DC Metoprolol Tartrate (Lopressor Vial) 5 mg PRN Q6HRS PRN IVP HYPERTENSION Last administered on 05/11/20at 06:48; Start 05/10/20 at 17:15 Metoprolol Tartrate (Lopressor Vial) 5 mg 1X ONCE IVP Last administered on 05/10/20at 17:40; Start 05/10/20 at 17:30; Stop 05/10/20 at 17:31; Status DC Digoxin (Lanoxin) 250 mcg 1X ONCE IV Last administered on 05/10/20at 17:41; Start 05/10/20 at 17:45; Stop 05/10/20 at 17:46; Status DC Digoxin (Lanoxin) 250 mcg 1X ONCE IV Last administered on 05/10/20at 18:17; Start 05/10/20 at 18:15; Stop 05/10/20 at 18:16; Status DC Metoprolol Tartrate (Lopressor) 25 mg 1X ONCE PO Last administered on 05/10/20at 20:14; Start 05/10/20 at 21:00; Stop 05/10/20 at 21:01; Status DC Metoprolol Succinate (Toprol Xl) 100 mg DAILY PO Last administered on 05/14/20at 08:54; Start 05/11/20 at 09:00 Diltiazem HCl (Cardizem Iv Push) 10 mg 1X ONCE IVP Last administered on 05/11/20at 07:50; Start 05/11/20 at 07:50; Stop 05/11/20 at 08:32; Status DC Diltiazem HCl 125 mg/Sodium Chloride 125 ml @ 5 mls/hr CONT PRN IV SEE I/O RECORD Last administered on 05/11/20at 09:15; Start 05/11/20 at 08:00; Stop 05/13/20 at 14:46; Status DC Potassium Chloride (Klor-Con) 40 meq 1X ONCE PO Last administered on 05/11/20at 12:39; Start 05/11/20 at 12:30; Stop 05/11/20 at 12:31; Status DC Potassium Chloride (Klor-Con) 20 meq DAILYWBKFT PO Last administered on 05/14/20at 08:54; Start 05/12/20 at 08:00 Diltiazem HCl (Cardizem 24hr Cd) 120 mg DAILY PO Last administered on 05/14/20at 08:54; Start 05/11/20 at 15:00 Multivitamins (Thera M Plus) 1 tab DAILY PO Last administered on 05/14/20at 08:55; Start 05/12/20 at 09:00 Ascorbic Acid (Vitamin C) 500 mg DAILY PO Last administered on 05/14/20at 08:53; Start 05/12/20 at 09:00 Potassium Chloride (Klor-Con) 20 meq 1X ONCE PO Last administered on 05/12/20at 17:45; Start 05/12/20 at 17:00; Stop 05/12/20 at 17:01; Status DC Lisinopril (Prinivil) 10 mg BID PO Last administered on 05/13/20at 12:29; Start 05/13/20 at 11:30; Stop 05/13/20 at 14:46; Status DC Lisinopril (Prinivil) 20 mg BID PO Last administered on 05/14/20at 08:55; Start 05/13/20 at 21:00 Lisinopril (Prinivil) 10 mg 1X ONCE PO Last administered on 05/13/20at 15:11; Start 05/13/20 at 15:00; Stop 05/13/20 at 15:01; Status DC Hydralazine HCl (Apresoline) 50 mg BID PO Last administered on 05/14/20at 08:55; Start 05/13/20 at 21:00 Active Scripts Active Lantus (Insulin Glargine,Hum.rec.anlog) 100 Unit/1 Ml Vial 12 Unit SQ QHS 30 Days Culturelle (Lactobacillus Rhamnosus Gg) 1 Each Cap.sprink 1 Cap PO BID 30 Days Hydrochlorothiazide Tablet (Hydrochlorothiazide) 25 Mg Tablet 25 Mg PO DAILY 30 Days Tylenol (Acetaminophen) 325 Mg Tablet 650 Mg PO PRN Q4HRS PRN 30 Days Aspirin Ec (Aspirin) 81 Mg Tablet.dr 81 Mg PO DAILYWBKFT 30 Days Atorvastatin Calcium 10 Mg Tablet 10 Mg PO QHS 30 Days Proair Hfa (Albuterol Sulfate) 8.5 Gm Hfa.aer.ad 2.5 Mg NEB PRN Q4HRS PRN 30 Days Glucophage (Metformin Hcl) 500 Mg Tablet 500 Mg PO BIDWMEALS MDD 1 Furosemide 40 Mg Tablet 40 Mg PO DAILY MDD 1 Protonix (Pantoprazole Sodium) 20 Mg Tablet.dr 40 Mg PO DAILY 90 Days Reported [freestyle aniyah] 1 Patch TP Q14 DAYS Clopidogrel (Clopidogrel Bisulfate) 75 Mg Tablet 75 Mg PO DAILY Fluconazole 200 Mg Tablet 200 Mg PO DAILY Insulin Lispro 100 Unit/1 Ml Vial 3 Unit SQ TIDWMEALS Ventolin Hfa Inhaler (Albuterol Sulfate) 18 Gm Hfa.aer.ad 1 Puff INH QID Indomethacin 50 Mg Capsule 1 Cap PO PRN PRN Hydrocodone-Apap 10-325 (Hydrocodone Bit/Acetaminophen) 1 Tab Tablet 1 Tab PO PRN Q6HRS PRN Gabapentin (Gabapentin) 100 Mg Capsule 100 Mg PO TID Metoprolol Succinate ( Xl ) (Metoprolol Succinate) 100 Mg Tab.er.24h 100 Mg PO DAILY Vital Signs Vital Signs Date Time Temp Pulse Resp B/P (MAP) Pulse Ox O2 Delivery O2 Flow Rate FiO2 05/14/20 08:55 74 160/60 05/14/20 07:00 99.2 18 99 Room Air 99.2 Labs Laboratory Tests Test 05/12/20 12:04 05/12/20 16:26 05/12/20 20:31 05/13/20 07:23 Glucose (Fingerstick) 158 mg/dL (70-99) 212 mg/dL (70-99) 93 mg/dL (70-99) 106 mg/dL (70-99) Test 05/13/20 11:29 05/13/20 13:40 05/13/20 16:48 05/13/20 20:24 Glucose (Fingerstick) 128 mg/dL (70-99) 131 mg/dL (70-99) 169 mg/dL (70-99) Sodium Level 136 mmol/L (136-145) Potassium Level 3.3 mmol/L (3.5-5.1) Chloride Level 101 mmol/L (98-107) Carbon Dioxide Level 24 mmol/L (21-32) Anion Gap 11 (6-14) Blood Urea Nitrogen 8 mg/dL (8-26) Creatinine 0.8 mg/dL (0.7-1.3) Estimated GFR (Cockcroft-Gault) 96.1 Glucose Level 142 mg/dL (70-99) Calcium Level 8.4 mg/dL (8.5-10.1) Test 05/14/20 07:34 Glucose (Fingerstick) 118 mg/dL (70-99) Laboratory Tests Test 05/13/20 11:29 05/13/20 13:40 05/13/20 16:48 05/13/20 20:24 Glucose (Fingerstick) 128 mg/dL (70-99) 131 mg/dL (70-99) 169 mg/dL (70-99) Sodium Level 136 mmol/L (136-145) Potassium Level 3.3 mmol/L (3.5-5.1) Chloride Level 101 mmol/L (98-107) Carbon Dioxide Level 24 mmol/L (21-32) Anion Gap 11 (6-14) Blood Urea Nitrogen 8 mg/dL (8-26) Creatinine 0.8 mg/dL (0.7-1.3) Estimated GFR (Cockcroft-Gault) 96.1 Glucose Level 142 mg/dL (70-99) Calcium Level 8.4 mg/dL (8.5-10.1) Test 05/14/20 07:34 Glucose (Fingerstick) 118 mg/dL (70-99) Allergies Allergies Coded Allergies Type Severity Reaction Last Updated Verified No Known Drug Allergies 04/15/20 No Disposition/Orders: D/C to Home Justicifation of Admission Dx: Justifications for Admission: Justification of Admission Dx: Yes DOLLY CRUZ MD May 14, 2020 10:18
[2020-05-14] MEDS ORDERED: MULT1TAB90 PO (10:26)
[2020-05-14] MEDS ORDERED: DILT120C99 PO (10:26)
[2020-05-14] MEDS ORDERED: INSU100V8 SQ (10:26)
[2020-05-14] MEDS ORDERED: LACT20SO PO (10:26)
[2020-05-14] MEDS ORDERED: POTA20TA4 PO (10:26)
[2020-05-14] MEDS ORDERED: Folic Acid PO (10:26)
[2020-05-14] MEDS ORDERED: VITS42.55 TP (10:26)
[2020-05-14] MEDS ORDERED: SENN-22 PO (10:26)
[2020-05-14] MEDS ORDERED: ASCO500T4 PO (10:26)
[2020-05-14] MEDS ORDERED: AMOX1TAB58 PO (10:26)
[2020-05-14] MEDS ORDERED: POLY17PO28 PO (10:26)
[2020-05-14] MEDS ORDERED: THIA100T22 PO (10:26)
[2020-05-14] MEDS ORDERED: HYDR-2869 PO (10:26)
[2020-05-14] MEDS ORDERED: LISI-130 PO (10:26)
--- NOTE | 2020-05-14 10:27 | DISCH ---
DISCHARGE INSTRUCTIONS Condition on Discharge Condition on Discharge: Guarded Activity After Discharge Activity Instructions for Disc: Activity as tolerated Driving Instructions after Dis: Do not drive Weight Bearing Status after Di: As tolerated Diet after Discharge Diet after Discharge: Cardiac Diet Texture: Regular Liquid Texture: Thin Liquid Checks after Discharge Checks after discharge: Check blood press - daily, Check blood sugar, ac/hs, Check your Temp as needed, Weigh Yourself Daily Contacting the DR. after DC Call your doctor for: If your condition worsens Treatment/Equipment after DC Adaptive Equipment Issued: None Warfarin Follow-Up Warfarin Follow UP: SEE PCP SUNDAY, NO ALCOHOL, ATTEND AA DAILY DOLLY CRUZ MD May 14, 2020 10:27
--- NOTE | 2020-05-14 11:12 | SNU/HH DC ---
DISCHARGE WITH HOME HEALTH DISCHARGE INFORMATION: Discharge Date: May 14, 2020 Final Diagnosis: Problems Medical Problems: (1) Abdominal pain Status: Acute (2) Acute electrocardiogram changes Status: Acute (3) Cholecystitis Status: Acute (4) Hyperkalemia Status: Acute Condition on Discharge: Guarded CODE STATUS: Code Status: Full HOME HEALTH: Face to Face: I certify this patient is under my care and that I, or a nurse practitioner or physician's liaison inspection laboratory assistant working with me, had a face to face encounter that meets the physician face to face encounter requirements with this patient on []. Medical Complications: Other (cholecystitis) RN For Eval/Treatment: Yes Physical Therapy For: Evalulation/Treatment Home Health Aide For: Self-care NECKTIES PAINTER For: Community Resources Pt Meets Homebound Status: Fatigue w/ amb. POST DISCHARGE ORDERS: Activity Instructions for Disc: Activity as tolerated Weight Bearing Status after Di: As tolerated DIET AFTER DISCHARGE: ADA CHECKS AFTER DISCHARGE: Checks after discharge: Check blood press - daily, Check blood sugar, ac/hs, Check your Temp as needed, Weigh Yourself Daily FOLLOW-UP: Warfarin Follow UP: SEE PCP SUNDAY, NO ALCOHOL, ATTEND AA DAILY TREATMENT/EQUIPMENT ORDERS: Adaptive Equipment Issued: None CERTIFICATION STATEMENT: Certification Statement: Certification Statement: Based on the above finding, I certify that this patient is confined to the home and needs intermittent shelter care, physical therapy and/or speech therapy, or continues to need occupational therapy.~ This patient is under my care, and I have initiated the establishment of the plan of care.~ This patient will be followed by myself or a community physician who will periodically review the plan of care. Home Meds Active Scripts Amoxicillin/Potassium Clav (AUGMENTIN 500-125 TABLET) 1 Each Tablet, 1 TAB PO BID for INFECTION for 7 Days, #14 TAB 0 Refills Prov:DOLLY CRUZ MD 05/14/20 Multivits,Ca,Minerals/Iron/Fa (THERA-M TABLET) 1 Each Tablet, 1 TAB PO DAILY for SUPPLEMENT for 30 Days, #30 TAB Prov:DOLLY CRUZ MD 05/14/20 Ascorbic Acid (VITAMIN C) 500 Mg Tablet, 500 MG PO DAILY for SUPPLEMENT for 30 Days, #30 TAB Prov:DOLLY CRUZ MD 05/14/20 Thiamine Mononitrate (VITAMIN B-1) 100 Mg Tablet, 100 MG PO DAILY for SUPPLEMENT for 30 Days, #30 TAB Prov:DOLLY CRUZ MD 05/14/20 [Folic Acid] 1 MG TABLET No Conflict Check, 1 MG PO DAILY for SUPPLEMENT for 30 Days, #30 Prov:DOLLY CRUZ MD 05/14/20 Vits A and D/White Pet/Lanolin (A and D Ointment) 42.5 Gm Oint...g., 1 IMER TP PRN Q1HR PRN for SKIN PROTECTION for 30 Days, #60 MISC Prov:DOLLY CRUZ MD 05/14/20 Insulin Glargine,Hum.rec.anlog (LANTUS) 100 Unit/1 Ml Vial, 8 UNIT SQ QHS for DIABETES for 30 Days, #1 EACH Prov:DOLLY CRUZ MD 05/14/20 Sennosides/Docusate Sodium (SENNA-TIME S TABLET) 1 Each Tablet, 2 TAB PO PRN BID PRN for CONSTIPATION (USE 3RD) for 30 Days, #30 TAB Prov:DOLLY CRUZ MD 05/14/20 Polyethylene Glycol 3350 (POLYETHYLENE GLYCOL 3350) 17 Gm Powd.pack, 17 GM PO PRN BID PRN for CONSTIPATION (1ST CHOICE) for 30 Days, #30 PKT Prov:DOLLY CRUZ MD 05/14/20 Potassium Chloride (KLOR-CON M20) 20 Meq Tab.er.prt, 20 MEQ PO DAILYWBKFT for SUPPLEMENT for 14 Days, #14 TAB.SR Prov:DOLLY CRUZ MD 05/14/20 Lactulose (LACTULOSE) 20 Gm/30 Ml Solution, 20 GM PO PRN DAILY PRN for CONSTIPATION (USE 2ND) for 30 Days, #240 MISC Prov:DOLLY CRUZ MD 05/14/20 Lisinopril (LISINOPRIL) 40 Mg Tablet, 20 MG PO BID for BLOOD PRESSURE for 30 Days, #30 TAB Prov:DOLLY CRUZ MD 05/14/20 Diltiazem Hcl (DILTIAZEM 24HR CD) 120 Mg Cap.er.24h, 120 MG PO DAILY for BLOOD PRESSURE for 30 Days, #30 CAP.SR Prov:DOLLY CRUZ MD 05/14/20 Hydralazine Hcl (HYDRALAZINE HCL) 50 Mg Tablet, 50 MG PO BID for BLOOD PRESSURE for 30 Days, #60 TAB Prov:DOLLY CRUZ MD 05/14/20 Lactobacillus Rhamnosus Gg (CULTURELLE) 1 Each Cap.sprink, 1 CAP PO BID for SUPPLEMENT for 30 Days, #60 CAP Prov:DOLLY CRUZ MD 03/04/20 Acetaminophen (TYLENOL) 325 Mg Tablet, 650 MG PO PRN Q4HRS PRN for TEMP OVER 100.4F OR HEADACHE for 30 Days, #60 TAB Prov:DOLLY CRUZ MD 03/04/20 Aspirin (ASPIRIN EC) 81 Mg Tablet.dr, 81 MG PO DAILYWBKFT for HEART HEALTH for 30 Days, #30 TAB.SR Prov:DOLLY CRUZ MD 03/04/20 Atorvastatin Calcium (ATORVASTATIN CALCIUM) 10 Mg Tablet, 10 MG PO QHS for CHOLESTEROL for 30 Days, #30 TAB Prov:DOLLY CRUZ MD 03/04/20 Albuterol Sulfate (Proair Hfa) 8.5 Gm Hfa.aer.ad, 2.5 MG NEB PRN Q4HRS PRN for SHORTNESS OF BREATH for 30 Days, #2 INHALER Prov:DOLLY CRUZ MD 03/04/20 Pantoprazole Sodium (PROTONIX) 20 Mg Tablet., 40 MG PO DAILY for 90 Days, #180 TAB Prov:CONRAD GARCES MD 03/16/18 Reported Medications [freestyle aniyah] No Conflict Check, 1 PATCH TP Q14 DAYS for MONITOR BLOOD SUGAR 05/07/20 Clopidogrel Bisulfate (CLOPIDOGREL) 75 Mg Tablet, 75 MG PO DAILY for TO PREVENT BLOOD CLOTS, #30 TAB 0 Refills 05/07/20 Insulin Lispro (Insulin Lispro) 100 Unit/1 Ml Vial, 3 UNIT SQ TIDWMEALS for , EACH 05/07/20 Albuterol Sulfate (VENTOLIN HFA INHALER) 18 Gm Hfa.aer.ad, 1 PUFF INH QID for FOR ASTHMA, INHALER 0 Refills 03/14/19 Hydrocodone Bit/Acetaminophen (HYDROCODONE-APAP 10-325 ) 1 Tab Tablet, 1 TAB PO PRN Q6HRS PRN for PAIN, TAB 0 Refills 03/14/19 Gabapentin (GABAPENTIN ) 100 Mg Capsule, 100 MG PO TID for NEUROGENIC PAIN, CAP 03/14/19 Metoprolol Succinate (METOPROLOL SUCCINATE ( XL )) 100 Mg Tab.er.24h, 100 MG PO DAILY for FOR HYPERTENSION, #30 TAB 0 Refills 03/14/18 Discontinued Reported Medications Fluconazole (FLUCONAZOLE) 200 Mg Tablet, 200 MG PO DAILY for 5th toe amputation, TAB 05/07/20 Indomethacin (INDOMETHACIN) 50 Mg Capsule, 1 CAP PO PRN PRN for gout, #30 CAP 1 Refill 03/14/19 Discontinued Scripts Insulin Glargine,Hum.rec.anlog (LANTUS) 100 Unit/1 Ml Vial, 12 UNIT SQ QHS for DIABETES for 30 Days, #2 EACH Prov:DOLLY CRUZ MD 03/04/20 Hydrochlorothiazide (HYDROCHLOROTHIAZIDE TABLET ) 25 Mg Tablet, 25 MG PO DAILY for BLOOD PRESSURE for 30 Days, #30 TAB Prov:DOLLY CRUZ MD 03/04/20 Metformin Hcl (GLUCOPHAGE) 500 Mg Tablet, 500 MG PO BIDWMEALS for dm 2 MDD 1, #60 TAB Prov:CONRAD GARCES MD 03/20/19 Furosemide (FUROSEMIDE) 40 Mg Tablet, 40 MG PO DAILY for leg edema MDD 1, #30 TAB Prov:CONRAD GARCES MD 03/20/19 DOLLY CRUZ MD May 14, 2020 11:12
[2020-05-14 11:24] VITALS: BP 143/65
[2020-05-14] MEDS ORDERED: ONDA4TAB7 PO (11:27)
--- NOTE | 2020-05-14 12:32 | PDOC ---
PROGRESS NOTES Subjective Subjective Feeling much better Objective Objective Vital Signs Date Time Temp Pulse Resp B/P (MAP) Pulse Ox O2 Delivery O2 Flow Rate FiO2 05/14/20 11:24 98.6 72 143/65 (91) Room Air 98.6 05/14/20 07:00 18 99 Intake and Output 05/14/20 07:00 Intake Total 2538 ml Output Total 1050 ml Balance 1488 ml Intake Oral 1100 ml IV Total 1438 ml Output Urine Total 1050 ml Physical Exam Abdomen: Normal bowel sounds, Soft, No tenderness Heart: Regular rate, No murmurs Extremities: No cyanosis, No edema General: Alert, Oriented X3, Cooperative, No acute distress HEENT: Atraumatic, Mucous membr. moist/pink Lungs: Clear to auscultation, Normal air movement MUSCULOSKELETAL: Osteoarthritic changes both hands Neuro: Normal speech, Sensation intact Psych/Mental Status: Mental status NL, Mood NL Skin: No breakdown, No significant lesion Assessment Assessment 1. Abdominal pain/vomiting: h/o alcoholism with underlying liver disease. as per GI 2. LBBB with first degree AV block, chronic 3. LIVE; resolved 4. PAD: recenet SHIPPING AND RECEIVING [employer] to [facility] at [facility] 03/2020 clinically stable 5. Hypertension; better controlled 6. HLP, statins 7. DM2, per IM 8. Hx of NICM. LVEF previously 35-40%. Echo shows recovery in LV function. He is clinically compensated. 9. Hypokalemia, recurrent: replaced. 10. PSVT; maintaining SR. MCOT monitor last month showed SR with occasional PAC's, PVC's. No AF noted. Telemetry did not show any further episodes. Continue Cardizem and metoprolol. Okay for DC from cardiac standpoint. Follow-up with our office as scheduled. Plan Plan of Care Problems Medical Problems: (1) Abdominal pain Status: Acute (2) Acute electrocardiogram changes Status: Acute (3) Cholecystitis Status: Acute (4) Hyperkalemia Status: Acute Comment Review of Relevant I have reviewed the following items alyse (where applicable) has been applied. Labs Laboratory Tests Test 05/13/20 13:40 05/13/20 16:48 05/13/20 20:24 05/14/20 07:34 Sodium Level 136 mmol/L (136-145) Potassium Level 3.3 mmol/L (3.5-5.1) Chloride Level 101 mmol/L (98-107) Carbon Dioxide Level 24 mmol/L (21-32) Anion Gap 11 (6-14) Blood Urea Nitrogen 8 mg/dL (8-26) Creatinine 0.8 mg/dL (0.7-1.3) Estimated GFR (Cockcroft-Gault) 96.1 Glucose Level 142 mg/dL (70-99) Calcium Level 8.4 mg/dL (8.5-10.1) Glucose (Fingerstick) 131 mg/dL (70-99) 169 mg/dL (70-99) 118 mg/dL (70-99) Medications Current Medications Hydralazine HCl (Apresoline) 50 mg BID PO Last administered on 05/14/20at 08:55; Start 05/13/20 at 21:00 Lisinopril (Prinivil) 10 mg 1X ONCE PO Last administered on 05/13/20at 15:11; Start 05/13/20 at 15:00; Stop 05/13/20 at 15:01; Status DC Lisinopril (Prinivil) 20 mg BID PO Last administered on 05/14/20at 08:55; Start 05/13/20 at 21:00 Vitals/I & O Vital Sign - Last 24 Hours 05/13/20 05/13/20 05/13/20 05/13/20 15:09 15:11 17:00 18:02 Temp 98.6 98.6 Pulse 78 90 69 69 Resp 18 B/P (MAP) 171/66 (101) 171/66 164/74 (104) 164/74 Pulse Ox 98 O2 Delivery Room Air Room Air 05/13/20 05/13/20 05/13/20 05/13/20 18:03 18:53 20:00 20:53 Temp 98.1 98.1 Pulse 69 74 72 Resp 20 B/P (MAP) 164/74 165/70 (101) 143/56 Pulse Ox 99 O2 Delivery Room Air Room Air 05/13/20 05/13/20 05/13/20 05/14/20 20:54 21:14 23:22 01:35 Temp 98.9 98.9 Pulse 72 76 71 Resp 16 B/P (MAP) 143/56 157/56 (89) 146/55 Pulse Ox 98 97 O2 Delivery Room Air Room Air 05/14/20 05/14/20 05/14/20 05/14/20 02:58 06:18 07:00 08:00 Temp 98.7 99.2 98.7 99.2 Pulse 71 68 74 Resp 20 18 B/P (MAP) 145/49 (81) 154/52 160/60 (93) Pulse Ox 99 99 O2 Delivery Room Air Room Air Room Air 05/14/20 05/14/20 05/14/20 05/14/20 08:54 08:54 08:55 08:55 Pulse 74 74 74 74 B/P (MAP) 160/60 160/60 160/60 160/60 05/14/20 11:24 Temp 98.6 98.6 Pulse 72 B/P (MAP) 143/65 (91) O2 Delivery Room Air Intake and Output 05/13/20 05/13/20 05/14/20 15:00 23:00 07:00 Intake Total 120 ml 2418 ml Output Total 550 ml 500 ml Balance -550 ml 120 ml 1918 ml JENNY HINOJOSA MD May 14, 2020 12:32
--- NOTE | 2020-05-14 12:55 | PDOC ---
Subjective: Subjective: No nausea today, still on clears. Nurse present w/ discharge instructions. Objective: Vital Signs: Vital Signs Date Time Temp Pulse Resp B/P (MAP) Pulse Ox O2 Delivery O2 Flow Rate FiO2 05/14/20 11:24 98.6 72 143/65 (91) Room Air 98.6 05/14/20 07:00 18 99 Labs: Laboratory Tests Test 05/13/20 13:40 05/13/20 16:48 05/13/20 20:24 05/14/20 07:34 Sodium Level 136 mmol/L Potassium Level 3.3 mmol/L Chloride Level 101 mmol/L Carbon Dioxide Level 24 mmol/L Anion Gap 11 Blood Urea Nitrogen 8 mg/dL Creatinine 0.8 mg/dL Estimated GFR (Cockcroft-Gault) 96.1 Glucose Level 142 mg/dL Calcium Level 8.4 mg/dL Glucose (Fingerstick) 131 mg/dL 169 mg/dL 118 mg/dL PE: GEN: NAD - dressed to leave ABD: non-distended NEURO/PSYCH: A & O 3 A/P: Upper abd discomfort, nausea - better? Cholecystitis, cholelithiasis - no plans for surgery -- Plans to DC noted. Justicifation of Admission Dx: Justifications for Admission: Justification of Admission Dx: Yes GEORGIE LKINE May 14, 2020 12:55
--- NOTE | 2020-05-14 13:50 | NUR ---
Discharge Note: [place]ANCISCO Discharge instructions and discharge home medications reviewed with Patient and a copy given. All questions have been answered and understanding verbalized. The following instructions and handouts were given: nausea and vomiting and cholelithiasis. Discontinued iv line and catheter intact. Patient discharged to home with self-care via private vehicle. .
== END 2020-05-14 14:03 | disposition home health service (06) | DRG 871 ==
LOC: ER 20:25 → 2 SOUTH 05-07 00:05
PROVIDERS: ADMIT Internal Medicine; ATTEND Internal Medicine
DX: A41.9 Sepsis, unspecified organism (principal); N17.0 Acute kidney failure with tubular necrosis; I42.8 Other cardiomyopathies; I47.1 Supraventricular tachycardia; K80.12 Calculus of gallbladder with acute and chronic cholecystitis without obstruction; D64.9 Anemia, unspecified; E11.42 Type 2 diabetes mellitus with diabetic polyneuropathy; E11.65 Type 2 diabetes mellitus with hyperglycemia; E78.5 Hyperlipidemia, unspecified; E87.5 Hyperkalemia; E87.6 Hypokalemia; F17.201 Nicotine dependence, unspecified, in remission; G89.29 Other chronic pain; I11.0 Hypertensive heart disease with heart failure; I16.0 Hypertensive urgency; I44.7 Left bundle-branch block, unspecified; I50.9 Heart failure, unspecified; J44.9 Chronic obstructive pulmonary disease, unspecified; K21.9 Gastro-esophageal reflux disease without esophagitis; K70.9 Alcoholic liver disease, unspecified; K74.60 Unspecified cirrhosis of liver; M10.9 Gout, unspecified; M16.0 Bilateral primary osteoarthritis of hip; M48.00 Spinal stenosis, site unspecified; N40.0 Benign prostatic hyperplasia without lower urinary tract symptoms; Z20.828 Contact with and (suspected) exposure to other viral communicable diseases; Z79.02 Long term (current) use of antithrombotics/antiplatelets; Z82.49 Family history of ischemic heart disease and other diseases of the circulatory system; Z83.3 Family history of diabetes mellitus; Z87.11 Personal history of peptic ulcer disease; Z90.49 Acquired absence of other specified parts of digestive tract; E11.51 Type 2 diabetes mellitus with diabetic peripheral angiopathy without gangrene
CPT/HCPCS: 36415; 74176; 76705; 78227; 80048; 80053; 81001; 82248; 82553; 82962; 83690; 83735; 84132; 84443; 84484; 85025; 85610; 93005; 93306; 96374; 96375; 96376; A9537; C9113; J0360; J0610; J0780; J1160; J1170; J1650; J1815; J2060; J2270; J2405; J2543; J3480; J3490; J7030; 97110-GP; 97116-GP; 97530-GO; 97530-GP; 97535-GO; 99285-25; G0378; U0003-CS

== ENCOUNTER → 2020-08-31 | Outpatient (CLI) | payer MEDICARE ==
[~2020-08-31] MED LIST changes: +AMOX1TAB58 PO; +ASCO500T4 PO; +CLOP75TA PO; +DILT120C99 PO; +FLUC200T4 PO; +FURO-68 PO; +Folic Acid PO; +GABA300C18 PO; +GLIM1TAB7 PO; +HYDR-2869 PO; +INSU100V38 SQ; +LACT20SO PO; +LISI-130 PO; +ONDA4TAB7 PO; +POLY17PO28 PO; +POTA20TA4 PO; +SENN-22 PO; +SPIR100T4 PO; +VITS42.55 TP; +freestyle libre TP
--- NOTE | 2020-08-31 09:12 | PDOC ---
Progress Note - Pain Clinic Date of Service: DOS: DATE: 08/31/20 TIME: 09:10 Diagnosis: Dx: Lumbar radiculopathy with lumbar degenerative disease and lumbar spinal stenosis History or Present Illness: HPI: 70-year-old male returns follow-up status post lumbar epidural straight injections x2 last seen December 16, 2019. Patient reports he did very well with the last injection with about 80% improvement the pain returning now over the past month or so patient reports he is having pain in her low back right lower extremity posterior gluteus posterior lateral thigh lateral anterior thigh anterior medial thigh and into the medial lower leg and foot on the right side. Patient which is worse with walking and standing changing positions better with sitting or laying down generally does not awaken her from sleep at night but over the past 3 to 4 weeks it has about every 5 hours patient reports no new motor or sensory deficits initially was doing much better with distance walking doing household activities work activities traveling with greater ease and comfort. Patient reports no new changes describes pain is constant severe on and off in intensity better with sitting or laying down worse with standing walking rates his pain is a 9 on scale 10 is worse over the past week 8 on avera ge 7 its least is 8 today. Physical Exam: VS: Blood pressure is 162/72 pulse 77 respirations 18 temperature 90.1 F height is 5 feet 10 inches weight 194 pounds PE: PHYSICAL EXAMINATION: GENERAL: The patient is awake, alert, oriented, appropriate, very pleasant demeanor HEENT: Shows normocephalic, atraumatic. Extraocular movements are intact and symmetrical. Oral cavity: Mucous membranes moist and pink. NECK: Shows anterior throat supple without palpable lymphadenopathy noted. Swallow reflex symmetrical. CHEST: Shows normal on inspection. Breath sounds are clear bilaterally, no rales rhonchi or wheezes. HEART: Shows S1, S2 clear. No murmurs auscultated. ABDOMEN: Soft, nontender, nondistended, obese. No palpable organomegaly is noted. No rebound or guarding demonstrated. BACK: Shows spine grossly in the midline. Normal-appearing cervical lordotic curvature. There is slightly increased thoracic kyphosis, some minor flattening of the lumbar lordotic curvature. Lumbar paraspinous muscles show symmetrical on inspection, on palpation shows some moderate tenderness diffusely throughout the upper, middle and lower distribution of the paraspinous muscles bilaterally, but without specific trigger points, without radiation of pain. The patient has good rotational motion of the lumbar spine, both laterally as well as extension and flexion without significant difficulty. No tenderness over the spinous processes, sacrum or sacroiliac regions. EXTREMITIES: Lower extremities show deep tendon reflexes 1 in the patellar and tendo calcaneus tendons. Motor exam is 4 on a scale of 5 with right dorsiflexion, extension, quadriceps and hamstring flexion and 5/5 on the left. Peripheral pulses are 1+ posterior tibial. No peripheral edema is noted bilaterally. Lower extremities are warm and dry to touch, equal in color and appearance. SKIN: Shows warm and dry, good turgor. No edema. No sores, rashes or bruising throughout. Procedure: Procedure: Options were discussed with the patient. Patient chart was reviewed his his current medication regimen updated current review of systems updated today as well. We will check with patient's prescribing vascular surgeon to hold his Plavix for 7 days if deemed safe and appropriate will have him return after that time for lumbar epidural steroid injection is done very well with these in the past. In the meantime patient will continue with stretching strength exercises walking as tolerated daily and exercise as he is currently doing. Medication Injected: Med Injected: None Condition at Discharge: Condition at Discharge: Condition at discharge is stable. ILIANA LOPEZ MD Aug 31, 2020 09:12
== END | disposition home or self-care (01) ==
LOC: PNCL 08:18
PROVIDERS: ATTEND Anesthesiology
DX: M51.16 Intervertebral disc disorders with radiculopathy, lumbar region (principal); M48.061 Spinal stenosis, lumbar region without neurogenic claudication; I10 Essential (primary) hypertension; J45.909 Unspecified asthma, uncomplicated; K21.9 Gastro-esophageal reflux disease without esophagitis; E66.9 Obesity, unspecified; M19.90 Unspecified osteoarthritis, unspecified site; F41.9 Anxiety disorder, unspecified; E13.42 Other specified diabetes mellitus with diabetic polyneuropathy; Z79.82 Long term (current) use of aspirin; Z79.4 Long term (current) use of insulin; Z79.899 Other long term (current) drug therapy; Z98.890 Other specified postprocedural states; Z82.49 Family history of ischemic heart disease and other diseases of the circulatory system; Z87.891 Personal history of nicotine dependence; Z72.89 Other problems related to lifestyle
CPT/HCPCS: G0463

== ENCOUNTER → 2020-09-21 | Outpatient (CLI) | payer MEDICARE ==
[~2020-09-21] MED LIST changes: +IOHEXOL 180 MG/ML 10 ML VIAL. ONE; +methylPREDNISolone ACETATE 40 MG/ML VIAL. ONE; +methylPREDNISolone ACETATE 80 MG/ML VIAL. ONE
--- NOTE | 2020-09-21 09:19 | PDOC ---
Progress Note - Pain Clinic Date of Service: DOS: DATE: 09/21/20 TIME: 09:16 Diagnosis: Dx: Lumbar radiculopathy with lumbar degenerative disc disease and lumbar spinal stenosis History or Present Illness: HPI: 70-year-old male returns status post lumbar epidural steroid injection x1 last December 16, 2019 patient did very well with about 80% improvement we had gotten clearance earlier this month to hold his Plavix he has gotten that clearance now and is held now for 7 days and reports still significant pain low back and right lower extremity as was previously posterior gluteus posterior lateral thigh lateral anterior thigh anteromedial thigh medial lower leg and posterior calf patient reports worse with walking standing better with sitting or laying down generally does not awaken him sleep over the past few weeks it has about a 5 to 6 hours. Patient ports pain is a 9 on scale 10 is worse over the past week 9 on average 7 its least is a 9 today. Patient cries pain is constant aching sharp and severe in the low back right lower extremity patient reports no new motor or sensory deficits no new bowel or bladder incontinence or other complaints. Physical Exam: VS: Blood pressure is 137/69 pulse 67 respirations 16 temperature 97 point degrees Fahrenheit weight is 190 pounds PE: PHYSICAL EXAMINATION: GENERAL: The patient is awake, alert, oriented, appropriate, very pleasant demeanor HEENT: Shows normocephalic, atraumatic. Extraocular movements are intact and symmetrical. NECK: Shows anterior throat supple without palpable lymphadenopathy noted. Swallow reflex symmetrical. CHEST: Shows normal on inspection. Breath sounds are clear bilaterally. HEART: Shows S1, S2 clear. No murmurs auscultated. ABDOMEN: Soft, nontender, nondistended, obese. No palpable organomegaly is noted. No rebound or guarding demonstrated. BACK: Shows spine grossly in the midline. Normal-appearing cervical lordotic curvature. There is slightly increased thoracic kyphosis, some minor flattening of the lumbar lordotic curvature. Lumbar paraspinous muscles show symmetrical on inspection, on palpation shows some moderate tenderness diffusely throughout the upper, middle and lower distribution of the paraspinous muscles, but without specific trigger points, without radiation of pain. The patient has good rotational motion of the lumbar spine, both laterally as well as extension and flexion without significant difficulty. No tenderness over the spinous processes, sacrum or sacroiliac regions. EXTREMITIES: Lower extremities show deep tendon reflexes 1+ in the patellar and tendo calcaneus tendons. Motor exam is 4 on a scale of 5 with right dorsiflexion, extension, quadriceps and hamstring flexion and 5/5 on the left. Peripheral pulses are 1+ posterior tibial. No peripheral edema is noted bilaterally. Lower extremities are warm and dry to touch, equal in color and appearance. SKIN: Shows warm and dry, good turgor. No edema. No sores, rashes or bruising throughout. Procedure: Procedure: Options were discussed with the patient. Patient's old chart was reviewed his his current medication regimen updated current review of systems updated today as well. We will proceed with a lumbar epidural steroid injection today with fl uoroscopic guidance as the first in the series. Risks were discussed including but not limited to: Bleeding, infection, possibility of epidural hematoma and subsequent neurological compromise, dural puncture, headaches, spinal cord and/or nerve damage, side effects of steroid medication, and poor results regarding pain control. Patient understands wished to proceed. Patient return to clinic in approximately 3 weeks for follow-up with counselors return appointment activity level and side effects to be aware of. Restart Plavix on September 22 as instructed. Medication Injected: Med Injected: Procedure is lumbar epidural steroid injection under local anesthetic using sterile prep and drape at the L4-5 level using C-arm fluoroscopic guidance in both AP and lateral views medications injected is 120 mg Depo-Medrol + 10 mL preservative-free normal saline and 2 mL contrast- condition at discharge is stable patient tolerated procedure well had no complications. Condition at Discharge: Condition at Discharge: Patient discharged stable, patient tolerated seizure well and had no complications. ILIANA LOPEZ MD Sep 21, 2020 09:19
== END | disposition home or self-care (01) ==
LOC: PNCL 08:44
PROVIDERS: ATTEND Anesthesiology
DX: M51.16 Intervertebral disc disorders with radiculopathy, lumbar region (principal); M48.061 Spinal stenosis, lumbar region without neurogenic claudication; I10 Essential (primary) hypertension; K21.9 Gastro-esophageal reflux disease without esophagitis; E66.9 Obesity, unspecified; F41.9 Anxiety disorder, unspecified; F32.9 Major depressive disorder, single episode, unspecified; J45.909 Unspecified asthma, uncomplicated; E11.42 Type 2 diabetes mellitus with diabetic polyneuropathy; M19.90 Unspecified osteoarthritis, unspecified site; Z87.891 Personal history of nicotine dependence; Z72.89 Other problems related to lifestyle; Z79.4 Long term (current) use of insulin; Z79.899 Other long term (current) drug therapy; Z98.890 Other specified postprocedural states; Z82.49 Family history of ischemic heart disease and other diseases of the circulatory system
CPT/HCPCS: 62323; J1030; J1040; Q9965

== ENCOUNTER → 2020-12-31 | Outpatient (CLI) | payer MEDICARE ==
[~2020-12-31] MED LIST changes: +EMPA10TA PO; +ERGO500027 PO; +INSU100V31 SQ; -IOHEXOL 180 MG/ML 10 ML VIAL. ONE; -MULT1TAB90 PO; +MULT1TAB92 PO; -POLY17PO28 PO; +POLY17PO52 PO; -methylPREDNISolone ACETATE 40 MG/ML VIAL. ONE; -methylPREDNISolone ACETATE 80 MG/ML VIAL. ONE
--- NOTE | 2020-12-31 09:54 | PDOC ---
Progress Note - Pain Clinic Date of Service: DOS: DATE: 12/31/20 TIME: 09:51 Diagnosis: Dx: Lumbar radiculopathy with lumbar degenerative disease and lumbar spinal stenosis History or Present Illness: HPI: 70-year-old male returns for follow-up status post lumbar epidurals or injections x2. Patient last seen October 12, 2020 he did very well after the last injection with about 60 to 75% improvement in the low back and right lower extremity. Patient ports he slipped on some ice about 2 weeks ago and fell on his right side was increase the pain prior to that he was doing very well with distance walking doing household activities travel with greater ease and comfort patient reports now the pain is returning low back right lower extremity mostly in the posterior gluteus lateral thigh anterior thigh medial thigh on the right patient reports is a 10 on scale 10 is worse over the past week 9 on average 7 its least and is an 8 today. Patient reports no new motor or sensory deficits no new bowel or bladder incontinence describes the pain as aching and sharp in the back constant severe with time and walking and radiating into the right lower extremity as described. Physical Exam: VS: Blood pressure is 167/68 pulse 83 respirations 20 temperature is 98.4 F height is 6 foot weight is 190 pounds PE: PHYSICAL EXAMINATION: GENERAL: The patient is awake, alert, oriented, appropriate, very pleasant demeanor HEENT: Shows normocephalic, atraumatic. Extraocular movements are intact and symmetrical. Oral cavity: Mucous membranes moist and pink. NECK: Shows anterior throat supple without palpable lymphadenopathy noted. Swallow reflex symmetrical. CHEST: Shows normal on inspection. Breath sounds are clear bilaterally. HEART: Shows S1, S2 clear. No murmurs auscultated. ABDOMEN: Soft, nontender, nondistended, obese. No palpable organomegaly is noted. BACK: Shows spine grossly in the midline. Normal-appearing cervical lordotic curvature. There is slightly increased thoracic kyphosis, some minor flattening of the lumbar lordotic curvature. Lumbar paraspinous muscles show symmetrical on inspection, on palpation shows some moderate tenderness diffusely throughout the upper, middle and lower distribution of the paraspinous muscles, but without specific trigger points, without radiation of pain. The patient has good rotational motion of the lumbar spine, both laterally as well as extension and flexion without significant difficulty. EXTREMITIES: Lower extremities show deep tendon reflexes 1+ in the patellar and tendo calcaneus tendons. Motor exam is 4 on a scale of 5 with right dorsiflexion, extension, quadriceps and hamstring flexion and 5/5 on the left. Peripheral pulses are 1+ posterior tibial. No peripheral edema is noted bilaterally. Lower extremities are warm and dry to touch, equal in color and appearance. SKIN: Shows warm and dry, good turgor. No edema. No sores, rashes or bruising throughout. Procedure: Procedure: Options were discussed with the patient. Patient chart was reviewed his current medication regimen updated current review of systems updated today as well. Patient is still on his Plavix and took it as recently as this morning. We will have him hold this for 7 days prior to additional injection. Patient reports that he just forgot to to stop taking it and as he has had clearance to hold it previously will have him hold it for 7 days and return for lumbar epidural steroid injection at that time. Medication Injected: Med Injected: None Condition at Discharge: Condition at Discharge: Condition at discharge is stable. ILIANA LOPEZ MD Dec 31, 2020 09:54
== END | disposition home or self-care (01) ==
LOC: PNCL 09:19
PROVIDERS: ATTEND Anesthesiology
DX: M51.16 Intervertebral disc disorders with radiculopathy, lumbar region (principal); M48.061 Spinal stenosis, lumbar region without neurogenic claudication; I10 Essential (primary) hypertension; E11.42 Type 2 diabetes mellitus with diabetic polyneuropathy; F41.9 Anxiety disorder, unspecified; F32.9 Major depressive disorder, single episode, unspecified; J45.909 Unspecified asthma, uncomplicated; M19.90 Unspecified osteoarthritis, unspecified site; E66.9 Obesity, unspecified; Z79.82 Long term (current) use of aspirin; Z79.4 Long term (current) use of insulin; Z79.899 Other long term (current) drug therapy; Z98.890 Other specified postprocedural states; Z87.891 Personal history of nicotine dependence; Z72.89 Other problems related to lifestyle; Z82.49 Family history of ischemic heart disease and other diseases of the circulatory system
CPT/HCPCS: G0463

== ENCOUNTER → 2021-01-07 | Outpatient (CLI) | payer MEDICARE ==
[~2021-01-07] MED LIST changes: +IOHEXOL 180 MG/ML 10 ML VIAL. ONE; +methylPREDNISolone ACETATE 40 MG/ML VIAL. ONE; +methylPREDNISolone ACETATE 80 MG/ML VIAL. ONE
--- NOTE | 2021-01-07 10:41 | PDOC ---
Progress Note - Pain Clinic Date of Service: DOS: DATE: 01/07/21 TIME: 10:38 Diagnosis: Dx: Lumbar radiculopathy with lumbar degenerative disc disease and lumbar spinal stenosis History or Present Illness: HPI: 70-year-old male returns for follow-up status post lumbar epidural steroid action x2. Patient was doing very well about 80% improvement after the last injection the pain low back and right lower extremity patient reports pain is returning in the low back and right leg in the posterior gluteus posterior lateral thigh lateral anterior thigh medial thigh posterior calf and medial calf on the right side only. Patient reports no new motor or sensory deficits no new bowel or bladder incontinence or other complaints. Patient describes the pain is constant and severe at times aching and sharp worse with walking standing better with sitting or laying down generally is not awakening from sleep over the past few weeks it has been about once or twice a night. Patient rates pain is a 10 on scale 10 is worse over the past week 9 on average 8 its least is an 8 today. Physical Exam: VS: Blood pressure is 139/74 pulse 66 respirations 18 temperature 98.4 F weight is 193 pounds PE: PHYSICAL EXAMINATION: GENERAL: The patient is awake, alert, oriented, appropriate, very pleasant demeanor HEENT: Shows normocephalic, atraumatic. Extraocular movements are intact and symmetrical. Oral cavity: Mucous membranes moist and pink. Dentition is intact. NECK: Shows anterior throat supple without palpable lymphadenopathy noted. Swallow reflex symmetrical. CHEST: Shows normal on inspection. Breath sounds are clear bilaterally, no rales rhonchi wheezes auscultated. HEART: Shows S1, S2 clear. No murmurs auscultated. ABDOMEN: Soft, nontender, nondistended, obese. No palpable organomegaly is noted. No rebound or guarding demonstrated. BACK: Shows spine grossly in the midline. Normal-appearing cervical lordotic curvature. There is slightly increased thoracic kyphosis, some minor flattening of the lumbar lordotic curvature. Lumbar paraspinous muscles show symmetrical on inspection, on palpation shows some moderate tenderness diffusely throughout the upper, middle and lower distribution of the paraspinous muscles without specific trigger points, without radiation of pain. The patient has good rotational motion of the lumbar spine, both laterally as well as extension and flexion without significant difficulty. No tenderness over the spinous processes, sacrum or sacroiliac regions. EXTREMITIES: Lower extremities show deep tendon reflexes 1+ in the patellar and tendo calcaneus tendons. Motor exam is 4 on a scale of 5 with right dorsiflexion, extension, quadriceps and hamstring flexion and 5/5 on the left. Peripheral pulses are 1+ posterior tibial. No peripheral edema is noted bilaterally. Lower extremities are warm and dry to touch, equal in color and appearance. SKIN: Shows warm and dry, good turgor. No edema. No sores, rashes or bruising throughout. Procedure: Procedure: Options discussed with the patient. Patient chart reviews his current medication regimen updated current review of systems updated today as well. We will proceed with a third in the series lumbar epidural steroid injection with fluoroscopic guidance. Risks were discussed including but not limited to: Bleeding, infection, possibility of epidural hematoma and subsequent neurological compromise, dural puncture, headaches, spinal cord and/or nerve damage, side effects of steroid medication, and poor results regarding pain control. Patient understands and wished to proceed. Patient will return to clinic in approximately 2 weeks for follow-up, was counseled as to return appointment activity level and side effects to be aware of. Medication Injected: Med Injected: Procedure is lumbar epidural steroid injection under local anesthetic using sterile prep and drape at the L4-5 level using C-arm fluoroscopic guidance in both AP and lateral views medications injected is 120 mg Depo-Medrol + 10 mL preservative-free normal saline and 2 mL contrast- condition at discharge is stable patient tolerated procedure well had no complications. Condition at Discharge: Condition at Discharge: Condition at discharge stable, patient already procedure well and had no complications. ILIANA LOPEZ MD Jan 07, 2021 10:41
--- NOTE | 2021-01-07 10:41 | PDOC4 ---
PROCEDURE Procedure Patient was consented for lumbar epidural steroid injection. Risks were dis cussed including but not limited to: Bleeding, infection, possibility of epidural hematoma and subsequent neurological compromise, dural puncture, headaches, spinal cord and/or nerve damage, side effects of steroid medication, and poor results regarding pain control. Patient understands and wished to proceed. Procedure is lumbar epidural steroid injection under local anesthetic using sterile prep and drape at the L4-5 level using C-arm fluoroscopic guidance in both AP and lateral views medications injected is 120 mg Depo-Medrol + 10 mL preservative-free normal saline and 2 mL contrast- condition at discharge is stable patient tolerated procedure well had no complications. ILIANA LOPEZ MD Jan 07, 2021 10:41
== END | disposition home or self-care (01) ==
LOC: PNCL 09:36
PROVIDERS: ATTEND Anesthesiology
DX: M51.16 Intervertebral disc disorders with radiculopathy, lumbar region (principal); M48.061 Spinal stenosis, lumbar region without neurogenic claudication; E11.42 Type 2 diabetes mellitus with diabetic polyneuropathy; I10 Essential (primary) hypertension; J45.909 Unspecified asthma, uncomplicated; E66.9 Obesity, unspecified; K21.9 Gastro-esophageal reflux disease without esophagitis; M19.90 Unspecified osteoarthritis, unspecified site; F41.9 Anxiety disorder, unspecified; Z87.891 Personal history of nicotine dependence; Z79.82 Long term (current) use of aspirin; Z79.84 Long term (current) use of oral hypoglycemic drugs; Z79.899 Other long term (current) drug therapy; Z98.890 Other specified postprocedural states; Z82.49 Family history of ischemic heart disease and other diseases of the circulatory system; Z72.89 Other problems related to lifestyle
CPT/HCPCS: 62323; J1030; J1040; Q9965; 77002

== ENCOUNTER → 2021-04-18 | Outpatient (CLI) | payer MEDICARE ==
[~2021-04-18] MED LIST changes: -ERGO500027 PO; +ERGO500089 PO; -IOHEXOL 180 MG/ML 10 ML VIAL. ONE; +REGADENOSON 0.4 MG/5 ML DISP.SYRIN. IV ONE; -methylPREDNISolone ACETATE 40 MG/ML VIAL. ONE; -methylPREDNISolone ACETATE 80 MG/ML VIAL. ONE
--- NOTE | 2021-04-18 19:40 | RAD ---
MR#: [id number] Date of Study: 04/18/2021 Ordering Physician: JENNY HINOJOSA, Referring Physician: WINTER BACH Tech: RT Isaac Robertson) (N) APPROVED REPORT Test Type: Pharmacological Stress Nurse/Tech: Marcel Saba RN Test Indications: Paroxysmal Supraventricular Tachycardia Cardiac History: Clean Cath 30 yrs ago, Left leg stent, HTN, See EMR. Medications: Insulin, See EMR. Medical History: X-Smoker, DM, See EMR. Resting ECG: SR Resting Heart Rate: 59 bpm Resting Blood Pressure: 166/62mmHg Pretest Chest Pain: No chest pain Nurse/Tech Notes Lungs CTA, Heart tones regular. Consent: The procedure was explained to the patient in lay terms. Informed consent was witnessed. Yasir eout was entered into [employer]. History and Stress Test performed by RT Rigo (Guerita) (N) Pharm. Details Pharmacologic stress testing was performed using 0.4mg per 5ml of regadenoson given intravenously ove r 7-10 seconds. Stress Symptoms Nausea & Fatigue POST EXERCISE Reason for Termination: Infusion complete Max HR: 90 bpm Max Blood Pressure: 201/73mmHg Blood Pressure response to exercise: Normal blood pressure response during stress. Heart Rate response to exercise: WNL Chest Pain: No. Arrhythmia: No. ST Change: No. No changes from baseline EKG. INTERPRETATION Stress EKG Conclusion: No evidence of stress induced EKG changes. Imaging Protocol IMAGE PROTOCOL: Rest Tc-99m/stress Tc-99m 1 day Rest: Stress: Viability: Radiopharm.Tc99m EiixrrlmnRt49y Sestamibi Dose10.7mCi 33mCi Duration 13min. 13min. Img Date 04/18/2021 04/18/2021 Inj-Img Nmbg17udt. 60min. Rest Admin Site:IV - Right AntecubitalAdministrator:RT Rigo (Guerita)(N) Stress Admin Site: IV - Right AntecubitalAdministrator: RT Rigo (R)(N) STRESS DATA End Diast. Vol.139.0mlLVEDV index BSA71.0ml End Syst. Vol.50.0mlLVESV index BSA26.0ml Myocardial Xecg292.0gEject. Qtxdeihx69.0% Stress Scores Regional WT0.00Summed WT0.00 Regional WM0.00Summed WM4.00 The rest and stress images show normal perfusion, normal contraction and thickening. LV Perf. Quant 17 Seg. SSS1.00 17 Seg. SRS0.00 17 Seg. SDS1.00 Stress Defect Extent (% LAD)0.00Rest Defect Extent (% LAD)3.10Rev. Defect Extent (% LAD)0.00 Stress Defect Extent (% LCX) 3.80Rest Defect Extent (% LCX)0.00Rev. Defect Extent (% LCX)3.80 Stress Defect Extent (% RCA)0.00Rest Defect Extent (% RCA)0.00Rev. Defect Extent (% RCA)0.00 Stress Defect Extent (% MAX)1.30Rest Defect Extent (% MAX)1.10Rev. Defect Extent (% MAX)1.30 Other Information Quality:Good Risk Assessment: Low Risk Conclusion 1. No evidence of EKG changes with stress testing. 2. Normal perfusion at stress/rest. 3. Low risk study. 4. EF > 60%. Signed by : Tez Rooney, Electronically Approved : 04/18/2021 19:40:15
== END ==
LOC: NM 08:54
PROVIDERS: ATTEND Internal Medicine Cardiovascular Disease
DX: I47.1 Supraventricular tachycardia (principal)
CPT/HCPCS: 78452; 93017; A9500; J2785

== ENCOUNTER → 2021-09-28 | Outpatient (CLI) | payer MEDICARE ==
[~2021-09-28] MED LIST changes: +DAPA10TA PO; +IOHEXOL 180 MG/ML 10 ML VIAL. ONE; +POTA-121 PO; -POTA20TA4 PO; -REGADENOSON 0.4 MG/5 ML DISP.SYRIN. IV ONE; +methylPREDNISolone ACETATE 40 MG/ML VIAL. ONE; +methylPREDNISolone ACETATE 80 MG/ML VIAL. ONE
--- NOTE | 2021-09-28 11:07 | PDOC ---
Progress Note - Pain Clinic Date of Service: DOS: DATE: 09/28/21 TIME: 11:03 Diagnosis: Dx: Lumbar radiculopathy lumbar degenerative disease lumbar spinal stenosis History or Present Illness: HPI: 71-year-old male returns status post lumbar epidural steroid action last seen January 07/2021. Patient reports he did very well 80% improvement for 6 months or so following the injection with the pain returning now in the low back and right lower extremity posterior gluteus posterior thigh posterior lateral thigh lateral anterior thigh anteromedial thigh medial lower leg as well as into the foot worse with walking and standing patient feels unstable when he is walking because of the pain but has not had any loss of motor function patient rates his pain a 10 on scale 10 is worse over the past week 9 on average 7 its least is an 8 today patient what is aching sharp in the back tingling in the leg can be severe with standing walking for prolonged periods better with sitting or laying down but has been waking her from sleep over the past month or so about twice a night. Patient reports prior to that he was doing much better with distance walking doing household activities travel with greater ease and comfort and sleeping better as well. Patient have a new MRI scan which we discussed with him today showing multilevel degenerative changes L2-3 through L5-S1 with a diffuse bulging annulus at L2-3 and L3-4 focal central disc fusion L3-4 with disc base narrowing at L4-5 as well diffuse bulging also. Physical Exam: VS: Blood pressure is 149/59 pulse 72 respirations 18 temperature 98.6 F height 5 feet 7 inches weight 195 pounds PE: PHYSICAL EXAMINATION: GENERAL: The patient is awake, alert, oriented, appropriate, very [facility] [place] by his HEENT: Shows normocephalic, atraumatic. Extraocular movements are intact and symmetrical. Oral cavity: Mucous membranes moist and pink. NECK: Shows anterior throat supple without palpable lymphadenopathy noted. Swallow reflex symmetrical. CHEST: Shows normal on inspection. Breath sounds are clear bilaterally, distant but no rales or rhonchi. HEART: Shows S1, S2 clear. No murmurs auscultated. ABDOMEN: Soft, nontender, nondistended. No palpable organomegaly is noted. BACK: Shows spine grossly in the midline. Normal-appearing cervical lordotic curvature. There is slightly increased thoracic kyphosis, some minor flattening of the lumbar lordotic curvature. Lumbar paraspinous muscles show symmetrical on inspection, on palpation shows some moderate tenderness diffusely throughout the upper, middle and lower distribution of the paraspinous muscles without specific trigger points, without radiation of pain. The patient has good rotational motion of the lumbar spine, both laterally as well as extension and flexion without significant difficulty. No tenderness over the spinous processes, sacrum or sacroiliac regions. EXTREMITIES: Lower extremities show deep tendon reflexes 1 in the patellar and tendo calcaneus tendons. Motor exam is 4 on a scale of 5 with right dorsiflexion, extension, quadriceps and hamstring flexion and 5/5 on the left. Peripheral pulses are 1+ posterior tibial. No peripheral edema is noted bilaterally. Lower extremities are warm and dry. SKIN: Shows warm and dry, good turgor. No edema. No sores, rashes or bruising throughout. Procedure: Procedure: Options were discussed with the patient. Patient chart reviews his current medication regimen updated current view of systems updated today as well. We will proceed with a lumbar epidural steroid injection today with fluoroscopic guidance. Risks were discussed including but not limited to: Bleeding, infection, possibility of epidural hematoma and subsequent neurological comprom ise, dural puncture, headaches, spinal cord and/or nerve damage, side effects of steroid medication, and poor results regarding pain control. Patient understands and wished to proceed. Patient will return to clinic in approximate 2 weeks for follow-up, was counseled as return appointment, Activella, and side effects beware of. Medication Injected: Med Injected: Procedure is lumbar epidural steroid injection under local anesthetic using sterile prep and drape at the L4-5 level using C-arm fluoroscopic guidance in both AP and lateral views medications injected is 120 mg Depo-Medrol +10mL preservative-free normal saline and 2 mL contrast- condition at discharge is stable patient tolerated procedure well had no complications. Condition at Discharge: Condition at Discharge: Condition at discharge stable, patient tolerated procedure well and had no complications. ILIANA LOPEZ MD Sep 28, 2021 11:07
--- NOTE | 2021-09-28 11:08 | PDOC4 ---
Procedure Note: ICD 10 Code: ICD 10 Code: M54.16 M 48.06 M51.36 Procedure Note: Patient was consented for lumbar epidural steroid injection with fluoroscopic guidance. Risks were discussed including but not limited to: Bleeding, infection, possibility of epidural hematoma and subsequent neurological compromise, dural puncture, headaches, spinal cord and/or nerve damage, side effects of steroid medication, and poor results regarding pain control. Patient understands and wished to proceed. Procedure is lumbar epidural steroid injection under local anesthetic using beatriz rile prep and drape at the L4-5 level using C-arm fluoroscopic guidance in both AP and lateral views medications injected is 120 mg Depo-Medrol +10mL preservative-free normal saline and 2 mL contrast- condition at discharge is stable patient tolerated procedure well had no complications. ILIANA LOPEZ MD Sep 28, 2021 11:08
== END | disposition home or self-care (01) ==
LOC: PNCL 10:10
PROVIDERS: ATTEND Anesthesiology
DX: M51.16 Intervertebral disc disorders with radiculopathy, lumbar region (principal); M48.061 Spinal stenosis, lumbar region without neurogenic claudication; I10 Essential (primary) hypertension; E66.9 Obesity, unspecified; E11.9 Type 2 diabetes mellitus without complications; J45.909 Unspecified asthma, uncomplicated; K21.9 Gastro-esophageal reflux disease without esophagitis; M19.90 Unspecified osteoarthritis, unspecified site; F41.9 Anxiety disorder, unspecified; Z87.891 Personal history of nicotine dependence; Z79.82 Long term (current) use of aspirin; Z79.4 Long term (current) use of insulin; Z79.899 Other long term (current) drug therapy; Z98.890 Other specified postprocedural states; Z82.49 Family history of ischemic heart disease and other diseases of the circulatory system; Z72.89 Other problems related to lifestyle
CPT/HCPCS: 62323; J1030; J1040; Q9965

== ENCOUNTER → 2021-10-24 | Outpatient (CLI) | payer MEDICARE ==
[~2021-10-24] MED LIST changes: -IOHEXOL 180 MG/ML 10 ML VIAL. ONE; -methylPREDNISolone ACETATE 40 MG/ML VIAL. ONE; -methylPREDNISolone ACETATE 80 MG/ML VIAL. ONE
--- NOTE | 2021-10-26 10:08 | CARD ---
MR#: [id number] Date of Study: 10/24/2021 Ordering Physician: JENNY HINOJOSA, Referring Physician: JENNY HINOJOSA Tech: Katarina Abbasi [facility] APPROVED REPORT EXAM: Two-dimensional and M-mode echocardiogram with Doppler and color Doppler. Other Information Quality : Average Rhythm : NSR INDICATION Cardiac Disease: RISK FACTORS Hypertension Hyperlipidemia Diabetes 2D DIMENSIONS RVDd4.1 (2.9-3.5cm)Left Atrium(2D)4.5 (1.6-4.0cm) IVSd1.2 (0.7-1.1cm)Aortic Root(2D)3.8 (2.0-3.7cm) LVDd4.5 (3.9-5.9cm)LVOT Diameter2.2 (1.8-2.4cm) PWd1.3 (0.7-1.1cm)LVDs2.9 (2.5-4.0cm) FS (%) 36.7 %SV62.8 ml LVEF(%)66.6 (>50%) Aortic Valve AoV Peak Wagner.159.9cm/sAoV VTI37.6cm AO Peak GR.10.2mmHgLVOT Peak Wagner.90.8cm/s AO Mean GR.4mmHgAVA (VMAX)2.09cm2 Mitral Valve MV E Ksiwzlgz019.6cm/sMV DECEL GOSI086on MV A Pgmhqipe75.8cm/sE/A Ratio1.3 Tricuspid Valve TR P. Fwhiuclh626qy/sTR Peak Gr.22mmHg LEFT VENTRICLE The left ventricle is normal size. There is mild concentric left ventricular hypertrophy. The left ve ntricular systolic function is normal and the ejection fraction is within normal range. Estimated eje ction fraction 55%. There is normal LV segmental wall motion. The left ventricular diastolic function and filling is normal for age. RIGHT VENTRICLE The right ventricle is normal size. There is normal right ventricular wall thickness. The right ventr icular systolic function is normal. ATRIA The left atrium is mildly dilated. The right atrium size is normal. The interatrial septum is intact with no evidence for an atrial septal defect or patent foramen ovale as noted on 2-D or Doppler imagi ng. AORTIC VALVE The aortic valve is normal in structure and function. Doppler and Color Flow revealed no significant aortic regurgitation. There is no significant aortic valvular stenosis. MITRAL VALVE Mitral annular calcification is mild. There is no evidence of mitral valve prolapse. There is no mitr al valve stenosis. Doppler and Color-flow revealed mild mitral regurgitation. TRICUSPID VALVE The tricuspid valve is normal in structure and function. Doppler and Color Flow revealed trace tricus pid regurgitation. Estimated PAP 25 mmHg. There is no tricuspid valve stenosis. PULMONIC VALVE The pulmonary valve is normal in structure and function. Doppler and Color Flow revealed trace pulmon ic valvular regurgitation. There is no pulmonic valvular stenosis. GREAT VESSELS The aortic root is mildly enlarged. The ascending aorta is mildly dilated at 3.4 cm. The IVC is lamar l in size and collapses >50% with inspiration. PERICARDIAL EFFUSION There is no evidence of significant pericardial effusion. Critical Notification Critical Value: No <Conclusion> The left ventricular systolic function is normal and the ejection fraction is within normal range. E stimated ejection fraction 55%. There is normal LV segmental wall motion. The ascending aorta is mildly dilated at 3.4 cm. Signed by : Tez Rooney, Electronically Approved : 10/26/2021 10:08:33
== END ==
LOC: ECHO 09:51
PROVIDERS: ATTEND Internal Medicine Cardiovascular Disease
DX: I34.0 Nonrheumatic mitral (valve) insufficiency (principal); I77.810 Thoracic aortic ectasia; I47.1 Supraventricular tachycardia
CPT/HCPCS: 93306

== ENCOUNTER → 2021-10-26 | Outpatient (CLI) | payer MEDICARE ==
[~2021-10-26] MED LIST changes: +IOHEXOL 180 MG/ML 10 ML VIAL. ONE; +methylPREDNISolone ACETATE 40 MG/ML VIAL. ONE; +methylPREDNISolone ACETATE 80 MG/ML VIAL. ONE
--- NOTE | 2021-10-26 17:04 | PDOC ---
Progress Note - Pain Clinic Date of Service: DOS: DATE: 10/26/21 TIME: 16:59 Diagnosis: Dx: Lumbar radiculopathy with lumbar degenerative disease and lumbar spinal stenosis Osteoarthritis bilateral knees bilateral hips History or Present Illness: HPI: 71-year-old male returns for follow-up status post lumbar epidural steroid injection September 28 patient reports he did very well with 50% improvement in the pain low back and right lower extremity patient reports he is increase his activity with greater ease and comfort try with greater ease doing work activities household activities sleeping better at night still sleeping better does not awaken from sleep generally patient reports is better with sitting or laying down worse with standing walking changing positions or getting up from a seated position patient also has significant complaints of pain in the bilateral hips and knees with some radiation into the groin bilaterally worse on the right than the left but very significant pain with knees especially with climbing stairs or steps putting all of his weight on 1 leg or the other. Patient reports he has had arthritis for some period of time is not taking any medications for that other than wqzc-kqm-rgtaisa which does not help very significantly. Patient reports no bowel or bladder incontinence rates his pain is a 10 on scale 10 is worse over the past week 8 on average 6 its least and is a 7 today. Physical Exam: VS: Blood pressure is 117/60 pulse 80 respirations 18 temperature 98.0 F height is 5 feet 9 inches weight is 193 pounds PE: PHYSICAL EXAMINATION: GENERAL: The patient is awake, alert, oriented, appropriate, very pleasant in demeanor HEENT: Shows normocephalic, atraumatic. Extraocular movements are intact and s ymmetrical. Oral cavity: Mucous membranes moist and pink. NECK: Shows anterior throat supple without palpable lymphadenopathy noted. Swallow reflex symmetrical. CHEST: Shows normal on inspection. Breath sounds are clear bilaterally, distant but no rales rhonchi or wheezes auscultated. HEART: Shows S1, S2 clear. No murmurs auscultated. ABDOMEN: Soft, nontender, nondistended. No palpable organomegaly is noted. BACK: Shows spine grossly in the midline. Normal-appearing cervical lordotic curvature. There is increased thoracic kyphosis, some flattening of the lumbar lordotic curvature. Lumbar paraspinous muscles show symmetrical on inspection, on palpation shows some moderate tenderness diffusely throughout the upper, middle and lower distribution of the paraspinous muscles without specific trigger points, without radiation of pain. The patient has good rotational motion of the lumbar spine, both laterally as well as extension and flexion without significant difficulty. No tenderness over the spinous processes, sacrum or sacroiliac regions. EXTREMITIES: Lower extremities show deep tendon reflexes 1+ in the patellar and tendo calcaneus tendons. Motor exam is 4 on a scale of 5 with right dorsiflexion, extension, quadriceps and hamstring flexion and 5/5 on the left. Peripheral pulses are 1+ posterior tibial. No peripheral edema is noted bilaterally. Lower extremities are warm and dry to touch, equal in color and appearance. Patient's hip shows positive Bethel's maneuver is mildly but positive bilaterally worse on the right than the left with external rotation posterior displacement of the hips, knees show significant tenderness with standing but good range of motion with passive motion without ratcheting or crepitus bilaterally with some moderate tenderness only in the inferior aspect of the patella and the medial collateral ligaments with direct palpation but without radiation bilaterally. SKIN: Shows warm and dry, good turgor. No edema. No sores, rashes or bruising throughout. Procedure: Procedure: Options discussed with the patient. Patient chart was reviewed his current medication regimen updated current review of systems updated today as well. We will proceed with a lumbar epidural steroid injection today with fluoroscopic guidance. Risks were discussed including but not limited to: Bleeding, infection, possibility of epidural hematoma and subsequent neurological compromise, dural puncture, headaches, spinal cord and/or nerve damage, side effects of steroid medication, and poor results regarding pain control. Patient understands and wished to proceed. Patient will return to the clinic in approximately 2 weeks for follow-up, was counseled as return appointment, activity level, and side effect to be aware of. Also will start new medication for osteoarthritis pain of Celebrex 200 mg daily. Patient was given instructions well side effects aware with the medication including increased bruising or bleeding in commendation with his anticoagulation therapy. Medication Injected: Med Injected: Procedure is lumbar epidural steroid injection under local anesthetic using sterile prep and drape at the L4-5 level using C-arm fluoroscopic guidance in both AP and lateral views medications injected is 120 mg Depo-Medrol +10mL preservative-free normal saline and 2 mL contrast- condition at discharge is stable patient tolerated procedure well had no complications. Condition at Discharge: Condition at Discharge: Condition at discharge is stable, patient tolerated the procedure well and had no complications. ILIANA LOPEZ MD Oct 26, 2021 17:04
--- NOTE | 2021-10-26 17:05 | PDOC4 ---
Procedure Note: ICD 10 Code: ICD 10 Code: M54.16 M51.36 M 48.06 Procedure Note: Patient was consented for lumbar epidural steroid injection with fluoroscopic guidance. Risks were discussed including but not limited to: Bleeding, infection, possibility of epidural hematoma and subsequent neurological compromise, dural puncture, headaches, spinal cord and/or nerve damage, side effects of steroid medication, and poor results regarding pain control. Patient understands and wished to proceed. Procedure is lumbar epidural steroid injection under local anesthetic using beatriz rile prep and drape at the L4-5 level using C-arm fluoroscopic guidance in both AP and lateral views medications injected is 120 mg Depo-Medrol +10mL preservative-free normal saline and 2 mL contrast- condition at discharge is stable patient tolerated procedure well had no complications. ILIANA LOPEZ MD Oct 26, 2021 17:05
== END | disposition home or self-care (01) ==
LOC: PNCL 10:11
PROVIDERS: ATTEND Anesthesiology
DX: M51.16 Intervertebral disc disorders with radiculopathy, lumbar region (principal); M48.061 Spinal stenosis, lumbar region without neurogenic claudication; M17.0 Bilateral primary osteoarthritis of knee; M16.0 Bilateral primary osteoarthritis of hip; I10 Essential (primary) hypertension; K21.9 Gastro-esophageal reflux disease without esophagitis; E11.9 Type 2 diabetes mellitus without complications; E66.9 Obesity, unspecified; F41.9 Anxiety disorder, unspecified; Z87.891 Personal history of nicotine dependence; Z79.899 Other long term (current) drug therapy; Z98.890 Other specified postprocedural states; Z72.89 Other problems related to lifestyle; Z82.49 Family history of ischemic heart disease and other diseases of the circulatory system
CPT/HCPCS: 62323; J1030; J1040; Q9965

== ENCOUNTER → 2022-01-04 | Outpatient (CLI) | payer MEDICARE ==
[~2022-01-04] MED LIST changes: +DEXAMETHASONE PRES.FREE 10 MG/ML VIAL. ONE; -EMPA10TA PO; +EMPA10TA3 PO; -FLUC200T4 PO; +FLUC200T6 PO; -methylPREDNISolone ACETATE 40 MG/ML VIAL. ONE; -methylPREDNISolone ACETATE 80 MG/ML VIAL. ONE
--- NOTE | 2022-01-04 09:08 | PDOC ---
Progress Note - Pain Clinic Date of Service: DOS: DATE: 01/04/22 TIME: 09:05 Diagnosis: Dx: Lumbar radiculopathy with lumbar degenerative disease lumbar spinal stenosis Osteoarthritis History or Present Illness: HPI: 71-year-old male returns for follow-up status post lumbar epidural steroid injection last seen October 17 patient reports he did very well with about 80% improvement in low back and right lower extremity pain patient reports that the pain began to return over the past few weeks and is now having new pain in the left lower extremity which is unusual is always on his right side patient reports in the left leg posterior gluteus posterior thigh lateral thigh anterior thigh medial thigh medial lower leg some on the right as well but much worse on the left now patient reports no injury or accident that would have caused this that she simply came up and is now mostly on the left side patient reports is aching and sharp shooting cramping can be severe at times worse with walking standing change positions better with sitting or laying down generally does not awaken from sleep at night patient reports no bowel or bladder incontinence significant instability and using a cane today when he is walking with his right hand. Patient reports pain is a 10 on scale 10 is worst over the past week 9 on average 7 at its least is a 9 today. Patient reports no motor deficits but significant fatigability of the left lower extremity now which is new for him however the right is still fatigued is less fatigued than the left side. Physical Exam: VS: Blood pressure is 138/55 pulse 69 respirations are 18 temperature 40 Fahrenheit height 5 feet 7 inches weight is 200 pounds. PE: PHYSICAL EXAMINATION: GENERAL: The patient is awake, alert, oriented, appropriate, very pleasant in demeanor, patient accompanied by his . HEENT: Shows normocephalic, atraumatic. Extraocular movements are intact and symmetrical. Oral cavity: Mucous membranes moist and pink. Dentition is intact. NECK: Shows anterior throat supple without palpable lymphadenopathy noted. Swallow reflex symmetrical. CHEST: Shows normal on inspection. Breath sounds are clear bilaterally, distant but no rales or rhonchi. HEART: Shows S1, S2 clear. No murmurs auscultated. ABDOMEN: Soft, nontender, nondistended. No palpable organomegaly is noted. BACK: Shows spine grossly in the midline. Normal-appearing cervical lordotic curvature. There is slightly increased thoracic kyphosis, some flattening of the lumbar lordotic curvature. Lumbar paraspinous muscles show symmetrical on inspection, on palpation shows some moderate tenderness diffusely throughout the upper, middle and lower distribution of the paraspinous muscles without specific trigger points, without radiation of pain. The patient has good rotational motion of the lumbar spine, both laterally as well as extension and flexion without significant difficulty. No tenderness over the spinous processes, sacrum or sacroiliac regions. EXTREMITIES: Lower extremities show deep tendon reflexes 1 in the patellar and tendo calcaneus tendons. Motor exam is 4 on a scale of 5 with right dorsiflexion, extension, quadriceps and hamstring flexion and 4/5 on the left. Peripheral pulses are 1+ posterior tibial. No peripheral edema is noted bilaterally. Lower extremities are warm and dry to touch, equal in color and appearance. SKIN: Shows warm and dry, good turgor. No edema. No sores, rashes or bruising throughout. Procedure: Procedure: Options were discussed with the patient. Patient's old chart was reviewed his current medication regimen updated current review of systems updated today as well. We will proceed with a lumbar epidural steroid injection today with fluoroscopic guidance. Risks were discussed including but not limited to: Bleeding, infection, possibility of epidural hematoma and subsequent neurological compromise, dural puncture, headaches, spinal cord and/or nerve damage, side effects of steroid medication, and poor results regarding pain control. Patient understands and wished to proceed. Patient will return to the clinic in approximately 2 weeks for follow-up, was counseled as to return appointment, active level, and side effect to be aware of. Medication Injected: Med Injected: Procedure is lumbar epidural steroid injection under local anesthetic using sterile prep and drape at the L4-5 level using C-arm fluoroscopic guidance in both AP and lateral views medications injected is 20 mg dexamethasone +10mL preservative-free normal saline and 2 mL contrast- condition at discharge is stable patient tolerated procedure well had no complications. Condition at Discharge: Condition at Discharge: Condition at discharge stable, patient tolerated the procedure well and had no complications. ILIANA LOPEZ MD Jan 04, 2022 09:08
--- NOTE | 2022-01-04 09:09 | PDOC4 ---
Procedure Note: ICD 10 Code: ICD 10 Code: M54.16 M51.36 M4 8.06 Procedure Note: Patient was consented for lumbar epidural steroid injection with fluoroscopic guidance. Risks were discussed including but not limited to: Bleeding, infection, possibility of epidural hematoma and subsequent neurological compromise, dural puncture, headaches, spinal cord and/or nerve damage, side effects of steroid medication, and poor results regarding pain control. Patient understands and wished to proceed. Procedure is lumbar epidural steroid injection under local anesthetic using beatriz rile prep and drape at the L4-5 level using C-arm fluoroscopic guidance in both AP and lateral views medications injected is 20 mg dexamethasone +10mL preservative-free normal saline and 2 mL contrast- condition at discharge is stable patient tolerated procedure well had no complications. ILIANA LOPEZ MD Jan 04, 2022 09:09
== END | disposition home or self-care (01) ==
LOC: PNCL 08:07
PROVIDERS: ATTEND Anesthesiology
DX: M51.16 Intervertebral disc disorders with radiculopathy, lumbar region (principal); M48.061 Spinal stenosis, lumbar region without neurogenic claudication; M19.90 Unspecified osteoarthritis, unspecified site; I10 Essential (primary) hypertension; E66.9 Obesity, unspecified; J45.909 Unspecified asthma, uncomplicated; E11.9 Type 2 diabetes mellitus without complications; F41.9 Anxiety disorder, unspecified; Z87.891 Personal history of nicotine dependence; Z79.82 Long term (current) use of aspirin; Z79.4 Long term (current) use of insulin; Z79.899 Other long term (current) drug therapy; Z98.890 Other specified postprocedural states; Z72.89 Other problems related to lifestyle
CPT/HCPCS: 62323; J1100; Q9965